=== PATIENT | male | born 1945 | race Caucasian/White ===

== ENCOUNTER → 2016-06-24 | Day surgery (SDC) | payer BC ==
[2016-06-02 11:16] VITALS: BMI 31.0
[~2016-06-24] VITALS: Ht 177.8 cm; Wt 100.0 kg
[~2016-06-24] MED LIST: ACET-1256 PO; ALLO300T2 PO; GLIM1TAB2 PO; LIDOCAINE HCL 2% 2 ML VIAL (20MG/ML) ONE; METF1000 PO; MIDAZOLAM HCL 1 MG/ML 2ML VIAL ONE; ONDANSETRON INJ 2 MG/ML 2 ML VIAL ONE; PROP1TAB53 PO; PROPOFOL IV EMULSION 10 MG/ML 20 ML VIAL IV ONE; SODIUM CHLORIDE 0.9% 500ML 500 ML IV ONE
[2016-06-24 07:56] VITALS: Ht 177.8 cm; Wt 100.0 kg
--- NOTE | 2016-06-24 08:40 | Endo History and Physical ---
History & Physical Date of Service: Jun 24, 2016. Chief Complaint: esophageal varices Referring Physician: venkata hernandez History of Present Illness 70 yo CM who presents for EGD secondary to esophageal varices and cirrhosis. Past Medical History Diabetes, Gastrointestinal Disorder, High Cholesterol, Liver Disease Past Surgical History Hx Cardiac Surgery: No Hx Internal Defibrillator: No Hx Pacemaker: No Hx Abdominal Surgery: Yes (INGUINAL HERNIA REPAIR ) Hx of Implantable Prosthesis: No Hx Post-Op Nausea and Vomiting: No Hx Cancer Surgery: No Hx Thoracic Surgery: No Hx Orthopedic: No Hx Urinary Tract Surgery: No Family History None Social History Smoking Status: Never Smoker Hx Substance Use: No Hx Alcohol Use: Yes (RARELY) Allergies Coded Allergies: No Known Allergies (Unverified , 06/24/16) Current Medications Reported Home Medications Medications Dose Route/Sig Max Daily Dose Days Date Category Glimepiride 1 Mg Tab 1 Tab PO QAM 90 06/02/16 Reported Propranolol HCl 10 Mg Tab 10 Mg PO BID 05/29/14 Reported Glucophage (Metformin Hcl) 1,000 Mg Tab 1,000 Mg PO BIDM 05/29/14 Reported Zyloprim (Allopurinol) 300 Mg Tab 300 Mg PO QAM 05/29/14 Reported Vital Signs Weight (Kilograms): 100.00 Height (Feet): 5 Height (Inches): 10 Date Time Temp Pulse Resp B/P Pulse Ox O2 Delivery O2 Flow Rate FiO2 06/24/16 08:13 36.9 64 18 140/71 97 Room Air Physical Exam General Appearance: WD/WN, no apparent distress Respiratory/Chest: Auscultation: breath sounds normal Cardiovascular: Heart Auscultation: RRR Abdomen: Bowel Sounds: normal Inspection & Palpation: soft, non-distended, no tenderness, guarding & rebound Assessment and Plan Assessment: 70 yo CM who presents for EGD secondary to esophageal varices and cirrhosis. Plan: Proceed with EGD.
--- NOTE | 2016-06-24 09:05 | Discharge Instructions ---
Endoscopy Patient Instructions Date / Procedure(s) Performed Jun 24, 2016. EGD Allergy Information Coded Allergies: No Known Allergies (Unverified , 06/24/16) Discharge Date / Findings Jun 24, 2016. Alcohol induced gastropathy Hiatal hernia Medication Instructions Stopped Medication(s): metformin OK to resume all medications today as prescribed. Reported Home Medications Medications Dose Route/Sig Max Daily Dose Days Date Category Glimepiride 1 Mg Tab 1 Tab PO QAM 90 06/02/16 Reported Propranolol HCl 10 Mg Tab 10 Mg PO BID 05/29/14 Reported Glucophage (Metformin Hcl) 1,000 Mg Tab 1,000 Mg PO BIDM 05/29/14 Reported Zyloprim (Allopurinol) 300 Mg Tab 300 Mg PO QAM 05/29/14 Reported Provider Instructions Activity Restrictions - No exercising or heavy lifting for 24 hours. - Do not drink alcohol the day of the procedure. - Do not drive a car or operate machinery until the day after the procedure. - Do not make any important decisions or sign important papers in 24 hours after the procedure. Following Day: - Return to full activity which may include returning to work/school. Diet Start your diet with liquids and light foods (jello, soup, juice, toast). Then eat your usual diet if not nauseated. Treatment For Common After Affects For mild abdominal pain, bloating, or excessive gas: - Rest - Eat lightly - Lie on right side Follow-Up Information Follow-up with venkata hernandez as scheduled Anesthesia Information What You Should Know You have had a procedure that required some medicine to reduce anxiety and discomfort. This treatment is called moderate sedation. After receiving the treatment, you may be sleepy, but you will be able to breathe on your own. The effects of the treatment may last for several hours. Follow these instructions along with Activity/Diet recommendations noted above: * Do NOT do anything where dizziness or clumsiness would be dangerous. * Rest quietly at home today, then you can be up and about tomorrow. * Have a responsible person stay with you the rest of today. * You may have had an I.V. today. If so, you may take the dressing off later today. Recommendations Call your doctor if: * Trouble breathing * Continuous vomiting for more than 24 hours * Temperature above 101 degrees * Severe abdominal pain or bloating * Pain not relieved by pain medicine ordered * There is increased drainage or redness from any incision * A large amount of rectal bleeding greater than 2-3 tablespoons. (If you had a polyp/s removed or have hemorrhoids, a small amount of blood - from the rectum is to be expected.) * You have any unanswered questions or concerns. IN THE EVENT OF A SERIOUS EMERGENCY, GO TO THE NEAREST EMERGENCY ROOM Your discharge instructions were prepared by provider Shen De Santiago. Patient Instructions Signature Page Neville Gerard Patient (or Guardian) Signature/Date: I have read and understand the instructions given to me by my caregivers. Caregiver/RN/Doctor Signature/Date: The above-named patient and/or guardian has received patient instructions on this date. + Original Patient Signature Page (only) stays with chart. Please make copy for patient.
--- NOTE | 2016-06-24 09:17 | Anesthesiology Progress Note ---
Anesthesia Post Op Note Date & Time Jun 24, 2016 at 09:17 Vital Signs Pain Intensity: 0 Vital Signs Past 12 Hours Date Time Temp Pulse Resp B/P Pulse Ox O2 Delivery O2 Flow Rate FiO2 06/24/16 09:10 70 18 143/67 97 Room Air 06/24/16 08:55 72 18 109/59 97 Room Air 06/24/16 08:13 36.9 64 18 140/71 97 Room Air Notes Mental Status: alert / awake / arousable, participated in evaluation Pt Amnestic to Procedure: Yes Nausea / Vomiting: adequately controlled Pain: adequately controlled Airway Patency, RR, SpO2: stable & adequate BP & HR: stable & adequate Hydration State: stable & adequate Anesthetic Complications: no major complications apparent
--- NOTE | 2016-06-24 09:22 | GI REPORT ---
Procedure Date: 06/24/2016 8:40 AM Procedure: Upper GI endoscopy Indications: Follow-up of esophageal varices Medicines: Monitored Anesthesia Care Complications: No immediate complications. Estimated Blood Loss: Estimated blood loss: none. Procedure: Pre-Anesthesia Assessment: - Prior to the procedure, a History and Physical was performed, and patient medications and allergies were reviewed. The patient's tolerance of previous anesthesia was also reviewed. The risks and benefits of the procedure and the sedation options and risks were discussed with the patient. All questions were answered, and informed consent was obtained. Prior Anticoagulants: The patient has taken no previous anticoagulant or antiplatelet agents. ASA Grade Assessment: III - A patient with severe systemic disease. After reviewing the risks and benefits, the patient was deemed in satisfactory condition to undergo the procedure. After obtaining informed consent, the endoscope was passed under direct vision. Throughout the procedure, the patient's blood pressure, pulse, and oxygen saturations were monitored continuously. The scope was introduced through the mouth, and advanced to the second part of duodenum. The upper GI endoscopy was accomplished without difficulty. The patient tolerated the procedure well. Findings: The esophagus was normal. A small hiatus hernia was present. A few dispersed, non-bleeding erosions were found in the entire examined stomach. There were no stigmata of recent bleeding. The examined duodenum was normal. Impression: - Normal esophagus. - Small hiatus hernia. - Non-bleeding erosive gastropathy. - Normal examined duodenum. - No specimens collected. Recommendation: - Resume previous diet. - Continue present medications. - Repeat the upper endoscopy in 1 year for surveillance. - Return to primary care physician as previously scheduled. Shen De Santiago, DO 06/24/2016 9:22:15 AM This report has been signed electronically. Note Initiated On: 06/24/2016 8:40 AM I attest to the content of the Intraoperative Record and orders documented therein, exceptions below
[2016-06-24 09:25] VITALS: BP 130/69; PULSE 66; O2SAT 97
[2016-06-24 11:02] LABS: INR 1.4 (0.9-1.1); PROTHROMBIN TIME (PATIENT) 14.7 SECONDS (9.0-12.0)
[2016-06-24 11:05] LABS: MEAN CELL VOLUME 99.4 fL (80-100); MEAN CORPUSCULAR HEMOGLOBIN 34.9 pg (25-34); MEAN CORPUSCULAR HGB CONC 35.1 g/dl (32-36); RED BLOOD COUNT 3.52 M/uL (4.7-6.1); WHITE BLOOD COUNT 5.49 K/uL (4.8-10.8)
[2016-06-24 11:20] LABS: ESTIMATED AVERAGE GLUCOSE 117 mg/dl; HA1C FLAG Normal (Normal)
[2016-06-24 11:55] LABS: BASO % 0.4 %; BASO ABS # 0.02 K/uL (0-0.2); COMPLETE YES; EOS % 4.7 %; IG% 0.2 %; LYMPH % 30.2 %; LYMPH ABS # 1.66 K/uL (1.2-3.4); MEAN PLATELET VOLUME 10.1 fL (7.4-10.4); MONO % 11.8 %; NEUT % 52.7 %; PLATELET COUNT 90 K/uL (130-400); PLT ESTIMATE DECREASED
[2016-06-24 11:56] LABS: ALB/GLOB RATIO 0.6 (0.9-2); BUN/CREATININE RATIO 7.6 (10-20); CALCIUM 8.4 mg/dl (8.5-10.1); CREATININE 0.74 mg/dl (0.60-1.40); POTASSIUM 4.1 mmol/L (3.5-5.1); THYROID STIMULATING HORMONE 1.69 uIu/ml (0.300-4.500)
[2016-06-29 21:34] LABS: AFP TUMOR MARKER SERUM 8.5 NG/ML (<6.1)
== END | disposition home or self-care (01) ==
LOC: C.GI 07:49
PROVIDERS: ATTEND Internal Medicine
DX: I85.00 Esophageal varices without bleeding (principal); K74.60 Unspecified cirrhosis of liver; K44.9 Diaphragmatic hernia without obstruction or gangrene; K76.9 Liver disease, unspecified; E11.9 Type 2 diabetes mellitus without complications; E78.5 Hyperlipidemia, unspecified; I10 Essential (primary) hypertension

== ENCOUNTER → 2016-06-30 | Outpatient (CLI) | payer BC ==
[~2016-06-30] MED LIST changes: -LIDOCAINE HCL 2% 2 ML VIAL (20MG/ML) ONE; -MIDAZOLAM HCL 1 MG/ML 2ML VIAL ONE; -ONDANSETRON INJ 2 MG/ML 2 ML VIAL ONE; -PROPOFOL IV EMULSION 10 MG/ML 20 ML VIAL IV ONE; -SODIUM CHLORIDE 0.9% 500ML 500 ML IV ONE
--- NOTE | 2016-06-30 10:12 | DIAGNOSTIC IMAGING REPORT ---
(LIVER) ABDOMEN LIMITED CLINICAL HISTORY: K74.60 [id number] COMPARISON STUDY: No previous studies for comparison. FINDINGS: The pancreas appear normal as visualized. The liver demonstrates coarsened echotexture consistent with the history of cirrhosis. There is low volume ascites. There is no ductal dilatation. The common bile duct measures 5 mm. There is reversed flow within the portal vein. There is no right-sided hydronephrosis. Multiple gallstones are visualized. IMPRESSION: 1. Ultrasonographic evidence of cirrhosis with hepatofugal portal venous flow 2. Upper abdominal varicosities consistent with portal venous hypertension 3. Cholelithiasis. No evidence of ductal dilatation. 4. Low volume ascites Electronically signed by: Jeremy Freeman M.D. 06/30/2016 10:11 AM Dictated Date/Time: 06/30/2016 10:04 AM
== END | disposition home or self-care (01) ==
LOC: C.ULTR 09:10
PROVIDERS: ATTEND Internal Medicine
DX: K74.60 Unspecified cirrhosis of liver (principal)

== ENCOUNTER → 2016-08-01 | Outpatient (CLI) | payer BC ==
--- NOTE | 2016-08-01 11:38 | DIAGNOSTIC IMAGING REPORT ---
Right upper quadrant ultrasound (LIVER) ABDOMEN LIMITED CLINICAL HISTORY: K74.60 Unspecified cirrhosis of [id number] hepatic cirrhosis TECHNIQUE: Ultrasound COMPARISON STUDY: 06/30/2016 FINDINGS: Gallstones are again noted. Gallbladder wall measures 3 mm. Common bile duct is 5 mm. Findings of stable hepatic cirrhosis. Unchanged venous flow characteristics. Patent upper abdominal varicosities with a trace amount of perihepatic ascites. IMPRESSION: 1. No change compared to the prior study. 2. Cirrhotic change of liver with hepatofugal portal venous flow 3. Patent upper abdominal varicosities 4. Trace perihepatic ascites Electronically signed by: Win Lima M.D. 08/01/2016 11:37 AM Dictated Date/Time: 08/01/2016 11:35 AM
== END | disposition home or self-care (01) ==
LOC: C.ULTR 10:33
PROVIDERS: ATTEND Physician Assistant
DX: K74.60 Unspecified cirrhosis of liver (principal)

== ENCOUNTER → 2016-09-09 | Outpatient (CLI) | payer BC ==
[2016-09-09 14:17] LABS: ALB/GLOB RATIO 0.6 (0.9-2); ALKALINE PHOSPHATASE 144 U/L (45-117); ALT/SGPT 34 U/L (12-78); BLOOD UREA NITROGEN 10 mg/dl (7-18); BUN/CREATININE RATIO 14.2 (10-20); CALCIUM 8.7 mg/dl (8.5-10.1); CARBON DIOXIDE 24 mmol/L (21-32); CHLORIDE 106 mmol/L (98-107); CREATININE 0.71 mg/dl (0.60-1.40); GLUCOSE 127 mg/dl (70-99); HDL CHOLESTEROL 55 mg/dl; SODIUM 138 mmol/L (136-145)
[2016-09-09 14:36] LABS: AST/SGOT 53 U/L (15-37)
[2016-09-11 02:57] LABS: REFERENCE QUEST TEST REPORT
== END | disposition home or self-care (01) ==
LOC: C.LAB1850 09:12
PROVIDERS: ATTEND Internal Medicine Pulmonary Disease
DX: Z00.00 Encounter for general adult medical examination without abnormal findings (principal); E11.9 Type 2 diabetes mellitus without complications; E29.1 Testicular hypofunction; M10.00 Idiopathic gout, unspecified site; K70.30 Alcoholic cirrhosis of liver without ascites

== ENCOUNTER 2016-10-31 17:01 | Emergency (ER) | payer BC ==
[~2016-10-31] VITALS: Ht 177.8 cm; Wt 91.0 kg
[~2016-10-31 17:01] MED LIST changes: -ACET-1256 PO
[2016-10-31 17:08] VITALS: TEMP 36.7; Ht 177.8 cm; Wt 91.0 kg
[2016-10-31] MEDS ORDERED: ACET-1256 PO (18:13)
--- NOTE | 2016-10-31 18:13 | DIAGNOSTIC IMAGING REPORT ---
LEFT KNEE 3 VIEWS CLINICAL HISTORY: Left knee twisting injury. Pain and swelling. FINDINGS: AP, crosstable lateral, and sunrise views of left knee are obtained. No prior studies are available for comparison at the time of dictation. The skeletal structures are osteopenic. There is an avulsion fracture identified arising from the medial femoral condyle best seen on the frontal view. Overlying soft tissue edema is observed. No additional fracture is seen. There is only mild tricompartmental degenerative joint space narrowing, greatest at the patellofemoral articulation. There are tiny marginal osteophytes, degenerative beaking of the tibial spine, and tiny patellar enthesophytes. A calcified fabella is incidentally noted. There is a large joint effusion. Atherosclerotic calcification is noted in the popliteal artery. IMPRESSION: 1. There is an avulsion fracture arising from the medial femoral condyle with overlying soft tissue edema. 2. No additional fracture is seen. 3. Large joint effusion. Electronically signed by: Lele Vera M.D. 10/31/2016 6:11 PM Dictated Date/Time: 10/31/2016 6:08 PM
--- NOTE | 2016-10-31 18:29 | EMERGENCY ROOM VISIT NOTE ---
ED Visit Note First contact with patient: 17:20 CHIEF COMPLAINT: knee pain HISTORY OF PRESENT ILLNESS: This 71-year-old male patient presents to the emergency department ambulatory complaining of pain and swelling in the left knee. The patient states that he was at the driving range 2 days ago and hit approximately 50 golf balls. He reports pain and swelling in the left knee, which is the knee that pivots when he swings the golf club. He denies any history of issues with this knee. He is having worsening pain with weightbearing. He rates his discomfort a 9/10. He has been able to ambulate with the aid of a cane. He has been applying ice to the knee without relief. No numbness or tingling. No previous injuries to this knee. No ankle, foot or hip pain. No redness or warmth. REVIEW OF SYSTEMS: A 6 system review of systems was completed with positives and pertinent negatives listed in the HPI. ALLERGIES: No known drug allergies MEDICATIONS: See med list PMH: Diabetes, cirrhosis SOCIAL HISTORY: The patient lives locally with family. Nonsmoker, denies alcohol use. PHYSICAL EXAM: Vital Signs: Reviewed Nurse's notes, vital signs stable. GENERAL : This is a 71-year-old male, no acute distress, but appears in pain, well- developed, well-nourished. MENTAL STATUS: Alert, oriented to person place and time, and cooperative. MUSCULOSKELETAL: The left knee is moderately swollen. There is no ecchymosis. Patient is tender over the anterior knee. There is no joint line tenderness. The patella does not subluxate. Range of motion is decreased due to swelling. Ligamentous exam is not able to be performed due to edema. The foot and toes are warm and well-perfused. Dorsalis pedis pulse 2+. Sensation to pain and light touch is intact. Capillary refill less than 2 seconds. RADIOGRAPHIC FINDINGS: LEFT KNEE 3 VIEWS CLINICAL HISTORY: Left knee twisting injury. Pain and swelling. FINDINGS: AP, crosstable lateral, and sunrise views of left knee are obtained. No prior studies are available for comparison at the time of dictation. The skeletal structures are osteopenic. There is an avulsion fracture identified arising from the medial femoral condyle best seen on the frontal view. Overlying soft tissue edema is observed. No additional fracture is seen. There is only mild tricompartmental degenerative joint space narrowing, greatest at the patellofemoral articulation. There are tiny marginal osteophytes, degenerative beaking of the tibial spine, and tiny patellar enthesophytes. A calcified fabella is incidentally noted. There is a large joint effusion. Atherosclerotic calcification is noted in the popliteal artery. IMPRESSION: 1. There is an avulsion fracture arising from the medial femoral condyle with overlying soft tissue edema. 2. No additional fracture is seen. 3. Large joint effusion. EMERGENCY DEPARTMENT COURSE: I examined the patient. X-rays of the left knee were reviewed by myself and read by radiology and reveal a large joint effusion and avulsion fracture of the medial femoral condyle. This likely occurred with the pivoting motion of the patient's golf swing. He was informed of the findings. The patient was placed in an Silverio wrap and instructed on the use of crutches. He will follow-up with his own orthopedist. He was instructed to elevate the knee for pain and apply ice frequently. The patient was discharged home in good condition. The patient was independently evaluated by Dr. Rm, ED attending physician, who agreed with my assessment and treatment plan. Medication reconciliation: I attest that I have personally reviewed the patient 's current medication list. Blood Pressure Screening: Patient was found to have a slightly elevated blood pressure due to circumstances. I do not believe that the patient requires hypertension monitoring. DIAGNOSIS: Avulsion fracture femoral condyle, left knee effusion Problem List Medical Problems: (1) Diabetes Status: Chronic (2) History of tibial fracture Status: Resolved (3) HTN (hypertension) Status: Chronic (4) Negative history for blood clots Status: Chronic Current/Historical Medications Scheduled Allopurinol (Zyloprim), 300 MG PO QAM Glimepiride (Glimepiride), 1 TAB PO QAM Metformin Hcl (Glucophage), 1,000 MG PO BIDM Propranolol HCl (Propranolol HCl), 10 MG PO BID Scheduled PRN Acetaminophen (Tylenol), 1,000 MG PO Q6 PRN for Pain or Fever Allergies Coded Allergies: No Known Allergies (Unverified , 06/24/16) Vital Signs Date Time Temp Pulse Resp B/P (MAP) Pulse Ox O2 Delivery O2 Flow Rate FiO2 10/31/16 19:08 78 20 150/82 98 10/31/16 17:08 36.7 75 18 176/81 97 Room Air Departure Information Impression Primary Impression: Avulsion fracture of femoral condyle Dispostion Home / Self-Care Condition GOOD Referrals Bernardo Caal M.D. (PCP) Dante Carranza D.O. Patient Instructions My [facility] Additional Instructions You have been treated in the Emergency Department for Knee Pain. The x-ray showed a small avulsion fracture of your knee. For pain control, you can use the following [id number] medicines (if >12 yo): - Regular strength (325mg/tab) Tylenol (acetaminophen) 2 tabs every 4-6 hours as needed. Do not exceed 12 tablets in a 24 hour period. Avoid taking more than 4 grams (4000 mg) of Tylenol per day. This includes any other sources of acetaminophen you may take on a regular basis. If this is a recent injury (<24 hrs), ice can be applied to the area of pain for the first 3 days to help decrease pain and inflammation. Ice massages can be performed by freezing water in a paper cup, peeling back the cup to expose the ice and then massaging over the affected area. You have been provided the number for an Orthopaedic Surgeon. You should call this number as soon as possible to establish a follow-up visit from today's Emergency Department visit. Wear the Silverio wrap and use the crutches you have been provided until follow up with orthopedics. Return to the Emergency Department if your current symptoms worsen despite treatment course outlined above. Problem Qualifiers Primary Impression: Avulsion fracture of femoral condyle Encounter type: initial encounter Fracture type: closed Laterality: left Qualified Codes: S72.412A - Displaced unspecified condyle fracture of lower end of left femur, initial encounter for closed fracture
--- NOTE | 2016-10-31 18:52 | EMERGENCY ROOM VISIT NOTE ---
ED Visit Note First contact with patient: 17:20 Staff note: I have reviewed the Patients chart and have discussed this case with my PA. I generally agree with the ED note and findings.
[2016-10-31 19:08] VITALS: BP 150/82; PULSE 78; O2SAT 98
== END 2016-10-31 19:09 | disposition home or self-care (01) ==
LOC: C.EDB 17:02 → C.EDD 19:09
DX: S72.412A Displaced unspecified condyle fracture of lower end of left femur, initial encounter for closed fracture (principal); X58.XXXA Exposure to other specified factors, initial encounter; E11.9 Type 2 diabetes mellitus without complications; K74.60 Unspecified cirrhosis of liver; I10 Essential (primary) hypertension

== ENCOUNTER → 2016-11-06 | Outpatient (CLI) | payer BC ==
[~2016-11-06] MED LIST changes: +ACET-1256 PO
--- NOTE | 2016-11-06 11:00 | DIAGNOSTIC IMAGING REPORT ---
Venous Doppler left leg LEFT VENOUS DOPP LOWER EXT UNILAT CLINICAL HISTORY: LEFT LEG PAIN/SWELLING pain. Edema. TECHNIQUE: Venous Doppler COMPARISON STUDY: None FINDINGS: Normal study. Note is made of a popliteal cyst measuring 5 x 3 x 1 cm. No evidence of deep venous thrombosis IMPRESSION: Negative for deep venous thrombosis. Popliteal cyst. Electronically signed by: Win Lima M.D. 11/06/2016 10:59 AM Dictated Date/Time: 11/06/2016 10:58 AM
[2016-11-06 14:09] LABS: SYNOVIAL FLUID APPEARANCE BLOODY; SYNOVIAL FLUID COLOR RED; SYNOVIAL FLUID MONONUC RELAT 93.8 %; SYNOVIAL FLUID POLYNUC RELAT 6.2 %
[2016-11-08 16:31] LABS: LYME DNA PCR CSF OR SYNOVIAL Not detected (Not Detected); LYME DNA SOURCE Synovial Fluid
== END | disposition home or self-care (01) ==
LOC: C.ULTRBC 10:02
PROVIDERS: ATTEND Orthopaedic Surgery
DX: M79.605 Pain in left leg (principal); M79.89 Other specified soft tissue disorders; M71.22 Synovial cyst of popliteal space [Baker], left knee

== ENCOUNTER → 2016-12-19 | Outpatient (CLI) | payer BC ==
--- NOTE | 2016-12-19 15:51 | DIAGNOSTIC IMAGING REPORT ---
BILATERAL LOWER EXTREMITY VENOUS DOPPLER HISTORY: Bilateral lower extremity swelling. COMPARISON STUDY: Left leg venous Doppler 11/06/2016. FINDINGS: There is normal compressibility, flow, and augmentation within the bilateral lower extremity deep venous systems. There is again noted a 4.8 x 2.0 x 0.9 cm left popliteal cyst. IMPRESSION: No DVT within the right or left lower extremity. Electronically signed by: Ras Moreira M.D. 12/19/2016 3:50 PM Dictated Date/Time: 12/19/2016 3:49 PM
--- NOTE | 2016-12-23 09:35 | CODING QUERY MEDICAL NECESSITY ---
SUPPORTING DIAGNOSIS NEEDED Walt ZEPEDA, A supporting diagnosis is required for the test/procedure performed on this patient in order for us to be reimbursed by the patient's insurance. Please provide a supporting diagnosis for the following test/procedure listed below next to the test name along with your signature. *If there is no additional diagnosis for this patient that would support the following test/procedure please document that below next to the test/procedure. Test(s)/Procedure(s) that require a supporting diagnosis: * ([id number]) VENOUS DOPPLER LOWER EXT BILAT DIAGNOSIS: DATE OF SERVICE: 12/19/16 Provider Signature: Date: Thank you Sorin Capone [facility] Information Management Once completed, please kindly fax back to [phone] For questions please call [phone]
== END | disposition home or self-care (01) ==
LOC: C.ULTR 14:59
PROVIDERS: ATTEND Physician Assistant Medical
DX: M79.89 Other specified soft tissue disorders (principal)

== ENCOUNTER → 2016-12-23 | Outpatient (CLI) | payer BC ==
[2016-12-23 14:16] LABS: ALB/GLOB RATIO 0.7 (0.9-2); ALKALINE PHOSPHATASE 138 U/L (45-117); ALT/SGPT 38 U/L (12-78); AST/SGOT 56 U/L (15-37); BLOOD UREA NITROGEN 10 mg/dl (7-18); BUN/CREATININE RATIO 12.1 (10-20); CALCIUM 8.8 mg/dl (8.5-10.1); CARBON DIOXIDE 27 mmol/L (21-32); CHLORIDE 103 mmol/L (98-107); CREATININE 0.81 mg/dl (0.60-1.40); GLUCOSE 230 mg/dl (70-99); POTASSIUM 4.1 mmol/L (3.5-5.1); SODIUM 140 mmol/L (136-145)
== END | disposition home or self-care (01) ==
LOC: C.LAB1850 11:02
PROVIDERS: ATTEND Physician Assistant Medical
DX: Z00.00 Encounter for general adult medical examination without abnormal findings (principal); M79.89 Other specified soft tissue disorders

== ENCOUNTER → 2017-01-01 | Outpatient (CLI) | payer BC ==
[2017-01-01 12:33] LABS: BLOOD UREA NITROGEN 13 mg/dl (7-18); BUN/CREATININE RATIO 16.1 (10-20); CALCIUM 9.4 mg/dl (8.5-10.1); CARBON DIOXIDE 25 mmol/L (21-32); CHLORIDE 106 mmol/L (98-107); CREATININE 0.82 mg/dl (0.60-1.40); GLUCOSE 146 mg/dl (70-99); POTASSIUM 3.7 mmol/L (3.5-5.1); SODIUM 142 mmol/L (136-145)
== END | disposition home or self-care (01) ==
LOC: C.LAB1850 11:09
PROVIDERS: ATTEND Physician Assistant Medical
DX: M79.89 Other specified soft tissue disorders (principal)

== ENCOUNTER → 2017-01-30 | Outpatient (CLI) | payer BC ==
[2017-01-30 15:25] LABS: BLOOD UREA NITROGEN 25 mg/dl (7-18); BUN/CREATININE RATIO 20.9 (10-20); CALCIUM 10.1 mg/dl (8.5-10.1); CARBON DIOXIDE 24 mmol/L (21-32); CHLORIDE 96 mmol/L (98-107); GLUCOSE 307 mg/dl (70-99); POTASSIUM 4.6 mmol/L (3.5-5.1); SODIUM 131 mmol/L (136-145)
[2017-01-30 15:48] LABS: BETA-HYDROXYBUTYRATE 1.85 mg/dL (0.2-2.81)
== END | disposition home or self-care (01) ==
LOC: C.LAB1850 12:57
PROVIDERS: ATTEND Nurse Practitioner
DX: R60.9 Edema, unspecified (principal)

== ENCOUNTER → 2017-02-12 | Outpatient (CLI) | payer BC ==
--- NOTE | 2017-02-12 10:55 | DIAGNOSTIC IMAGING REPORT ---
ABDOMINAL ULTRASOUND, RIGHT UPPER QUADRANT HISTORY: LAENNEC'S CIRRHOSIS. COMPARISON: Abdominal ultrasound 08/01/2016. FINDINGS: The pancreas appear normal as visualized. The liver demonstrates coarsened echotexture consistent with the history of cirrhosis. No ascites present. There is no ductal dilatation. The common bile duct measures 3 mm. There is reversed flow within the portal vein. There is no right-sided hydronephrosis. Multiple gallstones are visualized. IMPRESSION: 1. No change from the prior studies with evidence of cirrhosis and hepatofugal portal venous flow. 2. Upper abdominal varicosities consistent with portal venous hypertension 3. Cholelithiasis. No evidence of ductal dilatation. Electronically signed by: Ras Moreira M.D. 02/12/2017 10:53 AM Dictated Date/Time: 02/12/2017 10:50 AM
== END | disposition home or self-care (01) ==
LOC: C.ULTR 10:04
PROVIDERS: ATTEND Physician Assistant
DX: K70.30 Alcoholic cirrhosis of liver without ascites (principal); K74.60 Unspecified cirrhosis of liver

== ENCOUNTER → 2017-03-17 | Outpatient (CLI) | payer BC ==
[2017-03-17 10:24] LABS: HEMATOCRIT 33.6 % (42-52); MEAN CELL VOLUME 95.5 fL (80-100); MEAN CORPUSCULAR HEMOGLOBIN 33.8 pg (25-34); MEAN CORPUSCULAR HGB CONC 35.4 g/dl (32-36); MEAN PLATELET VOLUME 10.4 fL (7.4-10.4); PLATELET COUNT 70 K/uL (130-400); RED BLOOD COUNT 3.52 M/uL (4.7-6.1); WHITE BLOOD COUNT 6.08 K/uL (4.8-10.8)
[2017-03-17 10:29] LABS: BASO % 0.5 %; BASO ABS # 0.03 K/uL (0-0.2); COMPLETE YES; EOS % 9.2 %; IG% 0.3 %; LYMPH % 31.1 %; LYMPH ABS # 1.89 K/uL (1.2-3.4); MONO % 13.3 %; NEUT % 45.6 %; TOXIC GRANULATION 1+
[2017-03-17 10:34] LABS: ALT/SGPT 34 U/L (12-78); AST/SGOT 48 U/L (15-37); BLOOD UREA NITROGEN 14 mg/dl (7-18); BUN/CREATININE RATIO 14.8 (10-20); CALCIUM 8.8 mg/dl (8.5-10.1); CARBON DIOXIDE 23 mmol/L (21-32); CHLORIDE 103 mmol/L (98-107); CREATININE 0.94 mg/dl (0.60-1.40); GLUCOSE 203 mg/dl (70-99); POTASSIUM 3.8 mmol/L (3.5-5.1); SODIUM 134 mmol/L (136-145)
[2017-03-17 10:46] LABS: ALB/GLOB RATIO 0.6 (0.9-2); ALKALINE PHOSPHATASE 145 U/L (45-117)
[2017-03-17 10:46] LABS: RATIO 4.9 mcg/mg (0-30.0)
[2017-03-17 10:52] LABS: ESTIMATED AVERAGE GLUCOSE 186 mg/dl; HA1C FLAG Normal (Normal)
[2017-03-18 11:04] LABS: AFP TUMOR MARKER SERUM 7.1 NG/ML (<6.1)
== END | disposition home or self-care (01) ==
LOC: C.LAB1850 09:08
PROVIDERS: ATTEND Internal Medicine Pulmonary Disease
DX: K70.30 Alcoholic cirrhosis of liver without ascites (principal); I85.00 Esophageal varices without bleeding; E11.9 Type 2 diabetes mellitus without complications; M10.00 Idiopathic gout, unspecified site

== ENCOUNTER → 2017-03-23 | Day surgery (SDC) | payer BC ==
[2017-03-12 08:19] VITALS: Ht 177.8 cm; Wt 93.2 kg
[~2017-03-23] VITALS: Ht 177.8 cm; Wt 93.2 kg
[~2017-03-23] MED LIST changes: +500ML BSS 0.3ML EPI 1:1000PF IRRIG ONE; +ACETAMINOPHEN 325 MG TAB PO PRN; +AMVISC PLUS 0.8ML SYRINGE INT OCU ONE; +ATROPINE SULFATE 0.1 MG/ML 5ML SYR IV PRN; +BRIMONIDINE TART 0.2% OP SOLN PER DROP CHARGE ONE; +BSS FLUSH ONE; +ENDOCOAT 0.85ML SYRINGE INT OCU ONE; +EpHEDrine SULFATE INJ 50 MG/ML AMP IV PRN; +EpINEphrine INJ 1MG/ML AMP 1 MG/ML AMP ONE; +LACTATED RINGER'S 1000ML 500 ML IV SCH; +LIDOCAINE 4% OP SOLN DROP CHARGE ONE; +LIDOCAINE 4% OP SOLN DROP CHARGE OPL SCH; +LIDOCAINE HCL 1% MPF 2 ML VIAL ONE; +MIDAZOLAM HCL 1 MG/ML 2ML VIAL ONE; +MOXIFLOXACIN OPH SOLN PER DROP CHARGE ONE; +POVIDONE-IODINE OP SOLN 30 ML BTL ONE; +PROPARACAINE 0.5% OP SOLN PER DROP CHARGE OPL SCH; +TOBRAMYCIN/DEXAMETHASONE OPH OINT PER APPLN CHARGE ONE
[2017-03-23] MEDS: PHENYLEPHRINE HCL 2.5% OP SOLN PER DROP CHARGE OPL SCH ×2 (06:52→06:57)
[2017-03-23] MEDS: TROPICAMIDE 1% OP SOLN PER DROP CHARGE OPL SCH ×2 (06:53→06:58)
[2017-03-23] MEDS: CYCLOPENTOLATE HCL 1% OP SOLN PER DROP CHARGE OPL SCH ×2 (06:54→06:59)
[2017-03-23] MEDS: KETOROLAC 0.5% OP SOLN PER DROP CHARGE OPL SCH ×2 (06:55→07:00)
[2017-03-23] MEDS: MOXIFLOXACIN OPH SOLN PER DROP CHARGE OPL SCH ×2 (06:56→07:06)
--- NOTE | 2017-03-23 06:58 | History & Physical Bridge - SC ---
H&P Re-Evaluation Bridge Note: I have examined the patient, reviewed the History & Physical and in the interval since the performance of the History & Physical I have noted the following changes of clinical significance: No changes noted
--- NOTE | 2017-03-23 07:59 | Discharge Instructions-SurgCtr ---
Discharge Instructions Date of Service Mar 23, 2017. Visit Reason for Visit: Cataract Left Eye Discharge Discharge Diagnosis / Problem: cataract left eye Discharge Goals Goal(s): Improve function Medications Stopped Medications Name(s): METFORMIN STOPPED 2 DAYS AGO Activity Recommendations Activity Limitations: per Instructions/Follow-up section Lifting Limitations: no more than 5 pounds Anesthesia . Post Anesthesia Instructions: If you have had General Anesthesia or IV Sedation: * Do not drive today. * Resume driving when surgeon permits. * Do not make important decisions or sign legal documents today. * Call surgeon for: 1. Temperature elevations greater than 101 degrees F. 2. Uncontrollable pain. 3. Excessive bleeding. 4. Persistent nausea and vomiting. 5. Medication intolerance (nausea, vomiting or rash). * For nausea and vomiting use only clear liquids such as: tea, soda, bouillon until nausea subsides, then gradually increase diet as tolerated. * If you have any concerns or questions, call your surgeon's office. If physician is unavailable and it is an emergency, call 911 or go to the nearest emergency room. . Instructions / Follow-Up Instructions / Follow-Up ACTIVITY RECOMMENDATIONS: * Light activities * You may walk outside, read, watch television. * Mild irritation and blurred vision are common for the first few days, redness around the white part of the eye is common. MEDICATIONS: Resume previous medications unless instructed otherwise by your surgeon. Eye drops (today and tomorrow): Cipro - one drop in operative eye every 2 hours while awake Prednisolone 1% - one drop in operative eye every 2 hours while awake Ilevro - one drop operative eye 1 times daily SPECIAL CARE INSTRUCTIONS: * If any problems or concerns, please call Dr. Christopehr's office at . * Keep plastic shield taped over eye to sleep at night. * Keep plastic shield taped over eye except to administer eye drops. * Keep plastic shield on until office visit the following day. FOLLOW UP VISIT: Follow-up with Dr. Christopher in the [place] office as scheduled. If not already scheduled, please call the office at . Diet Recommendations Home Diet: resume previous diet Procedures Procedures Performed: Left Cataract Phacoemulsification With Intraocular Lens Implant Pending Studies Studies pending at discharge: no Medical Emergencies . Who to Call and When: Medical Emergencies: If at any time you feel your situation is an emergency, please call 911 immediately. . Non-Emergent Contact Non-Emergency issues call your: [facility] . . "Provider Documentation" section prepared by Jc Christopher. .
[2017-03-23 08:00] VITALS: TEMP 37
--- NOTE | 2017-03-23 08:01 | [facility] Operative Report ---
Operative Report Operative Date Mar 23, 2017. Pre-Operative Diagnosis Cataract Left Eye Post-Operative Diagnosis Same Procedure(s) Performed Left Cataract Phacoemulsification With Intraocular Lens Implant Surgeon Dr. Christopher Hot Top Liner Surgeon(s) None Estimated Blood Loss 0 Findings cataract left eye Fluids (cc crystalloids) see anesthesia record Specimens None Drains none Anesthesia local with sedation Complication(s) None Disposition Recovery Room / PACU Implants mx60 16.5 Indications decreased vision left eye Description of Procedure After informed consent was obtained in the holding area the patient was wheeled back to the operating room where cardiac monitoring leads and oxygen by nasal cannula was administered by Anesthesia. Gentle IV sedation was given, and the patient's left eye was prepped and draped in usual sterile fashion. A wire lid speculum was placed into the left eye and the operating microscope was swung into position. Using 0.12 forceps and a Supersharp blade a paracentesis port was made 2 o'clock hours away from the 3 o'clock position of the patient's left eye. 1% non-preserved Lidocaine was then injected into the anterior chamber for anesthesia. A 2.0 mm keratotome blade was then used to make a shelved clear corneal incision at the 3 o'clock position of the left eye. Amvisc was injected into the anterior chamber and a cystotome and Utrata forceps were used to perform a curvilinear capsulorrhexis. BSS on a hydrodissection cannula was used to hydrodissect the lens nucleus away from the capsular bag. The phacoemulsification handpiece was then used in a stop and chop fashion to remove the lens nucleus. The irrigation and aspiration handpiece was then used to remove the residual cortical material. Amvisc was injected into the capsular bag and anterior chamber and a Bausch & Lomb MX60 16.5 Diopter intraocular lens was injected into the capsular bag. Irrigation and aspiration handpiece was used to remove the residual viscoelastic material. The wounds were hydrated and noted to be watertight. The wire lid speculum was removed from the eye. Vigamox, Brimonidine, and TobraDex ointment were placed on the eye and it was shielded. It should be noted that EndoCoat was used extensively during the case to protect the cornea endothelium. DISPOSITION: The patient tolerated the procedure well and was wheeled to the post anesthesia care unit in stable condition. I attest to the content of the Intraoperative Record and any orders documented therein. Any exceptions are noted below. I attest to the content of the Intraoperative Record and any orders documented therein. Any exceptions are noted below.
--- NOTE | 2017-03-23 08:30 | Anesthesia Progress Nt - [facility] ---
Anesthesia Post Op Note Date & Time Mar 23, 2017 at 08:30 Vital Signs Pain Intensity: 0 Vital Signs Past 12 Hours Date Time Temp Pulse Resp B/P (MAP) Pulse Ox O2 Delivery O2 Flow Rate FiO2 03/23/17 08:00 37.0 64 12 125/71 (89) 96 Room Air 03/23/17 06:41 36.7 64 20 109/72 (84) 96 Room Air Notes Mental Status: alert / awake / arousable, participated in evaluation Pt Amnestic to Procedure: Yes Nausea / Vomiting: adequately controlled Pain: adequately controlled Airway Patency, RR, SpO2: stable & adequate BP & HR: stable & adequate Hydration State: stable & adequate Anesthetic Complications: no major complications apparent
[2017-03-23 08:46] VITALS: BP 108/68; PULSE 61; O2SAT 97
== END | disposition home or self-care (01) ==
LOC: X.SURG 06:31
PROVIDERS: ATTEND Ophthalmology
DX: H25.12 Age-related nuclear cataract, left eye (principal); E11.9 Type 2 diabetes mellitus without complications; K76.9 Liver disease, unspecified

== ENCOUNTER → 2017-04-13 | Day surgery (SDC) | payer BC ==
[2017-03-31 14:47] VITALS: Ht 177.8 cm; Wt 93.2 kg
[~2017-04-13] VITALS: Ht 177.8 cm; Wt 93.2 kg
[~2017-04-13] MED LIST changes: +BRIMONIDINE TARTRATE 0.2% 5ML ONE; -LIDOCAINE 4% OP SOLN DROP CHARGE OPL SCH; +LIDOCAINE 4% OP SOLN DROP CHARGE OPR SCH; +ONDANSETRON INJ 2 MG/ML 2 ML VIAL IV PRN; -PROPARACAINE 0.5% OP SOLN PER DROP CHARGE OPL SCH; +PROPARACAINE 0.5% OP SOLN PER DROP CHARGE OPR SCH
[2017-04-13] MEDS: PHENYLEPHRINE HCL 2.5% OP SOLN PER DROP CHARGE OPR SCH ×2 (06:37→06:42)
[2017-04-13] MEDS: TROPICAMIDE 1% OP SOLN PER DROP CHARGE OPR SCH ×2 (06:38→06:43)
[2017-04-13] MEDS: CYCLOPENTOLATE HCL 1% OP SOLN PER DROP CHARGE OPR SCH ×2 (06:39→06:44)
[2017-04-13] MEDS: KETOROLAC 0.5% OP SOLN PER DROP CHARGE OPR SCH ×2 (06:40→06:45)
[2017-04-13] MEDS: MOXIFLOXACIN OPH SOLN PER DROP CHARGE OPR SCH ×2 (06:41→06:49)
--- NOTE | 2017-04-13 07:32 | Discharge Instructions-SurgCtr ---
Discharge Instructions Date of Service Apr 13, 2017. Visit Reason for Visit: Cataract Right Eye Discharge Discharge Diagnosis / Problem: cataract right eye Discharge Goals Goal(s): Improve function Medications Stopped Medications Name(s): Diabetic medications stopped 48 hours Activity Recommendations Activity Limitations: per Instructions/Follow-up section Lifting Limitations: no more than 5 pounds Anesthesia . Post Anesthesia Instructions: If you have had General Anesthesia or IV Sedation: * Do not drive today. * Resume driving when surgeon permits. * Do not make important decisions or sign legal documents today. * Call surgeon for: 1. Temperature elevations greater than 101 degrees F. 2. Uncontrollable pain. 3. Excessive bleeding. 4. Persistent nausea and vomiting. 5. Medication intolerance (nausea, vomiting or rash). * For nausea and vomiting use only clear liquids such as: tea, soda, bouillon until nausea subsides, then gradually increase diet as tolerated. * If you have any concerns or questions, call your surgeon's office. If physician is unavailable and it is an emergency, call 911 or go to the nearest emergency room. . Instructions / Follow-Up Instructions / Follow-Up ACTIVITY RECOMMENDATIONS: * Light activities * You may walk outside, read, watch television. * Mild irritation and blurred vision are common for the first few days, redness around the white part of the eye is common. MEDICATIONS: Resume previous medications unless instructed otherwise by your surgeon. Eye drops (today and tomorrow): Cipro - one drop in operative eye every 2 hours while awake Prednisolone 1% - one drop in operative eye every 2 hours while awake Ilevro - one drop operative eye 1 times daily SPECIAL CARE INSTRUCTIONS: * If any problems or concerns, please call Dr. Christopher's office at . * Keep plastic shield taped over eye to sleep at night. * Keep plastic shield taped over eye except to administer eye drops. * Keep plastic shield on until office visit the following day. FOLLOW UP VISIT: Follow-up with Dr. Christopher in the [place] office as scheduled. If not already scheduled, please call the office at . Diet Recommendations Home Diet: resume previous diet Procedures Procedures Performed: Right Cataract Phacoemulsification With Intraocular Lens Implant Pending Studies Studies pending at discharge: no Medical Emergencies . Who to Call and When: Medical Emergencies: If at any time you feel your situation is an emergency, please call 911 immediately. . Non-Emergent Contact Non-Emergency issues call your: [facility] . . "Provider Documentation" section prepared by Jc Christopher. .
--- NOTE | 2017-04-13 07:34 | [facility] Operative Report ---
Operative Report Operative Date Apr 13, 2017. Pre-Operative Diagnosis Right Eye Cataract Post-Operative Diagnosis Same Procedure(s) Performed Right Cataract Phacoemulsification With Intraocular Lens Implant Surgeon Dr. Amarilys Christopher Grinder Operator Automatic Surgeon(s) None Estimated Blood Loss 0 Findings cataract right eye Fluids (cc crystalloids) see anesthesia record Specimens None Drains none Anesthesia local with sedation Complication(s) None Disposition Recovery Room / PACU Implants mx60 16.5 Indications decreased vision right eye Description of Procedure After informed consent was obtained in the holding area the patient was wheeled back to the operating room where cardiac monitoring leads and oxygen by nasal cannula was administered by Anesthesia. Gentle IV sedation was given, and the patient's right eye was prepped and draped in usual sterile fashion. A wire lid speculum was placed into the right eye and the operating microscope was swung into position. Using 0.12 forceps and a Supersharp blade a paracentesis port was made 2 o'clock hours away from the 9 o'clock position of the patient's right eye. 1% non-preserved Lidocaine was then injected into the anterior chamber for anesthesia. A 2.0 mm keratotome blade was then used to make a shelved clear corneal incision at the 9 o'clock position of the right eye. Amvisc was injected into the anterior chamber and a cystotome and Utrata forceps were used to perform a curvilinear capsulorrhexis. BSS on a hydrodissection cannula was used to hydrodissect the lens nucleus away from the capsular bag. The phacoemulsification handpiece was then used in a stop and chop fashion to remove the lens nucleus. The irrigation and aspiration handpiece was then used to remove the residual cortical material. Amvisc was injected into the capsular bag and anterior chamber and a Bausch & Lomb MX60 16.5 Diopter intraocular lens was injected into the capsular bag. Irrigation and aspiration handpiece was used to remove the residual viscoelastic material. The wounds were hydrated and noted to be watertight. The wire lid speculum was removed from the eye. Vigamox, Brimonidine, and TobraDex ointment were placed on the eye and it was shielded. It should be noted that EndoCoat was used extensively during the case to protect the cornea endothelium. DISPOSITION: The patient tolerated the procedure well and was wheeled to the post anesthesia care unit in stable condition. I attest to the content of the Intraoperative Record and any orders documented therein. Any exceptions are noted below. I attest to the content of the Intraoperative Record and any orders documented therein. Any exceptions are noted below.
[2017-04-13 07:35] VITALS: TEMP 36.7
--- NOTE | 2017-04-13 07:53 | Anesthesia Progress Nt - [facility] ---
Anesthesia Post Op Note Date & Time Apr 13, 2017 at 07:53 Vital Signs Pain Intensity: 0 Vital Signs Past 12 Hours Date Time Temp Pulse Resp B/P (MAP) Pulse Ox O2 Delivery O2 Flow Rate FiO2 04/13/17 07:35 36.7 54 16 124/75 (91) 97 Room Air 04/13/17 06:25 36.7 59 16 107/58 (74) 99 Room Air Notes Mental Status: alert / awake / arousable, participated in evaluation Pt Amnestic to Procedure: Yes Nausea / Vomiting: adequately controlled Pain: adequately controlled Airway Patency, RR, SpO2: stable & adequate BP & HR: stable & adequate Hydration State: stable & adequate Anesthetic Complications: no major complications apparent
[2017-04-13 08:02] VITALS: BP 113/57; PULSE 56; O2SAT 100
== END | disposition home or self-care (01) ==
LOC: X.SURG 06:04
PROVIDERS: ATTEND Ophthalmology
DX: H25.11 Age-related nuclear cataract, right eye (principal); K76.9 Liver disease, unspecified; E11.36 Type 2 diabetes mellitus with diabetic cataract; Z79.84 Long term (current) use of oral hypoglycemic drugs; Z79.899 Other long term (current) drug therapy

== ENCOUNTER → 2017-06-24 | Day surgery (SDC) | payer BC ==
[~2017-06-24] VITALS: Ht 177.8 cm; Wt 95.5 kg
[~2017-06-24] MED LIST changes: -500ML BSS 0.3ML EPI 1:1000PF IRRIG ONE; -ACETAMINOPHEN 325 MG TAB PO PRN; -AMVISC PLUS 0.8ML SYRINGE INT OCU ONE; -ATROPINE SULFATE 0.1 MG/ML 5ML SYR IV PRN; -BRIMONIDINE TART 0.2% OP SOLN PER DROP CHARGE ONE; -BRIMONIDINE TARTRATE 0.2% 5ML ONE; -BSS FLUSH ONE; -ENDOCOAT 0.85ML SYRINGE INT OCU ONE; -EpHEDrine SULFATE INJ 50 MG/ML AMP IV PRN; -EpINEphrine INJ 1MG/ML AMP 1 MG/ML AMP ONE; -LACTATED RINGER'S 1000ML 500 ML IV SCH; -LIDOCAINE 4% OP SOLN DROP CHARGE ONE; -LIDOCAINE 4% OP SOLN DROP CHARGE OPR SCH; -LIDOCAINE HCL 1% MPF 2 ML VIAL ONE; +LIDOCAINE HCL 2% 2 ML VIAL (20MG/ML) ONE; -MOXIFLOXACIN OPH SOLN PER DROP CHARGE ONE; -ONDANSETRON INJ 2 MG/ML 2 ML VIAL IV PRN; +ONDANSETRON INJ 2 MG/ML 2 ML VIAL ONE; -POVIDONE-IODINE OP SOLN 30 ML BTL ONE; -PROPARACAINE 0.5% OP SOLN PER DROP CHARGE OPR SCH; +PROPOFOL IV EMULSION 10 MG/ML 20 ML VIAL IV ONE; +SPIR25TA PO; -TOBRAMYCIN/DEXAMETHASONE OPH OINT PER APPLN CHARGE ONE
[2017-06-24 07:58] VITALS: Ht 177.8 cm; Wt 95.5 kg
--- NOTE | 2017-06-24 08:40 | Endo History and Physical ---
History & Physical Date of Service: Jun 24, 2017. Chief Complaint: ESOPHAGEAL VARICES Referring Physician: DR. ENRIQUEZ History of Present Illness 71 yo CM who presents for EGD secondary to Esophageal varices. Past Medical History Diabetes, Gastrointestinal Disorder, High Cholesterol, Liver Disease Past Surgical History Hx Cardiac Surgery: No Hx Internal Defibrillator: No Hx Pacemaker: No Hx Abdominal Surgery: Yes (INGUINAL HERNIA REPAIR ) Hx of Implantable Prosthesis: No Hx Post-Op Nausea and Vomiting: No Hx Cancer Surgery: No Hx Thoracic Surgery: No Hx Orthopedic: No Hx Urinary Tract Surgery: No Family History None Social History Smoking Status: Never Smoker Hx Substance Use: No Hx Alcohol Use: No Allergies Coded Allergies: No Known Allergies (Unverified , 06/24/17) Current Medications Reported Home Medications Medications Dose Route/Sig Max Daily Dose Days Date Category Aldactone (Spironolactone) 25 Mg Tab 25 Mg PO QAM 06/11/17 Reported Tylenol (Acetaminophen) 500 Mg Tab 1,000 Mg PO Q6 PRN 10/31/16 Reported Glimepiride 1 Mg Tab 1 Tab PO QAM 06/02/16 Reported Propranolol HCl 10 Mg Tab 10 Mg PO QAM 05/29/14 Reported Glucophage (Metformin Hcl) 1,000 Mg Tab 1,000 Mg PO QPM 05/29/14 Reported Zyloprim (Allopurinol) 300 Mg Tab 300 Mg PO QAM 05/29/14 Reported Vital Signs Weight (Kilograms): 95.45 Height (Feet): 5 Height (Inches): 10 Date Time Temp Pulse Resp B/P (MAP) Pulse Ox O2 Delivery O2 Flow Rate FiO2 06/24/17 08:12 37.1 60 20 142/68 (92) 97 Room Air Physical Exam General Appearance: WD/WN, no apparent distress Respiratory/Chest: Auscultation: breath sounds normal Cardiovascular: Heart Auscultation: RRR Abdomen: Bowel Sounds: normal Inspection & Palpation: soft, non-distended, no tenderness, guarding & rebound Assessment and Plan Assessment: 71 yo CM who presents for EGD secondary to Esophageal varices. Plan: Proceed with EGD.
--- NOTE | 2017-06-24 08:59 | Discharge Instructions ---
Endoscopy Patient Instructions Date / Procedure(s) Performed Jun 24, 2017. EGD Allergy Information Coded Allergies: No Known Allergies (Unverified , 06/24/17) Discharge Date / Findings Jun 24, 2017. Normal EGD Medication Instructions OK to resume all medications today as prescribed Reported Home Medications Medications Dose Route/Sig Max Daily Dose Days Date Category Aldactone (Spironolactone) 25 Mg Tab 25 Mg PO QAM 06/11/17 Reported Tylenol (Acetaminophen) 500 Mg Tab 1,000 Mg PO Q6 PRN 10/31/16 Reported Glimepiride 1 Mg Tab 1 Tab PO QAM 06/02/16 Reported Propranolol HCl 10 Mg Tab 10 Mg PO QAM 05/29/14 Reported Glucophage (Metformin Hcl) 1,000 Mg Tab 1,000 Mg PO QPM 05/29/14 Reported Zyloprim (Allopurinol) 300 Mg Tab 300 Mg PO QAM 05/29/14 Reported Provider Instructions Activity Restrictions - No exercising or heavy lifting for 24 hours. - Do not drink alcohol the day of the procedure. - Do not drive a car or operate machinery until the day after the procedure. - Do not make any important decisions or sign important papers in 24 hours after the procedure. Following Day: - Return to full activity which may include returning to work/school. Diet Start your diet with liquids and light foods (jello, soup, juice, toast). Then eat your usual diet if not nauseated. Treatment For Common After Affects For mild abdominal pain, bloating, or excessive gas: - Rest - Eat lightly - Lie on right side Follow-Up Information Follow-up with DR. ENRIQUEZ as scheduled Anesthesia Information What You Should Know You have had a procedure that required some medicine to reduce anxiety and discomfort. This treatment is called moderate sedation. After receiving the treatment, you may be sleepy, but you will be able to breathe on your own. The effects of the treatment may last for several hours. Follow these instructions along with Activity/Diet recommendations noted above: * Do NOT do anything where dizziness or clumsiness would be dangerous. * Rest quietly at home today, then you can be up and about tomorrow. * Have a responsible person stay with you the rest of today. * You may have had an I.V. today. If so, you may take the dressing off later today. Recommendations Call your doctor if: * Trouble breathing * Continuous vomiting for more than 24 hours * Temperature above 101 degrees * Severe abdominal pain or bloating * Pain not relieved by pain medicine ordered * There is increased drainage or redness from any incision * A large amount of rectal bleeding greater than 2-3 tablespoons. (If you had a polyp/s removed or have hemorrhoids, a small amount of blood - from the rectum is to be expected.) * You have any unanswered questions or concerns. IN THE EVENT OF A SERIOUS EMERGENCY, GO TO THE NEAREST EMERGENCY ROOM Your discharge instructions were prepared by provider Shen De Santiago. Patient Instructions Signature Page Neville Gerard Patient (or Guardian) Signature/Date: I have read and understand the instructions given to me by my caregivers. Caregiver/RN/Doctor Signature/Date: The above-named patient and/or guardian has received patient instructions on this date. + Original Patient Signature Page (only) stays with chart. Please make copy for patient.
--- NOTE | 2017-06-24 09:01 | GI REPORT ---
Procedure Date: 06/24/2017 8:44 AM Procedure: Upper GI endoscopy Indications: Cirrhosis with suspected esophageal varices, Follow-up of esophageal varices Medicines: Monitored Anesthesia Care Complications: No immediate complications. Estimated Blood Loss: Estimated blood loss: none. Procedure: Pre-Anesthesia Assessment: - Prior to the procedure, a History and Physical was performed, and patient medications and allergies were reviewed. The patient's tolerance of previous anesthesia was also reviewed. The risks and benefits of the procedure and the sedation options and risks were discussed with the patient. All questions were answered, and informed consent was obtained. Prior Anticoagulants: The patient has taken no previous anticoagulant or antiplatelet agents. ASA Grade Assessment: III - A patient with severe systemic disease. After reviewing the risks and benefits, the patient was deemed in satisfactory condition to undergo the procedure. After obtaining informed consent, the endoscope was passed under direct vision. Throughout the procedure, the patient's blood pressure, pulse, and oxygen saturations were monitored continuously. The Scope was introduced through the mouth, and advanced to the second part of duodenum. The upper GI endoscopy was accomplished without difficulty. The patient tolerated the procedure well. Findings: The esophagus was normal. The stomach was normal. The examined duodenum was normal. Impression: - Normal esophagus. - Normal stomach. - Normal examined duodenum. - No specimens collected. Recommendation: - Resume previous diet. - Continue present medications. - Return to GI office as previously scheduled. - Repeat upper endoscopy in 2 years for surveillance. - Return to primary care physician as previously scheduled. Shen De Santiago DO 06/24/2017 9:01:02 AM This report has been signed electronically. Note Initiated On: 06/24/2017 8:44 AM I attest to the content of the Intraoperative Record and orders documented therein, exceptions below
--- NOTE | 2017-06-24 09:18 | Anesthesiology Progress Note ---
Anesthesia Post Op Note Date & Time Jun 24, 2017 at 09:18 Vital Signs Pain Intensity: 0 Vital Signs Past 12 Hours Date Time Temp Pulse Resp B/P (MAP) Pulse Ox O2 Delivery O2 Flow Rate FiO2 06/24/17 09:00 71 20 105/43 (63) 96 Room Air 06/24/17 08:12 37.1 60 20 142/68 (92) 97 Room Air Notes Mental Status: alert / awake / arousable, participated in evaluation Pt Amnestic to Procedure: Yes Nausea / Vomiting: adequately controlled Pain: adequately controlled Airway Patency, RR, SpO2: stable & adequate BP & HR: stable & adequate Hydration State: stable & adequate Anesthetic Complications: no major complications apparent
[2017-06-24 09:32] VITALS: BP 151/71; PULSE 63; O2SAT 97
== END | disposition home or self-care (01) ==
LOC: C.GI 07:49
PROVIDERS: ATTEND Internal Medicine
DX: I85.00 Esophageal varices without bleeding (principal); I10 Essential (primary) hypertension; E11.9 Type 2 diabetes mellitus without complications; K74.60 Unspecified cirrhosis of liver; R01.1 Cardiac murmur, unspecified; E78.00 Pure hypercholesterolemia, unspecified; K76.9 Liver disease, unspecified; Z79.84 Long term (current) use of oral hypoglycemic drugs; Z90.89 Acquired absence of other organs; Z98.41 Cataract extraction status, right eye; Z98.42 Cataract extraction status, left eye

== ENCOUNTER → 2017-08-18 | Outpatient (CLI) | payer BC ==
[~2017-08-18] MED LIST changes: -LIDOCAINE HCL 2% 2 ML VIAL (20MG/ML) ONE; -MIDAZOLAM HCL 1 MG/ML 2ML VIAL ONE; -ONDANSETRON INJ 2 MG/ML 2 ML VIAL ONE; -PROPOFOL IV EMULSION 10 MG/ML 20 ML VIAL IV ONE
--- NOTE | 2017-08-18 08:19 | DIAGNOSTIC IMAGING REPORT ---
(LIVER) ABDOMEN LIMITED CLINICAL HISTORY: 72 years-old Male presenting with K70.30 Laennec's cirrhosis (alcoholic)[id number]. TECHNIQUE: Real-time grayscale and limited color Doppler ultrasound imaging of the abdomen limited to the right upper quadrant was performed. COMPARISON: 02/12/2017. FINDINGS: Pancreas: Largely obscured due to overlying bowel gas. Liver: Nodular contour with hyperechogenic parenchyma and heterogeneous echotexture, consistent with cirrhosis. No sonographic evidence of hepatic mass. Main portal vein patent with reversal of normal directional flow. Biliary: No intrahepatic biliary ductal dilatation. Common bile duct measures up to 3 mm in diameter. Gallbladder: Gallstones without evidence of gallbladder distention, wall thickening, or pericholecystic fluid or inflammatory change. Right kidney: Normal in appearance. No hydronephrosis. Ascites: None. Other: Venous varicosities noted with prominent recanalization of the periumbilical vein. IMPRESSION: 1. Cirrhosis. No gross sonographic evidence of a mass. Contrast-enhanced cross-sectional imaging has better sensitivity for hepatocellular carcinoma screening. 2. Portal hypertension evidenced by hepatofugal flow and varices. 3. Cholelithiasis. No biliary ductal dilatation. Electronically signed by: Dante Alford M.D. 08/18/2017 8:18 AM Dictated Date/Time: 08/18/2017 8:14 AM
== END | disposition home or self-care (01) ==
PROVIDERS: ATTEND Physician Assistant
DX: K70.30 Alcoholic cirrhosis of liver without ascites (principal)

== ENCOUNTER → 2017-08-28 | Outpatient (CLI) | payer BC ==
[2017-08-28 09:40] LABS: HEMATOCRIT 31.4 % (42-52); HEMOGLOBIN 10.7 g/dL (14.0-18.0); MEAN CELL VOLUME 97.5 fL (80-100); MEAN CORPUSCULAR HEMOGLOBIN 33.2 pg (25-34); MEAN CORPUSCULAR HGB CONC 34.1 g/dl (32-36); MEAN PLATELET VOLUME 10.1 fL (7.4-10.4); PLATELET COUNT 85 K/uL (130-400); RED CELL DISTRIBUTION WIDTH CV 16.4 % (11.5-14.5); RED CELL DISTRIBUTION WIDTH SD 58.7 fL (36.4-46.3)
[2017-08-28 09:50] LABS: ALBUMIN 2.7 gm/dl (3.4-5.0); ALT/SGPT 25 U/L (12-78); AST/SGOT 39 U/L (15-37); BLOOD UREA NITROGEN 15 mg/dl (7-18); CALCIUM 9.1 mg/dl (8.5-10.1); CARBON DIOXIDE 23 mmol/L (21-32); CREATININE 1.05 mg/dl (0.60-1.40); GLUCOSE 146 mg/dl (70-99); POTASSIUM 3.9 mmol/L (3.5-5.1); SODIUM 136 mmol/L (136-145)
[2017-08-28 09:52] LABS: INR 1.2 (0.9-1.1)
[2017-08-28 09:53] LABS: ALKALINE PHOSPHATASE 151 U/L (45-117); TOTAL PROTEIN 6.8 gm/dl (6.4-8.2)
[2017-08-28 09:54] LABS: HEMOGLOBIN A1C 7.6 % (4.5-5.6)
[2017-08-28 10:02] LABS: ALBUMIN 2.8 gm/dl (3.4-5.0); ALT/SGPT 25 U/L (12-78); AST/SGOT 38 U/L (15-37); BLOOD UREA NITROGEN 16 mg/dl (7-18); CALCIUM 9.1 mg/dl (8.5-10.1); CARBON DIOXIDE 24 mmol/L (21-32); CHOLESTEROL 116 mg/dl (0-200); CREATININE 1.06 mg/dl (0.60-1.40); GLUCOSE 148 mg/dl (70-99); POTASSIUM 3.9 mmol/L (3.5-5.1); SODIUM 137 mmol/L (136-145)
[2017-08-28 10:05] LABS: ALKALINE PHOSPHATASE 148 U/L (45-117); LDL CHOLESTEROL CALCULATED 63 mg/dl; TOTAL PROTEIN 6.9 gm/dl (6.4-8.2)
[2017-08-28 10:11] LABS: BASO % 0.5 %; BASO ABS # 0.03 K/uL (0-0.2); EOS ABS # 0.57 K/uL (0-0.5); IG# 0.01 K/uL (0.00-0.02); LYMPH % 31.1 %; LYMPH ABS # 1.77 K/uL (1.2-3.4); MONO % 14.4 %; MONO ABS # 0.82 K/uL (0.11-0.59); NEUT % 43.8 %
== END | disposition home or self-care (01) ==
LOC: C.LAB1850 07:57
PROVIDERS: ATTEND Internal Medicine Pulmonary Disease
DX: K70.30 Alcoholic cirrhosis of liver without ascites (principal); I85.00 Esophageal varices without bleeding; E11.9 Type 2 diabetes mellitus without complications; M79.89 Other specified soft tissue disorders

== ENCOUNTER → 2017-09-03 | Outpatient (CLI) | payer BC ==
[~2017-09-03] MED LIST changes: +OPTIRAY 320 IV PRN
--- NOTE | 2017-09-03 13:49 | DIAGNOSTIC IMAGING REPORT ---
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 COMPARISON STUDY: Ultrasound 08/18/2017 and 02/12/2017. CT 06/01/2015. FINDINGS: Stable findings of diffuse hepatic cirrhotic change. Nodularity of the outer cortical margin with cortical scarring of the liver capsule is similar. No significant space-occupying lesion within the liver. Gallbladder is moderately distended with several gallstones. Pancreas is uniform. Upper abdominal varices are stable compared to the prior exam. Mild stable splenomegaly. Atherosclerotic change abdominal aorta as well as celiac axis and superior mesenteric arterial vasculature. This is unchanged in the prior study. Collateral periumbilical vasculature is present. Bowel pattern is nonobstructive. IMPRESSION: 1. Unchanged CT of the abdomen compared to the prior exam. 2. Findings of stable hepatic cirrhosis, varices, and mild splenomegaly. 3. No significant space-occupying lesion of the liver. 4. Gallstones with mild gallbladder distention. 5. Several reactive abdominal lymph nodes unchanged from the prior study. 6. No evidence for new or interval process. The above report was generated using voice recognition software. It may contain grammatical, syntax or spelling errors. Electronically signed by: Win Lima M.D. 09/03/2017 1:48 PM Dictated Date/Time: 09/03/2017 1:42 PM
== END | disposition home or self-care (01) ==
LOC: C.CTS 12:49
PROVIDERS: ATTEND Physician Assistant
DX: K70.30 Alcoholic cirrhosis of liver without ascites (principal); R77.2 Abnormality of alphafetoprotein; R93.5 Abnormal findings on diagnostic imaging of other abdominal regions, including retroperitoneum; K80.20 Calculus of gallbladder without cholecystitis without obstruction

== ENCOUNTER → 2017-11-23 | Outpatient (CLI) | payer BC ==
[~2017-11-23] MED LIST changes: -OPTIRAY 320 IV PRN
--- NOTE | 2017-11-23 12:31 | DIAGNOSTIC IMAGING REPORT ---
ULTRASOUND OF THE CAROTID ARTERIES CLINICAL HISTORY: R42 ATHEROSCLEROTIC DISEASE. COMPARISON STUDY: None. TECHNIQUE: Real-time, grayscale, and color Doppler sonography of the carotid arteries was performed. Imaging reviewed in the transverse and longitudinal planes. NASCET criteria was utilized for stenosis calcification. FINDINGS: There is mild atherosclerotic plaque present . The peak systolic velocity within the right internal carotid artery is 71 cm/sec. The systolic velocity ratio of right internal to common carotid artery is 0.6. The peak systolic velocity within the left internal carotid artery is 74 cm/sec. The systolic velocity ratio left internal to common carotid artery is 0.7. Antegrade flow is seen in the vertebral arteries. The external carotid arteries are patent. Blood pressure in the right arm measured 123 mm/Hg. Blood pressure in the left arm measured 108 mm/Hg. IMPRESSION: No evidence of hemodynamically significant carotid stenosis. Electronically signed by: Jeremy Freeman M.D. 11/23/2017 12:30 PM Dictated Date/Time: 11/23/2017 12:28 PM
== END | disposition home or self-care (01) ==
LOC: C.ULTRBC 10:49
PROVIDERS: ATTEND Physician Assistant Medical
DX: R42 Dizziness and giddiness (principal)

== ENCOUNTER → 2017-12-11 | Outpatient (CLI) | payer BC ==
[2017-12-11 12:17] LABS: HEMATOCRIT 35.4 % (42-52); HEMOGLOBIN 11.8 g/dL (14.0-18.0); MEAN CELL VOLUME 101.7 fL (80-100); MEAN CORPUSCULAR HEMOGLOBIN 33.9 pg (25-34); MEAN CORPUSCULAR HGB CONC 33.3 g/dl (32-36); RED CELL DISTRIBUTION WIDTH CV 16.8 % (11.5-14.5); RED CELL DISTRIBUTION WIDTH SD 61.8 fL (36.4-46.3); WHITE BLOOD COUNT 6.12 K/uL (4.8-10.8)
[2017-12-11 12:28] LABS: MEAN PLATELET VOLUME 11.1 fL (7.4-10.4); PLATELET COUNT 91 K/uL (130-400)
[2017-12-11 13:01] LABS: ALBUMIN 2.8 gm/dl (3.4-5.0); ALKALINE PHOSPHATASE 97 U/L (45-117); ALT/SGPT 29 U/L (12-78); AST/SGOT 39 U/L (15-37); BLOOD UREA NITROGEN 22 mg/dl (7-18); CALCIUM 9.4 mg/dl (8.5-10.1); CARBON DIOXIDE 23 mmol/L (21-32); GLUCOSE 197 mg/dl (70-99); POTASSIUM 4.3 mmol/L (3.5-5.1); SODIUM 137 mmol/L (136-145); TOTAL PROTEIN 7.2 gm/dl (6.4-8.2)
[2017-12-11 13:15] LABS: BASO % 0.5 %; BASO ABS # 0.03 K/uL (0-0.2); EOS ABS # 0.43 K/uL (0-0.5); IG# 0.01 K/uL (0.00-0.02); LYMPH % 26.1 %; MONO % 14.4 %; MONO ABS # 0.88 K/uL (0.11-0.59); NEUT % 51.8 %; NEUT ABS # 3.17 K/uL (1.4-6.5)
== END | disposition home or self-care (01) ==
LOC: C.LAB1850 10:34
PROVIDERS: ATTEND Physician Assistant Medical
DX: R42 Dizziness and giddiness (principal)

== ENCOUNTER → 2017-12-14 | Outpatient (CLI) | payer BC | END | disposition home or self-care (01) | LOC: C.LAB1850 09:01 | PROVIDERS: ATTEND Physician Assistant | DX: K72.90 Hepatic failure, unspecified without coma (principal) ==

== ENCOUNTER → 2017-12-18 | Outpatient (CLI) | payer BC | END | disposition home or self-care (01) | LOC: C.LAB1850 11:37 | PROVIDERS: ATTEND Physician Assistant | DX: K72.90 Hepatic failure, unspecified without coma (principal) ==

== ENCOUNTER → 2017-12-21 | Outpatient (CLI) | payer BC | END | disposition home or self-care (01) | LOC: C.LAB1850 07:44 | PROVIDERS: ATTEND Physician Assistant | DX: K72.90 Hepatic failure, unspecified without coma (principal) ==

== ENCOUNTER 2018-06-25 16:37 | Inpatient (IN) ==
[2018-06-25] MEDS ORDERED: LACTULOSE SYRUP 30 GM/45 ML UDP PO STA (17:02)
[2018-06-25] MEDS ORDERED: SODIUM CHLORIDE 0.9% 500 ML IV SCH (17:15)
--- NOTE | 2018-06-25 17:18 | XRay Report ---
XR chest 1V portable CLINICAL HISTORY: 72 years-old Male presenting with weakness. TECHNIQUE: Portable upright AP view of the chest was obtained. COMPARISON: None. FINDINGS: Cardiomediastinal silhouette normal. Lungs and pleural spaces clear. Degenerative changes of the left glenohumeral joint. IMPRESSION: 1. No acute cardiopulmonary disease. Electronically signed by: Dante Alford M.D. 06/25/2018 5:17 PM
--- NOTE | 2018-06-25 17:49 | CT Scan Report ---
CT head/brain wo con CLINICAL HISTORY: 72 years-old Male with confusion. Acutely altered mental status with confusion TECHNIQUE: Multiple axial CT images of the head were obtained without contrast. A dose lowering tech nique was utilized adhering to the principles of ALARA. CT DOSE: 729.78 mGycm COMPARISON: MRI brain 05/28/2018. FINDINGS: No acute intracranial hemorrhage, midline shift, intracranial mass, hydrocephalus, territorial ischem ia or abnormal extra-axial collection. Age-related involutional changes with mild ex vacuo ventriculo megaly. Patchy white matter hypodensities suggestive of chronic microvascular ischemic changes. Cereb ral vascular calcifications are noted. The calvarium is intact. The paranasal sinuses, mastoid air cells, and middle ear cavities are clear . IMPRESSION: No acute intracranial abnormality. The above report was generated using voice recognition software. It may contain grammatical, syntax o r spelling errors. Electronically signed by: Westley Corona M.D. 06/25/2018 5:48 PM
[2018-06-25 18:07] LABS: Hematocrit (blood only) 37.5 % (42-52); Mean Corpuscular Hgb Conc 34.7 g/dL (32-36); Mean Platelet Volume 12.5 fL (7.4-10.4); Platelet Count 80 K/uL (130-400); RDW Coefficient of Variation 16.4 % (11.5-14.5); RDW Standard Deviation 59.5 fL (36.4-46.3); Red Blood Count 3.75 M/uL (4.7-6.1); White Blood Count 6.41 K/uL (4.8-10.8)
[2018-06-25 18:10] LABS: Albumin Level 2.9 gm/dl (3.4-5.0); BUN Creatinine Ratio 16.8 (10-20); Calcium 10.3 mg/dl (8.5-10.1); Creatinine Clr Calc Pharmacy 30.3 ml/min; Est GFR (African American) 35.7; Est GFR (Non-African American) 30.8
[2018-06-25 18:17] LABS: Albumin Globulin Ratio 0.6 (0.9-2); Bilirubin,Total 4.3 mg/dl (0.2-1); Globulin 4.5 gm/dl (2.5-4.0); Total Protein 7.4 gm/dl (6.4-8.2); Troponin I 0.016 ng/ml (0-0.045)
[2018-06-25 18:19] LABS: Basophils # (auto) 0.03 K/uL (0-0.2); Basophils % (auto) 0.5 %; Eosinophils % (auto) 6.2 %; Immature Granulocytes # (auto) 0.01 K/uL (0.00-0.02); Immature Granulocytes % (auto) 0.2 %; Lymphocytes # (auto) 1.71 K/uL (1.2-3.4); Lymphocytes % (auto) 26.7 %; Monocytes # (auto) 0.84 K/uL (0.11-0.59); Monocytes % (auto) 13.1 %; Neutrophils # (auto) 3.42 K/uL (1.4-6.5); Neutrophils % (auto) 53.3 %
--- NOTE | 2018-06-25 19:06 | History & Physical Report ---
Date of Service June 25, 2018 Assessment & Plan (1) Hepatic encephalopathy: ammonia quite high at 134 will treat with Lactulose 15mL QID continue Rifaximin consult GI, patient has been compliant with Lactulose and Rifaximin unsure of why Ammonia going up certainly there could be other causes of encephalopathy MARCUS can contribue. No signs of infection, no abdominal pain or fever to suggest SBP (2) MARCUS (acute kidney injury): Cr up to 2.0 from reported 1.0 he has not been drinking well, reports he is making urine but unsure of how accurate or reliable he is. will treat like prerenal with gentle NSS at 100cc/hr repeat Cr in the AM, flollow urine outpatu consult nephrology for possibility of HRS (3) Cirrhosis: continue Lactulose, Rifaximin, Propranolol. hold Spironolactone since he has elvated Cr. 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 The patient had a prior episode of confusion and weakness in December 2017, diagnosed with elevated ammonia, treated with Lactulose and Rifaximin, his levels have been stable and his mental status has been normal up until this point. He has not been drinking or eating much the past few days, says he just has a poor appetite, no abdominal pain, no nausea. He has been taking his Lactulose and Rifaximin. He has 3 stools a day on average, loose to liquid. He tries to follow a low protein diet. He does not have a history of ascites, and he has not had a fever or abdominal pain. He follows with Dr. De Santiago, has had screening EGD for varices, nothing too significant, takes Labetalol. In the ED his ammonia was 134, bilirubin 4.3, Cr was up to 2.06 (baseline closer to 1.0). He says he has been making urine, takes his Spironolactone. The patient is oriented to person and knows he is in the ED. He cannot recall the day of the week, month. Knows that it is 2018. He was given a dose of Lactulose, asked to admit patient. Patients says that he has been prescribed insulin recently, this has been difficult for him, causing hypoglycemia. Originally tried Tresiba but this did not work well. He was converted to Humalog 75/25 units but this has not been helping the sugars. He was diagnosed with cirrhosis in 1994, this was due to excessive drinking. His says that for the majority of time since his diagnosis he has been sober. He has had two relapses but she can say with certainty that he has not had a drinki in 2.5 years. Major complication seems to the be the encephalopathy. He follows locally with Dr. De Santiago, discussed a possible referral to [facility] to see a service representative soon as outpatient. His MELD score is 25 at the time of admission, 19.% three month mortality. Allergies Allergy/AdvReac Type Severity Reaction Status Date / Time No Known Allergies Allergy Unknown Unverified 06/25/18 18:28 Home Medications Home Medications Medication Instructions Recorded Confirmed Type acetaminophen [Acetaminophen Extra 1,000 mg PO Q6H PRN 06/25/18 06/25/18 History Strength] allopurinol 300 mg PO QAM 06/25/18 06/25/18 History insulin degludec [Tresiba 06/25/18 History FlexTouch U-100] insulin lispro protamin-lispro 10 unit SUBCUT QAM 06/25/18 06/25/18 History [Humalog Mix 75-25 KwikPen] lactulose [Constulose] 1 dose PO QID 06/25/18 06/25/18 History metformin 0.5 tab PO BID 06/25/18 06/25/18 History propranolol 10 mg PO BID 06/25/18 06/25/18 History rifaximin [Xifaxan] 1 tab PO BID 06/25/18 06/25/18 History spironolactone 1 tab PO DAILY 06/25/18 06/25/18 History Past Med/Surg History Medical History MARCUS (acute kidney injury) Cirrhosis Diabetes HTN (hypertension) Hepatic encephalopathy Hyperammonemia Family History Other Alcohol abuse Social History Current Living Situation: Spouse Feels Safe at Home: Yes Safety Concerns: Feels Safe At This Time Smoking Status: Never smoker Hx Alcohol Use: Yes Hx Substance Use: No Beliefs That Will Affect Care: None Preferred Language: Divehi Communication Ability: Effective Senior Net Programmer Required: Yes Review of Systems All systems reviewed & are unremarkable except as noted in HPI & below Constitutional: + sweats, + weakness and + anorexia Gastrointestinal: + early satiety and + diarrhea/loose stools; no abdominal pain , no nausea, no vomiting, no constipation and no blood in stools Genitourinary (Male): no dysuria, no urinary frequency and no urinary hesitancy Integumentary: + yellowing of the skin (chronic issue) Physical Exam 2 Vital Signs (Past 24 Hours): Last Vital Signs Temp 36.4 C L 06/25/18 16:39 Pulse 63 06/25/18 19:03 Resp 20 06/25/18 19:03 BP 128/69 06/25/18 19:03 Pulse Ox 100 06/25/18 19:03 Constitutional: WD/WN, vitals as above Eyes: normal visual [place] by confrontation, + scleral abnormality (incterus) , PERRL, normal accommodation and EOM intact bilaterally; no conjunctival abnormality ENMT: external ear and nose normal, oropharynx normal Neck: trachea midline, no thyromegaly Respiratory: normal respiratory effort, lungs clear to auscultation Cardiovascular: RRR, no murmur, no edema Gastrointestinal (Abdomen): normal bowel sounds, soft, nontender, no hepatosplenomegaly Musculoskeletal: no cyanosis or clubbing, extremities motor strength 5/5 Skin: no rashes, warm and dry + jaundice Neurologic: patellar DTR's 2+ bilat, sensation intact and PERRL, EOMI, accommodation nl, no face palsy, no dysarthria Psychiatric: Orientation: alert, oriented to person, oriented to place and cooperative; + not oriented to time Apperance: appropriately dressed Eye Contact: good eye contact Lymphatic: no cervical or axillary lymphadenopathy Results & Data Laboratory Results Laboratory Results - last 24 hr 06/25/18 06/25/18 06/25/18 17:33 17:33 17:33 WBC 6.41 RBC 3.75 L Hgb 13.0 L Hct 37.5 L MCV 100.0 MCH 34.7 H MCHC 34.7 RDW Std Deviation 59.5 H RDW Coeff of Christoph 16.4 H Plt Count 80 L MPV 12.5 H Immature Gran % (Auto) 0.2 Neut % (Auto) 53.3 Lymph % (Auto) 26.7 [place] % (Auto) 13.1 Eos % (Auto) 6.2 Baso % (Auto) 0.5 Immature Gran # (Auto) 0.01 Neut # (Auto) 3.42 Lymph # (Auto) 1.71 [place] # (Auto) 0.84 H Eos # (Auto) 0.40 Baso # (Auto) 0.03 PT Cancelled INR Cancelled APTT PTT Ratio Sodium 132 L Potassium Chloride 103 Carbon Dioxide 19 L Anion Gap 11.0 BUN 35 H Creatinine 2.06 H Est Cr Clr Drug Dosing 30.3 Est GFR ( Amer) 35.7 Est GFR (Non-Af Amer) 30.8 BUN/Creatinine Ratio 16.8 Glucose 255 H POC Glucose Calcium 10.3 H Total Bilirubin 4.3 H AST ALT 51 Alkaline Phosphatase 100 Ammonia Troponin I 0.016 Total Protein 7.4 Albumin 2.9 L Globulin 4.5 H Albumin/Globulin Ratio 0.6 L TSH 3.310 06/25/18 06/25/18 06/25/18 17:33 18:53 18:54 WBC RBC Hgb Hct MCV MCH MCHC RDW Std Deviation RDW Coeff of Christoph Plt Count MPV Immature Gran % (Auto) Neut % (Auto) Lymph % (Auto) [place] % (Auto) Eos % (Auto) Baso % (Auto) Immature Gran # (Auto) Neut # (Auto) Lymph # (Auto) [place] # (Auto) Eos # (Auto) Baso # (Auto) PT Cancelled INR Cancelled APTT Cancelled PTT Ratio Cancelled Sodium Potassium 5.1 Chloride Carbon Dioxide Anion Gap BUN Creatinine Est Cr Clr Drug Dosing Est GFR ( Amer) Est GFR (Non-Af Amer) BUN/Creatinine Ratio Glucose POC Glucose Calcium Total Bilirubin AST 44 H ALT Alkaline Phosphatase Ammonia Cancelled Troponin I Total Protein Albumin Globulin Albumin/Globulin Ratio TSH 06/25/18 06/25/18 06/25/18 18:54 20:58 20:58 WBC RBC Hgb Hct MCV MCH MCHC RDW Std Deviation RDW Coeff of Christoph Plt Count MPV Immature Gran % (Auto) Neut % (Auto) Lymph % (Auto) [place] % (Auto) Eos % (Auto) Baso % (Auto) Immature Gran # (Auto) Neut # (Auto) Lymph # (Auto) [place] # (Auto) Eos # (Auto) Baso # (Auto) PT 13.2 H INR 1.3 H APTT 29.9 PTT Ratio 1.1 Sodium Potassium Chloride Carbon Dioxide Anion Gap BUN Creatinine Est Cr Clr Drug Dosing Est GFR ( Amer) Est GFR (Non-Af Amer) BUN/Creatinine Ratio Glucose POC Glucose Calcium Total Bilirubin AST ALT Alkaline Phosphatase Ammonia 120.0 H Troponin I Total Protein Albumin Globulin Albumin/Globulin Ratio TSH 06/25/18 21:23 WBC RBC Hgb Hct MCV MCH MCHC RDW Std Deviation RDW Coeff of Christoph Plt Count MPV Immature Gran % (Auto) Neut % (Auto) Lymph % (Auto) [place] % (Auto) Eos % (Auto) Baso % (Auto) Immature Gran # (Auto) Neut # (Auto) Lymph # (Auto) [place] # (Auto) Eos # (Auto) Baso # (Auto) PT INR APTT PTT Ratio Sodium Potassium Chloride Carbon Dioxide Anion Gap BUN Creatinine Est Cr Clr Drug Dosing Est GFR ( Amer) Est GFR (Non-Af Amer) BUN/Creatinine Ratio Glucose POC Glucose 222 H Calcium Total Bilirubin AST ALT Alkaline Phosphatase Ammonia Troponin I Total Protein Albumin Globulin Albumin/Globulin Ratio TSH Diagnostic Findings CT head: IMPRESSION: No acute intracranial abnormality. Code Status & VTE Plan Code Status full code VTE Prophylaxis Plan VTE Prophylaxis will be ordered: No Reason for no VTE drug order: Contraindicated (thrombocytopenia, INR 1.3)
[2018-06-25 19:14] LABS: Potassium 5.1 mmol/L (3.5-5.1)
--- NOTE | 2018-06-25 19:48 | Emergency Department Note ---
Entered by Fabrice Wooten acting as a scribe for Lowell Hickman DO History of Present Illness General Chief complaint: Confusion Stated complaint: CONFUSION, KIDNEY LEVELS HIGH Time Seen by Provider: 06/25/18 16:44 Source: patient and family () History of Present Illness Provider complaint: confusion Onset (ago): day(s) (today) Location: head Pain Consistency: + other (episode) Maximum Pain Intensity: 0 Quality: + other (confusion) Associated symptoms: + other (lightheadedness, elevated creatinine); no syncope The patient is a 72 year old male who presents to the Emergency Room secondary to an episode of confusion associated with lightheadedness that started today. The patients reports that the patient was seen in his PCPs office where his creatinine level was elevated at 1.96. The patients reports that she called the PCPs office today where they did repeat labs and found that the patients creatinine levels increased to 2.28. The patients further states that they referred the patient to the ER. The patient states he has been light headed, but denies any syncope. The further states that the patient has been on a decline over the past 2 years, but has worsened significantly over the past two days. She also reports that the patient started on insulin therapy last week and states that the patients sugar has been constant at around 106. The patient reports a history of diabetes, hypertension , and cirrhosis. Home Medications Home Medications Medication Instructions Recorded Confirmed Type acetaminophen [Acetaminophen Extra 1,000 mg PO Q6H PRN 06/25/18 06/25/18 History Strength] allopurinol 300 mg PO QAM 06/25/18 06/25/18 History insulin degludec [Tresiba 06/25/18 History FlexTouch U-100] insulin lispro protamin-lispro 10 unit SUBCUT QAM 06/25/18 06/25/18 History [Humalog Mix 75-25 KwikPen] lactulose [Constulose] 1 dose PO QID 06/25/18 06/25/18 History metformin 0.5 tab PO BID 06/25/18 06/25/18 History propranolol 10 mg PO BID 06/25/18 06/25/18 History rifaximin [Xifaxan] 1 tab PO BID 06/25/18 06/25/18 History spironolactone 1 tab PO DAILY 06/25/18 06/25/18 History Allergies Allergy/AdvReac Type Severity Reaction Status Date / Time No Known Allergies Allergy Unknown Unverified 06/25/18 18:28 Past Med/Surg History Medical History Cirrhosis Diabetes HTN (hypertension) Social History Feels Safe at Home: Yes Smoking Status: Never smoker Preferred Language: Monegasque Review of Systems See HPI for pertinent positives & negatives. and A total of 10 systems reviewed and were otherwise negative Physical Exam Vital Signs Vital Signs - 24 hr 06/25/18 16:39 06/25/18 17:18 06/25/18 17:25 Temperature 36.4 C L Temperature Source Oral Sepsis Recent Fever Within 48 Hours No Sepsis Action Taken by Nursing No Action Required Pulse Rate 59 L 58 L Pulse Rate [Apical] 62 Pulse Rate from SpO2 Sensor 57 L Respiratory Rate 18 12 21 Respiratory Effort / Characteristics Non-Labored Spontaneous Respiratory Depth Normal Respiratory Pattern Regular Blood Pressure 150/73 H 136/64 Blood Pressure [Right Arm] 136/64 Blood Pressure Mean 98 88 Blood Pressure Mean [Right Arm] 88 Blood Pressure Position Sitting Pulse Oximetry 98 100 99 Oxygen Delivery Method Room Air Room Air 06/25/18 17:30 06/25/18 17:32 06/25/18 18:03 Temperature Temperature Source Sepsis Recent Fever Within 48 Hours Sepsis Action Taken by Nursing Pulse Rate 59 L 57 L 61 Pulse Rate [Apical] Pulse Rate from SpO2 Sensor 60 56 L Respiratory Rate 11 L 18 16 Respiratory Effort / Characteristics Respiratory Depth Respiratory Pattern Blood Pressure 127/62 133/65 Blood Pressure [Right Arm] Blood Pressure Mean 83 87 Blood Pressure Mean [Right Arm] Blood Pressure Position Pulse Oximetry 100 99 Oxygen Delivery Method 06/25/18 18:10 06/25/18 18:20 06/25/18 18:34 Temperature Temperature Source Sepsis Recent Fever Within 48 Hours Sepsis Action Taken by Nursing Pulse Rate 64 61 60 Pulse Rate [Apical] Pulse Rate from SpO2 Sensor Respiratory Rate 16 16 Respiratory Effort / Characteristics Respiratory Depth Respiratory Pattern Blood Pressure 146/71 H Blood Pressure [Right Arm] Blood Pressure Mean 96 Blood Pressure Mean [Right Arm] Blood Pressure Position Pulse Oximetry Oxygen Delivery Method 06/25/18 19:03 Temperature Temperature Source Sepsis Recent Fever Within 48 Hours Sepsis Action Taken by Nursing Pulse Rate Pulse Rate [Apical] 63 Pulse Rate from SpO2 Sensor Respiratory Rate 20 Respiratory Effort / Characteristics Respiratory Depth Respiratory Pattern Blood Pressure Blood Pressure [Right Arm] 128/69 Blood Pressure Mean Blood Pressure Mean [Right Arm] 88 Blood Pressure Position Pulse Oximetry 100 Oxygen Delivery Method Room Air CONSTITUTIONAL/VITAL SIGNS: Reviewed / noted above. GENERAL: Non-toxic in appearance. Mild confusion. INTEGUMENTARY: Warm, dry, and [place]. HEAD: Normocephalic. EYES: without scleral icterus or trauma. ENT/OROPHARYNX: clear and moist. LYMPHADENOPATHY/NECK: Is supple without lymphadenopathy or meningismus. RESPIRATORY: Lungs clear and equal. CARDIOVASCULAR: Regular rate and rhythm. GI/ABDOMEN: Soft and nontender. Mild abdominal distension on exam. No organomegaly or pulsatile mass. No rebound or guarding. Normal bowel sounds. EXTREMITIES: Warm and well perfused. BACK: No CVA tenderness. NEUROLOGICAL: Intact without focal deficits. PSYCHIATRIC: normal affect. MUSCULOSKELETAL: Normally developed with good muscle tone. Course 1643: Past medical records reviewed. The patient was evaluated in room C8, and a complete history and physical examination were performed. 1814: I reviewed the patient's [facility] He will evaluate the patient for further management. Consultations Consultation #1: [facility] Time: 18:15 Administered Medications Discontinued Medications Sodium Chloride (Nss) 500 mls @ 999 mls/hr IV .Q31M RAJI Stop: 06/25/18 17:45 Last Infusion: 06/25/18 18:34 Dose: 0 mls/hr Admin: 06/25/18 18:03 Dose: 999 mls/hr Lactulose (Chronulac) 30 gm PO NOW STA Stop: 06/25/18 17:03 Last Admin: 06/25/18 18:06 Dose: 30 gm Medical Decision Making Differential Diagnosis Differential diagnosis: Etiologies such as metabolic, infection, hypo/hyperglycemia, electrolyte abnormalities, cardiac sources, intracerebral event, toxicologic, neurologic, as well as others were entertained. Medical Records Attestation: I reviewed the patient's medical records. Home Medications Current Medication List: was personally reviewed by me Laboratory Data Attestation: I reviewed the patient's lab results. Result diagrams: 06/25/18 17:33 06/25/18 18:54 Lab Results 06/25/18 06/25/18 06/25/18 Range/Units 17:33 17:33 17:33 WBC 6.41 (4.8-10.8) K/uL RBC 3.75 L (4.7-6.1) M/uL Hgb 13.0 L (14.0-18.0) g/dL Hct 37.5 L (42-52) % MCV 100.0 (80-100) fL MCH 34.7 H (25-34) pg MCHC 34.7 (32-36) g/dL RDW Std Deviation 59.5 H (36.4-46.3) fL RDW Coeff of Christoph 16.4 H (11.5-14.5) % Plt Count 80 L (130-400) K/uL MPV 12.5 H (7.4-10.4) fL Immature Gran % (Auto) 0.2 % Neut % (Auto) 53.3 % Lymph % (Auto) 26.7 % [place] % (Auto) 13.1 % Eos % (Auto) 6.2 % Baso % (Auto) 0.5 % Immature Gran # (Auto) 0.01 (0.00-0.02) K/uL Neut # (Auto) 3.42 (1.4-6.5) K/uL Lymph # (Auto) 1.71 (1.2-3.4) K/uL [place] # (Auto) 0.84 H (0.11-0.59) K/uL Eos # (Auto) 0.40 (0-0.5) K/uL Baso # (Auto) 0.03 (0-0.2) K/uL PT Cancelled INR Cancelled APTT PTT Ratio Sodium 132 L (136-145) mmol/L Potassium (3.5-5.1) mmol/L Chloride 103 (98-107) mmol/L Carbon Dioxide 19 L (21-32) mmol/L Anion Gap 11.0 (3-11) BUN 35 H (7-18) mg/dl Creatinine 2.06 H (0.6-1.4) mg/dl Est Cr Clr Drug Dosing 30.3 ml/min Est GFR ( Amer) 35.7 Est GFR (Non-Af Amer) 30.8 BUN/Creatinine Ratio 16.8 (10-20) Glucose 255 H (70-99) mg/dl Calcium 10.3 H (8.5-10.1) mg/dl Total Bilirubin 4.3 H (0.2-1) mg/dl AST (15-37) U/L ALT 51 (12-78) U/L Alkaline Phosphatase 100 (45-117) U/L Ammonia Troponin I 0.016 (0-0.045) ng/ml Total Protein 7.4 (6.4-8.2) gm/dl Albumin 2.9 L (3.4-5.0) gm/dl Globulin 4.5 H (2.5-4.0) gm/dl Albumin/Globulin Ratio 0.6 L (0.9-2) TSH 3.310 (0.300-4.500) uIu/ml 06/25/18 06/25/18 06/25/18 Range/Units 17:33 18:53 18:54 WBC (4.8-10.8) K/uL RBC (4.7-6.1) M/uL Hgb (14.0-18.0) g/dL Hct (42-52) % MCV (80-100) fL MCH (25-34) pg MCHC (32-36) g/dL RDW Std Deviation (36.4-46.3) fL RDW Coeff of Christoph (11.5-14.5) % Plt Count (130-400) K/uL MPV (7.4-10.4) fL Immature Gran % (Auto) % Neut % (Auto) % Lymph % (Auto) % [place] % (Auto) % Eos % (Auto) % Baso % (Auto) % Immature Gran # (Auto) (0.00-0.02) K/uL Neut # (Auto) (1.4-6.5) K/uL Lymph # (Auto) (1.2-3.4) K/uL [place] # (Auto) (0.11-0.59) K/uL Eos # (Auto) (0-0.5) K/uL Baso # (Auto) (0-0.2) K/uL PT Cancelled INR Cancelled APTT Cancelled PTT Ratio Cancelled Sodium (136-145) mmol/L Potassium 5.1 (3.5-5.1) mmol/L Chloride (98-107) mmol/L Carbon Dioxide (21-32) mmol/L Anion Gap (3-11) BUN (7-18) mg/dl Creatinine (0.6-1.4) mg/dl Est Cr Clr Drug Dosing ml/min Est GFR ( Amer) Est GFR (Non-Af Amer) BUN/Creatinine Ratio (10-20) Glucose (70-99) mg/dl Calcium (8.5-10.1) mg/dl Total Bilirubin (0.2-1) mg/dl AST 44 H (15-37) U/L ALT (12-78) U/L Alkaline Phosphatase (45-117) U/L Ammonia Cancelled Troponin I (0-0.045) ng/ml Total Protein (6.4-8.2) gm/dl Albumin (3.4-5.0) gm/dl Globulin (2.5-4.0) gm/dl Albumin/Globulin Ratio (0.9-2) TSH (0.300-4.500) uIu/ml 06/25/18 Range/Units 18:54 WBC (4.8-10.8) K/uL RBC (4.7-6.1) M/uL Hgb (14.0-18.0) g/dL Hct (42-52) % MCV (80-100) fL MCH (25-34) pg MCHC (32-36) g/dL RDW Std Deviation (36.4-46.3) fL RDW Coeff of Christoph (11.5-14.5) % Plt Count (130-400) K/uL MPV (7.4-10.4) fL Immature Gran % (Auto) % Neut % (Auto) % Lymph % (Auto) % [place] % (Auto) % Eos % (Auto) % Baso % (Auto) % Immature Gran # (Auto) (0.00-0.02) K/uL Neut # (Auto) (1.4-6.5) K/uL Lymph # (Auto) (1.2-3.4) K/uL [place] # (Auto) (0.11-0.59) K/uL Eos # (Auto) (0-0.5) K/uL Baso # (Auto) (0-0.2) K/uL PT INR APTT PTT Ratio Sodium (136-145) mmol/L Potassium (3.5-5.1) mmol/L Chloride (98-107) mmol/L Carbon Dioxide (21-32) mmol/L Anion Gap (3-11) BUN (7-18) mg/dl Creatinine (0.6-1.4) mg/dl Est Cr Clr Drug Dosing ml/min Est GFR ( Amer) Est GFR (Non-Af Amer) BUN/Creatinine Ratio (10-20) Glucose (70-99) mg/dl Calcium (8.5-10.1) mg/dl Total Bilirubin (0.2-1) mg/dl AST (15-37) U/L ALT (12-78) U/L Alkaline Phosphatase (45-117) U/L Ammonia 120.0 H Troponin I (0-0.045) ng/ml Total Protein (6.4-8.2) gm/dl Albumin (3.4-5.0) gm/dl Globulin (2.5-4.0) gm/dl Albumin/Globulin Ratio (0.9-2) TSH (0.300-4.500) uIu/ml Imaging Data Radiologist's Impression: Radiology results as stated below per my review and the radiologist's interpretation: CT head/brain wo con CLINICAL HISTORY: 72 years-old Male with confusion. Acutely altered mental status with confusion TECHNIQUE: Multiple axial CT images of the head were obtained without contrast. A dose lowering technique was utilized adhering to the principles of ALARA. CT DOSE: 729.78 mGycm COMPARISON: MRI brain 05/28/2018. FINDINGS: No acute intracranial hemorrhage, midline shift, intracranial mass, hydrocephalus, territorial ischemia or abnormal extra-axial collection. Age- related involutional changes with mild ex vacuo ventriculomegaly. Patchy white matter hypodensities suggestive of chronic microvascular ischemic changes. Cerebral vascular calcifications are noted. The calvarium is intact. The paranasal sinuses, mastoid air cells, and middle ear cavities are clear. IMPRESSION: No acute intracranial abnormality. The above report was generated using voice recognition software. It may contain grammatical, syntax or spelling errors. Electronically signed by: Westley Corona M.D. 06/25/2018 5:48 PM XR chest 1V portable CLINICAL HISTORY: 72 years-old Male presenting with weakness. TECHNIQUE: Portable upright AP view of the chest was obtained. COMPARISON: None. FINDINGS: Cardiomediastinal silhouette normal. Lungs and pleural spaces clear. Degenerative changes of the left glenohumeral joint. IMPRESSION: 1. No acute cardiopulmonary disease. Electronically signed by: Dante Alford M.D. 06/25/2018 5:17 PM Blood Pressure Blood Pressure Findings: Normal blood pressure Blood Pressure Disposition: did not require urgent referral MDM Narrative This is a 72-year-old male who presents to the ED with a chief complaint of elevated ammonia level, confusion and acute renal failure. The patient had some outpatient blood work today that revealed these findings. His last creatinine prior to this was 05/26/18. It was 1.09. Today it is 2.04. The patient's exam was relatively unremarkable. He does have some mild intermittent confusion to some questions. The patient is on insulin for his diabetes. Additional exam findings and history are noted above. A CT scan of the brain did not show acute process. Chest x-ray was negative for acute disease. Because of the confusion, elevated ammonia level and acute renal failure, per the patient will be seen by the hospitalist for further inpatient evaluation and care. Impression & Plan Acute renal failure, Hyperammonemia, Confusion Discharge Plan Visit Data Chief Complaint: Confusion Stated Complaint: CONFUSION, KIDNEY LEVELS HIGH ED Provider: Lowell Hickman Discharge Problem: Acute renal failure, Hyperammonemia, Confusion Patient Disposition: Being Evaluated by Hospitalist Forms Stand Alone Forms: [facility] [employer] Prescriptions Prescriptions: No Action acetaminophen [Acetaminophen Extra Strength] 500 mg Tablet 1,000 mg PO Q6H PRN (Reason: Pain) RF: 0 propranolol 10 mg tablet 10 mg PO BID RF: 0 metformin 1,000 mg tablet 0.5 tab PO BID RF: 0 allopurinol 300 mg tablet 300 mg PO QAM RF: 0 spironolactone 50 mg tablet 1 tab PO DAILY RF: 0 insulin lispro protamin-lispro [Humalog Mix 75-25 KwikPen] 100 unit/mL (75-25 ) Insulin Pen 10 unit SUBCUT QAM RF: 0 lactulose [Constulose] 10 gram/15 mL solution 1 dose PO QID RF: 0 rifaximin [Xifaxan] 550 mg tablet 1 tab PO BID RF: 0 insulin degludec [Tresiba FlexTouch U-100] 100 unit/mL (3 mL) insulin pen RF: 0 Referrals Referrals: Bernardo Caal MD [Primary Care Provider] - The scribe's documentation has been prepared under my direction and personally reviewed by me in its entirety. I confirm that the note above accurately reflects all work, treatment, procedures, and medical decision making performed by me.
[2018-06-25] MEDS ORDERED: ONDANSETRON INJ 2 MG/ML 2 ML VIAL IV PRN (20:50)
[2018-06-25] MEDS ORDERED: ACETAMINOPHEN 325 MG TAB PO PRN (20:50)
[2018-06-25 21:26] LABS: INR 1.3 (0.9-1.1); Prothrombin Time 13.2 Seconds (9.0-12.0)
[2018-06-25 21:27] LABS: Partial Thromboplastin Ratio 1.1; Partial Thromboplastin Time 29.9 Seconds (21.0-31.0)
[2018-06-25] MEDS: SODIUM CHLORIDE 0.9% 1000ML 1,000 ML IV SCH (21:31)
[2018-06-25] MEDS: LACTULOSE SYRUP 20 GM/30 ML UDC PO SCH (21:39)
[2018-06-25] MEDS: PROPRANOLOL HCL 10 MG TAB PO SCH (21:40)
[2018-06-25] MEDS: RIFAXIMIN 550 MG TABLET PO SCH (21:40)
[2018-06-26 06:20] LABS: Hematocrit (blood only) 33.6 % (42-52); Hemoglobin 11.8 g/dL (14.0-18.0); Mean Corpuscular Hgb Conc 35.1 g/dL (32-36); Mean Corpuscular Volume 99.4 fL (80-100); RDW Coefficient of Variation 16.3 % (11.5-14.5); RDW Standard Deviation 58.7 fL (36.4-46.3); Red Blood Count 3.38 M/uL (4.7-6.1); White Blood Count 5.67 K/uL (4.8-10.8)
[2018-06-26 06:34] LABS: Mean Platelet Volume 10.9 fL (7.4-10.4); Platelet Count 60 K/uL (130-400)
[2018-06-26 06:45] LABS: Basophils # (auto) 0.01 K/uL (0-0.2); Basophils % (auto) 0.2 %; Eosinophils % (auto) 7.1 %; Immature Granulocytes # (auto) 0.01 K/uL (0.00-0.02); Immature Granulocytes % (auto) 0.2 %; Lymphocytes # (auto) 1.61 K/uL (1.2-3.4); Lymphocytes % (auto) 28.4 %; Monocytes # (auto) 0.92 K/uL (0.11-0.59); Monocytes % (auto) 16.2 %; Neutrophils # (auto) 2.72 K/uL (1.4-6.5); Neutrophils % (auto) 47.9 %
[2018-06-26 06:58] LABS: Albumin Level 2.4 gm/dl (3.4-5.0); BUN Creatinine Ratio 17.3 (10-20); Bilirubin Direct 1.1 mg/dl (0-0.2); Calcium 9.1 mg/dl (8.5-10.1); Est GFR (African American) 45.7; Est GFR (Non-African American) 39.4; Potassium 4.4 mmol/L (3.5-5.1)
[2018-06-26 07:04] LABS: Bilirubin,Total 3.1 mg/dl (0.2-1); Total Protein 6.1 gm/dl (6.4-8.2)
[2018-06-26] MEDS: RIFAXIMIN 550 MG TABLET PO SCH ×2 (08:16→20:34)
[2018-06-26] MEDS: ALLOPURINOL 300 MG TAB PO SCH (08:16)
[2018-06-26] MEDS: LACTULOSE SYRUP 20 GM/30 ML UDC PO SCH ×4 (08:16→20:33)
[2018-06-26] MEDS: PROPRANOLOL HCL 10 MG TAB PO SCH ×2 (08:17→20:33)
--- NOTE | 2018-06-26 08:56 | Hospitalist Progress Note ---
Date of Service June 26, 2018 Assessment & Plan (1) Hepatic encephalopathy: ammoniahas improved with with Lactulose 15mL QID and continued Rifaximin consult GI, No signs of infection, no abdominal pain or fever to suggest SBP (2) MARCUS (acute kidney injury): Cr up from reported 1.0 he has not been drinking well, consult nephrology is following (3) Cirrhosis: continue Lactulose, Rifaximin, Propranolol. hold Spironolactone since he has elvated Cr. (4) HTN (hypertension): continue metoprolol (5) Diabetes: will place on Novolog SS, diatec diet (6) Hyperammonemia: Subjective With conversation patient seems to be back to his usual state he had a deformity his is going to us with me today I did call her and that is exactly was happening. The patient is a focal complaints or problems he denies any recent changes in his medications diet or even his bowel movement frequency to explain his issues with his hyper ammonia level and confusion. He is having some acute kidney injury however this is also improving Review of Systems ROS: well nourished well developed. No double vision blurry vision No problems with speech or swallowing No palpitations, chest pain or pressure No Wheezing or breathing issues No abdominal pain nausea vomiting diarrhea changes in appetite or weight No burning urine urine frequency or changes in color No focal joint pain or muscle pain No skin rashes or oral lesions No unusual bruising or bleeding No focused back pain or numbness or loss of strength No changes in memory or confusion Physical Exam 2 Vital Signs (Past 24 Hours): Last Vital Signs Temp 36.5 C 06/26/18 07:58 Pulse 64 06/26/18 07:58 Resp 15 06/26/18 07:58 BP 110/66 06/26/18 07:58 Pulse Ox 99 06/26/18 07:58 The patient appeared well nourished and normally developed. Vital signs as documented. Head exam is unremarkable. normocephalic, atraumatic Neck is without jugular venous distension, thyromegaly, or lymphademopathy Lungs are clear to auscultation and percussion. Cardiac exam reveals Rhythm is regular. First and second heart sounds normal. Abdominal exam reveals normal bowel sounds, no masses, no organomegaly Extremities are nonedematous and both pedal pulses are present Neurologic exam is A&Ox3, no focal deficits, strength is equal bilateral Psychologically seems neither anxious or depressed Skin is warm Dry without bruises or lesions
--- NOTE | 2018-06-26 09:09 | History & Physical Report ---
Date of Service June 26, 2018 History of Present Illness Chief Complaint: Confusion Primary Care Provider: Bernardo Caal MD 72 yo male, patient of Dr. stout. history of etoh cirrhosis- last drink 2 years ago. D/w HE on outpatient lactulose/xifaxan. Admitted with confusion- this am alert and oriented to person/place/time. Eating in his bed without other complaints. No reports of hematemesis/hematochezia, no belly pain, nausea, vomiting. No other complaints at this time. Allergies Allergy/AdvReac Type Severity Reaction Status Date / Time No Known Allergies Allergy Unknown Unverified 06/25/18 18:28 Home Medications Home Medications Medication Instructions Recorded Confirmed Type acetaminophen [Acetaminophen Extra 1,000 mg PO Q6H PRN 06/25/18 06/25/18 History Strength] allopurinol 300 mg PO QAM 06/25/18 06/25/18 History insulin degludec [Tresiba 06/25/18 History FlexTouch U-100] insulin lispro protamin-lispro 10 unit SUBCUT QAM 06/25/18 06/25/18 History [Humalog Mix 75-25 KwikPen] lactulose [Constulose] 1 dose PO QID 06/25/18 06/25/18 History metformin 0.5 tab PO BID 06/25/18 06/25/18 History propranolol 10 mg PO BID 06/25/18 06/25/18 History rifaximin [Xifaxan] 1 tab PO BID 06/25/18 06/25/18 History spironolactone 1 tab PO DAILY 06/25/18 06/25/18 History Past Med/Surg History Medical History MARCUS (acute kidney injury) Cirrhosis Diabetes HTN (hypertension) Hepatic encephalopathy Hyperammonemia Family History Other Alcohol abuse Social History Current Living Situation: Spouse Feels Safe at Home: Yes Safety Concerns: Feels Safe At This Time Smoking Status: Never smoker Hx Alcohol Use: Yes Hx Substance Use: No Beliefs That Will Affect Care: None Preferred Language: Yoruba Communication Ability: Effective 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 Review of Systems All systems reviewed & are unremarkable except as noted in HPI & below Physical Exam 2 Vital Signs (Past 24 Hours): Last Vital Signs Temp 36.5 C 06/26/18 07:58 Pulse 64 06/26/18 07:58 Resp 15 06/26/18 07:58 BP 110/66 06/26/18 07:58 Pulse Ox 99 06/26/18 07:58 Physical Exam: Well nourished white male in nad Constitutional: well developed Cardiovascular: RRR, no murmur, no edema Gastrointestinal (Abdomen): normal bowel sounds, soft, nontender, no hepatosplenomegaly Results & Data Laboratory Results wbc 5.67/hgb 11.8/hct 33.6/plt 60 MCV 99.4 Na 138 Bun 29 Cr 1.65 TB 3.1 DB 1.1 AST 40 ALT 41 Ammonia [address] head negative Cxray negative last Liver CT reviewed 02/18 no hcc Code Status & VTE Plan VTE Prophylaxis Plan VTE Prophylaxis will be ordered: No Reason for no VTE drug order: Contraindicated (thrombocytopenia, INR 1.3) Supervising Physician Co-Signing Physician Notes 72 yo male with etoh cirrhosis d/w he on outpatient xifaxan, lactulose, admitted thursday with confusion that has now resolved. Would do full infectious workup to rule out infectious cause for worsening he while on outpatient therapy- ua,ucx, blood cultures- if negative fine to dc home. CT head negative. Cxray negative. He is alert and oriented currently, would continue lactulose/xifaxan for now.
[2018-06-26 09:17] LABS: Appearance Urine Clear (Clear); Bacteria Urine Automated Negative (Negative); Bilirubin Urine Negative (Negative); Blood Urine Negative (Negative); Color Urine Yellow; Glucose Urine UA 1+ (Negative); Ketones Urine Negative (Negative); Leukocyte Esterase Urine Trace (Negative); Nitrite Urine Negative (Negative); Protein Urine Negative (Negative); RBC Urine Automated 0-4 /hpf (0-4); Specific Gravity Urine 1.015 (1.000-1.030); Urobilinogen Urine Negative (Negative)
[2018-06-26] MEDS: SODIUM CHLORIDE 0.9% 1000ML 1,000 ML IV SCH ×2 (09:19→21:55)
--- NOTE | 2018-06-26 10:48 | Nephrology Consultation ---
Date of Consultation June 26, 2018 Assessment & Plan (1) Acute renal failure: -- Patient appears clinically volume contracted (dry mucous membranes, poor skin turgor). Creatinine is trending down w/ gentle hydration -- Hold Spironolactone and Metformin -- Will order urinalysis w/ micro, FENa -- Continue 0.9 NS at 80 cc/hr -- Repeat PRP in am -- Will pursue further evaluation (ie., ultrasound, albumin administration) only if renal function fails to improve w/ the above measures (2) Hepatic encephalopathy: -- Ammonia is trending down -- Continue lactulose and rifaximin therapy (3) Diabetes: -- Hold Metformin -- Recommend managing blood sugar with insulin History of Present Illness Reason for Consultation: MARCUS Attending Physician: Neville Sanchez MD History of Present Illness Mr. Gerard is a 72 year old white male who is seen at the request of Dr. Lozada for evaluation of MARCUS. Medical records in the EMR were reviewed and are summarized as follows: Mr. Gerard's medical history is significant for longstanding type II DM, HTN and alcoholic cirrhosis. He has had hepatic encephalopathy in the past and has been managed w/ lactulose and rifaximin. Recently Mr. Gerard developed increased confusion. He was evaluated in the ED where NH3 was 134, bilirubin 4.3 and creatinine had risen from 1.3 to 2.0. Mr. Brown was admitted for evaluation of hepatic encephalopathy and MARCUS Allergies Allergy/AdvReac Type Severity Reaction Status Date / Time No Known Allergies Allergy Unknown Unverified 06/25/18 18:28 Home Medications Home Medications Medication Instructions Recorded Confirmed Type acetaminophen [Acetaminophen Extra 1,000 mg PO Q6H PRN 06/25/18 06/25/18 History Strength] allopurinol 300 mg PO QAM 06/25/18 06/25/18 History insulin degludec [Tresiba 06/25/18 History FlexTouch U-100] insulin lispro protamin-lispro 10 unit SUBCUT QAM 06/25/18 06/25/18 History [Humalog Mix 75-25 KwikPen] lactulose [Constulose] 1 dose PO QID 06/25/18 06/25/18 History metformin 0.5 tab PO BID 06/25/18 06/25/18 History propranolol 10 mg PO BID 06/25/18 06/25/18 History rifaximin [Xifaxan] 1 tab PO BID 06/25/18 06/25/18 History spironolactone 1 tab PO DAILY 06/25/18 06/25/18 History Patient History Medical History MARCUS (acute kidney injury) Cirrhosis Diabetes HTN (hypertension) Hepatic encephalopathy Hyperammonemia Family History Other Alcohol abuse Social History Current Living Situation: Spouse Feels Safe at Home: Yes Safety Concerns: Feels Safe At This Time Smoking Status: Never smoker Hx Alcohol Use: Yes Hx Substance Use: No Beliefs That Will Affect Care: None Preferred Language: [place] Zealander Communication Ability: Effective 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 Review of Systems Constitutional: no fever Respiratory: no dyspnea Cardiovascular: no chest pain Gastrointestinal: + diarrhea/loose stools; no abdominal pain Physical Exam 2 Vital Signs (Past 24 Hours): Last Vital Signs Temp 36.5 C 06/26/18 07:58 Pulse 64 06/26/18 07:58 Resp 15 06/26/18 07:58 BP 110/66 06/26/18 07:58 Pulse Ox 99 06/26/18 07:58 Eyes: PERRL (mild scleral icterus) Neck: trachea midline, no thyromegaly Respiratory: normal respiratory effort, lungs clear to auscultation no respiratory distress Cardiovascular: RRR, no murmur, no edema Gastrointestinal (Abdomen): Inspection/Auscultation: normal bowel sounds Percussion/Palpation: abdomen soft; abdomen nontender and no guarding Results & Data Laboratory Results Laboratory Tests 06/25/18 06/25/18 06/26/18 17:33 18:54 06:00 WBC 5.67 Hgb 11.8 L Hct 33.6 L Plt Count 60 L Sodium Potassium Chloride Carbon Dioxide BUN Creatinine 2.06 H Glucose Total Bilirubin Direct Bilirubin AST ALT Alkaline Phosphatase Ammonia 120.0 H Albumin 06/26/18 06/26/18 06:00 06:00 WBC Hgb Hct Plt Count Sodium 138 Potassium 4.4 Chloride 110 H Carbon Dioxide 19 L BUN 29 H Creatinine 1.68 H D Glucose 246 H Total Bilirubin 3.1 H Direct Bilirubin 1.1 H AST 40 H ALT 41 Alkaline Phosphatase 88 Ammonia 80.0 H Albumin 2.4 L _ (1) Acute renal failure Acute renal failure type: unspecified Qualified Code(s): N17.9 - Acute kidney failure, unspecified
[2018-06-26] MEDS ORDERED: DEXTROSE 50% 50 ML SYRINGE IV PRN (20:10)
[2018-06-26] MEDS ORDERED: GLUCAGON FOR INJ 1 MG VIAL SQ PRN (20:10)
[2018-06-26] MEDS ORDERED: GLUCOSE 40% GEL 15 GM TUBE PO PRN (20:10)
[2018-06-26] MEDS ORDERED: GLUCOSE 10 TABS/TUBE PO PRN (20:10)
[2018-06-26] MEDS ORDERED: CARBOHYDRATES FOR HYPOGLYCEMIA PO PRN (20:10)
[2018-06-26] MEDS: INSULIN ASPART 100 UNITS/ML 3 ML PEN SC SCH (21:58)
[2018-06-27 07:03] LABS: Hemoglobin 11.9 g/dL (14.0-18.0); Mean Corpuscular Volume 100.3 fL (80-100); RDW Coefficient of Variation 16.5 % (11.5-14.5); RDW Standard Deviation 60.1 fL (36.4-46.3); Red Blood Count 3.39 M/uL (4.7-6.1); White Blood Count 6.43 K/uL (4.8-10.8)
[2018-06-27 07:10] LABS: Mean Platelet Volume 11.1 fL (7.4-10.4); Platelet Count 57 K/uL (130-400)
[2018-06-27 07:31] LABS: Albumin Level 2.3 gm/dl (3.4-5.0); BUN Creatinine Ratio 15.8 (10-20); Bilirubin Direct 0.9 mg/dl (0-0.2); Calcium 8.5 mg/dl (8.5-10.1); Creatinine Clr Calc Pharmacy 47.4 ml/min; Est GFR (African American) 52.8; Est GFR (Non-African American) 45.6; Potassium 4.3 mmol/L (3.5-5.1)
[2018-06-27 07:36] LABS: Bilirubin,Total 3.8 mg/dl (0.2-1); Total Protein 5.9 gm/dl (6.4-8.2)
[2018-06-27 07:57] LABS: Basophils # (auto) 0.03 K/uL (0-0.2); Basophils % (auto) 0.5 %; Eosinophils # (auto) 0.52 K/uL (0-0.5); Eosinophils % (auto) 8.1 %; Immature Granulocytes # (auto) 0.01 K/uL (0.00-0.02); Immature Granulocytes % (auto) 0.2 %; Lymphocytes # (auto) 1.97 K/uL (1.2-3.4); Lymphocytes % (auto) 30.6 %; Monocytes % (auto) 15.6 %
[2018-06-27] MEDS: PROPRANOLOL HCL 10 MG TAB PO SCH ×2 (08:03→21:17)
[2018-06-27] MEDS: RIFAXIMIN 550 MG TABLET PO SCH ×2 (08:03→21:18)
[2018-06-27] MEDS: ALLOPURINOL 300 MG TAB PO SCH (08:03)
[2018-06-27] MEDS: LACTULOSE SYRUP 20 GM/30 ML UDC PO SCH ×4 (08:04→21:17)
[2018-06-27] MEDS: INSULIN ASPART 100 UNITS/ML 3 ML PEN SC SCH ×4 (09:00→21:18)
--- NOTE | 2018-06-27 09:39 | Gastroenterology Progress Note ---
Date of Service June 27, 2018 Supervising Physician Co-Signing Physician Notes 72 yo male with a history of etoh cirrhosis, admitted with he, with mikel. Mikel improving. Mental status normal on thursday and thursday. Likely mild mikel and dehydration that may have triggered his he. Follows with Dr. De Santiago. MELD labs stable other than creatinine. Further follow-up with Dr. De Santiago. Subjective No acute complaints- family member at bedside Like the food here Physical Exam 2 Vital Signs (Past 24 Hours): Last Vital Signs Temp 36.7 C 06/27/18 06:44 Pulse 55 L 06/27/18 06:44 Resp 18 06/27/18 06:44 BP 124/69 06/27/18 06:44 Pulse Ox 98 06/27/18 06:44 Physical Exam: NAD Constitutional: well developed Respiratory: normal respiratory effort, lungs clear to auscultation Gastrointestinal (Abdomen): normal bowel sounds, soft, nontender, no hepatosplenomegaly Results & Data Laboratory Results Creatinine improving
--- NOTE | 2018-06-27 09:51 | Nephrology Progress Note ---
Date of Service June 27, 2018 Assessment & Plan (1) Acute renal failure: -- Creatinine is trending down w/ gentle hydration. Patient remains clinically volume contracted (dry mucous membranes, poor skin turgor). He is tolerating IV hydration without side effect. -- Hold Spironolactone and Metformin -- Urinalysis negative for significant hematuria or casts -- FENa 6%? -- Continue 0.9 NS at 80 cc/hr -- Repeat PRP in am (2) Hepatic encephalopathy: -- Ammonia is trending down -- Continue lactulose and rifaximin therapy (3) Diabetes: -- Hold Metformin -- Recommend managing blood sugar with insulin Subjective Mr. Gerard was seen & examined in his hospital room this morning. He is more alert. He denies fever, abdominal pain or nausea. He is tolerating gentle hydration without dyspnea. Mr. Gerard reports fatigue and weakness but voices no other concerns. Gastrointestinal: + diarrhea/loose stools; no abdominal pain Physical Exam 2 Vital Signs (Past 24 Hours): Last Vital Signs Temp 36.7 C 06/27/18 06:44 Pulse 55 L 06/27/18 06:44 Resp 18 06/27/18 06:44 BP 124/69 06/27/18 06:44 Pulse Ox 98 06/27/18 06:44 Eyes: PERRL (mild scleral icterus) Neck: trachea midline, no thyromegaly Respiratory: normal respiratory effort, lungs clear to auscultation no respiratory distress Cardiovascular: RRR, no murmur, no edema Gastrointestinal (Abdomen): Inspection/Auscultation: normal bowel sounds Percussion/Palpation: abdomen soft; abdomen nontender and no guarding Results & Data Laboratory Results Laboratory Tests 06/27/18 06/27/18 06:39 06:39 WBC 6.43 Hgb 11.9 L Hct 34.0 L Plt Count 57 L Sodium 138 Potassium 4.3 Chloride 109 H Carbon Dioxide 21 BUN 24 H Creatinine 1.49 H Glucose 187 H Laboratory Tests 06/26/18 06/26/18 06/26/18 08:55 12:30 12:30 Urine Color Yellow Urine Appearance Clear Urine pH 5.0 Ur Specific [place] 1.015 Urine Protein Negative Urine Glucose (UA) 1+ H Urine Ketones Negative Urine Blood Negative Urine Nitrite Negative Urine Bilirubin Negative Urine WBC (Auto) 1-5 Urine RBC (Auto) 0-4 U Hyaline Cast (Auto) 1-5 U Epithel Cells (Auto) 5-10 H Urine Bacteria (Auto) Negative Ur Random Creatinine 22.9 Ur Random Sodium 111 _ (1) Acute renal failure Acute renal failure type: unspecified Qualified Code(s): N17.9 - Acute kidney failure, unspecified
[2018-06-27] MEDS: SODIUM CHLORIDE 0.9% 1000ML 1,000 ML IV SCH (11:00)
--- NOTE | 2018-06-27 14:08 | Hospitalist Progress Note ---
Date of Service June 27, 2018 Assessment & Plan (1) Hepatic encephalopathy: ammonia continues to improve with with Lactulose 15mL QID and continued Rifaximin ammonia is 52 No signs of infection, no abdominal pain or fever to suggest SBP, will check u/ s for portal vein thrombosis (2) MARCUS (acute kidney injury): MARCUS is improving,consult nephrology is following and whishes to have contined IVF (3) Cirrhosis: continue Lactulose, Rifaximin, Propranolol. holding Spironolactone since he has elvated Cr. (4) HTN (hypertension): continue metoprolol (5) Diabetes: conitnues on Novolog SS, diatec diet, AIC in he 8 range (6) Hyperammonemia: near his normal with usual doses of lactulose and Rifaxmin Subjective Patient seems to be in his usual state of health this is confirmed by his is at his bedside. He is currently n.p.o. for a hepatic ultrasound look for portal vein thrombosis or not. Otherwise he has no complaints or problems. His renal function is once again progress towards normal however however not reached his baseline. Review of Systems ROS: well nourished well developed. No double vision blurry vision No problems with speech or swallowing No palpitations, chest pain or pressure No Wheezing or breathing issues No abdominal pain nausea vomiting diarrhea changes in appetite or weight No burning urine urine frequency or changes in color No focal joint pain or muscle pain No skin rashes or oral lesions No unusual bruising or bleeding No focused back pain or numbness or loss of strength No changes in memory or confusion Physical Exam 2 Vital Signs (Past 24 Hours): Last Vital Signs Temp 36.7 C 06/27/18 06:44 Pulse 55 L 06/27/18 06:44 Resp 18 06/27/18 06:44 BP 124/69 06/27/18 06:44 Pulse Ox 98 06/27/18 06:44 The patient appeared well nourished and normally developed. Vital signs as documented. Head exam is unremarkable. normocephalic, atraumatic Neck is without jugular venous distension, thyromegaly, or lymphademopathy Lungs are clear to auscultation and percussion. Cardiac exam reveals Rhythm is regular. First and second heart sounds normal. Abdominal exam reveals normal bowel sounds, no masses, no organomegaly Extremities are nonedematous and both pedal pulses are present Neurologic exam is A&Ox3, no focal deficits, strength is equal bilateral Psychologically seems neither anxious or depressed Skin is warm Dry without bruises or lesions
--- NOTE | 2018-06-27 17:53 | Ultrasound Report ---
US duplex portal hepatic veins CLINICAL HISTORY: 72 years-old Male presenting with eval for portal vein thrombosis. TECHNIQUE: Real-time grayscale and color and spectral Doppler ultrasound imaging of the liver was per formed. COMPARISON: CT from 09/03/2017. FINDINGS: Liver: Nodular contour with hyperechogenic parenchyma and heterogeneous echotexture, consistent with cirrhosis. Vasculature: Portal veins: Main portal vein with hepatofugal flow. Peak velocity 18 cm/s. Reversal of flow also ev ident in the left portal vein. Likely bidirectional limited flow within the right portal vein. Hepatic arteries: Not evaluated. Hepatic veins: Middle hepatic vein with normal triphasic waveforms. Additional hepatic veins not visu alized. Splenic vein: Patent. IVC: Patent. Biliary: Not evaluated. Gallbladder: Not evaluated. Ascites: None. Other: None. IMPRESSION: 1. Hepatofugal flow indicative of portal hypertension. No evidence of portal vein thrombosis. 2. Poor visualization of the hepatic veins. Electronically signed by: Dante Alford M.D. 06/27/2018 5:51 PM
[2018-06-28] MEDS: SODIUM CHLORIDE 0.9% 1000ML 1,000 ML IV SCH ×2 (00:59→11:14)
[2018-06-28] MEDS: PROPRANOLOL HCL 10 MG TAB PO SCH (08:26)
[2018-06-28] MEDS: LACTULOSE SYRUP 20 GM/30 ML UDC PO SCH ×2 (08:26→12:37)
[2018-06-28] MEDS: ALLOPURINOL 300 MG TAB PO SCH (08:26)
[2018-06-28] MEDS: RIFAXIMIN 550 MG TABLET PO SCH (08:26)
[2018-06-28] MEDS: INSULIN ASPART 100 UNITS/ML 3 ML PEN SC SCH ×2 (08:28→12:36)
[2018-06-28 09:34] LABS: Hematocrit (blood only) 34.9 % (42-52); Hemoglobin 12.1 g/dL (14.0-18.0); Mean Corpuscular Hgb Conc 34.7 g/dL (32-36); Mean Corpuscular Volume 100.9 fL (80-100); RDW Coefficient of Variation 16.2 % (11.5-14.5); RDW Standard Deviation 59.1 fL (36.4-46.3); Red Blood Count 3.46 M/uL (4.7-6.1); White Blood Count 6.51 K/uL (4.8-10.8)
[2018-06-28 09:35] LABS: Mean Platelet Volume 10.5 fL (7.4-10.4); Platelet Count 60 K/uL (130-400)
--- NOTE | 2018-06-28 09:41 | Gastroenterology Progress Note ---
Date of Service June 28, 2018 Assessment & Plan (1) Hepatic encephalopathy: 1. Continue Lactulose 20 g QID. 2. Continue Xifaxan 550 mg PO BID. 3. Stable for D/C from GI standpoint. Supervising Physician Co-Signing Physician Notes Agree with ARNIE Vick as above Patient was discharged prior to my admission. Subjective Constitutional: no fever and no chills Respiratory: no problem reported Cardiovascular: no problem reported Gastrointestinal: no abdominal pain, no nausea, no vomiting, no blood in stools and no melena Neurologic: no problem reported Physical Exam 2 Vital Signs (Past 24 Hours): Last Vital Signs Temp 36.5 C 06/28/18 07:22 Pulse 58 L 06/28/18 07:22 Resp 16 06/28/18 07:22 BP 110/66 06/28/18 07:22 Pulse Ox 98 06/28/18 07:22 Constitutional: WD/WN, vitals as above Respiratory: normal respiratory effort Auscultation: lungs clear to auscultation bilaterally Cardiovascular: Rate/Rhythm: regular rate and regular rhythm Heart Sounds: + murmur Gastrointestinal (Abdomen): Inspection/Auscultation: normal bowel sounds Percussion/Palpation: abdomen soft; abdomen nontender Neurologic: awake Cranial Nerves: EOM intact bilaterally oriented x 3 Psychiatric: Orientation: alert
[2018-06-28 10:12] LABS: Albumin Level 2.3 gm/dl (3.4-5.0); BUN Creatinine Ratio 13.4 (10-20); Bilirubin,Total 4.2 mg/dl (0.2-1); Calcium 7.8 mg/dl (8.5-10.1); Est GFR (Non-African American) 40.6; Potassium 4.4 mmol/L (3.5-5.1)
[2018-06-28 10:14] LABS: Basophils # (auto) 0.02 K/uL (0-0.2); Basophils % (auto) 0.3 %; Bilirubin Direct 1.1 mg/dl (0-0.2); Eosinophils # (auto) 0.49 K/uL (0-0.5); Eosinophils % (auto) 7.5 %; Immature Granulocytes # (auto) 0.01 K/uL (0.00-0.02); Immature Granulocytes % (auto) 0.2 %; Lymphocytes # (auto) 1.56 K/uL (1.2-3.4); Monocytes # (auto) 1.08 K/uL (0.11-0.59); Monocytes % (auto) 16.6 %; Neutrophils # (auto) 3.35 K/uL (1.4-6.5); Neutrophils % (auto) 51.4 %; Total Protein 5.8 gm/dl (6.4-8.2)
--- NOTE | 2018-06-28 12:10 | Nephrology Progress Note ---
Date of Service June 28, 2018 Assessment & Plan (1) Acute renal failure: -- renal function continues to improve, creatinine now close to baseline , electrolyte acceptable. -- okay to be discharged from nephrology standpoint, when medically stable, okay to resume Spironolactone and Metformin on discharge. Patient should be encouraged to maintain well hydration. He should have follow-up lab in 2 days after discharge and monitor the lab by his PCP Will follow while in hospital. (2) Hepatic encephalopathy: -- Ammonia is trending down -- Continue lactulose and rifaximin therapy (3) Diabetes: -- Hold Metformin -- Recommend managing blood sugar with insulin Subjective Mr. Gerard was seen & examined in his hospital room this morning. He is awake and alert. He denies fever, abdominal pain or nausea. Mr. Gerard reports feeling much better and feels like he is ready to go home. Renal function has been improving nicely, creatinine 1.5 which is close to his baseline, electrolyte acceptable. Gastrointestinal: + diarrhea/loose stools; no abdominal pain Physical Exam 2 Vital Signs (Past 24 Hours): Last Vital Signs Temp 36.5 C 06/28/18 07:22 Pulse 58 L 06/28/18 07:22 Resp 16 06/28/18 07:22 BP 110/66 06/28/18 07:22 Pulse Ox 98 06/28/18 07:22 Constitutional: WD/WN, vitals as above Respiratory: normal respiratory effort, lungs clear to auscultation Cardiovascular: RRR, no murmur, no edema Neurologic: moves all extremities and awake Psychiatric: A+Ox3, euthymic affect _ (1) Acute renal failure Acute renal failure type: unspecified Qualified Code(s): N17.9 - Acute kidney failure, unspecified
--- NOTE | 2018-07-04 23:00 | Discharge Summary ---
Date of Service Jun 28, 2018 Admission HPI Per Admitting Provider 72 yo male, patient of Dr. stout. history of etoh cirrhosis- last drink 2 years ago. D/w HE on outpatient lactulose/xifaxan. Admitted with confusion- this am alert and oriented to person/place/time. Eating in his bed without other complaints. No reports of hematemesis/hematochezia, no belly pain, nausea, vomiting. No other complaints at this time. Principal Diagnosis hepatic encephalopathy Discharge Exam The patient appeared well nourished and normally developed. Vital signs as documented. Head exam is unremarkable. normocephalic, atraumatic Neck is without jugular venous distension, thyromegaly, or lymphademopathy Lungs are clear to auscultation and percussion. Cardiac exam reveals Rhythm is regular. First and second heart sounds normal. Abdominal exam reveals normal bowel sounds, no masses, no organomegaly Extremities are nonedematous and both pedal pulses are present Neurologic exam is A&Ox3, no focal deficits, strength is equal bilateral Psychologically seems neither anxious or depressed Skin is warm Dry without bruises or lesions Discharge Data Allergies Allergy/AdvReac Type Severity Reaction Status Date / Time No Known Allergies Allergy Unknown Unverified 06/25/18 18:28 Consultations 06/25/18 18:17 ED Decision to Admit Stat 06/25/18 20:50 Consult Gastroenterology Routine Consult Nephrology Routine Ordered Studies 06/25/18 17:02 CT head/brain wo con Stat 06/27/18 09:31 US duplex portal hepatic veins Routine Hospital Course (1) Hepatic encephalopathy: ammonia continues to improve with with Lactulose 15mL QID and continued Rifaximin No signs of infection, no abdominal pain or fever to suggest SBP. Appreciate input by GI. 1. Continue Lactulose 20 g QID. 2. Continue Xifaxan 550 mg PO BID. 3. Stable for D/C from GI standpoint. (2) MARCUS (acute kidney injury): MARCUS is improving,consult nephrology is following and wishes to have contined IVF -- renal function continues to improve, creatinine now close to baseline, electrolyte acceptable. -- okay to be discharged from nephrology standpoint, when medically stable, okay to resume Spironolactone and Metformin on discharge. Patient should be encouraged to maintain well hydration. He should have follow-up lab in 2 days after discharge and monitor the lab by his PCP Will follow while in hospital. (3) Cirrhosis: continue Lactulose, Rifaximin, Propranolol. holding Spironolactone since he has elvated Cr. ok to resume at discharge (4) HTN (hypertension): continue metoprolol (5) Diabetes: conitnues on Novolog SS, diatec diet, AIC in he 8 range (6) Hyperammonemia: near his normal with usual doses of lactulose and Rifaxmin Total Time Total Time Spent Total Time Spent (In Minutes): 35 Total Time Includes: Examination of the Patient, Discharge Planning, Medication Reconciliation and Communication With Other Providers Discharge Plan Discharge Items Patient Disposition: Home - Self-Care Reason For Visit: HEPATIC ENCEPHALOPATHY,MARCUS Discharge Diagnosis: Hepatic encephalopathy Discharge Goals: Decrease discomfort and Diagnostic testing Activity: Resume your previous activity Non-emergency contact: Primary Care Provider Call non-emergency contact if: you have any medication questions Follow-up/Referrals: Bernardo Caal MD [Primary Care Provider] - 07/01/18 11:00 am (Please, follow up at Dr. Caal's office with his trade sales assistant, Sofia Godoy PA-C, on July 01 at 11:00 am. *If you need to change this appointment, call their office at [phone].) Priscila Arreola PA-C [Physician Senior [employer] Developer] - 07/09/18 10:50 am (Please, follow up at [facility] with Priscila Arreola PA-C on ThursdayJuly 09 at 10:50 am. *If you need to change this appointment, call the office at [phone].) Diet: Carb Consistent or DM2 Addtl Provider Instructions: okay to resume Spironolactone and Metformin on discharge. Patient should be encouraged to maintain well hydration. He should have follow-up lab in 2 days after discharge and monitor the lab by his PCP Prescriptions: Continued acetaminophen [Acetaminophen Extra Strength] 500 mg Tablet 1,000 mg PO Q6H PRN (Reason: Pain) RF: 0 propranolol 10 mg tablet 10 mg PO BID RF: 0 metformin 1,000 mg tablet 1,000 mg PO BID RF: 0 allopurinol 300 mg tablet 300 mg PO QAM RF: 0 spironolactone 50 mg tablet 1 tab PO DAILY RF: 0 Humalog Mix 75-25 KwikPen 100 unit/mL (75-25) Insulin Pen 10 unit SUBCUT QAM RF: 0 lactulose 10 gram/15 mL solution 1 dose PO QID RF: 0 rifaximin 550 mg tablet 1 tab PO BID RF: 0 Stand-Alone Forms: [facility] Discharge Orders: Discharge Order (Routine); Ordered 06/28/18 Ordered By: Reyes Aguirre Admission Data Admit Date/Time: 06/25/18 19:03 Attending Provider: Reyes Aguirre Admit Provider: Deuce Lozada Primary Care Provider: Bernardo Caal Other Providers: Deuce Lozada ; Shen Stout ; Ryan Ernandez Service: Medical Other Interventions: Discharge Summary Assessment (RN) Last Done: 06/28/18 15:37 DC Date/Time DO NOT enter until pt leaves facility: 06/28/18 16:05
== END 2018-06-28 16:05 | disposition home or self-care (01) | DRG 442 ==
LOC: ED 16:37 → SUATTDRO 19:03 → 4E 19:03

== ENCOUNTER 2018-07-07 10:43 | Inpatient (IN) ==
[2018-07-07] MEDS ORDERED: SODIUM CHLORIDE 0.9% 1000ML 1,000 ML IV SCH (11:00)
--- NOTE | 2018-07-07 11:22 | XRay Report ---
XR chest 1V portable HISTORY: cough COMPARISON: None. FINDINGS: The lungs are clear. Cardiac silhouette is normal in size. No pleural effusions. No pneumot horax. IMPRESSION: No acute process. Electronically signed by: Ras Moreira M.D. 07/07/2018 11:20 AM
--- NOTE | 2018-07-07 12:08 | CT Scan Report ---
CT head/brain wo con CT DOSE: 537.48 mGy.cm HISTORY: Mental status change ams TECHNIQUE: Multiaxial CT images of the head were performed without the use of intravenous contrast. A dose lowering technique was utilized adhering to the principles of ALARA. Comparison: 06/25/2018 Findings: The paranasal sinuses and mastoid air cells are clear. The calvarium and skull base are int act. The ventricles and sulci are within normal limits. There is no mass, hematoma, midline shift, or acute infarct. Mild age-related atrophy and chronic small vessel change. Impression: No acute intracranial abnormality. No change compared to the prior study. The above report was generated using voice recognition software. It may contain grammatical, syntax or spelling errors. Electronically signed by: Win Lima M.D. 07/07/2018 12:06 PM
[2018-07-07 12:14] LABS: Hematocrit (blood only) 35.1 % (42-52); Hemoglobin 12.2 g/dL (14.0-18.0); Mean Corpuscular Hgb Conc 34.8 g/dL (32-36); Mean Corpuscular Volume 99.4 fL (80-100); RDW Coefficient of Variation 16.3 % (11.5-14.5); RDW Standard Deviation 58.4 fL (36.4-46.3); Red Blood Count 3.53 M/uL (4.7-6.1); White Blood Count 9.31 K/uL (4.8-10.8)
[2018-07-07 12:15] LABS: Mean Platelet Volume 10.8 fL (7.4-10.4); Platelet Count 88 K/uL (130-400)
[2018-07-07 12:27] LABS: INR 1.2 (0.9-1.1); Partial Thromboplastin Time 27.6 Seconds (21.0-31.0); Prothrombin Time 12.6 Seconds (9.0-12.0)
[2018-07-07] MEDS ORDERED: LACTULOSE SYRUP 20 GM/30 ML UDC PO STA (12:28)
[2018-07-07 12:30] LABS: Influenza A virus by PCR Neg for Influ A (Neg); Influenza B virus by PCR Neg for Influ B (Neg)
[2018-07-07 12:33] LABS: Albumin Level 2.8 gm/dl (3.4-5.0); BUN Creatinine Ratio 18.6 (10-20); Bilirubin Direct 1.3 mg/dl (0-0.2); Calcium 10.5 mg/dl (8.5-10.1); Creatinine Clr Calc Pharmacy 41.5 ml/min; Est GFR (Non-African American) 43.1; Potassium 4.5 mmol/L (3.5-5.1)
[2018-07-07 12:34] LABS: Basophils # (auto) 0.02 K/uL (0-0.2); Basophils % (auto) 0.2 %; Eosinophils # (auto) 0.67 K/uL (0-0.5); Eosinophils % (auto) 7.2 %; Immature Granulocytes # (auto) 0.01 K/uL (0.00-0.02); Immature Granulocytes % (auto) 0.1 %; Lymphocytes # (auto) 1.87 K/uL (1.2-3.4); Lymphocytes % (auto) 20.1 %; Monocytes # (auto) 1.29 K/uL (0.11-0.59); Monocytes % (auto) 13.9 %; Neutrophils # (auto) 5.45 K/uL (1.4-6.5); Neutrophils % (auto) 58.5 %
[2018-07-07 12:39] LABS: Bilirubin,Total 4.6 mg/dl (0.2-1); Total Protein 7.3 gm/dl (6.4-8.2); Troponin I 0.041 ng/ml (0-0.045)
[2018-07-07 13:06] LABS: Appearance Urine Cloudy (Clear); Bacteria Urine Automated Negative (Negative); Bilirubin Urine Negative (Negative); Blood Urine Negative (Negative); Color Urine Dark Yellow; Glucose Urine UA Negative (Negative); Ketones Urine Negative (Negative); Leukocyte Esterase Urine Negative (Negative); Nitrite Urine Negative (Negative); Protein Urine Negative (Negative); RBC Urine Automated 0-4 /hpf (0-4); Urobilinogen Urine Negative (Negative)
--- NOTE | 2018-07-07 13:12 | History & Physical Report ---
Date of Service July 07, 2018 Assessment & Plan (1) Encephalopathy, hepatic: 72 y/o M Hx DMII, HTN, gout, ETOH cirrhosis since 1994 - multiple admits with hepatic encephalopathy, recent MARCUS. 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 She had called him multiple times today and when he did not answer, called a family friend to go check on him. They found him in his bedroom, disoriented and lethargic and brought him to the hospital therefore. It is unclear if he had been noncompliant with his medications while she was away or if he became dehydrated which was a recent precipitating factor despite compliance. The pt cannot provide any reliable information at the time of admission. He is oriented x 1. Initial labs demonstrate an elevated ammonia level, lactic acidosis, mild LFT abnormalities with a bilirubin of 4.3, stable thrombocytopenia and MARCUS/impaired renal function which has not substantially improved from recent DC 06/28. His wif was contacted by phone and confirmed that he had been taking his medications until the previous evening and today so he likely missed 2 doses of Lactulose and 2 doses of Xifaxin. His MELD on admission is ~20. On examination there is a prominent 4-5/6 systolic murmur. His states that his PCP recently noted this change and an echo was contemplated. 1) Hepatic encephalopathy - lactic acidosis and recent compliance with medications indicates this may be due to both missed doses of Lactulose/Xifaxin the previous carrol and today, in addition to dehydration. He will receive QID Lactulose, Xifaxin, IVF. Pt will cont Propranonol. We will hold Aldactone for a few days. 2) Impaired renalo function - function was WNL prior to admission in June. We will provide IVF as mentioned. If there is no improvement on AM labs, nephrology should be consulted as an alternative diagnosis to dehydration should be entertained. Aldactone will be held for the time being. 3) DM II - placed on a SS 4) HTN - cont Propranolol- no other treatment provided at present. 5) Gout - cont Allopurinol 6) Regarding his heart murmur - this appears to be a recent diagnosis and was not reported on mutiple exams during recent admission. We will obtain an echo therefore. Full code - SCDs Total time for this admit including review of labs, meds, records, EKG - discussion with pt as possible, , ER attending - 38 min History of Present Illness Chief Complaint: Hepatic encephalopathy/AMS Primary Care Provider: Bernardo Caal MD 72 y/o M Hx DMII, HTN, gout, ETOH cirrhosis since 1994 - multiple admits with hepatic encephalopathy, recent MARCUS. 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 She had called him multiple times today and when he did not answer, called a family friend to go check on him. They found him in his bedroom, disoriented and lethargic and brought him to the hospital therefore. It is unclear if he had been noncompliant with his medications while she was away or if he became dehydrated which was a recent precipitating factor despite compliance. The pt cannot provide any reliable information at the time of ad mission. He is oriented x 1. Initial labs demonstrate an elevated ammonia level, lactic acidosis, mild LFT abnormalities with a bilirubin of 4.3, stable thrombocytopenia and MARCUS/impaired renal function which has not substantially improved from recent DC 06/28. His wif was contacted by phone and confirmed that he had been taking his medications until the previous evening and today so he likely missed 2 doses of Lactulose and 2 doses of Xifaxin. His MELD on admission is ~20. On examination there is a prominent 4-5/6 systolic murmur. His states that his PCP recently noted this change and an echo was contemplated. PMH: 1) ETOH cirrhosis - diagnosed 1994 - reports no history of ascistes - takes Adlactone for LE edema. Previously had varices which had resolved on last EGD > 5 yrs. 2) DM II 3) HTN 4) Gout Social: Does not smoke. Has relapsed to drinking twice since 1994. Has not had a drink in > 2.5 years. Family: Could not obtain Allergies Allergy/AdvReac Type Severity Reaction Status Date / Time No Known Allergies Allergy Unknown Unverified 07/07/18 12:05 Home Medications Home Medications Medication Instructions Recorded Confirmed Type Humalog Mix 75-25 KwikPen 10 unit SUBCUT QAM 06/25/18 07/07/18 History acetaminophen [Acetaminophen Extra 1,000 mg PO Q6H PRN 06/25/18 07/07/18 History Strength] allopurinol 300 mg PO QAM 06/25/18 07/07/18 History lactulose 1 dose PO QID 06/25/18 07/07/18 History metformin 1,000 mg PO BIDM 06/25/18 07/07/18 History propranolol 10 mg PO BID 06/25/18 07/07/18 History rifaximin 1 tab PO BID 06/25/18 07/07/18 History spironolactone 1 tab PO DAILY 06/25/18 07/07/18 History glimepiride 1 mg PO DAILY 07/07/18 07/07/18 History insulin degludec [Tresiba 12 units SUBCUT DAILY 07/07/18 07/07/18 History FlexTouch U-100] Past Med/Surg History Medical History MARCUS (acute kidney injury) Cirrhosis Diabetes HTN (hypertension) Hepatic encephalopathy Hyperammonemia Family History Other Alcohol abuse Social History Preferred Language: Greek Communication Ability: Impaired Communication Ability Comment: signature illegible Route Aide Required: No Beliefs That Will Affect Care: None marital status: Current Living Situation: Spouse Other Information That Helps Us Care for You: Yes ( out of town) Feels Safe at Home: Yes Safety Concerns: Feels Safe At This Time Smoking Status: Never smoker Hx Alcohol Use: Yes Hx Substance Use: No Review of Systems Cannot obtain from pt - was away so could not elaborate on precipitating events Physical Exam Vital Signs (Past 24 Hours): Last Vital Signs Pulse 58 L 07/07/18 12:39 Resp 14 07/07/18 12:39 BP 141/65 H 07/07/18 12:39 Pulse Ox 100 07/07/18 12:39 Physical Exam: General: Confused, lethargic, jaundiced, elderly male - no distress ENT: No erythema or exudates, no thrush Eyes: ROLO, EOMI - + icteric Head and neck: Normocephalic, atraumatic, No JVD, neck is supple. Chest/heart: Nontender, S1,2, prominent systolic murmur Lungs: CTAB, no wheezing or crackles Abdomen: Nontender, nondistended, BS+ Neuro: AAO x 1, lethargic with clear, slow speech - no focal motor deficits Musculoskeletal: No joint inflammation, muscle tenderness, FROM Skin: No acute rashes or ulcers - jaundice is apparent Extremities: No clubbing, cyanosis, edema
--- NOTE | 2018-07-07 14:13 | Emergency Department Note ---
Entered by Mynor Muñoz acting as a scribe for Gregg Miles MD History of Present Illness General Chief complaint: Referred by Doctor Stated complaint: CONFUSION,BLOOD SUGAR HIGH Time Seen by Provider: 07/07/18 10:56 Source: patient, family and friends Limitations: altered mental status History of Present Illness Provider complaint: Altered Mental Status Onset (ago): day(s) (2) Location: head Pain Consistency: + other (worsening) Quality: + other (AMS) Associated symptoms: + other (No falls) This history is significantly limited secondary to the altered mental status of the patient and lack of additional historians. The patient is a 72 year old male who presents to the Emergency Room for worsening mental status. Per the patient's via cell phone call, she left home 2 days ago for a trip to [place]. Since she left the patient's mental status has deteriorated. Two family friends at bedside deny that he has drank any alcohol since the left. They also deny any falls, but state that he has been having a difficult time walking and cannot remember things. Review of the patient's EMR shows that the patient has a history of alcoholic liver cirrhosis, hepatic encephalopathy, MARCUS, and alcoholism. The patient is on Riphaximin and Lactalose. On June 25 the patient was admitted with ammonia level of 134, bilirubin level of 4.3, Creatine of 2.06 with a baseline creatine of 1.0. The patient was diagnosed with excessive alcohol cirrhosis in 1994. On July 02, 5 days ago he had a creatine of 1.62 and ammonia was 60. Home Medications Home Medications Medication Instructions Recorded Confirmed Type Humalog Mix 75-25 KwikPen 10 unit SUBCUT QA 06/25/18 07/07/18 History acetaminophen [Acetaminophen Extra 1,000 mg PO Q6H PRN 06/25/18 07/07/18 History Strength] allopurinol 300 mg PO QAM 06/25/18 07/07/18 History lactulose 1 dose PO QID 06/25/18 07/07/18 History metformin 1,000 mg PO BIDM 06/25/18 07/07/18 History propranolol 10 mg PO BID 06/25/18 07/07/18 History rifaximin 1 tab PO BID 06/25/18 07/07/18 History spironolactone 1 tab PO DAILY 06/25/18 07/07/18 History glimepiride 1 mg PO DAILY 07/07/18 07/07/18 History insulin degludec [Tresiba 12 units SUBCUT DAILY 07/07/18 07/07/18 History FlexTouch U-100] Allergies Allergy/AdvReac Type Severity Reaction Status Date / Time No Known Allergies Allergy Unknown Unverified 07/07/18 12:05 Past Med/Surg History Medical History MARCUS (acute kidney injury) Cirrhosis Diabetes HTN (hypertension) Hepatic encephalopathy Hyperammonemia Family History Other Alcohol abuse Social History Preferred Language: Telugu Beliefs That Will Affect Care: None marital status: Current Living Situation: Spouse Feels Safe at Home: Yes Smoking Status: Never smoker Hx Alcohol Use: Yes Hx Substance Use: No Review of Systems See HPI for pertinent positives & negatives. ROS limited secondary to altered mental status. Physical Exam Vital Signs Vital Signs - 24 hr 07/07/18 10:48 07/07/18 11:31 07/07/18 12:06 Temperature Source Oral Sepsis Recent Fever Within 48 Hours No Sepsis New/Unexplained Change in Mental Status No Sepsis Action Taken by Nursing No Action Required Pulse Rate 58 L Pulse Rate [Left Finger] 57 L 56 L Respiratory Rate 20 16 16 Respiratory Effort / Characteristics Non-Labored Non-Labored Respiratory Depth Normal Normal Blood Pressure 116/66 Blood Pressure [Left Arm] 120/67 136/62 Blood Pressure Mean 82 Blood Pressure Mean [Left Arm] 84 86 Pulse Oximetry 100 100 100 Oxygen Delivery Method Room Air Room Air Room Air 07/07/18 12:39 Temperature Source Sepsis Recent Fever Within 48 Hours Sepsis New/Unexplained Change in Mental Status Sepsis Action Taken by Nursing Pulse Rate Pulse Rate [Left Finger] 58 L Respiratory Rate 14 Respiratory Effort / Characteristics Non-Labored Respiratory Depth Normal Blood Pressure Blood Pressure [Left Arm] 141/65 H Blood Pressure Mean Blood Pressure Mean [Left Arm] 90 Pulse Oximetry 100 Oxygen Delivery Method Room Air Physical Exam GENERAL: HENT: Exam performed. - Head: Normocephalic and atraumatic. - Right Ear: External ear normal. No mastoid tenderness. - Left Ear: External ear normal. No mastoid tenderness. - Mouth/Throat: The oropharynx is clear and moist. No trismus in the jaw. No dental abscesses or uvula swelling. No oropharyngeal exudate or tonsillar abscesses. ____ EYES: Conjunctivae and EOM are normal. Pupils are equal, round, and reactive to light. Right eye exhibits no discharge. Left eye exhibits no discharge. No scleral icterus. ____ NECK: Normal range of motion. Neck supple. No JVD present. No spinous process tenderness present. No carotid bruit present. No rigidity. No tracheal deviation and normal range of motion present. No Brudzinski's sign and no Kernig's sign noted. ____ CV: Normal rate, regular rhythm, normal heart sounds and intact distal pulses. There is no peripheral edema. Palpable radial pulses bue. ____ PULM/CHEST: Effort normal and breath sounds normal. No respiratory distress. No stridor. He has no wheezes. He has no rales. - Chest Wall: He exhibits no tenderness. ____ ABD: The abdomen is soft. Bowel sounds are normal. He has no distension. No mass is present. There is no tenderness. There is no rebound, no guarding, no Calixto's sign and no tenderness at McBurney's point. Rovsig negative MUSC/SKEL: Normal range of motion. There is no peripheral edema, tenderness or deformity. LYMPH: No cervical adenopathy. ____ NEURO: He has normal strength. GCS eye subscore is 4. GCS verbal subscore is 4. GCS motor subscore is 6. ___ SKIN: Appears Jaundiced. PSYCH: Course 1103: Past medical records reviewed. The patient was evaluated in room C2B, and a complete history and physical examination were performed. 1239: I checked on the patient. Vitals are stable. He is unable to walk on ambulatory exam, he is unsteady on his feet with a wide-base gait. The family friend at bedside does not think he has been taking his home meds since his left for [place]. Lactulose was given here in the ED. The patient's Lactic acid was elevated at 4.9, this was thought to be due to the patient's chronic liver disease. No fever, no leukocytosis, infection source thought to be due to the patient's lactic acidemia. 1240: Dr. Sage [facility] Hospitalist was made aware of the case. Medical Decision Making Medical Records Attestation: I reviewed the patient's medical records. Home Medications Current Medication List: was personally reviewed by me Laboratory Data Attestation: I reviewed the patient's lab results. Result diagrams: 07/07/18 11:53 07/07/18 11:53 Lab Results 07/07/18 07/07/18 07/07/18 Range/Units 11:24 11:26 11:53 WBC 9.31 (4.8-10.8) K/uL RBC 3.53 L (4.7-6.1) M/uL Hgb 12.2 L (14.0-18.0) g/dL Hct 35.1 L (42-52) % MCV 99.4 (80-100) fL MCH 34.6 H (25-34) pg MCHC 34.8 (32-36) g/dL RDW Std Deviation 58.4 H (36.4-46.3) fL RDW Coeff of Christoph 16.3 H (11.5-14.5) % Plt Count 88 L (130-400) K/uL MPV 10.8 H (7.4-10.4) fL Immature Gran % (Auto) 0.1 % Neut % (Auto) 58.5 % Lymph % (Auto) 20.1 % [place] % (Auto) 13.9 % Eos % (Auto) 7.2 % Baso % (Auto) 0.2 % Immature Gran # (Auto) 0.01 (0.00-0.02) K/uL Neut # (Auto) 5.45 (1.4-6.5) K/uL Lymph # (Auto) 1.87 (1.2-3.4) K/uL [place] # (Auto) 1.29 H (0.11-0.59) K/uL Eos # (Auto) 0.67 H (0-0.5) K/uL Baso # (Auto) 0.02 (0-0.2) K/uL PT (9.0-12.0) Seconds INR (0.9-1.1) APTT (21.0-31.0) Seconds PTT Ratio Sodium (136-145) mmol/L Potassium (3.5-5.1) mmol/L Chloride (98-107) mmol/L Carbon Dioxide (21-32) mmol/L Anion Gap (3-11) BUN (7-18) mg/dl Creatinine (0.6-1.4) mg/dl Est Cr Clr Drug Dosing ml/min Est GFR ( Amer) Est GFR (Non-Af Amer) BUN/Creatinine Ratio (10-20) Glucose (70-99) mg/dl POC Glucose 154 H (70-99) Lactate (0.4-2.0) mmol/L Calcium (8.5-10.1) mg/dl Total Bilirubin (0.2-1) mg/dl Direct Bilirubin (0-0.2) mg/dl AST (15-37) U/L ALT (12-78) U/L Alkaline Phosphatase (45-117) U/L Ammonia (11-32) umol/L Troponin I (0-0.045) ng/ml Total Protein (6.4-8.2) gm/dl Albumin (3.4-5.0) gm/dl Lipase (73-393) U/L Urine Color Urine Appearance (Clear) Urine pH (4.5-7.5) Ur Specific [place] (1.000-1.030) Urine Protein (Negative) Urine Glucose (UA) (Negative) Urine Ketones (Negative) Urine Blood (Negative) Urine Nitrite (Negative) Urine Bilirubin (Negative) Urine Urobilinogen (Negative) Ur Leukocyte Esterase (Negative) Urine WBC (Auto) (0-5) /hpf Urine RBC (Auto) (0-4) /hpf U Hyaline Cast (Auto) (0-5) /lpf U Epithel Cells (Auto) (0-5) /lpf Urine Bacteria (Auto) (Negative) Ethyl Alcohol mg/dL (0-3) mg/dl Influenza Type A (PCR) Neg for Influ A (Neg) Influenza Type B (PCR) Neg for Influ B (Neg) 07/07/18 07/07/18 07/07/18 Range/Units 11:53 11:53 11:53 WBC (4.8-10.8) K/uL RBC (4.7-6.1) M/uL Hgb (14.0-18.0) g/dL Hct (42-52) % MCV (80-100) fL MCH (25-34) pg MCHC (32-36) g/dL RDW Std Deviation (36.4-46.3) fL RDW Coeff of Christoph (11.5-14.5) % Plt Count (130-400) K/uL MPV (7.4-10.4) fL Immature Gran % (Auto) % Neut % (Auto) % Lymph % (Auto) % [place] % (Auto) % Eos % (Auto) % Baso % (Auto) % Immature Gran # (Auto) (0.00-0.02) K/uL Neut # (Auto) (1.4-6.5) K/uL Lymph # (Auto) (1.2-3.4) K/uL [place] # (Auto) (0.11-0.59) K/uL Eos # (Auto) (0-0.5) K/uL Baso # (Auto) (0-0.2) K/uL PT 12.6 H (9.0-12.0) Seconds INR 1.2 H (0.9-1.1) APTT 27.6 (21.0-31.0) Seconds PTT Ratio 1.0 Sodium 134 L (136-145) mmol/L Potassium 4.5 (3.5-5.1) mmol/L Chloride 103 (98-107) mmol/L Carbon Dioxide 22 (21-32) mmol/L Anion Gap 9.0 (3-11) BUN 29 H (7-18) mg/dl Creatinine 1.56 H (0.6-1.4) mg/dl Est Cr Clr Drug Dosing 41.5 ml/min Est GFR ( Amer) 50.0 Est GFR (Non-Af Amer) 43.1 BUN/Creatinine Ratio 18.6 (10-20) Glucose 161 H (70-99) mg/dl POC Glucose (70-99) Lactate 4.9 H* (0.4-2.0) mmol/L Calcium 10.5 H (8.5-10.1) mg/dl Total Bilirubin 4.6 H (0.2-1) mg/dl Direct Bilirubin 1.3 H (0-0.2) mg/dl AST 52 H (15-37) U/L ALT 56 (12-78) U/L Alkaline Phosphatase 106 (45-117) U/L Ammonia (11-32) umol/L Troponin I 0.041 (0-0.045) ng/ml Total Protein 7.3 (6.4-8.2) gm/dl Albumin 2.8 L (3.4-5.0) gm/dl Lipase 131 (73-393) U/L Urine Color Urine Appearance (Clear) Urine pH (4.5-7.5) Ur Specific [place] (1.000-1.030) Urine Protein (Negative) Urine Glucose (UA) (Negative) Urine Ketones (Negative) Urine Blood (Negative) Urine Nitrite (Negative) Urine Bilirubin (Negative) Urine Urobilinogen (Negative) Ur Leukocyte Esterase (Negative) Urine WBC (Auto) (0-5) /hpf Urine RBC (Auto) (0-4) /hpf U Hyaline Cast (Auto) (0-5) /lpf U Epithel Cells (Auto) (0-5) /lpf Urine Bacteria (Auto) (Negative) Ethyl Alcohol mg/dL (0-3) mg/dl Influenza Type A (PCR) (Neg) Influenza Type B (PCR) (Neg) 07/07/18 07/07/18 07/07/18 Range/Units 11:53 11:53 12:47 WBC (4.8-10.8) K/uL RBC (4.7-6.1) M/uL Hgb (14.0-18.0) g/dL Hct (42-52) % MCV (80-100) fL MCH (25-34) pg MCHC (32-36) g/dL RDW Std Deviation (36.4-46.3) fL RDW Coeff of Christoph (11.5-14.5) % Plt Count (130-400) K/uL MPV (7.4-10.4) fL Immature Gran % (Auto) % Neut % (Auto) % Lymph % (Auto) % [place] % (Auto) % Eos % (Auto) % Baso % (Auto) % Immature Gran # (Auto) (0.00-0.02) K/uL Neut # (Auto) (1.4-6.5) K/uL Lymph # (Auto) (1.2-3.4) K/uL [place] # (Auto) (0.11-0.59) K/uL Eos # (Auto) (0-0.5) K/uL Baso # (Auto) (0-0.2) K/uL PT (9.0-12.0) Seconds INR (0.9-1.1) APTT (21.0-31.0) Seconds PTT Ratio Sodium (136-145) mmol/L Potassium (3.5-5.1) mmol/L Chloride (98-107) mmol/L Carbon Dioxide (21-32) mmol/L Anion Gap (3-11) BUN (7-18) mg/dl Creatinine (0.6-1.4) mg/dl Est Cr Clr Drug Dosing ml/min Est GFR ( Amer) Est GFR (Non-Af Amer) BUN/Creatinine Ratio (10-20) Glucose (70-99) mg/dl POC Glucose (70-99) Lactate (0.4-2.0) mmol/L Calcium (8.5-10.1) mg/dl Total Bilirubin (0.2-1) mg/dl Direct Bilirubin (0-0.2) mg/dl AST (15-37) U/L ALT (12-78) U/L Alkaline Phosphatase (45-117) U/L Ammonia 128.5 H (11-32) umol/L Troponin I (0-0.045) ng/ml Total Protein (6.4-8.2) gm/dl Albumin (3.4-5.0) gm/dl Lipase (73-393) U/L Urine Color Dark Yellow Urine Appearance Cloudy H (Clear) Urine pH 5.0 (4.5-7.5) Ur Specific [place] 1.020 (1.000-1.030) Urine Protein Negative (Negative) Urine Glucose (UA) Negative (Negative) Urine Ketones Negative (Negative) Urine Blood Negative (Negative) Urine Nitrite Negative (Negative) Urine Bilirubin Negative (Negative) Urine Urobilinogen Negative (Negative) Ur Leukocyte Esterase Negative (Negative) Urine WBC (Auto) 1-5 (0-5) /hpf Urine RBC (Auto) 0-4 (0-4) /hpf U Hyaline Cast (Auto) 1-5 (0-5) /lpf U Epithel Cells (Auto) 5-10 H (0-5) /lpf Urine Bacteria (Auto) Negative (Negative) Ethyl Alcohol mg/dL < 3.0 (0-3) mg/dl Influenza Type A (PCR) (Neg) Influenza Type B (PCR) (Neg) Imaging Data Attestation: I personally reviewed and interpreted this imaging study as follows: Radiologist's Impression: CT head/brain wo con CT DOSE: 537.48 mGy.cm HISTORY: Mental status change ams TECHNIQUE: Multiaxial CT images of the head were performed without the use of intravenous contrast. A dose lowering technique was utilized adhering to the principles of ALARA. Comparison: 06/25/2018 Findings: The paranasal sinuses and mastoid air cells are clear. The calvarium and skull base are intact. The ventricles and sulci are within normal limits. There is no mass, hematoma, midline shift, or acute infarct. Mild age-related atrophy and chronic small vessel change. Impression: No acute intracranial abnormality. No change compared to the prior study. The above report was generated using voice recognition software. It may contain grammatical, syntax or spelling errors. Electronically signed by: Win Lima M.D. 07/07/2018 12:06 PM XR chest 1V portable HISTORY: cough COMPARISON: None. FINDINGS: The lungs are clear. Cardiac silhouette is normal in size. No pleural effusions. No pneumothorax. IMPRESSION: No acute process. Electronically signed by: Ras Moreira M.D. 07/07/2018 11:20 AM ECG Data Attestation: I personally reviewed and interpreted this ECG as follows: Indication: altered mental status Rate (beats per minute): 56 Rhythm: sinus rhythm Findings: + other (ID 204, QRS/QTC normal) and + 1st degree AV block; no ST depression and no ST elevation Blood Pressure Blood Pressure Findings: Elevated blood pressure Blood Pressure Disposition: further management by hospitalist Impression & Plan Encephalopathy, hepatic, Lactic acidemia Discharge Plan Visit Data Chief Complaint: Referred by Doctor Stated Complaint: CONFUSION,BLOOD SUGAR HIGH ED Provider: Hayden Chris Discharge Problem: Encephalopathy, hepatic, Lactic acidemia Patient Disposition: Being Evaluated by Hospitalist Forms Stand Alone Forms: My [facility] Fullscreen Prescriptions Prescriptions: No Action acetaminophen [Acetaminophen Extra Strength] 500 mg Tablet 1,000 mg PO Q6H PRN (Reason: Pain) RF: 0 propranolol 10 mg tablet 10 mg PO BID RF: 0 metformin 1,000 mg tablet 1,000 mg PO BIDM RF: 0 allopurinol 300 mg tablet 300 mg PO QAM RF: 0 spironolactone 50 mg tablet 1 tab PO DAILY RF: 0 Humalog Mix 75-25 KwikPen 100 unit/mL (75-25) Insulin Pen 10 unit SUBCUT QAM RF: 0 lactulose 10 gram/15 mL solution 1 dose PO QID RF: 0 rifaximin 550 mg tablet 1 tab PO BID RF: 0 glimepiride 1 mg tablet 1 mg PO DAILY RF: 0 Tresiba FlexTouch U-100 100 unit/mL (3 mL) insulin pen 12 units subcut DAILY RF: 0 Referrals Referrals: Bernardo Caal MD [Primary Care Provider] -
--- NOTE | 2018-07-07 15:45 | Emergency Department Note ---
Entered by Mynor Muñoz acting as a scribe for Hayden Chris History of Present Illness General Chief complaint: Referred by Doctor Stated complaint: CONFUSION,BLOOD SUGAR HIGH Time Seen by Provider: 07/07/18 10:56 Source: patient, family and friends Limitations: altered mental status History of Present Illness Provider complaint: Altered Mental Status Onset (ago): day(s) (2) Pain Consistency: + other (worsening) Quality: + other (AMS) Associated symptoms: + other (No falls) This history is significantly limited secondary to the altered mental status of the patient and lack of additional historians. The patient is a 72 year old male who presents to the Emergency Room for worsening mental status. Per the patient's via cell phone call, she left home 2 days ago for a trip to [place]. Since she left the patient's mental status has deteriorated. Two family friends at bedside deny that he has drank any alcohol since the left. They also deny any falls, but state that he has been having a difficult time walking and cannot remember things. Home Medications Home Medications Medication Instructions Recorded Confirmed Type Humalog Mix 75-25 KwikPen 10 unit SUBCUT QAM 06/25/18 07/07/18 History acetaminophen [Acetaminophen Extra 1,000 mg PO Q6H PRN 06/25/18 07/07/18 History Strength] allopurinol 300 mg PO QAM 06/25/18 07/07/18 History lactulose 1 dose PO QID 06/25/18 07/07/18 History metformin 1,000 mg PO BIDM 06/25/18 07/07/18 History propranolol 10 mg PO BID 06/25/18 07/07/18 History rifaximin 1 tab PO BID 06/25/18 07/07/18 History spironolactone 1 tab PO DAILY 06/25/18 07/07/18 History glimepiride 1 mg PO DAILY 07/07/18 07/07/18 History insulin degludec [Tresiba 12 units SUBCUT DAILY 07/07/18 07/07/18 History FlexTouch U-100] Allergies Allergy/AdvReac Type Severity Reaction Status Date / Time No Known Allergies Allergy Unknown Unverified 07/07/18 12:05 Past Med/Surg History Medical History MARCUS (acute kidney injury) Cirrhosis Diabetes HTN (hypertension) Hepatic encephalopathy Hyperammonemia Family History Other Alcohol abuse Social History Preferred Language: Tuvaluan Communication Ability: Impaired Communication Ability Comment: signature illegible Dietary Services Manager Required: No Beliefs That Will Affect Care: None marital status: Current Living Situation: Spouse Other Information That Helps Us Care for You: Yes ( out of town) Feels Safe at Home: Yes Safety Concerns: Feels Safe At This Time Smoking Status: Never smoker Hx Alcohol Use: Yes Hx Substance Use: No Review of Systems See HPI for pertinent positives & negatives. ROS limited secondary to AMS Physical Exam Vital Signs Vital Signs - 24 hr 07/07/18 10:48 07/07/18 11:31 07/07/18 12:06 Temperature Source Oral Sepsis Recent Fever Within 48 Hours No Sepsis New/Unexplained Change in Mental Status No Sepsis Action Taken by Nursing No Action Required Pulse Rate 58 L Pulse Rate [Left Finger] 57 L 56 L Pulse Rhythm [Left Finger] Respiratory Rate 20 16 16 Respiratory Effort / Characteristics Non-Labored Non-Labored Respiratory Depth Normal Normal Blood Pressure 116/66 Blood Pressure [Left Arm] 120/67 136/62 Blood Pressure Mean 82 Blood Pressure Mean [Left Arm] 84 86 Pulse Oximetry 100 100 100 Oxygen Delivery Method Room Air Room Air Room Air 07/07/18 12:39 07/07/18 14:20 Temperature Source Sepsis Recent Fever Within 48 Hours Sepsis New/Unexplained Change in Mental Status Sepsis Action Taken by Nursing Pulse Rate Pulse Rate [Left Finger] 58 L 60 Pulse Rhythm [Left Finger] Regular Respiratory Rate 14 16 Respiratory Effort / Characteristics Non-Labored Non-Labored Respiratory Depth Normal Normal Blood Pressure Blood Pressure [Left Arm] 141/65 H 124/69 Blood Pressure Mean Blood Pressure Mean [Left Arm] 90 87 Pulse Oximetry 100 Oxygen Delivery Method Room Air Physical Exam GENERAL: HENT: Exam performed. - Head: Normocephalic and atraumatic. - Right Ear: External ear normal. No mastoid tenderness. - Left Ear: External ear normal. No mastoid tenderness. - Mouth/Throat: The oropharynx is clear and moist. No trismus in the jaw. No dental abscesses or uvula swelling. No oropharyngeal exudate or tonsillar abscesses. ____ EYES: Conjunctivae and EOM are normal. Pupils are equal, round, and reactive to light. Right eye exhibits no discharge. Left eye exhibits no discharge. No scleral icterus. ____ NECK: Normal range of motion. Neck supple. No JVD present. No spinous process tenderness present. No carotid bruit present. No rigidity. No tracheal deviation and normal range of motion present. No Brudzinski's sign and no Kernig's sign noted. ____ CV: Normal rate, regular rhythm, normal heart sounds and intact distal pulses. There is no peripheral edema. Palpable radial pulses bue. ____ PULM/CHEST: Effort normal and breath sounds normal. No respiratory distress. No stridor. He has no wheezes. He has no rales. - Chest Wall: He exhibits no tenderness. ____ ABD: The abdomen is soft. Bowel sounds are normal. He has no distension. No mass is present. There is no tenderness. There is no rebound, no guarding, no Calixto's sign and no tenderness at McBurney's point. Rovsig negative MUSC/SKEL: Normal range of motion. There is no peripheral edema, tenderness or deformity. LYMPH: No cervical adenopathy. ____ NEURO: He has normal strength. GCS eye subscore is 4. GCS verbal subscore is 4. GCS motor subscore is 6. ___ SKIN: Appears Jaundiced. PSYCH: Course 1103: Past medical records reviewed. The patient was evaluated in room C2B, and a complete history and physical examination were performed. Review of the patient's EMR shows that the patient has a history of alcoholic liver cirrhosis, hepatic encephalopathy, MARCUS, and alcoholism. The patient is on Riphaximin and Lactalose. On June 25 the patient was admitted with ammonia level of 134, bilirubin level of 4.3, Creatine of 2.06 with a baseline creatine of 1.0. The patient was diagnosed with excessive alcohol cirrhosis in 1994. On July 02, 5 days ago he had a creatine of 1.62 and ammonia was 60. 1239: Vitals are stable. He is unable to walk on ambulatory exam, he is unsteady on his feet with a wide-base gait. The family friend at bedside does not think he has been taking his home meds since his left for [place]. Lactulose was given here in the ED. The patient's Lactic acid was elevated at 4.9, this was thought to be due to the patient's chronic liver disease. No fever, no leukocytosis, infection source thought to be due to the patient's lactic acidemia. 1240: Dr. Chu Boateng [facility] Hospitalist was made aware of the case. Administered Medications Sodium Chloride (Nss 1000ml) 1,000 mls @ 125 mls/hr IV .Q8H ARJI Stop: 08/06/18 10:59 Last Admin: 07/07/18 13:30 Dose: 125 mls/hr Documented by: [id number] Discontinued Medications Lactulose (Chronulac) 30 gm PO NOW STA Stop: 07/07/18 12:29 Last Admin: 07/07/18 13:27 Dose: 30 gm Documented by: [id number] Medical Decision Making Medical Records Attestation: I reviewed the patient's medical records. Home Medications Current Medication List: was personally reviewed by me Laboratory Data Attestation: I reviewed the patient's lab results. Result diagrams: 07/07/18 11:53 07/07/18 11:53 Lab Results 07/07/18 07/07/18 07/07/18 Range/Units 11:24 11:26 11:53 WBC 9.31 (4.8-10.8) K/uL RBC 3.53 L (4.7-6.1) M/uL Hgb 12.2 L (14.0-18.0) g/dL Hct 35.1 L (42-52) % MCV 99.4 (80-100) fL MCH 34.6 H (25-34) pg MCHC 34.8 (32-36) g/dL RDW Std Deviation 58.4 H (36.4-46.3) fL RDW Coeff of Christoph 16.3 H (11.5-14.5) % Plt Count 88 L (130-400) K/uL MPV 10.8 H (7.4-10.4) fL Immature Gran % (Auto) 0.1 % Neut % (Auto) 58.5 % Lymph % (Auto) 20.1 % [place] % (Auto) 13.9 % Eos % (Auto) 7.2 % Baso % (Auto) 0.2 % Immature Gran # (Auto) 0.01 (0.00-0.02) K/uL Neut # (Auto) 5.45 (1.4-6.5) K/uL Lymph # (Auto) 1.87 (1.2-3.4) K/uL [place] # (Auto) 1.29 H (0.11-0.59) K/uL Eos # (Auto) 0.67 H (0-0.5) K/uL Baso # (Auto) 0.02 (0-0.2) K/uL PT (9.0-12.0) Seconds INR (0.9-1.1) APTT (21.0-31.0) Seconds PTT Ratio Sodium (136-145) mmol/L Potassium (3.5-5.1) mmol/L Chloride (98-107) mmol/L Carbon Dioxide (21-32) mmol/L Anion Gap (3-11) BUN (7-18) mg/dl Creatinine (0.6-1.4) mg/dl Est Cr Clr Drug Dosing ml/min Est GFR ( Amer) Est GFR (Non-Af Amer) BUN/Creatinine Ratio (10-20) Glucose (70-99) mg/dl POC Glucose 154 H (70-99) Lactate (0.4-2.0) mmol/L Calcium (8.5-10.1) mg/dl Total Bilirubin (0.2-1) mg/dl Direct Bilirubin (0-0.2) mg/dl AST (15-37) U/L ALT (12-78) U/L Alkaline Phosphatase (45-117) U/L Ammonia (11-32) umol/L Troponin I (0-0.045) ng/ml Total Protein (6.4-8.2) gm/dl Albumin (3.4-5.0) gm/dl Lipase (73-393) U/L Urine Color Urine Appearance (Clear) Urine pH (4.5-7.5) Ur Specific [place] (1.000-1.030) Urine Protein (Negative) Urine Glucose (UA) (Negative) Urine Ketones (Negative) Urine Blood (Negative) Urine Nitrite (Negative) Urine Bilirubin (Negative) Urine Urobilinogen (Negative) Ur Leukocyte Esterase (Negative) Urine WBC (Auto) (0-5) /hpf Urine RBC (Auto) (0-4) /hpf U Hyaline Cast (Auto) (0-5) /lpf U Epithel Cells (Auto) (0-5) /lpf Urine Bacteria (Auto) (Negative) Ethyl Alcohol mg/dL (0-3) mg/dl Influenza Type A (PCR) Neg for Influ A (Neg) Influenza Type B (PCR) Neg for Influ B (Neg) 07/07/18 07/07/18 07/07/18 Range/Units 11:53 11:53 11:53 WBC (4.8-10.8) K/uL RBC (4.7-6.1) M/uL Hgb (14.0-18.0) g/dL Hct (42-52) % MCV (80-100) fL MCH (25-34) pg MCHC (32-36) g/dL RDW Std Deviation (36.4-46.3) fL RDW Coeff of Christoph (11.5-14.5) % Plt Count (130-400) K/uL MPV (7.4-10.4) fL Immature Gran % (Auto) % Neut % (Auto) % Lymph % (Auto) % [place] % (Auto) % Eos % (Auto) % Baso % (Auto) % Immature Gran # (Auto) (0.00-0.02) K/uL Neut # (Auto) (1.4-6.5) K/uL Lymph # (Auto) (1.2-3.4) K/uL [place] # (Auto) (0.11-0.59) K/uL Eos # (Auto) (0-0.5) K/uL Baso # (Auto) (0-0.2) K/uL PT 12.6 H (9.0-12.0) Seconds INR 1.2 H (0.9-1.1) APTT 27.6 (21.0-31.0) Seconds PTT Ratio 1.0 Sodium 134 L (136-145) mmol/L Potassium 4.5 (3.5-5.1) mmol/L Chloride 103 (98-107) mmol/L Carbon Dioxide 22 (21-32) mmol/L Anion Gap 9.0 (3-11) BUN 29 H (7-18) mg/dl Creatinine 1.56 H (0.6-1.4) mg/dl Est Cr Clr Drug Dosing 41.5 ml/min Est GFR ( Amer) 50.0 Est GFR (Non-Af Amer) 43.1 BUN/Creatinine Ratio 18.6 (10-20) Glucose 161 H (70-99) mg/dl POC Glucose (70-99) Lactate 4.9 H* (0.4-2.0) mmol/L Calcium 10.5 H (8.5-10.1) mg/dl Total Bilirubin 4.6 H (0.2-1) mg/dl Direct Bilirubin 1.3 H (0-0.2) mg/dl AST 52 H (15-37) U/L ALT 56 (12-78) U/L Alkaline Phosphatase 106 (45-117) U/L Ammonia (11-32) umol/L Troponin I 0.041 (0-0.045) ng/ml Total Protein 7.3 (6.4-8.2) gm/dl Albumin 2.8 L (3.4-5.0) gm/dl Lipase 131 (73-393) U/L Urine Color Urine Appearance (Clear) Urine pH (4.5-7.5) Ur Specific [place] (1.000-1.030) Urine Protein (Negative) Urine Glucose (UA) (Negative) Urine Ketones (Negative) Urine Blood (Negative) Urine Nitrite (Negative) Urine Bilirubin (Negative) Urine Urobilinogen (Negative) Ur Leukocyte Esterase (Negative) Urine WBC (Auto) (0-5) /hpf Urine RBC (Auto) (0-4) /hpf U Hyaline Cast (Auto) (0-5) /lpf U Epithel Cells (Auto) (0-5) /lpf Urine Bacteria (Auto) (Negative) Ethyl Alcohol mg/dL (0-3) mg/dl Influenza Type A (PCR) (Neg) Influenza Type B (PCR) (Neg) 07/07/18 07/07/18 07/07/18 Range/Units 11:53 11:53 12:47 WBC (4.8-10.8) K/uL RBC (4.7-6.1) M/uL Hgb (14.0-18.0) g/dL Hct (42-52) % MCV (80-100) fL MCH (25-34) pg MCHC (32-36) g/dL RDW Std Deviation (36.4-46.3) fL RDW Coeff of Christoph (11.5-14.5) % Plt Count (130-400) K/uL MPV (7.4-10.4) fL Immature Gran % (Auto) % Neut % (Auto) % Lymph % (Auto) % [place] % (Auto) % Eos % (Auto) % Baso % (Auto) % Immature Gran # (Auto) (0.00-0.02) K/uL Neut # (Auto) (1.4-6.5) K/uL Lymph # (Auto) (1.2-3.4) K/uL [place] # (Auto) (0.11-0.59) K/uL Eos # (Auto) (0-0.5) K/uL Baso # (Auto) (0-0.2) K/uL PT (9.0-12.0) Seconds INR (0.9-1.1) APTT (21.0-31.0) Seconds PTT Ratio Sodium (136-145) mmol/L Potassium (3.5-5.1) mmol/L Chloride (98-107) mmol/L Carbon Dioxide (21-32) mmol/L Anion Gap (3-11) BUN (7-18) mg/dl Creatinine (0.6-1.4) mg/dl Est Cr Clr Drug Dosing ml/min Est GFR ( Amer) Est GFR (Non-Af Amer) BUN/Creatinine Ratio (10-20) Glucose (70-99) mg/dl POC Glucose (70-99) Lactate (0.4-2.0) mmol/L Calcium (8.5-10.1) mg/dl Total Bilirubin (0.2-1) mg/dl Direct Bilirubin (0-0.2) mg/dl AST (15-37) U/L ALT (12-78) U/L Alkaline Phosphatase (45-117) U/L Ammonia 128.5 H (11-32) umol/L Troponin I (0-0.045) ng/ml Total Protein (6.4-8.2) gm/dl Albumin (3.4-5.0) gm/dl Lipase (73-393) U/L Urine Color Dark Yellow Urine Appearance Cloudy H (Clear) Urine pH 5.0 (4.5-7.5) Ur Specific [place] 1.020 (1.000-1.030) Urine Protein Negative (Negative) Urine Glucose (UA) Negative (Negative) Urine Ketones Negative (Negative) Urine Blood Negative (Negative) Urine Nitrite Negative (Negative) Urine Bilirubin Negative (Negative) Urine Urobilinogen Negative (Negative) Ur Leukocyte Esterase Negative (Negative) Urine WBC (Auto) 1-5 (0-5) /hpf Urine RBC (Auto) 0-4 (0-4) /hpf U Hyaline Cast (Auto) 1-5 (0-5) /lpf U Epithel Cells (Auto) 5-10 H (0-5) /lpf Urine Bacteria (Auto) Negative (Negative) Ethyl Alcohol mg/dL < 3.0 (0-3) mg/dl Influenza Type A (PCR) (Neg) Influenza Type B (PCR) (Neg) Imaging Data Attestation: I personally reviewed and interpreted this imaging study as follows: Radiologist's Impression: CT head/brain wo con CT DOSE: 537.48 mGy.cm HISTORY: Mental status change ams TECHNIQUE: Multiaxial CT images of the head were performed without the use of intravenous contrast. A dose lowering technique was utilized adhering to the principles of ALARA. Comparison: 06/25/2018 Findings: The paranasal sinuses and mastoid air cells are clear. The calvarium and skull base are intact. The ventricles and sulci are within normal limits. There is no mass, hematoma, midline shift, or acute infarct. Mild age-related atrophy and chronic small vessel change. Impression: No acute intracranial abnormality. No change compared to the prior study. The above report was generated using voice recognition software. It may contain grammatical, syntax or spelling errors. Electronically signed by: Win Lima M.D. 07/07/2018 12:06 PM XR chest 1V portable HISTORY: cough COMPARISON: None. FINDINGS: The lungs are clear. Cardiac silhouette is normal in size. No pleural effusions. No pneumothorax. IMPRESSION: No acute process. Electronically signed by: Ras Moreira M.D. 07/07/2018 11:20 AM ECG Data Attestation: I personally reviewed and interpreted this ECG as follows: Indication: altered mental status Rate (beats per minute): 56 Rhythm: sinus rhythm Findings: + other (AL 204, QRS/QTC normal) and + 1st degree AV block; no ST depression and no ST elevation Blood Pressure Blood Pressure Findings: Elevated blood pressure Blood Pressure Disposition: further management by hospitalist JOSE Narrative 1103: Past medical records reviewed. The patient was evaluated in room C2B, and a complete history and physical examination were performed. Review of the [facility] EMR shows that the patient has a history of alcoholic liver cirrhosis, hepatic encephalopathy, MARCUS, and alcoholism. The patient is on Riphaximin and Lactalose. On June 25 the patient was admitted with ammonia level of 134, bilirubin level of 4.3, Creatine of 2.06 with a baseline creatine of 1.0. The patient was diagnosed with excessive alcohol cirrhosis in 1994. On July 02, 5 days ago he had a creatine of 1.62 and ammonia was 60. 1239: Vitals are stable. He is unable to walk on ambulatory exam, he is unsteady on his feet with a wide-base gait. The family friend at bedside does not think he has been taking his home meds since his left for [place]. Lactulose was given here in the ED. The patient's Lactic acid was elevated at 4.9, this was thought to be due to the patient's chronic liver disease. No fever, no leukocytosis, infection source thought to be due to the patient's lactic acidemia. 1240: Dr. Chu Boateng [facility] Hospitalist was made aware of the case. Impression & Plan Encephalopathy, hepatic, Lactic acidemia Discharge Plan Visit Data Chief Complaint: Referred by Doctor Stated Complaint: CONFUSION,BLOOD SUGAR HIGH ED Provider: Hayden Chris Discharge Problem: Encephalopathy, hepatic, Lactic acidemia Patient Disposition: Being Evaluated by Hospitalist Forms Stand Alone Forms: My [facility] [employer] Prescriptions Prescriptions: No Action acetaminophen [Acetaminophen Extra Strength] 500 mg Tablet 1,000 mg PO Q6H PRN (Reason: Pain) RF: 0 propranolol 10 mg tablet 10 mg PO BID RF: 0 metformin 1,000 mg tablet 1,000 mg PO BIDM RF: 0 allopurinol 300 mg tablet 300 mg PO QAM RF: 0 spironolactone 50 mg tablet 1 tab PO DAILY RF: 0 Humalog Mix 75-25 KwikPen 100 unit/mL (75-25) Insulin Pen 10 unit SUBCUT QAM RF: 0 lactulose 10 gram/15 mL solution 1 dose PO QID RF: 0 rifaximin 550 mg tablet 1 tab PO BID RF: 0 glimepiride 1 mg tablet 1 mg PO DAILY RF: 0 Tresiba FlexTouch U-100 100 unit/mL (3 mL) insulin pen 12 units subcut DAILY RF: 0 Referrals Referrals: Bernardo Caal MD [Primary Care Provider] - The scribe's documentation has been prepared under my direction and personally r eviewed by me in its entirety. I confirm that the note above accurately reflects all work, treatment, procedures, and medical decision making performed by me.
[2018-07-07] MEDS ORDERED: ONDANSETRON INJ 2 MG/ML 2 ML VIAL IV PRN (17:26)
[2018-07-07] MEDS ORDERED: ALUMINUM/MAGNESIUM SUSP 30 ML UDC PO PRN (17:26)
[2018-07-07] MEDS: SODIUM CHLORIDE 0.9% 1000ML 1,000 ML IV SCH (18:36)
[2018-07-07] MEDS: INSULIN ASPART 100 UNITS/ML 3 ML PEN SC SCH ×2 (18:39→20:57)
[2018-07-07] MEDS: LACTULOSE SYRUP 10 GM/15 ML BTL 473 ML PO SCH ×2 (18:39→20:24)
[2018-07-07] MEDS: PROPRANOLOL HCL 10 MG TAB PO SCH (20:24)
[2018-07-07] MEDS: RIFAXIMIN 550 MG TABLET PO SCH (20:25)
[2018-07-08] MEDS: SODIUM CHLORIDE 0.9% 1000ML 1,000 ML IV SCH ×2 (03:00→09:56)
[2018-07-08] MEDS: ALLOPURINOL 300 MG TAB PO SCH (07:51)
[2018-07-08] MEDS: LACTULOSE SYRUP 10 GM/15 ML BTL 473 ML PO SCH ×3 (07:51→17:52)
[2018-07-08] MEDS: PROPRANOLOL HCL 10 MG TAB PO SCH ×2 (07:51→20:49)
[2018-07-08] MEDS: INSULIN ASPART 100 UNITS/ML 3 ML PEN SC SCH ×4 (07:52→20:48)
[2018-07-08] MEDS: RIFAXIMIN 550 MG TABLET PO SCH ×2 (07:53→20:49)
[2018-07-08 08:42] LABS: BUN Creatinine Ratio 18.9 (10-20); Calcium 9.5 mg/dl (8.5-10.1); Creatinine Clr Calc Pharmacy 55.4 ml/min; Est GFR (African American) 70.8; Est GFR (Non-African American) 61.1; Magnesium 1.4 mg/dl (1.8-2.4); Potassium 3.7 mmol/L (3.5-5.1)
[2018-07-08] MEDS ORDERED: CARBOHYDRATES FOR HYPOGLYCEMIA PO PRN (09:30)
[2018-07-08] MEDS ORDERED: GLUCOSE 10 TABS/TUBE PO PRN (09:30)
[2018-07-08] MEDS ORDERED: GLUCOSE 40% GEL 15 GM TUBE PO PRN (09:30)
[2018-07-08] MEDS ORDERED: GLUCAGON FOR INJ 1 MG VIAL IM PRN (09:30)
[2018-07-08] MEDS ORDERED: DEXTROSE 50% 50 ML SYRINGE IV PRN (09:30)
[2018-07-08] MEDS: MAGNESIUM OXIDE 400 MG TAB PO SCH ×2 (09:56→20:49)
--- NOTE | 2018-07-08 19:27 | Hospitalist Progress Note ---
Date of Service July 08, 2018 Assessment & Plan (1) Encephalopathy, hepatic: 72 y/o M Hx DMII, HTN, gout, ETOH cirrhosis since 1994 - multiple admits with hepatic encephalopathy, recent MARCUS. The pt's who is his circulation assistant had left town for the week. She had called him multiple times today and when he did not answer, called a family friend to go check on him. They found him in his bedroom, disoriented and lethargic and brought him to the hospital therefore. It is unclear if he had been noncompliant with his medications while she was away or if he became dehydrated which was a recent precipitating factor despite compliance. Certainly dehydration seems to fit overall the best. 1) Hepatic encephalopathy - lactic acidosis and recent compliance with medications indicates this may be due to both missed doses of Lactulose/Xifaxin, continue both and follow his ammonia 2) Impaired renal function - function was WNL prior to admission in June. Most likely there is a degree of dehydration at play. His creatinine is improving. His volume status clinically appears to be improving, his noted his skin had better turgor than recently. Continue to follow basic metabolic panel, continue IV fluids for now. Suspect dehydration was a significant factor in his deterioration and readmission, more than simply becoming nearly brittle with his hepatic encephalopathy. Given that he is never had ascites before, we will hold off on diuretics at all for the foreseeable future to give him more margin of error. 3) DM II -continue insulins, follow 4) HTN - cont Propranolol-follow pressures otherwise 5) Gout - cont Allopurinol 6) Regarding his heart murmur - this appears to be a recent diagnosis and was not reported on mutiple exams during recent admission. Awaiting echo Full code - SCDs Subjective Awake but still fairly groggy. HPI and review of systems limited and of uncertain reliability He notes he is feeling better, ate well this morning. He is aware that he is in the hospital quite a while for him to answer it. Calling his later, she notes that he was doing better whenever he left the hospital, and then she brought him for an evaluation on Thursday and he was deemed to be somewhat dehydrated but safe for home. She had follow-up again earlier in the week and he was looking okay. They traveled to [place], and he was supposed to come a few days later. Unfortunately where she called to check on him he was really not acting like himself, friends went to check on him and he was brought to the ER. Review of Systems All systems reviewed & are unremarkable except as noted in HPI & below Physical Exam Vital Signs (Past 24 Hours): Last Vital Signs Temp 36.6 C 07/08/18 14:58 Pulse 60 07/08/18 14:58 Resp 20 07/08/18 14:58 BP 129/71 07/08/18 14:58 Pulse Ox 94 07/08/18 14:58 Physical Exam: In general he is loosely oriented x3 very fatigued appearing somewhat groggy and slow to respond but no distress. HEENT normal lungs lately dry. Cranial regular without rubs murmurs or gallops. Lungs clear to auscultation bilaterally no rales rhonchi wheezes good effort. Abdomen is soft nondistended nontender no masses or organomegaly. Extremities show no cyanosis clubbing or edema. Neuro shows no focal deficits.
[2018-07-08] MEDS: LACTULOSE SYRUP 30 GM/45 ML UDP PO SCH (20:49)
[2018-07-09] MEDS: LACTULOSE SYRUP 30 GM/45 ML UDP PO SCH ×4 (08:11→21:13)
[2018-07-09] MEDS: PROPRANOLOL HCL 10 MG TAB PO SCH ×2 (08:13→21:13)
[2018-07-09] MEDS: ALLOPURINOL 300 MG TAB PO SCH (08:13)
[2018-07-09] MEDS: MAGNESIUM OXIDE 400 MG TAB PO SCH ×2 (08:14→21:13)
[2018-07-09] MEDS: RIFAXIMIN 550 MG TABLET PO SCH ×2 (08:14→21:13)
[2018-07-09] MEDS: INSULIN ASPART 100 UNITS/ML 3 ML PEN SC SCH ×4 (08:16→21:23)
[2018-07-09 10:01] LABS: BUN Creatinine Ratio 13.6 (10-20); Calcium 9.4 mg/dl (8.5-10.1); Potassium 4.1 mmol/L (3.5-5.1)
[2018-07-09] MEDS ORDERED: LACTULOSE SYRUP 30 GM/45 ML UDP PO STA (10:32)
[2018-07-09] MEDS: SODIUM CHLOR 0.45% + 20MEQ KCL 20 MEQ/1,000 ML BAG IV SCH ×2 (10:58→21:12)
[2018-07-09] MEDS: INSULIN GLARGINE SOLOSTAR 100 UNITS/ML 3 ML PEN SC SCH (11:01)
--- NOTE | 2018-07-09 19:13 | Hospitalist Progress Note ---
Date of Service July 09, 2018 Assessment & Plan (1) Encephalopathy, hepatic: 72 y/o M Hx DMII, HTN, gout, ETOH cirrhosis since 1994 - multiple admits with hepatic encephalopathy, recent MARCUS. 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 She had called him multiple times today and when he did not answer, called a family friend to go check on him. They found him in his bedroom, disoriented and lethargic and brought him to the hospital therefore. It is unclear if he had been noncompliant with his medications while she was away or if he became dehydrated which was a recent precipitating factor despite compliance. Certainly dehydration seems to fit overall the best. 1) Hepatic encephalopathy -slowly improving, likely was a combination of dehydration and possibly missing some lactulose and Xifaxan. Continue to follow ammonia and mental status, additional lactulose today. Resume IV fluids, as he had a little bit of a bump in his creatinine. 2) Impaired renal function - function was WNL prior to admission in June. Most likely there is a degree of dehydration at play. His creatinine was improving, but bumped a little bit. suggesting that his oral intake is not as much as it needs to be. Resume IV fluids for now, continue to follow labs. Given that he is never had any difficulty with ascites, we will have him off of diuretics after discharge, and follow basic metabolic panel closely. 3) DM II -continue to adjust insulins, follow (add basal today.) 4) HTN - cont Propranolol-follow, pressures reasonable otherwise 5) Gout - cont Allopurinol 6) moderate aortic stenosis�outpatient follow-up Full code - SCDs Subjective Feeling better but still a little bit slow to respond. Knows where he is, knows what year it is, seems vaguely aware of the medical circumstances. Mostly answers questions appropriately. But definitely seems slow and not really his regular self. No trouble eating no abdominal pain no abdominal swelling. He notes he is never had trouble with ascites. Called update , and answered all questions to the best my ability Review of Systems All systems reviewed & are unremarkable except as noted in HPI & below Physical Exam Vital Signs (Past 24 Hours): Last Vital Signs Temp 36.4 C L 07/09/18 15:46 Pulse 59 L 07/09/18 15:46 Resp 18 07/09/18 15:46 BP 115/61 07/09/18 15:46 Pulse Ox 100 07/09/18 15:46 Physical Exam: In general he is technically awake alert oriented x3 but very slow to respond and somewhat fatigued. HEENT normal cephalic atraumatic mucous membranes are moist. Abdomen is soft nondistended nontender no masses or organomegaly. Extremities show no sinus clubbing or edema. Skin shows no rashes no pallor or icterus, better turgor.
[2018-07-10 07:29] LABS: Creatinine Clr Calc Pharmacy 48.4 ml/min; Est GFR (African American) 60.1; Est GFR (Non-African American) 51.8
[2018-07-10] MEDS: LACTULOSE SYRUP 30 GM/45 ML UDP PO SCH ×2 (07:33→14:01)
[2018-07-10] MEDS: SODIUM CHLOR 0.45% + 20MEQ KCL 20 MEQ/1,000 ML BAG IV SCH (07:33)
[2018-07-10] MEDS: RIFAXIMIN 550 MG TABLET PO SCH (07:33)
[2018-07-10] MEDS: ALLOPURINOL 300 MG TAB PO SCH (07:34)
[2018-07-10] MEDS: PROPRANOLOL HCL 10 MG TAB PO SCH (07:34)
[2018-07-10] MEDS: INSULIN ASPART 100 UNITS/ML 3 ML PEN SC SCH ×2 (09:04→11:59)
[2018-07-10] MEDS: INSULIN GLARGINE SOLOSTAR 100 UNITS/ML 3 ML PEN SC SCH (09:05)
[2018-07-10] MEDS: MAGNESIUM OXIDE 400 MG TAB PO SCH (14:01)
--- NOTE | 2018-07-10 18:37 | Discharge Summary ---
Date of Service July 10, 2018 Admission HPI Per Admitting Provider 72 y/o M Hx DMII, HTN, gout, ETOH cirrhosis since 1994 - multiple admits with hepatic encephalopathy, recent MARCUS. The pt's who is his credit product analyst had left town for the week. She had called him multiple times today and when he did not answer, called a family friend to go check on him. They found him in his bedroom, disoriented and lethargic and brought him to the hospital therefore. It is unclear if he had been noncompliant with his medications while she was away or if he became dehydrated which was a recent precipitating factor despite compliance. The pt cannot provide any reliable information at the time of admission. He is oriented x 1. Initial labs demonstrate an elevated ammonia level, lactic acidosis, mild LFT abnormalities with a bilirubin of 4.3, stable thrombocytopenia and MARCUS/impaired renal function which has not substantially improved from recent DC 06/28. His wif was contacted by phone and confirmed that he had been taking his medications until the previous evening and today so he likely missed 2 doses of Lactulose and 2 doses of Xifaxin. His MELD on admission is ~20. On examination there is a prominent 4-5/6 systolic murmur. His states that his PCP recently noted this change and an echo was contemplated. PMH: 1) ETOH cirrhosis - diagnosed 1994 - reports no history of ascistes - takes Adlactone for LE edema. Previously had varices which had resolved on last EGD > 5 yrs. 2) DM II 3) HTN 4) Gout Social: Does not smoke. Has relapsed to drinking twice since 1994. Has not had a drink in > 2.5 years. Family: Could not obtain Principal Diagnosis Hepatic encephalopathy, dehydration Discharge Exam Awake alert oriented x3 pleasant no acute distress. HEENT normocephalic atraumatic mucous members moist. Breathing is unlabored no accessory muscle use. Skin shows no rashes no pallor or icterus, good turgor. Mental status is intact he is awake and alert he is conversive. Discharge Data Allergies Allergy/AdvReac Type Severity Reaction Status Date / Time No Known Allergies Allergy Unknown Unverified 07/07/18 12:05 Consultations 07/07/18 12:39 ED Decision to Admit Stat Ordered Studies 07/07/18 11:03 CT head/brain wo con Stat Lab Results 07/07/18 07/07/18 07/07/18 Range/Units 11:24 11:26 11:53 WBC 9.31 (4.8-10.8) K/uL RBC 3.53 L (4.7-6.1) M/uL Hgb 12.2 L (14.0-18.0) g/dL Hct 35.1 L (42-52) % MCV 99.4 (80-100) fL MCH 34.6 H (25-34) pg MCHC 34.8 (32-36) g/dL RDW Std Deviation 58.4 H (36.4-46.3) fL RDW Coeff of Christoph 16.3 H (11.5-14.5) % Plt Count 88 L (130-400) K/uL MPV 10.8 H (7.4-10.4) fL Immature Gran % (Auto) 0.1 % Neut % (Auto) 58.5 % Lymph % (Auto) 20.1 % Caroline % (Auto) 13.9 % Eos % (Auto) 7.2 % Baso % (Auto) 0.2 % Immature Gran # (Auto) 0.01 (0.00-0.02) K/uL Neut # (Auto) 5.45 (1.4-6.5) K/uL Lymph # (Auto) 1.87 (1.2-3.4) K/uL Caroline # (Auto) 1.29 H (0.11-0.59) K/uL Eos # (Auto) 0.67 H (0-0.5) K/uL Baso # (Auto) 0.02 (0-0.2) K/uL PT (9.0-12.0) Seconds INR (0.9-1.1) APTT (21.0-31.0) Seconds PTT Ratio Sodium (136-145) mmol/L Potassium (3.5-5.1) mmol/L Chloride (98-107) mmol/L Carbon Dioxide (21-32) mmol/L Anion Gap (3-11) BUN (7-18) mg/dl Creatinine (0.6-1.4) mg/dl Est Cr Clr Drug Dosing ml/min Est GFR ( Amer) Est GFR (Non-Af Amer) BUN/Creatinine Ratio (10-20) Glucose (70-99) mg/dl POC Glucose 154 H (70-99) Lactate (0.4-2.0) mmol/L Calcium (8.5-10.1) mg/dl Magnesium (1.8-2.4) mg/dl Total Bilirubin (0.2-1) mg/dl Direct Bilirubin (0-0.2) mg/dl AST (15-37) U/L ALT (12-78) U/L Alkaline Phosphatase (45-117) U/L Ammonia (11-32) umol/L Troponin I (0-0.045) ng/ml Total Protein (6.4-8.2) gm/dl Albumin (3.4-5.0) gm/dl Lipase (73-393) U/L Urine Color Urine Appearance (Clear) Urine pH (4.5-7.5) Ur Specific Willard (1.000-1.030) Urine Protein (Negative) Urine Glucose (UA) (Negative) Urine Ketones (Negative) Urine Blood (Negative) Urine Nitrite (Negative) Urine Bilirubin (Negative) Urine Urobilinogen (Negative) Ur Leukocyte Esterase (Negative) Urine WBC (Auto) (0-5) /hpf Urine RBC (Auto) (0-4) /hpf U Hyaline Cast (Auto) (0-5) /lpf U Epithel Cells (Auto) (0-5) /lpf Urine Bacteria (Auto) (Negative) Ethyl Alcohol mg/dL (0-3) mg/dl Influenza Type A (PCR) Neg for Influ A (Neg) Influenza Type B (PCR) Neg for Influ B (Neg) 07/07/18 07/07/18 07/07/18 Range/Units 11:53 11:53 11:53 WBC (4.8-10.8) K/uL RBC (4.7-6.1) M/uL Hgb (14.0-18.0) g/dL Hct (42-52) % MCV (80-100) fL MCH (25-34) pg MCHC (32-36) g/dL RDW Std Deviation (36.4-46.3) fL RDW Coeff of Christoph (11.5-14.5) % Plt Count (130-400) K/uL MPV (7.4-10.4) fL Immature Gran % (Auto) % Neut % (Auto) % Lymph % (Auto) % Caroline % (Auto) % Eos % (Auto) % Baso % (Auto) % Immature Gran # (Auto) (0.00-0.02) K/uL Neut # (Auto) (1.4-6.5) K/uL Lymph # (Auto) (1.2-3.4) K/uL Caroline # (Auto) (0.11-0.59) K/uL Eos # (Auto) (0-0.5) K/uL Baso # (Auto) (0-0.2) K/uL PT 12.6 H (9.0-12.0) Seconds INR 1.2 H (0.9-1.1) APTT 27.6 (21.0-31.0) Seconds PTT Ratio 1.0 Sodium 134 L (136-145) mmol/L Potassium 4.5 (3.5-5.1) mmol/L Chloride 103 (98-107) mmol/L Carbon Dioxide 22 (21-32) mmol/L Anion Gap 9.0 (3-11) BUN 29 H (7-18) mg/dl Creatinine 1.56 H (0.6-1.4) mg/dl Est Cr Clr Drug Dosing 41.5 ml/min Est GFR ( Amer) 50.0 Est GFR (Non-Af Amer) 43.1 BUN/Creatinine Ratio 18.6 (10-20) Glucose 161 H (70-99) mg/dl POC Glucose (70-99) Lactate 4.9 H* (0.4-2.0) mmol/L Calcium 10.5 H (8.5-10.1) mg/dl Magnesium (1.8-2.4) mg/dl Total Bilirubin 4.6 H (0.2-1) mg/dl Direct Bilirubin 1.3 H (0-0.2) mg/dl AST 52 H (15-37) U/L ALT 56 (12-78) U/L Alkaline Phosphatase 106 (45-117) U/L Ammonia (11-32) umol/L Troponin I 0.041 (0-0.045) ng/ml Total Protein 7.3 (6.4-8.2) gm/dl Albumin 2.8 L (3.4-5.0) gm/dl Lipase 131 (73-393) U/L Urine Color Urine Appearance (Clear) Urine pH (4.5-7.5) Ur Specific Willard (1.000-1.030) Urine Protein (Negative) Urine Glucose (UA) (Negative) Urine Ketones (Negative) Urine Blood (Negative) Urine Nitrite (Negative) Urine Bilirubin (Negative) Urine Urobilinogen (Negative) Ur Leukocyte Esterase (Negative) Urine WBC (Auto) (0-5) /hpf Urine RBC (Auto) (0-4) /hpf U Hyaline Cast (Auto) (0-5) /lpf U Epithel Cells (Auto) (0-5) /lpf Urine Bacteria (Auto) (Negative) Ethyl Alcohol mg/dL (0-3) mg/dl Influenza Type A (PCR) (Neg) Influenza Type B (PCR) (Neg) 07/07/18 07/07/18 07/07/18 Range/Units 11:53 11:53 12:47 WBC (4.8-10.8) K/uL RBC (4.7-6.1) M/uL Hgb (14.0-18.0) g/dL Hct (42-52) % MCV (80-100) fL MCH (25-34) pg MCHC (32-36) g/dL RDW Std Deviation (36.4-46.3) fL RDW Coeff of Christoph (11.5-14.5) % Plt Count (130-400) K/uL MPV (7.4-10.4) fL Immature Gran % (Auto) % Neut % (Auto) % Lymph % (Auto) % Caroline % (Auto) % Eos % (Auto) % Baso % (Auto) % Immature Gran # (Auto) (0.00-0.02) K/uL Neut # (Auto) (1.4-6.5) K/uL Lymph # (Auto) (1.2-3.4) K/uL Caroline # (Auto) (0.11-0.59) K/uL Eos # (Auto) (0-0.5) K/uL Baso # (Auto) (0-0.2) K/uL PT (9.0-12.0) Seconds INR (0.9-1.1) APTT (21.0-31.0) Seconds PTT Ratio Sodium (136-145) mmol/L Potassium (3.5-5.1) mmol/L Chloride (98-107) mmol/L Carbon Dioxide (21-32) mmol/L Anion Gap (3-11) BUN (7-18) mg/dl Creatinine (0.6-1.4) mg/dl Est Cr Clr Drug Dosing ml/min Est GFR ( Amer) Est GFR (Non-Af Amer) BUN/Creatinine Ratio (10-20) Glucose (70-99) mg/dl POC Glucose (70-99) Lactate (0.4-2.0) mmol/L Calcium (8.5-10.1) mg/dl Magnesium (1.8-2.4) mg/dl Total Bilirubin (0.2-1) mg/dl Direct Bilirubin (0-0.2) mg/dl AST (15-37) U/L ALT (12-78) U/L Alkaline Phosphatase (45-117) U/L Ammonia 128.5 H (11-32) umol/L Troponin I (0-0.045) ng/ml Total Protein (6.4-8.2) gm/dl Albumin (3.4-5.0) gm/dl Lipase (73-393) U/L Urine Color Dark Yellow Urine Appearance Cloudy H (Clear) Urine pH 5.0 (4.5-7.5) Ur Specific Willard 1.020 (1.000-1.030) Urine Protein Negative (Negative) Urine Glucose (UA) Negative (Negative) Urine Ketones Negative (Negative) Urine Blood Negative (Negative) Urine Nitrite Negative (Negative) Urine Bilirubin Negative (Negative) Urine Urobilinogen Negative (Negative) Ur Leukocyte Esterase Negative (Negative) Urine WBC (Auto) 1-5 (0-5) /hpf Urine RBC (Auto) 0-4 (0-4) /hpf U Hyaline Cast (Auto) 1-5 (0-5) /lpf U Epithel Cells (Auto) 5-10 H (0-5) /lpf Urine Bacteria (Auto) Negative (Negative) Ethyl Alcohol mg/dL < 3.0 (0-3) mg/dl Influenza Type A (PCR) (Neg) Influenza Type B (PCR) (Neg) 07/07/18 07/07/18 07/07/18 Range/Units 16:44 17:36 20:37 WBC (4.8-10.8) K/uL RBC (4.7-6.1) M/uL Hgb (14.0-18.0) g/dL Hct (42-52) % MCV (80-100) fL MCH (25-34) pg MCHC (32-36) g/dL RDW Std Deviation (36.4-46.3) fL RDW Coeff of Christoph (11.5-14.5) % Plt Count (130-400) K/uL MPV (7.4-10.4) fL Immature Gran % (Auto) % Neut % (Auto) % Lymph % (Auto) % Caroline % (Auto) % Eos % (Auto) % Baso % (Auto) % Immature Gran # (Auto) (0.00-0.02) K/uL Neut # (Auto) (1.4-6.5) K/uL Lymph # (Auto) (1.2-3.4) K/uL Caroline # (Auto) (0.11-0.59) K/uL Eos # (Auto) (0-0.5) K/uL Baso # (Auto) (0-0.2) K/uL PT (9.0-12.0) Seconds INR (0.9-1.1) APTT (21.0-31.0) Seconds PTT Ratio Sodium (136-145) mmol/L Potassium (3.5-5.1) mmol/L Chloride (98-107) mmol/L Carbon Dioxide (21-32) mmol/L Anion Gap (3-11) BUN (7-18) mg/dl Creatinine (0.6-1.4) mg/dl Est Cr Clr Drug Dosing ml/min Est GFR ( Amer) Est GFR (Non-Af Amer) BUN/Creatinine Ratio (10-20) Glucose (70-99) mg/dl POC Glucose 132 H 136 H 163 H (70-99) Lactate (0.4-2.0) mmol/L Calcium (8.5-10.1) mg/dl Magnesium (1.8-2.4) mg/dl Total Bilirubin (0.2-1) mg/dl Direct Bilirubin (0-0.2) mg/dl AST (15-37) U/L ALT (12-78) U/L Alkaline Phosphatase (45-117) U/L Ammonia (11-32) umol/L Troponin I (0-0.045) ng/ml Total Protein (6.4-8.2) gm/dl Albumin (3.4-5.0) gm/dl Lipase (73-393) U/L Urine Color Urine Appearance (Clear) Urine pH (4.5-7.5) Ur Specific Willard (1.000-1.030) Urine Protein (Negative) Urine Glucose (UA) (Negative) Urine Ketones (Negative) Urine Blood (Negative) Urine Nitrite (Negative) Urine Bilirubin (Negative) Urine Urobilinogen (Negative) Ur Leukocyte Esterase (Negative) Urine WBC (Auto) (0-5) /hpf Urine RBC (Auto) (0-4) /hpf U Hyaline Cast (Auto) (0-5) /lpf U Epithel Cells (Auto) (0-5) /lpf Urine Bacteria (Auto) (Negative) Ethyl Alcohol mg/dL (0-3) mg/dl Influenza Type A (PCR) (Neg) Influenza Type B (PCR) (Neg) 07/08/18 07/08/18 07/08/18 Range/Units 07:16 07:51 10:02 WBC (4.8-10.8) K/uL RBC (4.7-6.1) M/uL Hgb (14.0-18.0) g/dL Hct (42-52) % MCV (80-100) fL MCH (25-34) pg MCHC (32-36) g/dL RDW Std Deviation (36.4-46.3) fL RDW Coeff of Christoph (11.5-14.5) % Plt Count (130-400) K/uL MPV (7.4-10.4) fL Immature Gran % (Auto) % Neut % (Auto) % Lymph % (Auto) % Caroline % (Auto) % Eos % (Auto) % Baso % (Auto) % Immature Gran # (Auto) (0.00-0.02) K/uL Neut # (Auto) (1.4-6.5) K/uL Lymph # (Auto) (1.2-3.4) K/uL Caroline # (Auto) (0.11-0.59) K/uL Eos # (Auto) (0-0.5) K/uL Baso # (Auto) (0-0.2) K/uL PT (9.0-12.0) Seconds INR (0.9-1.1) APTT (21.0-31.0) Seconds PTT Ratio Sodium 139 (136-145) mmol/L Potassium 3.7 D (3.5-5.1) mmol/L Chloride 109 H (98-107) mmol/L Carbon Dioxide 21 (21-32) mmol/L Anion Gap 9.0 (3-11) BUN 22 H (7-18) mg/dl Creatinine 1.17 D (0.6-1.4) mg/dl Est Cr Clr Drug Dosing 55.4 ml/min Est GFR ( Amer) 70.8 Est GFR (Non-Af Amer) 61.1 BUN/Creatinine Ratio 18.9 (10-20) Glucose 133 H (70-99) mg/dl POC Glucose 116 H (70-99) Lactate (0.4-2.0) mmol/L Calcium 9.5 (8.5-10.1) mg/dl Magnesium 1.4 L (1.8-2.4) mg/dl Total Bilirubin (0.2-1) mg/dl Direct Bilirubin (0-0.2) mg/dl AST (15-37) U/L ALT (12-78) U/L Alkaline Phosphatase (45-117) U/L Ammonia 103.1 H (11-32) umol/L Troponin I (0-0.045) ng/ml Total Protein (6.4-8.2) gm/dl Albumin (3.4-5.0) gm/dl Lipase (73-393) U/L Urine Color Urine Appearance (Clear) Urine pH (4.5-7.5) Ur Specific Willard (1.000-1.030) Urine Protein (Negative) Urine Glucose (UA) (Negative) Urine Ketones (Negative) Urine Blood (Negative) Urine Nitrite (Negative) Urine Bilirubin (Negative) Urine Urobilinogen (Negative) Ur Leukocyte Esterase (Negative) Urine WBC (Auto) (0-5) /hpf Urine RBC (Auto) (0-4) /hpf U Hyaline Cast (Auto) (0-5) /lpf U Epithel Cells (Auto) (0-5) /lpf Urine Bacteria (Auto) (Negative) Ethyl Alcohol mg/dL (0-3) mg/dl Influenza Type A (PCR) (Neg) Influenza Type B (PCR) (Neg) 07/08/18 07/08/18 07/08/18 Range/Units 11:13 16:11 20:43 WBC (4.8-10.8) K/uL RBC (4.7-6.1) M/uL Hgb (14.0-18.0) g/dL Hct (42-52) % MCV (80-100) fL MCH (25-34) pg MCHC (32-36) g/dL RDW Std Deviation (36.4-46.3) fL RDW Coeff of Christoph (11.5-14.5) % Plt Count (130-400) K/uL MPV (7.4-10.4) fL Immature Gran % (Auto) % Neut % (Auto) % Lymph % (Auto) % Caroline % (Auto) % Eos % (Auto) % Baso % (Auto) % Immature Gran # (Auto) (0.00-0.02) K/uL Neut # (Auto) (1.4-6.5) K/uL Lymph # (Auto) (1.2-3.4) K/uL Caroline # (Auto) (0.11-0.59) K/uL Eos # (Auto) (0-0.5) K/uL Baso # (Auto) (0-0.2) K/uL PT (9.0-12.0) Seconds INR (0.9-1.1) APTT (21.0-31.0) Seconds PTT Ratio Sodium (136-145) mmol/L Potassium (3.5-5.1) mmol/L Chloride (98-107) mmol/L Carbon Dioxide (21-32) mmol/L Anion Gap (3-11) BUN (7-18) mg/dl Creatinine (0.6-1.4) mg/dl Est Cr Clr Drug Dosing ml/min Est GFR ( Amer) Est GFR (Non-Af Amer) BUN/Creatinine Ratio (10-20) Glucose (70-99) mg/dl POC Glucose 232 H 265 H 237 H (70-99) Lactate (0.4-2.0) mmol/L Calcium (8.5-10.1) mg/dl Magnesium (1.8-2.4) mg/dl Total Bilirubin (0.2-1) mg/dl Direct Bilirubin (0-0.2) mg/dl AST (15-37) U/L ALT (12-78) U/L Alkaline Phosphatase (45-117) U/L Ammonia (11-32) umol/L Troponin I (0-0.045) ng/ml Total Protein (6.4-8.2) gm/dl Albumin (3.4-5.0) gm/dl Lipase (73-393) U/L Urine Color Urine Appearance (Clear) Urine pH (4.5-7.5) Ur Specific Willard (1.000-1.030) Urine Protein (Negative) Urine Glucose (UA) (Negative) Urine Ketones (Negative) Urine Blood (Negative) Urine Nitrite (Negative) Urine Bilirubin (Negative) Urine Urobilinogen (Negative) Ur Leukocyte Esterase (Negative) Urine WBC (Auto) (0-5) /hpf Urine RBC (Auto) (0-4) /hpf U Hyaline Cast (Auto) (0-5) /lpf U Epithel Cells (Auto) (0-5) /lpf Urine Bacteria (Auto) (Negative) Ethyl Alcohol mg/dL (0-3) mg/dl Influenza Type A (PCR) (Neg) Influenza Type B (PCR) (Neg) 07/09/18 07/09/18 07/09/18 Range/Units 07:52 09:34 09:34 WBC (4.8-10.8) K/uL RBC (4.7-6.1) M/uL Hgb (14.0-18.0) g/dL Hct (42-52) % MCV (80-100) fL MCH (25-34) pg MCHC (32-36) g/dL RDW Std Deviation (36.4-46.3) fL RDW Coeff of Christoph (11.5-14.5) % Plt Count (130-400) K/uL MPV (7.4-10.4) fL Immature Gran % (Auto) % Neut % (Auto) % Lymph % (Auto) % Caroline % (Auto) % Eos % (Auto) % Baso % (Auto) % Immature Gran # (Auto) (0.00-0.02) K/uL Neut # (Auto) (1.4-6.5) K/uL Lymph # (Auto) (1.2-3.4) K/uL Caroline # (Auto) (0.11-0.59) K/uL Eos # (Auto) (0-0.5) K/uL Baso # (Auto) (0-0.2) K/uL PT (9.0-12.0) Seconds INR (0.9-1.1) APTT (21.0-31.0) Seconds PTT Ratio Sodium 136 (136-145) mmol/L Potassium 4.1 (3.5-5.1) mmol/L Chloride 106 (98-107) mmol/L Carbon Dioxide 22 (21-32) mmol/L Anion Gap 9.0 (3-11) BUN 19 H (7-18) mg/dl Creatinine 1.38 (0.6-1.4) mg/dl Est Cr Clr Drug Dosing 47.0 ml/min Est GFR ( Amer) 58.0 Est GFR (Non-Af Amer) 50.0 BUN/Creatinine Ratio 13.6 (10-20) Glucose 249 H (70-99) mg/dl POC Glucose 173 H (70-99) Lactate (0.4-2.0) mmol/L Calcium 9.4 (8.5-10.1) mg/dl Magnesium (1.8-2.4) mg/dl Total Bilirubin (0.2-1) mg/dl Direct Bilirubin (0-0.2) mg/dl AST (15-37) U/L ALT (12-78) U/L Alkaline Phosphatase (45-117) U/L Ammonia 76.2 H (11-32) umol/L Troponin I (0-0.045) ng/ml Total Protein (6.4-8.2) gm/dl Albumin (3.4-5.0) gm/dl Lipase (73-393) U/L Urine Color Urine Appearance (Clear) Urine pH (4.5-7.5) Ur Specific Willard (1.000-1.030) Urine Protein (Negative) Urine Glucose (UA) (Negative) Urine Ketones (Negative) Urine Blood (Negative) Urine Nitrite (Negative) Urine Bilirubin (Negative) Urine Urobilinogen (Negative) Ur Leukocyte Esterase (Negative) Urine WBC (Auto) (0-5) /hpf Urine RBC (Auto) (0-4) /hpf U Hyaline Cast (Auto) (0-5) /lpf U Epithel Cells (Auto) (0-5) /lpf Urine Bacteria (Auto) (Negative) Ethyl Alcohol mg/dL (0-3) mg/dl Influenza Type A (PCR) (Neg) Influenza Type B (PCR) (Neg) 07/09/18 07/09/18 07/09/18 Range/Units 11:26 16:21 20:40 WBC (4.8-10.8) K/uL RBC (4.7-6.1) M/uL Hgb (14.0-18.0) g/dL Hct (42-52) % MCV (80-100) fL MCH (25-34) pg MCHC (32-36) g/dL RDW Std Deviation (36.4-46.3) fL RDW Coeff of Christoph (11.5-14.5) % Plt Count (130-400) K/uL MPV (7.4-10.4) fL Immature Gran % (Auto) % Neut % (Auto) % Lymph % (Auto) % Caroline % (Auto) % Eos % (Auto) % Baso % (Auto) % Immature Gran # (Auto) (0.00-0.02) K/uL Neut # (Auto) (1.4-6.5) K/uL Lymph # (Auto) (1.2-3.4) K/uL Caroline # (Auto) (0.11-0.59) K/uL Eos # (Auto) (0-0.5) K/uL Baso # (Auto) (0-0.2) K/uL PT (9.0-12.0) Seconds INR (0.9-1.1) APTT (21.0-31.0) Seconds PTT Ratio Sodium (136-145) mmol/L Potassium (3.5-5.1) mmol/L Chloride (98-107) mmol/L Carbon Dioxide (21-32) mmol/L Anion Gap (3-11) BUN (7-18) mg/dl Creatinine (0.6-1.4) mg/dl Est Cr Clr Drug Dosing ml/min Est GFR ( Amer) Est GFR (Non-Af Amer) BUN/Creatinine Ratio (10-20) Glucose (70-99) mg/dl POC Glucose 271 H 311 H 246 H (70-99) Lactate (0.4-2.0) mmol/L Calcium (8.5-10.1) mg/dl Magnesium (1.8-2.4) mg/dl Total Bilirubin (0.2-1) mg/dl Direct Bilirubin (0-0.2) mg/dl AST (15-37) U/L ALT (12-78) U/L Alkaline Phosphatase (45-117) U/L Ammonia (11-32) umol/L Troponin I (0-0.045) ng/ml Total Protein (6.4-8.2) gm/dl Albumin (3.4-5.0) gm/dl Lipase (73-393) U/L Urine Color Urine Appearance (Clear) Urine pH (4.5-7.5) Ur Specific Willard (1.000-1.030) Urine Protein (Negative) Urine Glucose (UA) (Negative) Urine Ketones (Negative) Urine Blood (Negative) Urine Nitrite (Negative) Urine Bilirubin (Negative) Urine Urobilinogen (Negative) Ur Leukocyte Esterase (Negative) Urine WBC (Auto) (0-5) /hpf Urine RBC (Auto) (0-4) /hpf U Hyaline Cast (Auto) (0-5) /lpf U Epithel Cells (Auto) (0-5) /lpf Urine Bacteria (Auto) (Negative) Ethyl Alcohol mg/dL (0-3) mg/dl Influenza Type A (PCR) (Neg) Influenza Type B (PCR) (Neg) 07/10/18 07/10/18 07/10/18 Range/Units 06:54 06:54 07:51 WBC (4.8-10.8) K/uL RBC (4.7-6.1) M/uL Hgb (14.0-18.0) g/dL Hct (42-52) % MCV (80-100) fL MCH (25-34) pg MCHC (32-36) g/dL RDW Std Deviation (36.4-46.3) fL RDW Coeff of Christoph (11.5-14.5) % Plt Count (130-400) K/uL MPV (7.4-10.4) fL Immature Gran % (Auto) % Neut % (Auto) % Lymph % (Auto) % Caroline % (Auto) % Eos % (Auto) % Baso % (Auto) % Immature Gran # (Auto) (0.00-0.02) K/uL Neut # (Auto) (1.4-6.5) K/uL Lymph # (Auto) (1.2-3.4) K/uL Caroline # (Auto) (0.11-0.59) K/uL Eos # (Auto) (0-0.5) K/uL Baso # (Auto) (0-0.2) K/uL PT (9.0-12.0) Seconds INR (0.9-1.1) APTT (21.0-31.0) Seconds PTT Ratio Sodium 133 L (136-145) mmol/L Potassium 4.0 (3.5-5.1) mmol/L Chloride 108 H (98-107) mmol/L Carbon Dioxide 19 L (21-32) mmol/L Anion Gap 6.0 (3-11) BUN 17 (7-18) mg/dl Creatinine 1.34 (0.6-1.4) mg/dl Est Cr Clr Drug Dosing 48.4 ml/min Est GFR ( Amer) 60.1 Est GFR (Non-Af Amer) 51.8 BUN/Creatinine Ratio 13.0 (10-20) Glucose 223 H (70-99) mg/dl POC Glucose 229 H (70-99) Lactate (0.4-2.0) mmol/L Calcium 8.0 L (8.5-10.1) mg/dl Magnesium (1.8-2.4) mg/dl Total Bilirubin (0.2-1) mg/dl Direct Bilirubin (0-0.2) mg/dl AST (15-37) U/L ALT (12-78) U/L Alkaline Phosphatase (45-117) U/L Ammonia 47.0 H (11-32) umol/L Troponin I (0-0.045) ng/ml Total Protein (6.4-8.2) gm/dl Albumin (3.4-5.0) gm/dl Lipase (73-393) U/L Urine Color Urine Appearance (Clear) Urine pH (4.5-7.5) Ur Specific Willard (1.000-1.030) Urine Protein (Negative) Urine Glucose (UA) (Negative) Urine Ketones (Negative) Urine Blood (Negative) Urine Nitrite (Negative) Urine Bilirubin (Negative) Urine Urobilinogen (Negative) Ur Leukocyte Esterase (Negative) Urine WBC (Auto) (0-5) /hpf Urine RBC (Auto) (0-4) /hpf U Hyaline Cast (Auto) (0-5) /lpf U Epithel Cells (Auto) (0-5) /lpf Urine Bacteria (Auto) (Negative) Ethyl Alcohol mg/dL (0-3) mg/dl Influenza Type A (PCR) (Neg) Influenza Type B (PCR) (Neg) 07/10/18 Range/Units 11:43 WBC (4.8-10.8) K/uL RBC (4.7-6.1) M/uL Hgb (14.0-18.0) g/dL Hct (42-52) % MCV (80-100) fL MCH (25-34) pg MCHC (32-36) g/dL RDW Std Deviation (36.4-46.3) fL RDW Coeff of Christoph (11.5-14.5) % Plt Count (130-400) K/uL MPV (7.4-10.4) fL Immature Gran % (Auto) % Neut % (Auto) % Lymph % (Auto) % Caroline % (Auto) % Eos % (Auto) % Baso % (Auto) % Immature Gran # (Auto) (0.00-0.02) K/uL Neut # (Auto) (1.4-6.5) K/uL Lymph # (Auto) (1.2-3.4) K/uL Caroline # (Auto) (0.11-0.59) K/uL Eos # (Auto) (0-0.5) K/uL Baso # (Auto) (0-0.2) K/uL PT (9.0-12.0) Seconds INR (0.9-1.1) APTT (21.0-31.0) Seconds PTT Ratio Sodium (136-145) mmol/L Potassium (3.5-5.1) mmol/L Chloride (98-107) mmol/L Carbon Dioxide (21-32) mmol/L Anion Gap (3-11) BUN (7-18) mg/dl Creatinine (0.6-1.4) mg/dl Est Cr Clr Drug Dosing ml/min Est GFR ( Amer) Est GFR (Non-Af Amer) BUN/Creatinine Ratio (10-20) Glucose (70-99) mg/dl POC Glucose 221 H (70-99) Lactate (0.4-2.0) mmol/L Calcium (8.5-10.1) mg/dl Magnesium (1.8-2.4) mg/dl Total Bilirubin (0.2-1) mg/dl Direct Bilirubin (0-0.2) mg/dl AST (15-37) U/L ALT (12-78) U/L Alkaline Phosphatase (45-117) U/L Ammonia (11-32) umol/L Troponin I (0-0.045) ng/ml Total Protein (6.4-8.2) gm/dl Albumin (3.4-5.0) gm/dl Lipase (73-393) U/L Urine Color Urine Appearance (Clear) Urine pH (4.5-7.5) Ur Specific Willard (1.000-1.030) Urine Protein (Negative) Urine Glucose (UA) (Negative) Urine Ketones (Negative) Urine Blood (Negative) Urine Nitrite (Negative) Urine Bilirubin (Negative) Urine Urobilinogen (Negative) Ur Leukocyte Esterase (Negative) Urine WBC (Auto) (0-5) /hpf Urine RBC (Auto) (0-4) /hpf U Hyaline Cast (Auto) (0-5) /lpf U Epithel Cells (Auto) (0-5) /lpf Urine Bacteria (Auto) (Negative) Ethyl Alcohol mg/dL (0-3) mg/dl Influenza Type A (PCR) (Neg) Influenza Type B (PCR) (Neg) Hospital Course (1) Encephalopathy, hepatic: 72 y/o M Hx DMII, HTN, gout, ETOH cirrhosis since 1994 - multiple admits with hepatic encephalopathy, recent MARCUS. The pt's who is his credit product analyst had left town for the week. She had called him multiple times today and when he did not answer, called a family friend to go check on him. They found him in his bedroom, disoriented and lethargic and brought him to the hospital therefore. It is unclear if he had been noncompliant with his medications while she was a way or if he became dehydrated which was a recent precipitating factor despite compliance. Certainly dehydration seems to fit overall the best. 1) Hepatic encephalopathy -improved and stable for home, likely was a combination of dehydration and possibly missing some lactulose and Xifaxan. Discussed adequate hydration at home, cessation of the spironolactone for the time being, lactulose dosing, and a follow-up of periodic basic metabolic panel and ammonia for the time being (weekly for the next few weeks then as needed) 2) Impaired renal function - function was WNL prior to admission in June. Most likely there is a degree of dehydration at play. Creatinine overall improving. Discussed adequate hydration at home, cessation of spironolactone, and periodic BMP (weekly for the next few weeks and then as needed) 3) DM II -extensive discussions on the critical importance of lifestyle and management of this, as well as the rational use of basal bolus insulin. See very lengthy discharge instructions given to the patient as well as gone over verbally with the patient and his . 4) HTN - cont Propranolol, spironolactone on hold 5) Gout - cont Allopurinol 6) moderate aortic stenosis�outpatient follow-up (unless an echo has been done in the past that show stability, would consider repeat echo in about 6 months to ensure stability. He seems to be asymptomatic in this regard) Full code - SCDs Stable for home, PCP next week, weekly BMP and ammonia for the next 3-4 weeks then as clinically warranted. Total Time Total Time Spent Total Time Spent (In Minutes): >30 Discharge Plan Discharge Items Patient Disposition: Home - Self-Care Reason For Visit: HEPATIC ENCEPHALOPATHY Discharge Diagnosis: hepatic encephalopathy (see below) Discharge Goals: Diagnostic testing Activity: Resume your previous activity Non-emergency contact: Primary Care Provider Call non-emergency contact if: you have any medication questions Follow-up/Referrals: Bernardo Caal MD [Primary Care Provider] - 07/16/18 10:00 am (primary care follow up appointment) Diet: Carb Consistent or DM2 Addtl Provider Instructions: Hepatic encephalopathy -Your ammonia levels have built up again, causing him to be confused and sedated. �This appears to have been due to a combination of dehydration, and then likely once he started to have a bit of an elevated pneumonia, likely missing doses of lactulose -At this point things are improved quite nicely, the goal is really more to keep it that way. -In terms of the lactulose and the ammonia itself, we will keep you on your same home dosing of the lactulose (unchanged, if the computer says something dif ferent, please continue her home dosing) and checking an ammonia level about once a week for the next few weeks to ensure there is no subtle elevations on things that could spiral out of control -We will have you not take the MiraLAX. As we discussed having a bowel movement is not the only thing to getting rid of ammonia, the lactulose itself changes metabolism of ammonia in your intestines so that it cannot be absorbed, and so really it is only with the lactulose that you will eliminate ammonia -In terms of hydration, given that you never have any trouble with ascites (abdominal swelling related to the liver) we will have you simply stop the spironolactone altogether. It is a medicine that can be helpful in chronic liver disease, but being off of it will by you more margin of error with hydration, which appears to be the bigger issue causing her problems. -Just like checking an ammonia level once a week for the next few weeks, we will have you get a basic metabolic panel checked at the same time, so as to look for any subtle hints that you are getting more dehydrated -It is important to make sure that you are drinking enough fluids, a goal of approximately 60-80 ounces on a normal day is a reasonable target, if you are traveling and you are out in the heat, more like 80-90 ounces. Diabetes -As we discussed remember the most important part of this is that high sugars clog arteries, and the longer you run high in the higher you run, the more that you capillaries that you cannot get back -In addition, remember that we are seeing more and more cases of chronic liver disease related to metabolic disarray, such as uncontrolled diabetes, so getting the sugar under better control will likely also help make the liver disease easier to manage -The main problem physiologically is what we call insulin resistance, meaning that whenever you eat a simple/starchy/sugary carbs your blood sugar will rise, when your blood sugar rises your pancreas makes a significant amount of insulin to get that out of your bloodstream and anterior muscles, and over time your muscles get "addicted" to insulin needing more -Eventually muscles require more insulin than your pancreas is able to make, and that is where the arbitrary line gets crossed of becoming a diabetic -The good thing with all this is its generally a dynamic process that can be regressed. -In general backing down on simple/starchy/sugary carbs, and working towards a goal of 20-30 minutes of light cardiovascular exercise daily, can significantly regress most diabetes, and in some people essentially "put it into remission" -In terms of insulin management, the goal there is "filling the gap" of how much insulin your pancreas is able to make versus how much her muscles want, and so for now the goal will be to get sugars in line so that you do not clog arteries, but over time hopefully with improvement in carb intake and exercise, you may see that your insulin requirements regress -The insulins are designed to mimic normal physiology, but we will have to have you "think like a pancreas" in terms of the dosing (particularly the short acting) -Lantus is the long-acting insulin, this is to cover your fasting/basal metabolism, it kicks in slowly about 2 hours after you injected, lasts for the better part of 18 hours without any true peak of activity, and then slowly wears off over the last 6 hours. Right now you are taking 12 units of that each day. -Long insulin short acting insulin, designed to cover the carbohydrates that you eat in each meal. It kicks in about 15-30 minutes after you take it, reaches a peak about 90 minutes after you take it, and is gone about 3-4 hours after you take it. This insulin should be varied based on carbohydrates you are eating. For you, a general "starting point" would be about 4 units at each meal, but this should not be set in stone. As we discussed check blood sugars about 90- 120 minutes after eating, and learn from the results. The goal would be to see a sugar between about 100-150 in that 2-hour after you eat window. This would let you know that the insulin you gave yourself "matched up" with the carbohydrates that you ate. At first as you are learning, simply take 4 units at each meal, but then as he started to see patterns you can start to adjust insulin up or down accordingly. For example, if you were to eat eggs and black coffee (not much carbohydrates) you would likely see that with that 4 units of insulin he would have a low sugar. The next time you ate something similar you would take may be 2 units or less and check a sugar to see how things worked out. Conversely, if you ate a plate of spaghetti, and took 4 units, he would likely see sugars in the mid 200s 2 hours later. That would let you know that you should take more insulin (possibly 6-8 units or more) the next time you ate spaghetti (or something similar such as a large potato). You would continue this "educated trial and error" until you get pretty comfortable with how much insulin it takes to cover different foods, matching up the insulin that you take with the carbohydrates you eat, for a goal sugar of 100-150. This will also teach you what kind of foods to avoid, as it will show you in real-time what foods escalate your sugar dramatically, as well as what foods take a significant amount more medicine to process. As you start to scale back on those foods, you would likely see her overall metabolic control improve as well. Prescriptions: New Novolog Flexpen U-100 Insulin 100 unit/mL insulin pen 1 units SQ QAM Qty: 15 RF: 0 Continued propranolol 10 mg tablet 10 mg PO BID RF: 0 metformin 1,000 mg tablet 1,000 mg PO BIDM RF: 0 allopurinol 300 mg tablet 300 mg PO QAM RF: 0 lactulose 10 gram/15 mL solution 1 dose PO QID RF: 0 rifaximin 550 mg tablet 1 tab PO BID RF: 0 Tresiba FlexTouch U-100 100 unit/mL (3 mL) insulin pen 12 units subcut DAILY RF: 0 Discontinued acetaminophen [Acetaminophen Extra Strength] 500 mg Tablet 1,000 mg PO Q6H PRN (Reason: Pain) RF: 0 spironolactone 50 mg tablet 1 tab PO DAILY RF: 0 Humalog Mix 75-25 KwikPen 100 unit/mL (75-25) Insulin Pen 10 unit SUBCUT QAM RF: 0 glimepiride 1 mg tablet 1 mg PO DAILY RF: 0 Stand-Alone Forms: [facility] Discharge Orders: Discharge Order (Routine); Ordered 07/10/18 Ordered By: Rex Andres Admission Data Admit Date/Time: 07/07/18 14:21 Attending Provider: Rex Andres Admit Provider: Gab Sage Primary Care Provider: Bernardo Caal Other Providers: Gab Sage Service: Medical Other Interventions: Discharge Summary Assessment (RN) Last Done: 07/10/18 16:04 DC Date/Time DO NOT enter until pt leaves facility: 07/10/18 16:45
== END 2018-07-10 16:45 | disposition home or self-care (01) | DRG 442 ==
LOC: ED 10:43 → SUATTDRO 14:21 → 4E 14:21

== ENCOUNTER 2018-07-17 10:44 | Inpatient (IN) ==
[2018-07-17] MEDS ORDERED: SODIUM CHLORIDE 0.9% 1000ML 500 ML IV ONE (11:17)
--- NOTE | 2018-07-17 11:40 | Emergency Department Note ---
History of Present Illness General Chief complaint: Illness Stated complaint: hepatic encephalopathy Time Seen by Provider: 07/17/18 11:03 History of Present Illness This patient is a 72-year-old male presents to the emergency department with his for evaluation of confusion. The patient has a history of cirrhosis. The patient's thought it was odd that he got up in the middle the night and seemed slightly disoriented. He denies any recent changes in the medications. Due to altered mental status, the history is taken from the . No recent illnesses, fever or chills. The patient currently denies any pain. He denies any shortness of breath. Home Medications Home Medications Medication Instructions Recorded Confirmed Type allopurinol 300 mg PO QAM 06/25/18 07/17/18 History lactulose 1 dose PO QID 06/25/18 07/17/18 History metformin 500 mg PO BIDM 06/25/18 07/17/18 History propranolol 10 mg PO BID 06/25/18 07/17/18 History rifaximin 1 tab PO BID 06/25/18 07/17/18 History Tresiba FlexTouch U-100 12 units SUBCUT DAILY 07/07/18 07/17/18 History insulin aspart U-100 [Novolog 4 units SUBCUT TID 07/17/18 07/17/18 History Flexpen U-100 Insulin] Allergies Allergy/AdvReac Type Severity Reaction Status Date / Time No Known Allergies Allergy Unknown Unverified 07/17/18 12:06 Past Med/Surg History Medical History MARCUS (acute kidney injury) Cirrhosis Diabetes HTN (hypertension) Hepatic encephalopathy Hyperammonemia Family History Other Alcohol abuse Social History Preferred Language: Slovenian Communication Ability: Effective Communication Ability Comment: lethargic, arouses fair, speech clear Solutions Development Analyst Required: No Beliefs That Will Affect Care: None marital status: Current Living Situation: Spouse Other Information That Helps Us Care for You: No Feels Safe at Home: Yes Safety Concerns: Feels Safe At This Time Smoking Status: Never smoker Hx Alcohol Use: Yes Hx Substance Use: No Review of Systems A total of 10 systems reviewed and were otherwise negative Physical Exam Vital Signs Vital Signs - 24 hr 07/17/18 10:59 07/17/18 11:18 07/17/18 11:20 Temperature Sepsis Recent Fever Within 48 Hours No Sepsis New/Unexplained Change in Mental Status Yes Sepsis Action Taken by Nursing No Action Required Pulse Rate 60 58 L 59 L Pulse Rate [Finger] Pulse Rate from SpO2 Sensor 58 L 59 L Pulse Rhythm Regular Pulse Rhythm [Finger] Pulse Strength Normal Pulse Strength [Finger] Respiratory Rate 20 11 L 11 L Respiratory Effort / Characteristics Non-Labored Spontaneous Respiratory Depth Normal Respiratory Pattern Regular Blood Pressure 118/66 Blood Pressure [Right Arm] Blood Pressure Mean 83 Blood Pressure Mean [Right Arm] Blood Pressure Position Sitting Blood Pressure Position [Right Arm] Pulse Oximetry 97 98 99 Oxygen Delivery Method Room Air 07/17/18 11:30 07/17/18 11:40 07/17/18 11:49 Temperature Sepsis Recent Fever Within 48 Hours Sepsis New/Unexplained Change in Mental Status Sepsis Action Taken by Nursing Pulse Rate 59 L 61 60 Pulse Rate [Finger] 61 Pulse Rate from SpO2 Sensor 59 L 61 59 L Pulse Rhythm Pulse Rhythm [Finger] Pulse Strength Pulse Strength [Finger] Respiratory Rate 13 11 L 14 Respiratory Effort / Characteristics Non-Labored Respiratory Depth Normal Respiratory Pattern Blood Pressure 118/54 L Blood Pressure [Right Arm] 118/54 L Blood Pressure Mean 75 Blood Pressure Mean [Right Arm] 75 Blood Pressure Position Blood Pressure Position [Right Arm] Pulse Oximetry 98 99 98 Oxygen Delivery Method Room Air 07/17/18 11:51 07/17/18 12:00 07/17/18 12:10 Temperature Sepsis Recent Fever Within 48 Hours Sepsis New/Unexplained Change in Mental Status Sepsis Action Taken by Nursing Pulse Rate 61 58 L 58 L Pulse Rate [Finger] Pulse Rate from SpO2 Sensor 59 L 58 L 58 L Pulse Rhythm Pulse Rhythm [Finger] Pulse Strength Pulse Strength [Finger] Respiratory Rate 14 13 14 Respiratory Effort / Characteristics Respiratory Depth Respiratory Pattern Blood Pressure 127/54 L Blood Pressure [Right Arm] Blood Pressure Mean 78 Blood Pressure Mean [Right Arm] Blood Pressure Position Blood Pressure Position [Right Arm] Pulse Oximetry 98 96 97 Oxygen Delivery Method 07/17/18 12:20 07/17/18 12:29 07/17/18 12:30 Temperature Sepsis Recent Fever Within 48 Hours Sepsis New/Unexplained Change in Mental Status Sepsis Action Taken by Nursing Pulse Rate 58 L 57 L Pulse Rate [Finger] 58 L Pulse Rate from SpO2 Sensor 58 L 58 L Pulse Rhythm Pulse Rhythm [Finger] Regular Pulse Strength Pulse Strength [Finger] Normal Respiratory Rate 14 14 13 Respiratory Effort / Characteristics Non-Labored Respiratory Depth Normal Respiratory Pattern Regular Blood Pressure 100/49 L Blood Pressure [Right Arm] 100/49 L Blood Pressure Mean 66 Blood Pressure Mean [Right Arm] 66 Blood Pressure Position Blood Pressure Position [Right Arm] Lying Pulse Oximetry 97 97 97 Oxygen Delivery Method Room Air 07/17/18 12:40 07/17/18 12:50 07/17/18 13:00 Temperature Sepsis Recent Fever Within 48 Hours Sepsis New/Unexplained Change in Mental Status Sepsis Action Taken by Nursing Pulse Rate 58 L 60 59 L Pulse Rate [Finger] Pulse Rate from SpO2 Sensor 58 L 60 59 L Pulse Rhythm Pulse Rhythm [Finger] Pulse Strength Pulse Strength [Finger] Respiratory Rate 13 12 12 Respiratory Effort / Characteristics Respiratory Depth Respiratory Pattern Blood Pressure 116/54 L Blood Pressure [Right Arm] Blood Pressure Mean 74 Blood Pressure Mean [Right Arm] Blood Pressure Position Blood Pressure Position [Right Arm] Pulse Oximetry 99 99 99 Oxygen Delivery Method 07/17/18 13:10 07/17/18 13:39 07/17/18 13:40 Temperature Sepsis Recent Fever Within 48 Hours Sepsis New/Unexplained Change in Mental Status Sepsis Action Taken by Nursing Pulse Rate 61 59 L 59 L Pulse Rate [Finger] 61 Pulse Rate from SpO2 Sensor 61 Pulse Rhythm Pulse Rhythm [Finger] Pulse Strength Pulse Strength [Finger] Respiratory Rate 13 18 14 Respiratory Effort / Characteristics Non-Labored Respiratory Depth Normal Respiratory Pattern Blood Pressure 120/59 L Blood Pressure [Right Arm] 120/59 L Blood Pressure Mean 79 Blood Pressure Mean [Right Arm] 79 Blood Pressure Position Blood Pressure Position [Right Arm] Pulse Oximetry 99 96 Oxygen Delivery Method Room Air 07/17/18 13:41 07/17/18 13:50 07/17/18 14:00 Temperature Sepsis Recent Fever Within 48 Hours Sepsis New/Unexplained Change in Mental Status Sepsis Action Taken by Nursing Pulse Rate 60 62 59 L Pulse Rate [Finger] Pulse Rate from SpO2 Sensor Pulse Rhythm Pulse Rhythm [Finger] Pulse Strength Pulse Strength [Finger] Respiratory Rate 11 L 13 14 Respiratory Effort / Characteristics Respiratory Depth Respiratory Pattern Blood Pressure 114/53 L Blood Pressure [Right Arm] Blood Pressure Mean 73 Blood Pressure Mean [Right Arm] Blood Pressure Position Blood Pressure Position [Right Arm] Pulse Oximetry Oxygen Delivery Method 07/17/18 14:01 07/17/18 14:10 07/17/18 14:20 Temperature Sepsis Recent Fever Within 48 Hours Sepsis New/Unexplained Change in Mental Status Sepsis Action Taken by Nursing Pulse Rate 59 L 60 59 L Pulse Rate [Finger] Pulse Rate from SpO2 Sensor Pulse Rhythm Pulse Rhythm [Finger] Pulse Strength Pulse Strength [Finger] Respiratory Rate 14 14 14 Respiratory Effort / Characteristics Respiratory Depth Respiratory Pattern Blood Pressure Blood Pressure [Right Arm] Blood Pressure Mean Blood Pressure Mean [Right Arm] Blood Pressure Position Blood Pressure Position [Right Arm] Pulse Oximetry Oxygen Delivery Method 07/17/18 14:30 07/17/18 14:31 07/17/18 14:40 Temperature Sepsis Recent Fever Within 48 Hours Sepsis New/Unexplained Change in Mental Status Sepsis Action Taken by Nursing Pulse Rate 58 L 59 L 59 L Pulse Rate [Finger] Pulse Rate from SpO2 Sensor Pulse Rhythm Pulse Rhythm [Finger] Pulse Strength Pulse Strength [Finger] Respiratory Rate 13 13 13 Respiratory Effort / Characteristics Respiratory Depth Respiratory Pattern Blood Pressure 112/55 L Blood Pressure [Right Arm] Blood Pressure Mean 74 Blood Pressure Mean [Right Arm] Blood Pressure Position Blood Pressure Position [Right Arm] Pulse Oximetry Oxygen Delivery Method 07/17/18 14:50 07/17/18 16:02 Temperature 36.4 C L Sepsis Recent Fever Within 48 Hours Sepsis New/Unexplained Change in Mental Status Sepsis Action Taken by Nursing Pulse Rate 59 L 59 L Pulse Rate [Finger] Pulse Rate from SpO2 Sensor Pulse Rhythm Pulse Rhythm [Finger] Pulse Strength Pulse Strength [Finger] Respiratory Rate 15 18 Respiratory Effort / Characteristics Respiratory Depth Respiratory Pattern Blood Pressure 120/70 Blood Pressure [Right Arm] Blood Pressure Mean Blood Pressure Mean [Right Arm] Blood Pressure Position Blood Pressure Position [Right Arm] Pulse Oximetry 100 Oxygen Delivery Method Constitutional WD/WN, vitals as above + ill appearing Eyes EOM intact bilaterally ENMT external ear and nose normal, oropharynx normal (Oral mucosa dry) Neck trachea midline Respiratory normal respiratory effort, lungs clear to auscultation Cardiovascular Systolic murmur, regular rate Gastrointestinal (Abdomen) Bowel sounds present in all 4 quadrants. No tenderness. Musculoskeletal no cyanosis or clubbing, extremities motor strength 5/5 Skin no rashes, warm and dry Neurologic Alert and oriented x2. No focal motor deficits noted. Psychiatric Answering some questions appropriately Course Patient was seen and examined Vital signs including blood pressure were reviewed medications list was verified with patient Labs were obtained, and a saline lock was established The patient was ordered 500 cc normal saline bolus Upon reevaluation, the patient was resting. I discussed the workup with the patient and the patient's . They voiced understanding. He was ordered 1 dose of lactulose p.o. The case was discussed with my supervising physician, case management and [facility] They kindly agreed to evaluate the patient for possible inpatient management. Consultations Consultation #1: Kannan Raya PA-C Administered Medications Discontinued Medications Sodium Chloride (Nss 1000ml) 500 mls @ 999 mls/hr IV .Q31M ONE Stop: 07/17/18 11:47 Last Infusion: 07/17/18 12:18 Dose: 0 mls/hr Documented by: [id number] Admin: 07/17/18 11:47 Dose: 999 mls/hr Documented by: [id number] Lactulose (Chronulac) 60 gm PO NOW STA Stop: 07/17/18 12:38 Last Admin: 07/17/18 13:09 Dose: 60 gm Documented by: [id number] Medical Decision Making Medical Records Attestation: I reviewed the patient's medical records. Home Medications Current Medication List: was personally reviewed by me Laboratory Data Attestation: I reviewed the patient's lab results. Result diagrams: 07/17/18 11:33 07/17/18 11:33 Lab Results 07/17/18 07/17/18 07/17/18 Range/Units 11:33 11:33 11:33 WBC 6.97 (4.8-10.8) K/uL RBC 3.31 L (4.7-6.1) M/uL Hgb 11.7 L (14.0-18.0) g/dL Hct 33.2 L (42-52) % MCV 100.3 H (80-100) fL MCH 35.3 H (25-34) pg MCHC 35.2 (32-36) g/dL RDW Std Deviation 59.8 H (36.4-46.3) fL RDW Coeff of Christoph 16.8 H (11.5-14.5) % Plt Count 87 L (130-400) K/uL MPV 10.1 (7.4-10.4) fL Immature Gran % (Auto) 0.1 % Neut % (Auto) 55.9 % Lymph % (Auto) 21.2 % [place] % (Auto) 17.1 % Eos % (Auto) 5.3 % Baso % (Auto) 0.4 % Immature Gran # (Auto) 0.01 (0.00-0.02) K/uL Neut # (Auto) 3.89 (1.4-6.5) K/uL Lymph # (Auto) 1.48 (1.2-3.4) K/uL [place] # (Auto) 1.19 H (0.11-0.59) K/uL Eos # (Auto) 0.37 (0-0.5) K/uL Baso # (Auto) 0.03 (0-0.2) K/uL Anisocytosis Present PT (9.0-12.0) Seconds INR (0.9-1.1) APTT 28.5 (21.0-31.0) Seconds PTT Ratio 1.1 Sodium 135 L (136-145) mmol/L Potassium 3.9 (3.5-5.1) mmol/L Chloride 104 (98-107) mmol/L Carbon Dioxide 20 L (21-32) mmol/L Anion Gap 11.0 (3-11) BUN 22 H (7-18) mg/dl Creatinine 1.62 H (0.6-1.4) mg/dl Est Cr Clr Drug Dosing Not Reportable Est GFR ( Amer) 47.7 Est GFR (Non-Af Amer) 41.2 BUN/Creatinine Ratio 13.4 (10-20) Glucose 163 H (70-99) mg/dl Calcium 9.8 (8.5-10.1) mg/dl Magnesium 1.7 L (1.8-2.4) mg/dl Total Bilirubin 3.9 H (0.2-1) mg/dl AST 56 H (15-37) U/L ALT 55 (12-78) U/L Alkaline Phosphatase 102 (45-117) U/L Ammonia (11-32) umol/L Total Protein 6.9 (6.4-8.2) gm/dl Albumin 2.6 L (3.4-5.0) gm/dl Globulin 4.3 H (2.5-4.0) gm/dl Albumin/Globulin Ratio 0.6 L (0.9-2) 07/17/18 07/17/18 Range/Units 11:33 11:33 WBC (4.8-10.8) K/uL RBC (4.7-6.1) M/uL Hgb (14.0-18.0) g/dL Hct (42-52) % MCV (80-100) fL MCH (25-34) pg MCHC (32-36) g/dL RDW Std Deviation (36.4-46.3) fL RDW Coeff of Christoph (11.5-14.5) % Plt Count (130-400) K/uL MPV (7.4-10.4) fL Immature Gran % (Auto) % Neut % (Auto) % Lymph % (Auto) % [place] % (Auto) % Eos % (Auto) % Baso % (Auto) % Immature Gran # (Auto) (0.00-0.02) K/uL Neut # (Auto) (1.4-6.5) K/uL Lymph # (Auto) (1.2-3.4) K/uL [place] # (Auto) (0.11-0.59) K/uL Eos # (Auto) (0-0.5) K/uL Baso # (Auto) (0-0.2) K/uL Anisocytosis PT 13.0 H (9.0-12.0) Seconds INR 1.3 H (0.9-1.1) APTT (21.0-31.0) Seconds PTT Ratio Sodium (136-145) mmol/L Potassium (3.5-5.1) mmol/L Chloride (98-107) mmol/L Carbon Dioxide (21-32) mmol/L Anion Gap (3-11) BUN (7-18) mg/dl Creatinine (0.6-1.4) mg/dl Est Cr Clr Drug Dosing Est GFR ( Amer) Est GFR (Non-Af Amer) BUN/Creatinine Ratio (10-20) Glucose (70-99) mg/dl Calcium (8.5-10.1) mg/dl Magnesium (1.8-2.4) mg/dl Total Bilirubin (0.2-1) mg/dl AST (15-37) U/L ALT (12-78) U/L Alkaline Phosphatase (45-117) U/L Ammonia 211.0 H (11-32) umol/L Total Protein (6.4-8.2) gm/dl Albumin (3.4-5.0) gm/dl Globulin (2.5-4.0) gm/dl Albumin/Globulin Ratio (0.9-2) Imaging Data Attestation: I personally reviewed and interpreted this imaging study as follows: Radiologist's Impression: Chest x-ray CLINICAL HISTORY: Syncope. FINDINGS: An AP, portable, upright chest radiograph is compared to study dated 07/07/2018. The examination is degraded by portable technique and patient rotation. The heart is enlarged and there is atherosclerotic calcification of the thoracic aorta. The pulmonary vasculature is noncongested. There are bibasilar airspace opacities. No large pleural effusion or pneumothorax is seen. The skeletal structures are osteopenic. The bony thorax is grossly intact. Arthritic change is noted in the shoulders. IMPRESSION: 1. Cardiomegaly without radiographic evidence of congestive failure. 2. There are bibasilar airspace opacities. This could present atelectasis versus a mild infectious/inflammatory pneumonitis. Clinical correlation will be required. Electronically signed by: Lele Vera M.D. 07/17/2018 11:47 AM Dictated: 07/17/18 1145 Transcribed: 07/17/18 1145 ECG Data Rate (beats per minute): 59 Rhythm: sinus bradycardia Change: no significant change Prescription Drug Monitoring [place] Drug Monitoring Program reviewed and no issues identified Blood Pressure Blood Pressure Findings: Normal blood pressure MDM Narrative Differential diagnosis: Metabolic encephalopathy, neurologic abnormality, infectious etiology, dehydration, among others This patient is a 72-year-old male with a history of cirrhosis that presents the emergency department with a main complaint of confusion per . On exam, he was alert and answering some questions appropriately. Vital signs were stable. I cannot elicit any tenderness in the abdomen. His work-up here is significant for a significantly elevated ammonia level. I do not feel comfortable sending the patient home. The [facility] prescription kindly agreed to evaluate the patient for further work-up and treatment. Impression & Plan Encephalopathy, hepatic Discharge Plan Visit Data *Final* Discharge Date/Time: 07/17/18 15:27 Chief Complaint: Illness Stated Complaint: hepatic encephalopathy ED Provider: Aimee Antoine ED Midlevel Provider: Mar Arenas Discharge Problem: Encephalopathy, hepatic Patient Disposition: Admitted As Inpatient Discharge Instructions Interventions: ED Discharge Assessment Last Done: 07/17/18 15:27
[2018-07-17 11:41] LABS: Hematocrit (blood only) 33.2 % (42-52); Hemoglobin 11.7 g/dL (14.0-18.0); Mean Corpuscular Hgb Conc 35.2 g/dL (32-36); Mean Corpuscular Volume 100.3 fL (80-100); RDW Coefficient of Variation 16.8 % (11.5-14.5); RDW Standard Deviation 59.8 fL (36.4-46.3); Red Blood Count 3.31 M/uL (4.7-6.1); White Blood Count 6.97 K/uL (4.8-10.8)
--- NOTE | 2018-07-17 11:48 | XRay Report ---
SINGLE VIEW CHEST CLINICAL HISTORY: Syncope. FINDINGS: An AP, portable, upright chest radiograph is compared to study dated 07/07/2018. The examinat ion is degraded by portable technique and patient rotation. The heart is enlarged and there is ather osclerotic calcification of the thoracic aorta. The pulmonary vasculature is noncongested. There are bibasilar airspace opacities. No large pleural effusion or pneumothorax is seen. The skeletal structu res are osteopenic. The bony thorax is grossly intact. Arthritic change is noted in the shoulders. IMPRESSION: 1. Cardiomegaly without radiographic evidence of congestive failure. 2. There are bibasilar airspace opacities. This could present atelectasis versus a mild infectious/in flammatory pneumonitis. Clinical correlation will be required. Electronically signed by: Lele Vera M.D. 07/17/2018 11:47 AM
[2018-07-17 11:53] LABS: Partial Thromboplastin Ratio 1.1; Partial Thromboplastin Time 28.5 Seconds (21.0-31.0)
[2018-07-17 12:05] LABS: Alanine Aminotransferase 55 U/L (12-78); Albumin Level 2.6 gm/dl (3.4-5.0); Aspartate Aminotransferase 56 U/L (15-37); BUN Creatinine Ratio 13.4 (10-20); Blood Urea Nitrogen 22 mg/dl (7-18); Calcium 9.8 mg/dl (8.5-10.1); Carbon Dioxide 20 mmol/L (21-32); Chloride 104 mmol/L (98-107); Est GFR (African American) 47.7; Est GFR (Non-African American) 41.2; Glucose 163 mg/dl (70-99); Magnesium 1.7 mg/dl (1.8-2.4); Potassium 3.9 mmol/L (3.5-5.1); Sodium 135 mmol/L (136-145)
[2018-07-17 12:14] LABS: Albumin Globulin Ratio 0.6 (0.9-2); Alkaline Phosphatase 102 U/L (45-117); Bilirubin,Total 3.9 mg/dl (0.2-1); Globulin 4.3 gm/dl (2.5-4.0); Total Protein 6.9 gm/dl (6.4-8.2)
[2018-07-17 12:23] LABS: Basophils # (auto) 0.03 K/uL (0-0.2); Basophils % (auto) 0.4 %; Eosinophils # (auto) 0.37 K/uL (0-0.5); Eosinophils % (auto) 5.3 %; Immature Granulocytes # (auto) 0.01 K/uL (0.00-0.02); Immature Granulocytes % (auto) 0.1 %; Lymphocytes # (auto) 1.48 K/uL (1.2-3.4); Lymphocytes % (auto) 21.2 %; Mean Platelet Volume 10.1 fL (7.4-10.4); Monocytes # (auto) 1.19 K/uL (0.11-0.59); Monocytes % (auto) 17.1 %; Neutrophils # (auto) 3.89 K/uL (1.4-6.5); Neutrophils % (auto) 55.9 %; Platelet Count 87 K/uL (130-400)
[2018-07-17 12:31] LABS: Anisocytosis Present
[2018-07-17] MEDS ORDERED: LACTULOSE SYRUP 20 GM/30 ML UDC PO STA (12:37)
[2018-07-17 13:16] LABS: INR 1.3 (0.9-1.1)
--- NOTE | 2018-07-17 13:58 | Ultrasound Report ---
ULTRASOUND RIGHT UPPER QUADRANT ABDOMEN CLINICAL HISTORY: Cirrhosis. Jaundice. COMPARISON STUDY: Abdominal CT dated 02/08/2018. TECHNIQUE: Real-time, grayscale, and color flow sonography of the right upper quadrant of the abdomen was performed. Images are reviewed in the transverse and longitudinal planes. FINDINGS: Liver: The liver is cirrhotic in morphology and heterogeneous in echotexture. There is nodularity of the hepatic surface contour. There is no intrahepatic biliary ductal dilatation. The main portal vein is patent. Gallbladder: The gallbladder is suboptimally assessed. Shadowing gallstones are noted. There is no ga llbladder wall thickening or pericholecystic fluid. A sonographic Calixto's sign is reportedly absent. The common bile duct measures up to 0.4 cm in diameter. Pancreas: Visualized portions of the pancreatic head and body are normal in appearance. The splenic v ein is patent. Right kidney: In the upper pole of the right kidney was visualized. This demonstrate cortical atrophy . There is no evidence of hydronephrosis. Ascites: There is a small volume of perihepatic ascites. IMPRESSION: 1. The liver is cirrhotic in morphology and heterogeneous in echotexture. 2. Cholelithiasis without sonographic evidence of acute cholecystitis. 3. There is a small volume of perihepatic ascites. 4. There is no intra or extrahepatic biliary ductal dilatation. Electronically signed by: Lele Vera M.D. 07/17/2018 1:57 PM
[2018-07-17] MEDS ORDERED: LACTULOSE PO SCH (14:31)
[2018-07-17] MEDS ORDERED: POLYETHYLENE (MIRALAX) 17 GM PACK PO PRN (15:39)
[2018-07-17] MEDS ORDERED: ONDANSETRON INJ 2 MG/ML 2 ML VIAL IV PRN (15:39)
[2018-07-17] MEDS ORDERED: MAGNESIUM HYDROXIDE SUSP 30 ML UDC PO PRN (15:39)
[2018-07-17] MEDS ORDERED: ALUMINUM/MAGNESIUM SUSP 30 ML UDC PO PRN (15:39)
--- NOTE | 2018-07-17 15:45 | History & Physical Report ---
Date of Service July 17, 2018 Assessment & Plan (1) Encephalopathy, hepatic: Mr. Gerard is a 72 year old male with a history of Hypertension, Cirrhosis, DM and recurrent Hepatic Encephalopathy / Hyperammonemia who was brought to [facility] earlier today after waking in the middle of the night and was disoriented and confused. He was discharged from the hospital about a week ago after experiencing the same symptoms. Patient has been compliant with his medications and even had an extra dose of Lactulose but his Ammonia level continued to climb. His Ammonia level has climbed from 138 umol/L up to 211 umol/L in the past 24 hours. -- Increase Lactulose to q2h until patient has a BM, then resume qid dosing. -- Increase Rifaximin to 400 mg q8 hours. -- Consult GI. -- Monitor daily CMP, Ammonia levels. Present on Admission?: Yes (2) HTN (hypertension): BP is controlled -- Continue Propranolol 10 mg bid. Present on Admission?: Yes (3) Diabetes: -- Convert to Lantus 12 units daily. -- Novolog SSI. -- Continue Metformin 1000 mg bid. Present on Admission?: Yes History of Present Illness Chief Complaint: -- Hepatic Encephalopathy. Primary Care Provider: Bernardo Caal MD Mr. Gerard is a 72 year old male with a history of Hypertension, Cirrhosis, DM and recurrent Hepatic Encephalopathy / Hyperammonemia who was brought to [facility] earlier today after waking in the middle of the night and was disoriented and confused. He was discharged from the hospital about a week ago after experiencing the same symptoms. Patient has been compliant with his medications and even had an extra dose of Lactulose but his Ammonia level continued to climb. Patient has not had any recent viral syndromes, fevers, chills. Allergies Allergy/AdvReac Type Severity Reaction Status Date / Time No Known Allergies Allergy Unknown Unverified 07/17/18 12:06 Home Medications Home Medications Medication Instructions Recorded Confirmed Type allopurinol 300 mg PO QAM 06/25/18 07/17/18 History lactulose 1 dose PO QID 06/25/18 07/17/18 History metformin 500 mg PO BIDM 06/25/18 07/17/18 History propranolol 10 mg PO BID 06/25/18 07/17/18 History rifaximin 1 tab PO BID 06/25/18 07/17/18 History Tresiba FlexTouch U-100 12 units SUBCUT DAILY 07/07/18 07/17/18 History insulin aspart U-100 [Novolog 4 units SUBCUT TID 07/17/18 07/17/18 History Flexpen U-100 Insulin] Past Med/Surg History Medical History MARCUS (acute kidney injury) Cirrhosis Diabetes HTN (hypertension) Hepatic encephalopathy Hyperammonemia Family History Other Alcohol abuse Social History Preferred Language: [place] Communication Ability: Effective Communication Ability Comment: lethargic, arouses fair, speech clear Client Relationship Manager Required: No Beliefs That Will Affect Care: None marital status: Current Living Situation: Spouse Other Information That Helps Us Care for You: No Feels Safe at Home: Yes Safety Concerns: Feels Safe At This Time Smoking Status: Never smoker Hx Alcohol Use: Yes Hx Substance Use: No Physical Exam Vital Signs (Past 24 Hours): Last Vital Signs Pulse 59 L 07/17/18 14:50 Resp 15 07/17/18 14:50 BP 112/55 L 07/17/18 14:30 Pulse Ox 96 07/17/18 13:40 Physical Exam: General: Patient is chronically ill appearing, lying comfortably on a bed. HEENT: Head is atraumatic, normocephalic. EOMs intact. Sclerae anicteric. Facies symmetric. No perioral cyanosis. Neck: No JVD. Carotid upstrokes +2 bilaterally without bruits. Chest and Lungs: Clear to auscultation throughout all lung lebron, no wheezes, rales, or rhonchi. CVS: S1 and S2 are regular with a grade 3/6 basal systolic murmur is present over the right 2nd intercostal space, radiates to upper chest and left sternal border. No obvious diastolic murmurs, gallops, or rubs. PMI is nondisplaced. No lifts, heaves, or thrills. No abdominal aortic or renal bruits. Abdominal Exam: Bowel sounds present. No masses, organomegaly, or tenderness. Extremities: No clubbing, cyanosis, or edema. Intact posterior tibial and radial pulses bilaterally. Neurologic Exam: Patient is somnolent but arouses to verbal stimuli. Follows commands. Gait pattern was not assessed. Results & Data Laboratory Results Laboratory Results - last 24 hr 07/17/18 07/17/18 07/17/18 11:33 11:33 11:33 WBC 6.97 RBC 3.31 L Hgb 11.7 L Hct 33.2 L MCV 100.3 H MCH 35.3 H MCHC 35.2 RDW Std Deviation 59.8 H RDW Coeff of Christoph 16.8 H Plt Count 87 L MPV 10.1 Immature Gran % (Auto) 0.1 Neut % (Auto) 55.9 Lymph % (Auto) 21.2 Cotton % (Auto) 17.1 Eos % (Auto) 5.3 Baso % (Auto) 0.4 Immature Gran # (Auto) 0.01 Neut # (Auto) 3.89 Lymph # (Auto) 1.48 Cotton # (Auto) 1.19 H Eos # (Auto) 0.37 Baso # (Auto) 0.03 Anisocytosis Present PT INR APTT 28.5 PTT Ratio 1.1 Sodium 135 L Potassium 3.9 Chloride 104 Carbon Dioxide 20 L Anion Gap 11.0 BUN 22 H Creatinine 1.62 H Est Cr Clr Drug Dosing Not Reportable Est GFR ( Amer) 47.7 Est GFR (Non-Af Amer) 41.2 BUN/Creatinine Ratio 13.4 Glucose 163 H Calcium 9.8 Magnesium 1.7 L Total Bilirubin 3.9 H AST 56 H ALT 55 Alkaline Phosphatase 102 Ammonia Total Protein 6.9 Albumin 2.6 L Globulin 4.3 H Albumin/Globulin Ratio 0.6 L 07/17/18 07/17/18 11:33 11:33 WBC RBC Hgb Hct MCV MCH MCHC RDW Std Deviation RDW Coeff of Christoph Plt Count MPV Immature Gran % (Auto) Neut % (Auto) Lymph % (Auto) Cotton % (Auto) Eos % (Auto) Baso % (Auto) Immature Gran # (Auto) Neut # (Auto) Lymph # (Auto) Cotton # (Auto) Eos # (Auto) Baso # (Auto) Anisocytosis PT 13.0 H INR 1.3 H APTT PTT Ratio Sodium Potassium Chloride Carbon Dioxide Anion Gap BUN Creatinine Est Cr Clr Drug Dosing Est GFR ( Amer) Est GFR (Non-Af Amer) BUN/Creatinine Ratio Glucose Calcium Magnesium Total Bilirubin AST ALT Alkaline Phosphatase Ammonia 211.0 H Total Protein Albumin Globulin Albumin/Globulin Ratio Medications Administered Active Medications Generic Name Dose Route Start Last Admin Trade Name Freq PRN Reason Stop Dose Admin Al Hydrox/Mg Hydrox/Simethicone 30 ml 07/17/18 15:39 Maalox PO 08/16/18 15:38 Q6H PRN Dyspepsia Allopurinol 300 mg 07/18/18 09:00 Zyloprim PO 08/17/18 08:59 QAM [facility] Insulin Aspart 4 units 07/17/18 21:00 Novolog Flexpen SQ 08/16/18 20:59 TID [facility] Magnesium Hydroxide 30 ml 07/17/18 15:39 Milk Of Magnesia PO 08/16/18 15:38 Q6H PRN Constipation Metformin HCl 500 mg 07/17/18 17:00 Glucophage PO 08/16/18 16:59 BIDM [facility] Non-Formulary Medication 12 units 07/18/18 09:00 Insulin Degludec [Tresiba Flextouch U-100] SQ 08/17/18 08:59 DAILY [facility] Non-Formulary Medication 1 ea 07/17/18 14:31 Lactulose PO 08/16/18 14:30 Q2H [facility] Ondansetron HCl 4 mg 07/17/18 15:39 Zofran IV 08/16/18 15:38 Q6H PRN Nausea Polyethylene Glycol 17 gm 07/17/18 15:39 Miralax Powder Packet PO 08/16/18 15:38 DAILY PRN Constipation Propranolol HCl 10 mg 07/17/18 21:00 Inderal PO 08/16/18 20:59 BID RAJI Rifaximin 400 mg 07/17/18 22:00 Xifaxan PO 08/16/18 21:59 Q8 RAJI Code Status & VTE Plan Code Status Full resuscitation Supervising Physician Co-Signing Physician Notes Patient seen and examined, discussed with physician him assistant about patient condition and care plan, agree current care plan, Subjective: Awake and alert, no his own name and 's name, said he is in the hospital, seems have difficult to remember his BD Otherwise no complaint, review of system is limited because patient has mild lethargic Denies nausea vomiting, denies fever and chill Denies dysuria urgency and frequency Objective: Vital signs reviewed and stable Heart regular rhythm, S1-S2 that was decreased breathing sounds there was no wheezing rhonchi and crackles lower extremity trace edema Assessment and plan: 72 year old male with a history of Hypertension, Cirrhosis, DM and recurrent Hepatic Encephalopathy / Hyperammonemia admitted to hospital because of altered mental status, Ammonia level has climbed from 138 umol/L up to 211 umol/L in the past 24 hours. will Increase Lactulose to q2h until patient has a BM, then resume qid dosing. Continue current care. Murali Riley MD
[2018-07-17] MEDS ORDERED: Nursing to Pharmacy Communication ONE ×3 (16:42→17:00)
[2018-07-17] MEDS ORDERED: METFORMIN HCL 500 MG TAB PO SCH (17:00)
--- NOTE | 2018-07-17 17:28 | Emergency Department Note ---
ED Visit Note I have personally seen and evaluated the patient with the PA. I agree with the diagnosis and management decisions and have been personally involved in the case. Please see Mar Arenas PA-C's notes for further details of the history, physical and visit. .
[2018-07-17] MEDS: LACTULOSE SYRUP 30 GM/45 ML UDP PO SCH ×2 (17:46→21:32)
[2018-07-17] MEDS: INSULIN ASPART 100 UNITS/ML 3 ML PEN SQ SCH ×2 (17:51→21:32)
[2018-07-17] MEDS ORDERED: INSULIN ASPART 100 UNITS/ML 3 ML PEN SQ SCH (21:00)
[2018-07-17] MEDS: PROPRANOLOL HCL 10 MG TAB PO SCH (21:32)
[2018-07-17] MEDS: RIFAXIMIN 550 MG TABLET PO SCH (21:39)
[2018-07-17] MEDS ORDERED: DEXTROSE 50% 50 ML SYRINGE IV PRN (21:45)
[2018-07-17] MEDS ORDERED: GLUCOSE 40% GEL 15 GM TUBE PO PRN (21:45)
[2018-07-17] MEDS ORDERED: CARBOHYDRATES FOR HYPOGLYCEMIA PO PRN (21:45)
[2018-07-17] MEDS ORDERED: GLUCOSE 10 TABS/TUBE PO PRN (21:45)
[2018-07-17] MEDS ORDERED: GLUCAGON FOR INJ 1 MG VIAL IM PRN (21:45)
[2018-07-17] MEDS ORDERED: RIFAXIMIN 550 MG TABLET PO SCH (22:00)
[2018-07-18 07:29] LABS: Albumin Globulin Ratio 0.6 (0.9-2); Albumin Level 2.1 gm/dl (3.4-5.0); BUN Creatinine Ratio 14.8 (10-20); Bilirubin,Total 3.5 mg/dl (0.2-1); Calcium 9.1 mg/dl (8.5-10.1); Creatinine Clr Calc Pharmacy 55.6 ml/min; Est GFR (African American) 62.9; Est GFR (Non-African American) 54.3; Globulin 3.3 gm/dl (2.5-4.0); Magnesium 1.6 mg/dl (1.8-2.4); Phosphorus 3.1 mg/dl (2.5-4.9); Potassium 3.1 mmol/L (3.5-5.1); Total Protein 5.4 gm/dl (6.4-8.2)
[2018-07-18] MEDS ORDERED: POTASSIUM CHLORIDE 20 MEQ TABCR PO STA (08:10)
[2018-07-18] MEDS ORDERED: MAGNESIUM SULFATE / D5W 1 GM/100 ML BAG IV ONE (08:50)
[2018-07-18] MEDS ORDERED: INSULIN DEGLUDEC 12 UNIT SQ SCH (09:00)
[2018-07-18] MEDS: INSULIN GLARGINE SOLOSTAR 100 UNITS/ML 3 ML PEN SC SCH (09:31)
[2018-07-18] MEDS: INSULIN ASPART 100 UNITS/ML 3 ML PEN SQ SCH ×4 (09:32→21:36)
[2018-07-18] MEDS: LACTULOSE SYRUP 30 GM/45 ML UDP PO SCH ×4 (09:38→21:32)
[2018-07-18] MEDS: PROPRANOLOL HCL 10 MG TAB PO SCH ×2 (09:39→21:33)
[2018-07-18] MEDS: MAGNESIUM OXIDE 400 MG TAB PO SCH ×2 (09:39→21:34)
[2018-07-18] MEDS: RIFAXIMIN 550 MG TABLET PO SCH ×2 (09:40→21:33)
[2018-07-18] MEDS: ALLOPURINOL 300 MG TAB PO SCH (09:40)
--- NOTE | 2018-07-18 09:48 | Hospitalist Progress Note ---
Date of Service July 18, 2018 Assessment & Plan (1) Encephalopathy, hepatic: (2) HTN (hypertension): (3) Diabetes: 72 year old male with a history of Hypertension, Cirrhosis, DM Admitted on July 17, 2018 because of Hepatic Encephalopathy / Hyperammonemia Encephalopathy, hepatic: Liver Cirrhosis , Likely end-stage liver disease Hepatic Encephalopathy / Hyperammonemia Has been follow-up with [facility] Manager Product Management Dr. Frye for years Last time seen was last week Per patient is not in the list of transplantation because of the age However hyperammonia is new in recent months, and he has been on lactulose, Patient is on Lactulose 30 mL 4 times daily at home Mild to this admission, said she is 99% sure patient takes all the medicine and medicine compliance Although we do not know the ammonia is significant climbing up from 138 umol/L up to 211 umol/L in the past 24 hours could be some other reason, such as acute liver failure, however patient currently do not have acute liver failure Had long discussion with about the importance of compliance on medicine, We will increase the medication of lactulose to 45ml 4 times daily, pay attention to fluid intake, watch volume status, Avoid dehydration, She has acute on chronic kidney injury upon admission, therefore , watch fluid balance is more important Ammonia 44 This morning Increased Rifaximin to 400 mg q8 hours. acute on chronic kidney injury upon admission, Creatinine improved to 1.2 from 1.6,See above and improving f/u Consult GI. Monitor daily CMP, Ammonia levels. Hypertension, Stable Diabetic, Has been on insulin, said he isBlood glucose is better controlled has significant since on insulin GI and DVT covered, No heparin productive because of thrombocytopenia, SCD on Continue PT OT, case coordinator consult for discharge plan Subjective Pleasant, awake alert orientated, Eating breakfast, Review of Systems Constitutional: Postive weakness, or fatigue Respiratory: no cough, sputum, wheezing, or dyspnea on exertion Cardiac: No chest pain, No orthopnea, No PND, No claudication, No palpitations, Abdomen: No pain, No nausea, No vomiting, No diarrhea, No constipation, No GI bleeding Musculoskeletal: No joint pain, No muscle pain, No swelling, No calf pain, No problem reported : No dysuria, No urinary frequency, No incontinence, No hematuria Neurologic: No paralysis, No weakness, No numbness/tingling, No vertigo, No balance problems Psychiatric: No depression symptoms, No anhedonism, No anxiety, No insomnia, No substance abuse Heme: No abnormal bleeding/bruising, No clotting problems, No swollen lymph nodes, No night sweats Skin: No rash, No itch, No new/changing skin lesions, No color change, No bleeding Physical Exam Vital Signs (Past 24 Hours): Last Vital Signs Temp 36.7 C 07/18/18 07:58 Pulse 60 07/18/18 08:09 Resp 16 07/18/18 07:58 BP 110/62 07/18/18 08:09 Pulse Ox 98 07/18/18 07:58 Physical Exam: General Appearance: WD/WN, no apparent distress, Eyes: normal inspection, PERRL, EOMI, sclerae Mild icterus ENT: normal ENT inspection, hearing grossly normal, pharynx normal Neck: supple, no adenopathy, thyroid normal, no JVD, no carotid bruits, trachea midline Respiratory/Chest: chest non-tender, normal breath sounds, no respiratory distress, no accessory muscle use, breath sounds, rales, wheezing Cardiovascular: regular rate, rhythm, no JVD, no murmur Abdomen: normal bowel sounds, non tender, soft, no organomegaly, Extremities: normal range of motion, non-tender, normal inspection, Trace pedal edema, no calf tenderness, normal capillary refill, pelvis stable, joint has no limited range of motion, capillary refill is normal, no cyanosis clubbing Neurologic/Psychiatric: urogynecology physician II-XII nml as tested, no motor/sensory deficits, alert, normal mood/affect, oriented x 3 Skin: normal color, warm/dry, no rash Lymphatic: no adenopathy Results & Data Laboratory Results Laboratory Results - last 24 hr 07/17/18 07/17/18 07/17/18 11:33 11:33 11:33 WBC 6.97 RBC 3.31 L Hgb 11.7 L Hct 33.2 L MCV 100.3 H MCH 35.3 H MCHC 35.2 RDW Std Deviation 59.8 H RDW Coeff of Christoph 16.8 H Plt Count 87 L MPV 10.1 Immature Gran % (Auto) 0.1 Neut % (Auto) 55.9 Lymph % (Auto) 21.2 Mcmullen % (Auto) 17.1 Eos % (Auto) 5.3 Baso % (Auto) 0.4 Immature Gran # (Auto) 0.01 Neut # (Auto) 3.89 Lymph # (Auto) 1.48 Mcmullen # (Auto) 1.19 H Eos # (Auto) 0.37 Baso # (Auto) 0.03 Anisocytosis Present PT INR APTT 28.5 PTT Ratio 1.1 Sodium 135 L Potassium 3.9 Chloride 104 Carbon Dioxide 20 L Anion Gap 11.0 BUN 22 H Creatinine 1.62 H Est Cr Clr Drug Dosing Not Reportable Est GFR ( Amer) 47.7 Est GFR (Non-Af Amer) 41.2 BUN/Creatinine Ratio 13.4 Glucose 163 H POC Glucose Calcium 9.8 Phosphorus Magnesium 1.7 L Total Bilirubin 3.9 H AST 56 H ALT 55 Alkaline Phosphatase 102 Ammonia Total Protein 6.9 Albumin 2.6 L Globulin 4.3 H Albumin/Globulin Ratio 0.6 L 07/17/18 07/17/18 07/17/18 11:33 11:33 16:39 WBC RBC Hgb Hct MCV MCH MCHC RDW Std Deviation RDW Coeff of Christoph Plt Count MPV Immature Gran % (Auto) Neut % (Auto) Lymph % (Auto) Mcmullen % (Auto) Eos % (Auto) Baso % (Auto) Immature Gran # (Auto) Neut # (Auto) Lymph # (Auto) Mcmullen # (Auto) Eos # (Auto) Baso # (Auto) Anisocytosis PT 13.0 H INR 1.3 H APTT PTT Ratio Sodium Potassium Chloride Carbon Dioxide Anion Gap BUN Creatinine Est Cr Clr Drug Dosing Est GFR ( Amer) Est GFR (Non-Af Amer) BUN/Creatinine Ratio Glucose POC Glucose 196 H Calcium Phosphorus Magnesium Total Bilirubin AST ALT Alkaline Phosphatase Ammonia 211.0 H Total Protein Albumin Globulin Albumin/Globulin Ratio 07/17/18 07/18/18 07/18/18 20:07 06:35 06:35 WBC RBC Hgb Hct MCV MCH MCHC RDW Std Deviation RDW Coeff of Christoph Plt Count MPV Immature Gran % (Auto) Neut % (Auto) Lymph % (Auto) Mcmullen % (Auto) Eos % (Auto) Baso % (Auto) Immature Gran # (Auto) Neut # (Auto) Lymph # (Auto) Mcmullen # (Auto) Eos # (Auto) Baso # (Auto) Anisocytosis PT INR APTT PTT Ratio Sodium 137 Potassium 3.1 L D Chloride 109 H Carbon Dioxide 19 L Anion Gap 9.0 BUN 19 H Creatinine 1.29 D Est Cr Clr Drug Dosing 55.6 Est GFR ( Amer) 62.9 Est GFR (Non-Af Amer) 54.3 BUN/Creatinine Ratio 14.8 Glucose 149 H POC Glucose 221 H Calcium 9.1 Phosphorus 3.1 Magnesium 1.6 L Total Bilirubin 3.5 H AST 45 H ALT 47 Alkaline Phosphatase 69 Ammonia 44.9 H Total Protein 5.4 L D Albumin 2.1 L Globulin 3.3 Albumin/Globulin Ratio 0.6 L 07/18/18 07:47 WBC RBC Hgb Hct MCV MCH MCHC RDW Std Deviation RDW Coeff of Christoph Plt Count MPV Immature Gran % (Auto) Neut % (Auto) Lymph % (Auto) Mcmullen % (Auto) Eos % (Auto) Baso % (Auto) Immature Gran # (Auto) Neut # (Auto) Lymph # (Auto) Mcmullen # (Auto) Eos # (Auto) Baso # (Auto) Anisocytosis PT INR APTT PTT Ratio Sodium Potassium Chloride Carbon Dioxide Anion Gap BUN Creatinine Est Cr Clr Drug Dosing Est GFR ( Amer) Est GFR (Non-Af Amer) BUN/Creatinine Ratio Glucose POC Glucose 156 H Calcium Phosphorus Magnesium Total Bilirubin AST ALT Alkaline Phosphatase Ammonia Total Protein Albumin Globulin Albumin/Globulin Ratio
[2018-07-18] MEDS: POTASSIUM CHLORIDE / WTR 10 MEQ/100 ML PLCT IV SCH ×2 (09:52→10:56)
--- NOTE | 2018-07-18 12:32 | Consultation Report ---
DATE OF CONSULTATION: 07/18/2018 GASTROENTEROLOGY CONSULT NOTE REFERRED BY: Kannan Raya PA-C. REASON FOR CONSULTATION: I was asked by Kannan Raya and Dr. Riley to consult on this gentleman for evaluation of encephalopathy. HISTORY OF PRESENT ILLNESS: The patient is a 72-year-old gentleman who has a history of end-stage liver disease and presented because of change in mental status last evening. He has a history of encephalopathy. He was last admitted just under a month ago for the same reason. He already this morning is more alert and has responded to increase lactulose and electrolyte replacement. Currently, he does not seem confused. He denies any cough, abdominal pain. He denies any nausea, vomiting. At home, he states he goes to the bathroom and has a bowel movement about 3 times a day. He states that he has been compliant with his medications and according to nursing staff, his reminds him to take his medications when she is not home. He is maintained on lactulose and rifaximin for his encephalopathy and hyperammonemia. He denies any rectal bleeding. I reviewed his medical records and past medical history. PAST MEDICAL HISTORY: Significant for what is already mentioned, hypertension, diabetes. OUTPATIENT MEDICATIONS: Include allopurinol, lactulose, metformin, propranolol, rifaximin, Tresiba injection and insulin. ALLERGIES: He denies any drug allergies. SOCIAL HISTORY: Significant for history of alcohol abuse, but he does not drink. He has not drunken according to the patient over 2 years. He is not a smoker. REVIEW OF SYSTEMS: As above, otherwise he denies any seizures. He denies any recent change in vision or hearing. He denies any joint swelling. He has had some easy bruising, but this is a chronic issue. He denies any dysuria. He denies any productive cough. He has had no exertional chest pain. He has had no heat or cold intolerance. Denies any fevers. He denies any increasing abdominal girth. PHYSICAL EXAMINATION: GENERAL: He is a thin gentleman, in no distress, pleasant and alert. VITAL SIGNS: His blood pressure most recently is 110/62, pulse is 60, temperature is 36.7. SKIN: Mildly icteric. EYES: Show mild scleral icterus. MOUTH: Moist with unclear lesions. NECK: Thin, but supple, no adenopathy. CHEST: Clear. HEART: Regular rate. ABDOMEN: Soft with good bowel sounds. There is no organomegaly, masses, rebound tenderness noted. He has no significant fluid wave. EXTREMITIES: Warm with fair distal pulses. He has numerous ecchymoses and some spider angiomata on his skin. NEUROLOGICAL: He is alert and oriented x3 and grossly intact this morning with some mild flap. LABORATORY DATA: Labs show a most recent total bilirubin of 3.5, AST of 45, ALT of 47. Ammonia was 44, but previously on admission was 211. His magnesium was low on admission at 1.7 and potassium was 3.9 on admission and this morning is 3.1. Imaging of his gallbladder did not reveal any evidence of cholecystitis or worrisome liver lesions. 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 He is already improved. He may be a patient who would benefit from having a bowel movement 4 times a day and I would titrate lactulose to this. Also, I think what is contributing to his encephalopathy is his electrolyte imbalance and I would work towards keeping his magnesium and potassium in the normal range, if not mid normal range. This would help him as well. There are no obvious signs of infection, but the chest x-ray did show some subtle abnormalities and certainly an infectious etiology can put the patient into encephalopathy, I would continue to look for an infectious source as well.
[2018-07-19] MEDS: LACTULOSE SYRUP 30 GM/45 ML UDP PO SCH ×4 (08:25→20:10)
[2018-07-19] MEDS: ALLOPURINOL 300 MG TAB PO SCH (08:25)
[2018-07-19] MEDS: INSULIN GLARGINE SOLOSTAR 100 UNITS/ML 3 ML PEN SC SCH (08:25)
[2018-07-19] MEDS: PROPRANOLOL HCL 10 MG TAB PO SCH ×2 (08:25→20:10)
[2018-07-19] MEDS: RIFAXIMIN 550 MG TABLET PO SCH ×2 (08:25→20:10)
[2018-07-19] MEDS: MAGNESIUM OXIDE 400 MG TAB PO SCH ×2 (08:25→20:10)
[2018-07-19] MEDS: INSULIN ASPART 100 UNITS/ML 3 ML PEN SQ SCH ×4 (08:26→20:08)
--- NOTE | 2018-07-19 09:30 | Gastroenterology Progress Note ---
Date of Service July 19, 2018 Assessment & Plan (1) Encephalopathy, hepatic: Patient is a 72 yo male with a history of alcoholic cirrhosis with hepatic encephalopathy for which he is currently admitted. He denies any issues at present. He is alert and oriented x 3 at the time of my visit. 1) Continue Xifaxan 550 mg BID 2) Continue Lactulose 30 gm four times daily. Continue Miralax 17 gm daily. May need to increase Miralax to BID to titrate to a goal of 4 bowel movements daily. 3) Agree with Dr. Sanchez--Consider a work-up to exclude other causes including infection and correct electrolyte imbalances. 4) Continue outpatient care for cirrhosis management as previously planned. P jerrod is following with a chef de froid as well. 5) Would not recommend that patient operate a vehicle. 6) Supportive care per primary team. Thank you for allowing us to participate in the care of this patient. We will sign off at this time. If you should have further questions or concerns, do not hesitate to contact us. Present on Admission?: Yes Supervising Physician Co-Signing Physician Notes Agree with BOBBI Adams as above Abd: Soft, NT, ND, +BS Continue Lactulose and Xifaxan as prescribed Continue supportive care Followup in our office as scheduled upon discharge. Subjective Patient is a 72 yo male with a long-standing history of alcoholic cirrhosis who is currently hospitalized due to confusion thought possibly to be related to hepatic encephalopathy. The patient is currently alert and oriented x 3. His last Ammonia from several days ago was not significantly elevated at 44.9. The patient is on Lactulose 30 mg four times daily, Miralax 17 gm daily, and Xifaxan 550 mg BID. He reports 3 bowel movements daily. He offers no complaints today. Constitutional: no fever and no chills Respiratory: no cough and no dyspnea Cardiovascular: no chest pain Gastrointestinal: no abdominal pain, no constipation, no diarrhea/loose stools and no blood in stools Neurologic: no generalized weakness and no dizziness Physical Exam Vital Signs (Past 24 Hours): Last Vital Signs Temp 36.8 C 07/19/18 08:06 Pulse 53 L 07/19/18 08:06 Resp 18 07/19/18 08:06 BP 138/67 07/19/18 08:06 Pulse Ox 99 07/19/18 08:06 Constitutional: WD/WN, vitals as above Eyes: PERRL, conjunctivae normal, anicteric sclerae Respiratory: normal respiratory effort, lungs clear to auscultation Cardiovascular: Rate/Rhythm: regular rate and regular rhythm Gastrointestinal (Abdomen): normal bowel sounds, soft, nontender, no hepatosplenomegaly Psychiatric: Orientation: alert and oriented x 3
[2018-07-19 09:39] LABS: Albumin Level 2.5 gm/dl (3.4-5.0); BUN Creatinine Ratio 11.5 (10-20); Calcium 8.9 mg/dl (8.5-10.1); Creatinine Clr Calc Pharmacy 57.3 ml/min; Est GFR (African American) 65.3; Est GFR (Non-African American) 56.4; Magnesium 1.9 mg/dl (1.8-2.4); Potassium 3.2 mmol/L (3.5-5.1)
[2018-07-19 09:43] LABS: Albumin Globulin Ratio 0.6 (0.9-2); Bilirubin,Total 4.2 mg/dl (0.2-1); Globulin 3.9 gm/dl (2.5-4.0); Phosphorus 2.5 mg/dl (2.5-4.9); Total Protein 6.4 gm/dl (6.4-8.2)
[2018-07-19] MEDS ORDERED: POTASSIUM CHLORIDE 20 MEQ TABCR PO STA (09:54)
--- NOTE | 2018-07-19 18:12 | Hospitalist Progress Note ---
Date of Service July 19, 2018 Assessment & Plan (1) Alcoholic cirrhosis: Per , no alcohol for 3 years (2) Encephalopathy, hepatic: secondary to alcoholic cirrhosis vs metabolic encephalopathy - Follows with Dr. Frye at [facility] [place] - reports good compliance with medications at home - Ammonia is moderately increased today 57 up from 44, patient was in the 200s on admission. - Per GI, they are concerned for alternative reasons for altered state ie. infection or electrolyte imbalance - continue Rifaximin and increased lactulose 4x/day Biliruben was elevated at 4.2 - patient has been around this level in the past, only very mild increase in AST at 57 - gallbladder US without evidence of dilitation or acute cholecystitis Will send patient for abdominal US to r/o ascites and tap if there is enough to r/o possible SBP - patient does not have any overt symptoms - no abdominal pain or guarding, no fever. Gallbladder US showed small perihepatic ascites - CBC, BNP, B12, TSH tomorrow am - repeat U/A with reflex to culture - CXR does show bibasilar airspace opacities - no cough, no sob, no overt pneumonia symptoms, suboptimal image. Will repeat cxr (3) HTN (hypertension): stable (4) Diabetes: type II - blood sugars somewhat elevated today glycemic pharmacist consult - continue SSI, hold home metformin (5) DVT prophylaxis: no chemoprophylaxis due to thrombocytopenia, continue SCDs PT/OT - patient can return home when medically stable Subjective Mr. Gerard is appropriate and conversant but somewhat forgetful. His is at bedside and reports he seems farther from his baseline today than yesterday Review of Systems All systems reviewed & are unremarkable except as noted in HPI & below Physical Exam Vital Signs (Past 24 Hours): Last Vital Signs Temp 36.8 C 07/19/18 16:17 Pulse 58 L 07/19/18 16:17 Resp 18 07/19/18 16:17 BP 118/68 07/19/18 16:17 Pulse Ox 99 07/19/18 16:17 Physical Exam: General: no distress Eyes: normal inspection, PERLL Respiratory: chest non tender, clear to auscultation, normal breath sounds, no respiratory distress, no accessory muscle use Cardiac: regular rate and rhythm, no rub or gallop, no murmur, no edema, no jvd GI/: active bowel sounds, no abd pain or tenderness, soft, non distended Extremities: normal range of motion, normal strength, non tender Neuro/Psych: alert and oriented x 3 with some confusion, a bit slow to speak, face symmetrical, EOMI, no drift or asterixis, normal mood and affect Skin: mild jaundice, dry
[2018-07-19] MEDS ORDERED: PHARMACY GLYCEMIC MGMT CONSULT PRN (18:55)
[2018-07-19] MEDS ORDERED: INSULIN GLARGINE SOLOSTAR 100 UNITS/ML 3 ML PEN SC STA (19:37)
--- NOTE | 2018-07-19 19:40 | XRay Report ---
XR chest 1V portable HISTORY: 72 years-old Male opacities on previous, altered mental status acutely altered mental statu s COMPARISON: Chest radiograph 07/17/2018 TECHNIQUE: Portable AP view of the chest FINDINGS: Cardiac mediastinal and hilar silhouettes appear unchanged. There is no pneumothorax, pleural effusio n or overt pulmonary edema. Improved aeration of the lung bases from comparison. Minimal bibasilar op acities persist. Degenerative changes of the shoulders and spine. IMPRESSION: Improved aeration of the lung bases with minimal persistent bibasilar opacities favoring atelectasis. Pneumonitis considered less likely. The above report was generated using voice recognition software. It may contain grammatical, syntax o r spelling errors. Electronically signed by: Westley Corona M.D. 07/19/2018 7:38 PM
[2018-07-20] MEDS ORDERED: INSULIN ASPART 100 UNITS/ML 3 ML PEN SQ ONE (02:00)
[2018-07-20 06:06] LABS: Hematocrit (blood only) 29.5 % (42-52); Hemoglobin 10.4 g/dL (14.0-18.0); Mean Corpuscular Hgb Conc 35.3 g/dL (32-36); RDW Standard Deviation 61.9 fL (36.4-46.3); Red Blood Count 2.95 M/uL (4.7-6.1); White Blood Count 6.58 K/uL (4.8-10.8)
[2018-07-20 06:14] LABS: Platelet Count 70 K/uL (130-400)
[2018-07-20 06:32] LABS: Creatinine Clr Calc Pharmacy 59.2 ml/min; Est GFR (African American) 67.9; Est GFR (Non-African American) 58.6; Potassium 3.6 mmol/L (3.5-5.1)
[2018-07-20 06:38] LABS: Estimated Average Glucose 166 mg/dl; Hemoglobin A1C 7.4 % (4.5-5.6)
[2018-07-20 06:55] LABS: Basophils # (auto) 0.03 K/uL (0-0.2); Basophils % (auto) 0.5 %; Eosinophils # (auto) 0.35 K/uL (0-0.5); Eosinophils % (auto) 5.3 %; Immature Granulocytes # (auto) 0.02 K/uL (0.00-0.02); Immature Granulocytes % (auto) 0.3 %; Lymphocytes # (auto) 1.53 K/uL (1.2-3.4); Lymphocytes % (auto) 23.3 %; Monocytes # (auto) 0.89 K/uL (0.11-0.59); Monocytes % (auto) 13.5 %; Neutrophils # (auto) 3.76 K/uL (1.4-6.5); Neutrophils % (auto) 57.1 %
--- NOTE | 2018-07-20 07:08 | Ultrasound Report ---
US abdomen limited CLINICAL HISTORY: to assess for ascites COMPARISON STUDY: Abdominal ultrasound 07/17/2018. FINDINGS: Real-time sonographic imaging of the abdomen was performed with telemarketing sales representative images mid. No ascites or fluid collections identified. IMPRESSION: No ascites. Electronically signed by: Ras Moreira M.D. 07/20/2018 7:06 AM
[2018-07-20 07:28] LABS: Appearance Urine Cloudy (Clear); Bacteria Urine Automated Negative (Negative); Bilirubin Urine Negative (Negative); Blood Urine Negative (Negative); Color Urine Dark Yellow; Glucose Urine UA 2+ (Negative); Ketones Urine Trace (Negative); Leukocyte Esterase Urine Negative (Negative); Nitrite Urine Negative (Negative); Protein Urine Negative (Negative); RBC Urine Automated 0-4 /hpf (0-4); Specific Gravity Urine 1.021 (1.000-1.030); Urobilinogen Urine Negative (Negative)
[2018-07-20 07:38] LABS: Calcium Oxalate Crystals Urine Present (None Prsent)
[2018-07-20] MEDS ORDERED: INSULIN GLARGINE SOLOSTAR 100 UNITS/ML 3 ML PEN SC SCH ×3 (09:00→21:00)
[2018-07-20] MEDS: ALLOPURINOL 300 MG TAB PO SCH (09:30)
[2018-07-20] MEDS: INSULIN ASPART 100 UNITS/ML 3 ML PEN SQ SCH ×4 (09:30→21:22)
[2018-07-20] MEDS: MAGNESIUM OXIDE 400 MG TAB PO SCH ×2 (09:33→21:20)
[2018-07-20] MEDS: RIFAXIMIN 550 MG TABLET PO SCH ×2 (09:33→21:19)
[2018-07-20] MEDS: LACTULOSE SYRUP 30 GM/45 ML UDP PO SCH ×4 (09:33→21:19)
[2018-07-20] MEDS: PROPRANOLOL HCL 10 MG TAB PO SCH ×2 (09:34→21:19)
--- NOTE | 2018-07-20 09:38 | Gastroenterology Progress Note ---
Date of Service July 20, 2018 Assessment & Plan (1) Encephalopathy, hepatic: Patient is a 72 yo male with a history of alcoholic cirrhosis with hepatic encephalopathy for which he is currently admitted. He denies any issues at present. He is alert and oriented x 3 at the time of my visit, however does have intermittent periods of confusion, even when his ammonia is within normal limits. The patient has no evidence of asterixis, ascites, or other signs of decompensation. He is moving his bowels and is compliant with his medications. 1) Continue Xifaxan 550 mg BID 2) Continue Lactulose 30 gm four times daily. Continue Miralax 17 gm daily. 3) Neuro consult to assess for other causes of confusion given patient is optimized from a GI perspective. 4) Continue outpatient care for cirrhosis management as previously planned. Patient is following with a driver at [place]. 5) Would not recommend that patient operate a vehicle. 6) Supportive care per primary team. Thank you for allowing us to participate in the care of this patient. If you should have further questions or concerns, do not hesitate to contact us. Supervising Physician Co-Signing Physician Notes Agree with BOBBI Adams as above Abd: Soft, NT, ND, +BS Continue current therapy Neuro consult pending Subjective Patient is a 72 yo male with cirrhosis and hepatic encephalopathy. The patient reports he is feeling well today. He is oriented appropriately this AM and did not become confused during this particular evaluation, though yesterday afternoon the patient did struggle to remember how to make a phone call in the presence of Dr. De Santiago. The patient has no evidence of asterixis on exam. He is moving his bowels 3-5 times daily. He is compliant with his medications of X ifaxan 550 mg BID, Lactulose 30 gm four times daily, and Miralax 17 gm daily. He has no evidence of ascites on abdominal imaging. There are no other physical exam findings of decompensating liver disease at this time. Constitutional: + fatigue no acute issues Respiratory: no cough and no dyspnea Cardiovascular: no chest pain Gastrointestinal: no abdominal pain Physical Exam Vital Signs (Past 24 Hours): Last Vital Signs Temp 36.4 C L 07/20/18 08:05 Pulse 56 L 07/20/18 08:05 Resp 18 07/20/18 08:05 BP 105/58 L 07/20/18 08:05 Pulse Ox 99 07/20/18 08:05 Constitutional: WD/WN, vitals as above Eyes: PERRL, conjunctivae normal, anicteric sclerae Respiratory: normal respiratory effort, lungs clear to auscultation Cardiovascular: Rate/Rhythm: regular rate and regular rhythm Heart Sounds: + murmur Gastrointestinal (Abdomen): normal bowel sounds, soft, nontender, no hepatosplenomegaly Psychiatric: Orientation: alert and oriented x 3
[2018-07-20 09:52] LABS: Albumin Level 2.3 gm/dl (3.4-5.0); Bilirubin,Total 3.1 mg/dl (0.2-1); Total Protein 5.8 gm/dl (6.4-8.2)
--- NOTE | 2018-07-20 13:15 | Pharmacy Report ---
Glycemic Control Consultation - Date of Service July 20, 2018 - Scope Scope: Glycemic Pharmacist consulted by Sonya Snyder on 07/19/18 for glycemic control and to write orders per [facility] inpatient glycemic control protocol - Objective Weight: 89.4 kg Accuchecks BSG (last 24hrs): 07/19/18 07/19/18 07/19/18 12:01 16:53 20:00 Glucose POC Glucose 270 H 311 H 304 H 07/20/18 07/20/18 07/20/18 02:00 05:46 08:00 Glucose 220 H POC Glucose 185 H 207 H 07/20/18 11:44 Glucose POC Glucose 247 H Laboratory Data (last 24hrs): 07/20/18 05:46 Potassium 3.6 Carbon Dioxide 22 Anion Gap 8.0 Creatinine 1.21 Est Cr Clr Drug Dosing 59.2 HbA1c: Hemoglobin A1c 7.4 % (4.5-5.6) H 07/20/18 05:46 - Recent Pertinent Medications Outpatient Anti-diabetic Regimen: * Tresiba 12 units daily plus Novolog 4 units TIDM * Metformin The patient is currently receiving: * Basal insulin: Lantus 12 units every 24 hours in the morning * Correctional Insulin: Novolog Correction per scale ACHS Goal Range: Low 110 mg/dL - High 140 mg/dL Correction Factor: 20 mg/dL/unit * Prandial insulin: Per carb ratio of 1 unit per 10 grams CHO consumed * Oral Agents: Risk Factors for Insulin Resistance: * Diet: T2DM - Assessment & Plan Assessment & Plan: ASSESSMENT: * Mr Gerard is a 72 y/o M admitted with AMS and hepatic encephalopathy. He has a h/o T2DM that is reasonably well controlled. Pharmacy was consulted yesterday and evening pharmacist gave additional 10 units of Lantus and tightened Novolog. * Blood sugars yesterday were [phone] (pharmacy consulted). Patient received an additional 3 units overnight. Fasting today was 207 mg/dL. Increase Lantus to 15 units this morning and then provide weight-based scale for the evening. Continue weight-based stress of 3 Novolog. * Currently Lantus is above home Tresiba dosing... uncertain why this is the case but it is supported by the patient's blood sugars. PLAN FOR INPATIENT GLYCEMIC CONTROL: * Holding outpatient oral diabetes medications * Basal insulin * Lantus 15 units SQ x 1 then 10-20 units SQ BID * 10 units if blood sugar under 140 mg/dL * 15 units if blood sugar 140-180 mg/dL * 20 units if blood sugar over 180 mg/dL * Bolus insulin * NovoLog per scale ACHS or Q6hrs while NPO * Goal Range: Low 110 mg/dL - High 140 mg/dL * Correction Factor: 20 mg/dL/unit * Nutritional / Prandial insulin per carb ratio of 1 unit per 6 grams CHO consumed * Please note that the plan above was derived based on current level of insulin resistance and hospital stress. These recommendations are appropriate for inpatient admission only. Plan of care upon discharge will need to be reassessed to avoid potential outpatient hypo/hyperglycemia. Thank you.
[2018-07-20] MEDS ORDERED: GADOBUTROL 65ML VIAL IV PRN (16:05)
--- NOTE | 2018-07-20 19:36 | Hospitalist Progress Note ---
Date of Service July 20, 2018 Assessment & Plan (1) Alcoholic cirrhosis: Per , no alcohol for 3 years (2) Encephalopathy, hepatic: secondary to alcoholic cirrhosis vs metabolic encephalopathy - [place] [facility] [place] - reports good compliance with medications at home - Ammonia is moderately increased in the 50s up from 44, patient was in the 200s on admission. - Per GI, they are concerned for alternative reasons for altered state ie. infection or electrolyte imbalance - continue Rifaximin and increased lactulose 4x/day Biliruben was elevated at 4.2 - patient has been around this level in the past - gallbladder US without evidence of dilitation or acute cholecystitis, no bili in urine, possibly a Gilbert's type reaction Abd US without ascites - No leukocytosis, B12 wnl, TSH wnl - repeat U/A does not appear to have infection - CXR with atelectasis, no apparent pneumonia - consulted neurology - MRI brain pending - continue lactulose with goal of 4 bms per day per GI (3) HTN (hypertension): stable (4) Diabetes: type II glycemic pharmacist consult - continue SSI, hold home metformin (5) DVT prophylaxis: no chemoprophylaxis due to thrombocytopenia, continue SCDs PT/OT - patient can return home when medically stable Subjective Mr. Gerard is alert and oriented but slow to speak. He has not complaints. Review of Systems All systems reviewed & are unremarkable except as noted in HPI & below Physical Exam Vital Signs (Past 24 Hours): Last Vital Signs Temp 36.5 C 07/20/18 16:13 Pulse 58 L 07/20/18 16:13 Resp 20 07/20/18 16:13 BP 105/63 07/20/18 16:13 Pulse Ox 98 07/20/18 16:13 Physical Exam: General: no distress Eyes: normal inspection, PERLL Respiratory: chest non tender, clear to auscultation, normal breath sounds, no respiratory distress, no accessory muscle use Cardiac: regular rate and rhythm, no rub or gallop, systolic murmur, no edema, no jvd GI/: active bowel sounds, no abd pain or tenderness, soft, non distended Extremities: normal range of motion, normal strength, non tender Neuro/Psych: alert and oriented x 3 but with slow speech, normal mood and affect, CN II - XII intact Skin: normal color, dry Results & Data Laboratory Results Abnormal lab results 07/19/18 07/20/18 07/20/18 Range/Units 20:00 02:00 05:46 RBC (4.7-6.1) M/uL Hgb (14.0-18.0) g/dL Hct (42-52) % MCH (25-34) pg RDW Std Deviation (36.4-46.3) fL RDW Coeff of Christoph (11.5-14.5) % Plt Count (130-400) K/uL Hendry # (Auto) (0.11-0.59) K/uL Chloride (98-107) mmol/L Glucose (70-99) mg/dl POC Glucose 304 H 185 H (70-99) Hemoglobin A1c (4.5-5.6) % Calcium (8.5-10.1) mg/dl Total Bilirubin (0.2-1) mg/dl Direct Bilirubin (0-0.2) mg/dl AST (15-37) U/L Ammonia (11-32) umol/L Total Protein (6.4-8.2) gm/dl Albumin (3.4-5.0) gm/dl Vitamin B12 > 2000 H (211-911) pg/ml Urine Appearance (Clear) Urine Glucose (UA) (Negative) Urine Ketones (Negative) U Epithel Cells (Auto) (0-5) /lpf Calcium Oxalate Crystal (None Prsent) 07/20/18 07/20/18 07/20/18 Range/Units 05:46 05:46 05:46 RBC 2.95 L (4.7-6.1) M/uL Hgb 10.4 L (14.0-18.0) g/dL Hct 29.5 L (42-52) % MCH 35.3 H (25-34) pg RDW Std Deviation 61.9 H (36.4-46.3) fL RDW Coeff of Christoph 17.0 H (11.5-14.5) % Plt Count 70 L (130-400) K/uL Hendry # (Auto) 0.89 H (0.11-0.59) K/uL Chloride 108 H (98-107) mmol/L Glucose 220 H (70-99) mg/dl POC Glucose (70-99) Hemoglobin A1c 7.4 H (4.5-5.6) % Calcium 8.0 L (8.5-10.1) mg/dl Total Bilirubin (0.2-1) mg/dl Direct Bilirubin (0-0.2) mg/dl AST (15-37) U/L Ammonia (11-32) umol/L Total Protein (6.4-8.2) gm/dl Albumin (3.4-5.0) gm/dl Vitamin B12 (211-911) pg/ml Urine Appearance (Clear) Urine Glucose (UA) (Negative) Urine Ketones (Negative) U Epithel Cells (Auto) (0-5) /lpf Calcium Oxalate Crystal (None Prsent) 07/20/18 07/20/18 07/20/18 Range/Units 06:55 08:00 08:53 RBC (4.7-6.1) M/uL Hgb (14.0-18.0) g/dL Hct (42-52) % MCH (25-34) pg RDW Std Deviation (36.4-46.3) fL RDW Coeff of Christoph (11.5-14.5) % Plt Count (130-400) K/uL Hendry # (Auto) (0.11-0.59) K/uL Chloride (98-107) mmol/L Glucose (70-99) mg/dl POC Glucose 207 H (70-99) Hemoglobin A1c (4.5-5.6) % Calcium (8.5-10.1) mg/dl Total Bilirubin 3.1 H (0.2-1) mg/dl Direct Bilirubin 1.0 H (0-0.2) mg/dl AST 53 H (15-37) U/L Ammonia (11-32) umol/L Total Protein 5.8 L (6.4-8.2) gm/dl Albumin 2.3 L (3.4-5.0) gm/dl Vitamin B12 (211-911) pg/ml Urine Appearance Cloudy H (Clear) Urine Glucose (UA) 2+ H (Negative) Urine Ketones Trace H (Negative) U Epithel Cells (Auto) 5-10 H (0-5) /lpf Calcium Oxalate Crystal Present H (None Prsent) 07/20/18 07/20/1819 Range/Units 08:53 11:44 16:39 RBC (4.7-6.1) M/uL Hgb (14.0-18.0) g/dL Hct (42-52) % MCH (25-34) pg RDW Std Deviation (36.4-46.3) fL RDW Coeff of Christoph (11.5-14.5) % Plt Count (130-400) K/uL Hendry # (Auto) (0.11-0.59) K/uL Chloride (98-107) mmol/L Glucose (70-99) mg/dl POC Glucose 247 H 270 H (70-99) Hemoglobin A1c (4.5-5.6) % Calcium (8.5-10.1) mg/dl Total Bilirubin (0.2-1) mg/dl Direct Bilirubin (0-0.2) mg/dl AST (15-37) U/L Ammonia 52.3 H (11-32) umol/L Total Protein (6.4-8.2) gm/dl Albumin (3.4-5.0) gm/dl Vitamin B12 (211-911) pg/ml Urine Appearance (Clear) Urine Glucose (UA) (Negative) Urine Ketones (Negative) U Epithel Cells (Auto) (0-5) /lpf Calcium Oxalate Crystal (None Prsent)
[2018-07-21 00:03] VITALS: TEMP 98.1
[2018-07-21 07:05] VITALS: PULSE 58; O2SAT 97
[2018-07-21 07:58] LABS: Hematocrit (blood only) 29.8 % (42-52); Hemoglobin 10.4 g/dL (14.0-18.0); Mean Corpuscular Hgb Conc 34.9 g/dL (32-36); Mean Corpuscular Volume 99.7 fL (80-100); RDW Coefficient of Variation 17.3 % (11.5-14.5); RDW Standard Deviation 62.1 fL (36.4-46.3); Red Blood Count 2.99 M/uL (4.7-6.1); White Blood Count 6.48 K/uL (4.8-10.8)
[2018-07-21 08:22] LABS: BUN Creatinine Ratio 15.1 (10-20); Creatinine Clr Calc Pharmacy 64.6 ml/min; Est GFR (African American) 75.4; Est GFR (Non-African American) 65.1; Potassium 3.7 mmol/L (3.5-5.1)
[2018-07-21 08:26] LABS: Mean Platelet Volume 10.5 fL (7.4-10.4); Platelet Count 68 K/uL (130-400)
[2018-07-21 08:43] LABS: Basophils # (auto) 0.02 K/uL (0-0.2); Basophils % (auto) 0.3 %; Eosinophils # (auto) 0.43 K/uL (0-0.5); Eosinophils % (auto) 6.6 %; Immature Granulocytes # (auto) 0.01 K/uL (0.00-0.02); Immature Granulocytes % (auto) 0.2 %; Lymphocytes % (auto) 27.8 %; Monocytes # (auto) 1.18 K/uL (0.11-0.59); Monocytes % (auto) 18.2 %; Neutrophils # (auto) 3.04 K/uL (1.4-6.5); Neutrophils % (auto) 46.9 %
[2018-07-21] MEDS ORDERED: INSULIN GLARGINE SOLOSTAR 100 UNITS/ML 3 ML PEN SC SCH (09:00)
--- NOTE | 2018-07-21 09:05 | Neurology Consultation ---
Date of Consultation July 21, 2018 Assessment & Plan (1) Encephalopathy, hepatic: This is a 72-year-old male with episodes of acute encephalopathy that appeared to be consistent with metabolic encephalopathy likely due to hepatic disease. Patient has had elevated ammonia which certainly can cause confusion. No reports of any cognitive concerns or signs of dementia before June. No signs and symptoms consistent with seizure or stroke. Recommendations: Agree with MRI of the brain to rule out intracranial abnormalities that could cause confusion such as stroke or mass. EEG was ordered and done this morning and read by myself. EEG only showed some mild encephalopathy, but otherwise was unremarkable. Patient can follow-up in neurology clinic for more in-depth cognitive testing when he is back to his baseline if desired. Patient has seen Dr. Jacome previously in neurology clinic. Thank you for allowing me to participate in this patient's care. If there is any questions or concerns, feel free to call/page me. History of Present Illness Reason for Consultation: Consultation for altered mental status Attending Physician: Neville Sanchez MD History of Present Illness This is a 72-year-old right-handed male who presents with acute encephalopathy. Had previous episode in June. Appears to be related to elevated ammonia. Patient has a diagnosis of alcoholic cirrhosis. No use of alcohol for the last 3 years. When the patient initially presented this hospitalization his ammonia was in the 200s. Yesterday was 52. Patient and family report that he seems much better and nearly at baseline. Before June they deny any concerns about his cognition or memory. He was living independently, but family has had to take over management of the finances since June. TSH and B12 level recently was unremarkable. UA was unremarkable. No hallucinations or personality changes. No new numbness or weakness. No trouble eating or swallowing. No changes with vision. Patient was recently seen in neurology clinic by Dr. Jacome for gait and balance. MRI of the brain report and images from May were reviewed by myself. Has some age-related volume loss and mild cerebrovascular small vessel ischemic disease. Family reports only new medications since June has been insulin. They report that his glucose though during these episodes of confusion has been normal. Allergies Allergy/AdvReac Type Severity Reaction Status Date / Time No Known Allergies Allergy Unknown Unverified 07/17/18 12:06 Home Medications Home Medications Medication Instructions Recorded Confirmed Type allopurinol 300 mg PO QAM 06/25/18 07/17/18 History lactulose 1 dose PO QID 06/25/18 07/17/18 History metformin 500 mg PO BIDM 06/25/18 07/17/18 History propranolol 10 mg PO BID 06/25/18 07/17/18 History rifaximin 1 tab PO BID 06/25/18 07/17/18 History Tresiba FlexTouch U-100 12 units SUBCUT DAILY 07/07/18 07/17/18 History insulin aspart U-100 [Novolog 4 units SUBCUT TID 07/17/18 07/17/18 History Flexpen U-100 Insulin] Patient History Medical History MARCUS (acute kidney injury) Cirrhosis Diabetes HTN (hypertension) Hepatic encephalopathy Hyperammonemia Family History Other Alcohol abuse Social History Communication Ability: Effective Beliefs That Will Affect Care: None marital status: Current Living Situation: Spouse Other Information That Helps Us Care for You: No Feels Safe at Home: Yes Safety Concerns: Feels Safe At This Time Smoking Status: Never smoker Hx Alcohol Use: Yes Hx Substance Use: No Review of Systems Complete review of systems otherwise negative except for the above-noted in HPI Physical Exam Vital Signs (Past 24 Hours): Last Vital Signs Temp 36.7 C 07/21/18 07:04 Pulse 58 L 07/21/18 07:04 Resp 18 07/21/18 07:04 BP 98/61 L 07/21/18 07:04 Pulse Ox 97 07/21/18 07:04 Physical Exam: Gen.: Patient is alert and oriented in no acute distress lying in bed Heart: Regular rate and rhythm Extremities: No gross deformities or rashes noted Neurological examination: Mental status: Patient is alert and oriented to person place and time. He was able to correctly state the year and month. He did get the day of the week wrong and the date wrong. Able to give his own history. ok fund of knowledge. Attention concentration normal for the situation. Remote and recent memory may have some slight impairment. Speech is fluent without any dysarthria or aphasia noted Cranial nerves: Visual lebron intact to confrontation. Funduscopic examination was difficult to visualize but no signs of papilledema. Pupils equally round and reactive to light. Extraocular muscles intact without nystagmus. No facial asymmetry noted. Facial sensation intact. Tongue midline. Good palatal elevation. Good shoulder shrug bilaterally. Hearing grossly intact voice. Strength: 5/5 both proximal and distal in all extremities. No arm drift.Tone is normal. No tremors. No abnormal movements. Sensation: Grossly intact to light touch in all extremities Deep tendon reflexes: +1 in bilateral biceps and patellar. Coordination: Patient has good finger to nose without dysmetria. Station within the bed is normal.
[2018-07-21] MEDS: MAGNESIUM OXIDE 400 MG TAB PO SCH (09:07)
[2018-07-21] MEDS: RIFAXIMIN 550 MG TABLET PO SCH (09:07)
[2018-07-21] MEDS: ALLOPURINOL 300 MG TAB PO SCH (09:07)
[2018-07-21] MEDS: PROPRANOLOL HCL 10 MG TAB PO SCH (09:08)
[2018-07-21] MEDS: LACTULOSE SYRUP 30 GM/45 ML UDP PO SCH ×2 (09:08→13:19)
--- NOTE | 2018-07-21 09:09 | Procedure Note ---
EEG Procedure Note Date of Service July 21, 2018 Start / End Times Start Time: 7:16 AM End Time: 7:36 AM Referring Physician Fany Ferrell History This is a 72-year-old male with acute encephalopathy. EEG for further evaluation of possible seizure etiology. Home Medication List Home Medications Medication Instructions Recorded Confirmed Type allopurinol 300 mg PO QAM 06/25/18 07/17/18 History lactulose 1 dose PO QID 06/25/18 07/17/18 History metformin 500 mg PO BIDM 06/25/18 07/17/18 History propranolol 10 mg PO BID 06/25/18 07/17/18 History rifaximin 1 tab PO BID 06/25/18 07/17/18 History Tresiba FlexTouch U-100 12 units SUBCUT DAILY 07/07/18 07/17/18 History insulin aspart U-100 [Novolog 4 units SUBCUT TID 07/17/18 07/17/18 History Flexpen U-100 Insulin] Inpatient Medication List Allopurinol (Zyloprim) 300 mg PO QAM [facility] Stop: 08/17/18 08:59 Last Admin: 07/20/18 09:30 Dose: 300 mg Documented by: [id number] Admin: 07/19/18 08:25 Dose: 300 mg Documented by: [id number] Admin: 07/18/18 09:40 Dose: 300 mg Documented by: [id number] Gadobutrol (Gadavist 65ml) 9 ml IV ONCE PRN PRN Reason: Interaction Checking Stop: 07/24/18 16:04 Last Admin: 07/20/18 16:06 Dose: 9 ml Documented by: [id number] Insulin Aspart (Novolog Flexpen) 0 units SQ ACHS [facility] Stop: 08/16/18 20:59 Last Admin: 07/20/18 21:22 Dose: 9 units Documented by: [id number] Cosigned by: [id number] Lactulose (Chronulac) 30 gm PO QID [facility] Stop: 08/16/18 16:59 Last Admin: 07/20/18 21:19 Dose: 30 gm Documented by: [id number] Admin: 07/20/18 18:03 Dose: 30 gm Documented by: [id number] Admin: 07/20/18 13:04 Dose: 30 gm Documented by: [id number] Admin: 07/20/18 09:33 Dose: 30 gm Documented by: [id number] Admin: 07/19/18 20:10 Dose: 30 gm Documented by: [id number] Admin: 07/19/18 18:02 Dose: 30 gm Documented by: [id number] Admin: 07/19/18 13:12 Dose: 30 gm Documented by: [id number] Admin: 07/19/18 08:25 Dose: 30 gm Documented by: [id number] Admin: 07/18/18 21:32 Dose: 30 gm Documented by: [id number] Admin: 07/18/18 17:36 Dose: 30 gm Documented by: [id number] Admin: 07/18/18 13:40 Dose: 30 gm Documented by: [id number] Admin: 07/18/18 09:38 Dose: 30 gm Documented by: [id number] Admin: 07/17/18 21:32 Dose: 30 gm Documented by: [id number] Admin: 07/17/18 17:46 Dose: 30 gm Documented by: [id number] Magnesium Oxide (Mag-Ox) 400 mg PO BID [facility]JI Stop: 08/17/18 08:59 Last Admin: 07/20/18 21:20 Dose: 400 mg Documented by: [id number] Admin: 07/20/18 09:33 Dose: 400 mg Documented by: [id number] Admin: 07/19/18 20:10 Dose: 400 mg Documented by: [id number] Admin: 07/19/18 08:25 Dose: 400 mg Documented by: [id number] Admin: 07/18/18 21:34 Dose: 400 mg Documented by: [id number] Admin: 07/18/18 09:39 Dose: 400 mg Documented by: [id number] Propranolol HCl (Inderal) 10 mg PO BID RAJI Stop: 08/16/18 20:59 Last Admin: 07/20/18 21:19 Dose: 10 mg Documented by: [id number] Admin: 07/20/18 09:34 Dose: 10 mg Documented by: [id number] Admin: 07/19/18 20:10 Dose: 10 mg Documented by: [id number] Admin: 07/19/18 08:25 Dose: 10 mg Documented by: [id number] Admin: 07/18/18 21:33 Dose: 10 mg Documented by: [id number] Admin: 07/18/18 09:39 Dose: 10 mg Documented by: [id number] Admin: 07/17/18 21:32 Dose: 10 mg Documented by: [id number] Rifaximin (Xifaxan) 550 mg PO BID RAJI Stop: 08/16/18 21:29 Last Admin: 07/20/18 21:19 Dose: 550 mg Documented by: [id number] Admin: 07/20/18 09:33 Dose: 550 mg Documented by: [id number] Admin: 07/19/18 20:10 Dose: 550 mg Documented by: [id number] Admin: 07/19/18 08:25 Dose: 550 mg Documented by: [id number] Admin: 07/18/18 21:33 Dose: 550 mg Documented by: [id number] Admin: 07/18/18 09:40 Dose: 550 mg Documented by: [id number] Admin: 07/17/18 21:39 Dose: 550 mg Documented by: [id number] Discontinued Medications Sodium Chloride (Nss 1000ml) 500 mls @ 999 mls/hr IV .Q31M ONE Stop: 07/17/18 11:47 Last Infusion: 07/17/18 12:18 Dose: 0 mls/hr Documented by: [id number] Admin: 07/17/18 11:47 Dose: 999 mls/hr Documented by: [id number] Magnesium Sulfate/Dextrose (Magnesium Sulfate / D5w) 1 gm in 100 mls @ 100 mls/hr IV TODAY@0850 [facility] Stop: 07/18/18 09:49 Last Infusion: 07/18/18 10:57 Dose: 0 mls/hr Documented by: [id number] Admin: 07/18/18 09:48 Dose: 100 mls/hr Documented by: [id number] Potassium Chloride (K Owen / Wtr) 10 meq in 100 mls @ 100 mls/hr IV Q1H RAJI Stop: 07/18/18 10:59 Last Infusion: 07/18/18 12:00 Dose: 0 mls/hr Documented by: [id number] Admin: 07/18/18 10:56 Dose: 100 mls/hr Documented by: [id number] Infusion: 07/18/18 10:52 Dose: 100 mls/hr Documented by: [id number] Admin: 07/18/18 09:52 Dose: 100 mls/hr Documented by: [id number] Insulin Aspart (Novolog Flexpen) 0 units SQ ACHS [facility] Stop: 08/16/18 16:29 Last Admin: 07/20/18 18:02 Dose: 14 units Documented by: [id number] Cosigned by: [id number] Admin: 07/20/18 13:04 Dose: 11 units Documented by: [id number] Cosigned by: [id number] Admin: 07/20/18 09:30 Dose: 7 units Documented by: [id number] Cosigned by: [id number] Admin: 07/19/18 20:08 Dose: 8 units Documented by: [id number] Cosigned by: [id number] Admin: 07/19/18 18:03 Dose: 15 units Documented by: [id number] Cosigned by: [id number] Admin: 07/19/18 13:12 Dose: 11 units Documented by: [id number] Cosigned by: [id number] Admin: 07/19/18 08:26 Dose: 4 units Documented by: [id number] Cosigned by: [id number] Admin: 07/18/18 21:36 Dose: 9 units Documented by: [id number] Cosigned by: [id number] Admin: 07/18/18 18:18 Dose: 13 units Documented by: [id number] Cosigned by: [id number] Admin: 07/18/18 13:36 Dose: 12 units Documented by: [id number] Cosigned by: [id number] Admin: 07/18/18 09:32 Dose: 3 units Documented by: [id number] Cosigned by: [id number] Admin: 07/17/18 21:32 Dose: 4 units Documented by: [id number] Cosigned by: [id number] Admin: 07/17/18 17:51 Dose: 3 units Documented by: [id number] Cosigned by: [id number] Insulin Aspart (Novolog Flexpen) 0 units SQ 0200 ONE Stop: 07/20/18 02:01 Last Admin: 07/20/18 02:09 Dose: 3 units Documented by: [id number] Cosigned by: [id number] Insulin Glargine (Lantus Solostar Pen) 12 units SC DAILY [facility]I Stop: 08/17/18 08:59 Last Admin: 07/19/18 08:25 Dose: 12 units Documented by: [id number] Cosigned by: [id number] Admin: 07/18/18 09:31 Dose: 12 units Documented by: [id number] Cosigned by: [id number] Insulin Glargine (Lantus Solostar Pen) 10 units SC NOW STA Stop: 07/19/18 19:38 Last Admin: 07/19/18 20:09 Dose: 10 units Documented by: [id number] Cosigned by: [id number] Insulin Glargine (Lantus Solostar Pen) 15 units SC BID RAJI Stop: 08/19/18 08:59 Last Admin: 07/20/18 09:32 Dose: 15 units Documented by: [id number] Cosigned by: [id number] Insulin Glargine (Lantus Solostar Pen) 0 units SC BID RAJI; Protocol Stop: 08/19/18 20:59 Last Admin: 07/20/18 21:20 Dose: 20 units Documented by: [id number] Cosigned by: [id number] Lactulose (Chronulac) 60 gm PO NOW STA Stop: 07/17/18 12:38 Last Admin: 07/17/18 13:09 Dose: 60 gm Documented by: [id number] Potassium Chloride (Klor-Con M20) 20 meq PO NOW STA Stop: 07/18/18 08:11 Last Admin: 07/18/18 09:37 Dose: 20 meq Documented by: [id number] Potassium Chloride (Klor-Con M20) 40 meq PO NOW STA Stop: 07/19/18 09:55 Last Admin: 07/19/18 10:16 Dose: 40 meq Documented by: [id number] Description This is a 21 electrode EEG with a single channel dedicated to limited EKG. The electrodes were placed in accordance with the International 10-20 system. At the start of the recording the patient was in an awake state. Background was well organized and composed of symmetric mixed alpha and beta frequencies with very mild excess theta frequencies. There was a symmetric well-formed moderate amplitude 7-8 Hz posterior dominant rhythm that was reactive to eye opening and closure. Hyperventilation was not done. Intermittent photic stimulation at various frequencies produced no abnormalities. There was no state changes or sleep transients. Interpretation This is an abnormal routine EEG secondary to mild background slowing. There was no electrographic seizures or epileptiform discharges. Clinical Correlation This EEG indicates a mild encephalopathy of nonspecific etiology.
[2018-07-21] MEDS: INSULIN ASPART 100 UNITS/ML 3 ML PEN SQ SCH ×2 (09:10→13:19)
--- NOTE | 2018-07-21 09:54 | Magnetic Resonance Report ---
MR brain wo/w con HISTORY: 72 years-old Male altered mental status acutely altered mental status with reported history of encephalitis COMPARISON: MRI brain 05/28/2018 TECHNIQUE: Multiplanar multisequence MRI of the brain was obtained both with and without the use of 9 .0 mL Gadavist FINDINGS: The host localizer images demonstrate no gross extracranial abnormality. There is no restricted diff usion to suggest acute or subacute infarction. Midline structures including the corpus callosum, brai nstem, optic chiasm and pituitary gland appear unremarkable the sagittal T1 series. Mild prominence o f the pituitary infundibulum appears unchanged from comparison. Degenerative changes noted about the imaged cervical spine. Age-related involutional changes with ex vacuo ventriculomegaly. Moderate T2/FLAIR hyperintensities a bout the white matter suggestive of chronic microvascular ischemic changes. No acute intracranial hem orrhage, midline shift, abnormal extra axial collections, hydrocephalus or intracranial mass identifi ed. There is no abnormal intra-axial or extra-axial enhancement identified. Major flow voids at the l evel of the skull base appear patent. Mild mucosal thickening of the paranasal sinuses. Prior bilater al cataract repair. Skull and soft tissues are within normal limits. IMPRESSION: 1. No acute intracranial abnormality. 2. No abnormal enhancement. 3. Age-related involutional changes with chronic microvascular ischemic changes. 4. Mild paranasal sinus disease. The above report was generated using voice recognition software. It may contain grammatical, syntax o r spelling errors. Electronically signed by: Westley Corona M.D. 07/21/2018 9:53 AM
--- NOTE | 2018-07-21 14:27 | Discharge Summary ---
Date of Service July 21, 2018 Admission HPI Per Admitting Provider Mr. Gerard is a 72 year old male with a history of Hypertension, Cirrhosis, DM and recurrent Hepatic Encephalopathy / Hyperammonemia who was brought to [facility] ER earlier today after waking in the middle of the night and was disoriented and confused. He was discharged from the hospital about a week ago after experiencing the same symptoms. Patient has been compliant with his medications and even had an extra dose of Lactulose but his Ammonia level continued to climb. Patient has not had any recent viral syndromes, fevers, chills. Principal Diagnosis Hepatic encephalopathy Discharge Exam Constitutional WD/WN, vitals as above Respiratory normal respiratory effort, lungs clear to auscultation Cardiovascular Rate/Rhythm: regular rate and regular rhythm Heart Sounds: + murmur Gastrointestinal (Abdomen) Inspection/Auscultation: normal bowel sounds Percussion/Palpation: abdomen soft; abdomen nontender Musculoskeletal no cyanosis or clubbing, extremities motor strength 5/5 Skin no rashes, warm and dry + jaundice (mild) Neurologic moves all extremities and awake Speech / Cognition: + abnormal speech (speech still slightly slow ) Motor/Sensory: no asterixis Cranial Nerves: PERRL, tongue midline and no nystagmus Psychiatric Orientation: alert and oriented x 3 Affect: + flat affect Discharge Data Allergies Allergy/AdvReac Type Severity Reaction Status Date / Time No Known Allergies Allergy Unknown Unverified 07/17/18 12:06 Consultations 07/17/18 13:35 ED Decision to Admit Stat 07/17/18 14:31 Consult Gastroenterology Routine 07/20/18 11:00 Consult Neurology Routine Ordered Studies 07/17/18 12:47 US gallbladder Stat 07/19/18 18:27 US abdomen limited Routine 07/20/18 11:19 MR brain wo/w con Routine Hospital Course (1) Alcoholic cirrhosis: Per , no alcohol for 3 years (2) Encephalopathy, hepatic: secondary to alcoholic cirrhosis vs metabolic encephalopathy - Follows with Dr. Frye at [facility] for hepatology - reports good compliance with medications at home - Ammonia is moderately increased in the 50s up from 44, patient was in the 200s on admission. - Per GI, they are concerned for alternative reasons for altered state ie. infection or electrolyte imbalance however there is no indication that there is any underlying issue. - continue Rifaximin and increased lactulose to 30g 4x/day Biliruben was elevated but near patient's baseline - patient has been around this level in the past - gallbladder US without evidence of dilitation or acute cholecystitis, no bili in urine, possibly a Gilbert's type reaction - Abd US without ascites - No leukocytosis, B12 wnl, TSH wnl - repeat U/A does not appear to have infection - CXR with atelectasis, no apparent pneumonia - consulted neurology - EEG with some slowing, they feel that this is due to hepatic encephalopathy and that patient can pursue more in depth cognitive testing outpatient - MRI brain without acute abnormality - will have patient check his ammonia twice a week for the next two weeks. (3) HTN (hypertension): stable (4) Diabetes: type II will discharge with home regimen - patient should take sugars AC &HS and take log to director of career resources. Per , patient runs in the 200s and does not feel well when he is lower than that. He should continue to work on his regimen outpatient A1c 7.4 (5) DVT prophylaxis: no chemoprophylaxis due to thrombocytopenia PT/OT - patient can return home when medically stable Total Time Total Time Spent Total Time Spent (In Minutes): greater than 30 minutes Discharge Plan Discharge Items Patient Disposition: Home - Home Health Services Reason For Visit: hepatic encephalopathy Discharge Diagnosis: hepatic encephalopathy Discharge Goals: Decrease discomfort, Diagnostic testing and Improve disease control Activity: Resume your previous activity Activity Comment: gradually as tolerated Non-emergency contact: Primary Care Provider and Anesthesiologists' Assistant Call non-emergency contact if: you have any medication questions and your symptoms worsen Follow-up/Referrals: Marcelino Jacome MD [Physician] - 08/19/18 2:30 pm (Please, follow up at [facility] Neurology Office with Dr. Jacome on August 19 at 2:30 pm. *This office is located at [address] [facility] in [place]. If you need to change this appointment, call the office at [phone].) Bernardo Caal MD [Primary Care Provider] - 07/26/18 1:20 pm (Please, follow up at Dr. Caal's office with his dental front office assistant, Sofia Godoy PA-C, on ThursdayJuly 26 at 1:20 pm. *If you need to change this appointment, call their office at [phone].) Priscila Arreola PA-C [Physician Beef Pluck Trimmer] - 08/02/18 1:25 pm (Please, follow up at [facility] Gastroenterology Office with Priscila Arreola PA-C on ThursdayAugust 02 at 1:25 pm. *This office is located at [address] [place] [address] in [facility]). If you need to change this appointment, call the office at [phone].) Diet: Carb Consistent or DM2 Other Ambulatory Orders: Ammonia (Routine) Timeframe: [id number] Location: Determined by Patient Ordered By: Sonya Snyder Addtl Provider Instructions: Please have your ammonia drawn twice a week for the next two weeks. Your results will go to Dr. De Santiago. Continue to take the 30 mls of lactulose a day, you should be having 4 bowel movements per day. The nurse navigator will call you with follow up appointments to GI, primary care and neurology. You should see GI and your pcp within about a week. Please take your blood sugars before meals and before bed and keep a log to take to your next appointment. Please call your director of career resources if you are consistently over 250 or if you are experiencing hypoglycemia (below 70). Prescriptions: New lactulose 20 gram/30 mL solution 30 gm PO QID Qty: 3000 RF: 0 polyethylene glycol 3350 [Miralax] 17 gram Powder In Packet 17 g PO DAILY Qty: 30 RF: 0 Continued propranolol 10 mg tablet 10 mg PO BID RF: 0 metformin 1,000 mg tablet 500 mg PO BIDM RF: 0 allopurinol 300 mg tablet 300 mg PO QAM RF: 0 rifaximin 550 mg tablet 1 tab PO BID RF: 0 Tresiba FlexTouch U-100 100 unit/mL (3 mL) insulin pen 12 units subcut DAILY RF: 0 Novolog Flexpen U-100 Insulin 100 unit/mL insulin pen 4 units subcut TID RF: 0 Discontinued lactulose 10 gram/15 mL solution 1 dose PO QID RF: 0 Stand-Alone Forms: [facility] Discharge Orders: Discharge Order (Routine); Ordered 07/21/18 Ordered By: Sonya Snyder Admission Data Admit Date/Time: 07/17/18 14:31 Attending Provider: Neville Sanchez Admit Provider: Murali Riley Primary Care Provider: Bernardo Caal Other Providers: Shen De Santiago ; Darling Campbell ; Priscila Arreola ; Rex Andres ; Murali Riley ; Marcelino Jacome Service: Medical
[2018-07-21 14:45] VITALS: BP 120/59
== END 2018-07-21 16:39 | disposition home health service (06) | DRG 432 ==
LOC: ED 10:44 → 4W 14:31 → SUATTDRO 14:31 → 4W 15:27

== ENCOUNTER 2020-02-28 12:04 | Inpatient (IN) ==
--- NOTE | 2020-02-27 11:09 | Anesthesiology Consultation ---
Date of Service February 27, 2020 Assessment & Plan (1) Encounter for pre-operative examination: Chart Review Chart Review: Acceptable Risk for Surgery (pending anesthesia evaluation, evaluation of unconfirmed 02/25 EKG, and DOS PRP and BSG) and Patient NOT seen in Pre Admission Testing Due to recent ER visit for dehydration and hypoglycemia- will recheck PRP and BSG stat AM of surgery. Will leave to anesthesia discretion if repeat CXR needed. Unconfirmed EKG will need reviewed DOS Per nursing assessment 02/27/20, patient resides in [facility]. No recent travel. Uses PPE. No known Covid positive contacts or Covid related symptoms. Pt's was tested randomly at [facility]- negative results. Preop Covid testing 02/24/20= negative Pt seen in [facility] ER on 02/26/20 (note still in draft form)= patient seen for lightheadedness, dizziness. Patient has been having increased weakness and decreased oral intake worse over the past week. Patient with history of liver problems/cirrhosis and is scheduled to undergo ERCP on Thursday. Patient's went to give his nighttime medications and set him upwhen she did he stopped responding, eyes glazed over, she states there was minimal light in the room when she did not notice any other color change, she laid him back down. Did not notice any acute changes in breathing and after several minutes of lying down he began to respond. Patient has slowly been losing weight. No night sweats. Patient currently on antiviral agent for shingles that was diagnosed last Thursday. Patient has finished last dose on evening but is still using eye ointment. Lesions to forehead and scalp have since crusted over. Patient diagnosed with syncope, orthostatic hypotension, acute dehydration, hypoglycemia, CKD, cirrhosis. Patient symptoms did improved and patient seemed more alert. Discussed need for adequate hydration and periodic food intake. Patient was discharged home. Did recommend repeat glucose and kidney function tests later in the week. Follow-up with PCP in 2 to 3 days. History Surgery Operation Date: 02/28/20 07:00 Proposed Procedures p Endoscopic Retrograde Cholangiopancreatogram, - Brayden Jaquez MD s Upper Endoscopic Ultrasonography - Brayden Jaquez MD Height/Weight Height: 5 ft 9 in Weight: 79.379 kg Allergies Allergy/AdvReac Type Severity Reaction Status Date / Time No Known Allergies Allergy Unknown Verified 02/27/20 11:04 Medications Home Medications Medication Instructions Recorded Confirmed Last Taken lancets 30 gauge #25 ea 12/01/18 02/07/20 Unknown BD Ultra-Fine Vero Pen Needle 32 #400 ea NS 03/14/19 02/07/20 Unknown gauge x 5/32" Tresiba FlexTouch U-100 100 12 units SUBCUT QAM #15 ml NS 08/03/19 02/27/20 Unknown unit/mL (3 mL) subcutaneous pen allopurinol 300 mg tablet 300 mg PO QAM #90 tab 08/19/19 02/27/20 Unknown cholecalciferol (vitamin D3) 25 2,000 unit PO QAM cap 12/22/19 02/27/20 Unknown mcg (1,000 unit) capsule blood sugar diagnostic #300 ea 02/07/20 Unknown propranolol 10 mg tablet 10 mg PO BID #180 tab 02/09/20 02/27/20 Unknown spironolactone 25 mg tablet 25 mg PO DAILY PRN #30 tab 02/21/20 02/27/20 Unknown colestipol 1 gram tablet 1 g PO BID #60 tab 02/23/20 02/27/20 Unknown ganciclovir [Zirgan] 1 ea OPL 5XD 02/26/20 02/27/20 Unknown Xifaxan 550 mg PO BID 02/27/20 02/27/20 Unknown insulin aspart U-100 [Novolog 1 - 50 unit SUBCUT AC 02/27/20 02/27/20 Unknown Flexpen U-100 Insulin] lactulose 45 ml PO QID 02/27/20 02/27/20 Unknown Past Medical History Medical History (Updated 02/27/20 @ 13:35 by Shiela Lopez PA-C) Anemia of chronic disease Aortic stenosis, moderate Cardiac murmur x 20+ years; per 07/08/18 ECHO= (MARQUEZ= 1.3-1.5 cm; AV mean PG =14.9 mmHg; AV velocity =2.664 m/s) Cirrhosis 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 CKD (chronic kidney disease) Dehydration Was in ER 02/25 for dehydration and sugar was low, lightheaded and was seen in [facility] Diabetes type 2, controlled Esophageal varices Hepatic encephalopathy Herpes zoster Left eye. Evaluated by PCP ([facility]) 02/16. Rx'd Valtrex x 7 days, referred to opth, now on eye drop. No open sores or redness, lesions are crusted over. 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 avg ~75k Past Family History Family History Unknown Allergic rhinitis Asthma Father Family history of diabetes mellitus Brother Family history of diabetes mellitus Other Alcohol abuse Past Surgical History Surgical History History of colonoscopy (~2015) History of esophagogastroduodenoscopy (EGD) (~05/2019) History of hernia repair History of rectal surgery History of tonsillectomy and adenoidectomy Social History Smoking Status: Never smoker Hx Alcohol Use: No alcohol intake frequency: other Hx Substance Use: No substance use type: does not use Testing Laboratory Results Laboratory Tests 01/03/20 01/03/20 02/26/20 11:39 11:39 23:40 WBC 7.70 Hgb 10.5 L Hct 30.5 L Plt Count 79 L PT INR Sodium Potassium Chloride Carbon Dioxide BUN Creatinine Glucose Hemoglobin A1c 6.0 H TSH 3.030 Free T4 0.86 02/26/20 02/26/20 23:40 23:45 WBC Hgb Hct Plt Count PT 17.0 H INR 1.7 H Sodium 142 Potassium 3.7 Chloride 112 H Carbon Dioxide 25 BUN 17 Creatinine 1.66 H Glucose 52 L* Hemoglobin A1c TSH Free T4 Anemia and thrombocytopenia chronic and stable 02/26/20= AST: 34 ALT: 46 ALK PHOS:108 AMMONIA: 49.4 02/27/20= Repeat glucose= 130 Electrocardiogram Date: 02/26/20 Findings: + SB @ (52) Otherwise normal EKG. (unconfirmed EKG from cardio) Chest X-Ray Date: 02/26/20 Mildly diminished lung volumes with bibasilar opacities that favor atelectasis. An infection process could appear similar. Cholelithiasis. There is no pneumothorax or pleural effusion. There is no evidence of pulmonary edema. Echocardiogram Date: 07/08/18 EF: 60-65% LV Function: normal RWMA: + none Other Findings: + LVH (Mild Conc LVH) Valvular Disease: + (Mod (MARQUEZ= 1.3-1.5 cm; AV mean PG =14.9 mmHg; AV velocity =2.664 m/s)) Grade 1 diastolic dysfunction. Other Testing Head CT 02/26/2020 = no acute intracranial findings.
[~2020-02-28 12:04] MED LIST changes: -ACET-1256 PO; -ALLO300T2 PO; -GLIM1TAB2 PO; +LR 15ML/HR IV SCH; -METF1000 PO; -PROP1TAB53 PO; -SPIR25TA PO
[2020-02-28] MEDS ORDERED: IOVERSOL 50ml IV ONE ×2 (12:41→18:16)
[2020-02-28] MEDS ORDERED: CIPROFLOXACIN / D5W 400 MG/200 ML BAG IV STA (13:04)
[2020-02-28] MEDS ORDERED: PHYTONADIONE 10 MG in SODIUM CHLORIDE 0.9% 50 ML IV ONE (13:04)
--- NOTE | 2020-02-28 13:06 | History & Physical Report ---
Date of Service February 28, 2020 Assessment & Plan (1) Encounter for pre-operative examination: History of Present Illness Primary Care Provider: Bernardo Caal MD Patient with dilated PD on MRCP, ? stone, here for EUS/ERCP Allergies Allergy/AdvReac Type Severity Reaction Status Date / Time No Known Allergies Allergy Unknown Verified 02/28/20 12:27 Home Medications Home Medications Medication Instructions Recorded Confirmed Type lancets 30 gauge #25 ea 12/01/18 02/07/20 History BD Ultra-Fine Vero Pen Needle 32 #400 ea NS 03/14/19 02/07/20 Rx gauge x 5/32" Tresiba FlexTouch U-100 100 12 units SUBCUT QAM #15 ml NS 08/03/19 02/28/20 Rx unit/mL (3 mL) subcutaneous pen allopurinol 300 mg tablet 300 mg PO QAM #90 tab 08/19/19 02/28/20 Rx cholecalciferol (vitamin D3) 25 2,000 unit PO QAM cap 12/22/19 02/28/20 History mcg (1,000 unit) capsule blood sugar diagnostic #300 ea 02/07/20 Rx propranolol 10 mg tablet 10 mg PO BID #180 tab 02/09/20 02/28/20 Rx spironolactone 25 mg tablet 25 mg PO DAILY PRN #30 tab 02/21/20 02/28/20 Rx colestipol 1 gram tablet 1 g PO BID #60 tab 02/23/20 02/28/20 Rx ganciclovir [Zirgan] 1 ea OPL 5XD 02/26/20 02/28/20 History Xifaxan 550 mg PO BID 02/27/20 02/28/20 History insulin aspart U-100 [Novolog 1 - 50 unit SUBCUT AC 02/27/20 02/28/20 History Flexpen U-100 Insulin] lactulose 45 ml PO QID 02/27/20 02/28/20 History Past Med/Surg History Medical History Anemia of chronic disease Aortic stenosis, moderate Cardiac murmur x 20+ years; per 07/08/18 ECHO= (MARQUEZ= 1.3-1.5 cm; AV mean PG =14.9 mmHg; AV velocity =2.664 m/s) Cirrhosis 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 CKD (chronic kidney disease) Dehydration Was in ER 02/25 for dehydration and sugar was low, lightheaded and was seen in [facility] Diabetes type 2, controlled Esophageal varices Hepatic encephalopathy Herpes zoster Left eye. Evaluated by PCP ([facility]) 02/16. Rx'd Valtrex x 7 days, referred to opth, now on eye drop. No open sores or redness, lesions are crusted over. 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 avg ~75k Surgical History History of colonoscopy (~2015) History of esophagogastroduodenoscopy (EGD) (~05/2019) History of hernia repair History of rectal surgery History of tonsillectomy and adenoidectomy Family History Unknown Allergic rhinitis Asthma Father Family history of diabetes mellitus Brother Family history of diabetes mellitus Other Alcohol abuse Social History Smoking Status: Never smoker Second Hand Exposure: No; Do You Dip or Chew Tobacco: No; Tobacco Cessation Education Requested by Patient: No Hx Alcohol Use: No Hx Substance Use: No Preferred Language: Lebanese Communication Ability: Effective Pushcart Peddler Required: No Beliefs That Will Affect Care: None marital status: Current Living Situation: Spouse current occupational status: retired Other Information That Helps Us Care for You: No Feels Safe at Home: Yes Safety Concerns: Feels Safe At This Time Assistive Devices: Glasses Review of Systems All systems reviewed & are unremarkable except as noted in HPI & below Physical Exam Constitutional: comfortable; no acute distress Respiratory: normal respiratory effort, lungs clear to auscultation Cardiovascular: RRR, no murmur, no edema Gastrointestinal (Abdomen): normal bowel sounds, soft, nontender, no hepatosplenomegaly Results & Data ([facility]) Vital Signs (Past 12 Hours) Vital Signs Temp Pulse Resp BP Pulse Ox 02/28/20 12:38 36.7 C 55 L 20 122/65 99
[2020-02-28] MEDS ORDERED: LIDOCAINE HCL 2% 2 ML VIAL/AMP(20MG/ML) INFIL ONE (14:32)
[2020-02-28] MEDS ORDERED: ONDANSETRON INJ 2 MG/ML 2 ML VIAL ONE ×2 (14:32→17:17)
[2020-02-28] MEDS ORDERED: SUCCINYLCHOLINE CHLORIDE 20 MG/ML 10 ML VIAL IV ONE (14:32)
[2020-02-28] MEDS ORDERED: PROPOFOL IV EMULSION 10 MG/ML 20 ML VIAL IV ONE (14:32)
[2020-02-28] MEDS ORDERED: fentaNYL citrate 100 MCG/2 ML VIAL ONE (14:33)
[2020-02-28] MEDS ORDERED: LABETALOL HCL IV 5 MG/ML 20ML IV PRN (14:36)
[2020-02-28] MEDS ORDERED: PHENYLEPHRINE 100MCG/ML 5ML SYR IV PRN (14:36)
[2020-02-28] MEDS ORDERED: ePHEDrine sulfate 50 MG/ML AMP IV PRN (14:36)
[2020-02-28] MEDS ORDERED: ATROPINE SULFATE 0.1 MG/ML 10ML SYR IV PRN (14:36)
[2020-02-28] MEDS ORDERED: ONDANSETRON INJ 2 MG/ML 2 ML VIAL IV PRN (14:36)
[2020-02-28] MEDS ORDERED: ePHEDrine sulfate 50 MG/ML AMP ONE (17:17)
--- NOTE | 2020-02-28 17:49 | Operative Report ---
Post Operative Report Pre & Post Diagnosis Operation Date: 02/28/20 07:00 Pre-Op Diagnosis: Dilated Pancreatic Duct Post-Op Diagnosis: Dilated Pancreatic Duct I identified the patient and participated in the time-out.: Yes Procedure Operation Date: 02/28/20 07:00 Actual Procedures p Endoscopic Retrograde Cholangiopancreatogram - Brayden Jaquez MD s Upper Endoscopic Ultrasonography - Brayden Jaquez MD Surgeon Brayden Jaquez MD Electronics Instructor None Estimated Blood Loss 0 Findings See Below (PD stricture, PD stone, Sphinctrotomy done, Stents placed) Specimens None Description of Procedure EUS/ERCP I attest to the content of the Intraoperative Record and any orders documented therein. Any exceptions are noted below.
[2020-02-28] MEDS ORDERED: GLUCAGON FOR INJ 1 MG VIAL ONE (18:16)
--- NOTE | 2020-02-28 19:07 | Fluoroscopy Report ---
FL ERCP biliary ductal HISTORY: 74 years-old Male EXPLORE DUCTS follow-up study in a patient with cirrhosis with filling de fects noted within the pancreatic duct at the level of the ampulla. Cholelithiasis.. COMPARISON: MRCP 01/13/2020 TECHNIQUE: 6 spot fluoroscopic images of the abdominal right upper quadrant were obtained utilizing 9 minutes 43.4 seconds fluoroscopy time FINDINGS: Endoscope is noted within the duodenum. There is cannulation of the common bile duct with retrograde injection of contrast. Stone filled gallbladder. There are apparent numerous common bile duct filling defects and the common bile duct appears dilated with distal common bile duct luminal irregularity. Additionally, there is cannulation of the pancreatic duct with subsequent images demonstrating deploy ment of common bile duct and pancreatic stents. IMPRESSION: Fluoroscopic assistance as above. Please see procedural report for further details. ACT 112: Negative or not required by law. The above report was generated using voice recognition software. It may contain grammatical, syntax o r spelling errors. Electronically signed by: Westley Corona M.D. 02/28/2020 7:05 PM
--- NOTE | 2020-02-28 20:00 | Progress Note ---
Date of Service February 28, 2020 Subjective Patient with underlying liver cirrhosis, jaundice, was in ED 2 days ago for dehydration, yesterday did not take his Lactulose, he underwent EUS /ERCP for PD stones/stricture, doing well but seems weak after the procedure which is expected as he has underlying encephalopathy which may transiently worsen after sedation. His feels it may be difficult to assist him at home today like this hence will admit him for observation tonight and discharge him tomorrow. Spoke to Sonja Oneal and she accepted him. Start IV Cipro while inpatient and plz give stat dose of Lactulose. Clear liquids for now. Results & Data ([facility]) Vital Signs (Past 12 Hours) Vital Signs Temp Pulse Pulse Resp BP BP Pulse Ox 02/28/20 19:10 36.6 C 57 L 16 117/60 100 02/28/20 19:00 63 21 116/56 L 100 02/28/20 18:50 36.1 C L 63 19 118/67 98 02/28/20 18:40 61 20 112/85 100 02/28/20 18:30 61 20 122/68 100 02/28/20 18:20 60 19 125/68 100 02/28/20 18:10 60 20 116/69 100 02/28/20 18:00 36.3 C L 64 17 120/73 100 02/28/20 12:38 36.7 C 55 L 20 122/65 99
--- NOTE | 2020-02-28 20:01 | Anesthesiology Progress Note ---
Date of Service February 28, 2020 Anesthesia Post Procedure Vital Signs Vital Signs: Temp Pulse Pulse Resp BP BP Pulse Ox 02/28/20 19:45 36.6 C 18 139/77 99 02/28/20 19:10 36.6 C 57 L 16 117/60 100 02/28/20 19:00 63 21 116/56 L 100 02/28/20 18:50 36.1 C L 63 19 118/67 98 02/28/20 18:40 61 20 112/85 100 02/28/20 18:30 61 20 122/68 100 02/28/20 18:20 60 19 125/68 100 02/28/20 18:10 60 20 116/69 100 02/28/20 18:00 36.3 C L 64 17 120/73 100 02/28/20 12:38 36.7 C 55 L 20 122/65 99 Transfer of Care Handoff Completed per policy Notes Mental Status: alert / awake / arousable and see notes below Patient Amnestic to Procedure: Yes Nausea / Vomiting: adequately controlled Pain: adequately controlled Airway Patency, RR, SpO2: stable & adequate BP & HR: stable & adequate Hydration State: stable & adequate Anesthetic Complications: no major complications apparent Notes: Patient a bit slower than his baseline mental state and slightly worsened scleral icterus, per his . He also has a new onset tremor that may be asterixis. The patient did miss his last two doses of lactulose. Dr Jaquez has seen the patient and requested overnight observation thru the hospitalists.
--- NOTE | 2020-02-28 20:58 | History & Physical Report ---
Date of Service February 28, 2020 Assessment & Plan (1) Status post endoscopic retrograde cholangiopancreatography: IV ciprofloxacin as per Dr Jaquez recommendations. (2) Hepatic encephalopathy: Unknown baseline but diagnosed by Dr Jaquez with his post ERCP. Currently orientated to self only. Continue his usual lactulose and Xifaxan dosing. (3) Alcoholic cirrhosis: Continue propranolol 10mg PO BID, spironolactone 25mg PO daily (4) Idiopathic gout: No acute exacerbation. Continue allopurinol 300mg PO daily (5) Diabetes type 2, uncontrolled: HbA1C 6.0 in January. No need to repeat this. Will switch his usual Tresiba to Lantus 12 units QAM and use Novolog sliding scale for correction and carb ratio. Admission and Anticipated Discharge Date Admission Date: February 28, 2020 History of Present Illness Chief Complaint: Hepatic encephalopathy post ERCP Primary Care Provider: Bernardo Caal MD Neville Gerard is a 74 year old male with alcoholic liver cirrhosis and chronic hepatic encephalopathy who had planned outpatient ERCP/EUS by Dr Jaquez earlier today. Post ERCP he was diagnosed with transient worsening of his hepatic encephalopathy suspected to be due to anesthesia and missing lactulose dosing and his felt she could not manage to take him home in his current state. Unable to get any history from the patient as unaware of events throughout the day or his past medical history therefore history taken from prior notes. Patient underwent MRCP on 01/12 showing a markedly distended pancreatic duct to the level of the ampulla measuring 13mm in diameter. ERCP/EUS planned for today to revealed no esophageal varices, portal hypertensive gastropathy, Duodenitis, no sign of significant pathology in the ampulla, hyperechoic material consistent with sludge was visualized endosonographically in the common bile duct, Multiple stones were visualized endosonographically in the gallbladder, Pancreas atrophy with dilated PD up to 9 mm with large impacted stone in the head. Likely related to chronic pancreatitis. Allergies Allergy/AdvReac Type Severity Reaction Status Date / Time No Known Allergies Allergy Unknown Verified 02/28/20 12:27 Home Medications Home Medications Medication Instructions Recorded Confirmed Type lancets 30 gauge #25 ea 12/01/18 02/07/20 History BD Ultra-Fine Vero Pen Needle 32 #400 ea NS 03/14/19 02/07/20 Rx gauge x 5/32" Tresiba FlexTouch U-100 100 12 units SUBCUT QAM #15 ml NS 08/03/19 02/28/20 Rx unit/mL (3 mL) subcutaneous pen allopurinol 300 mg tablet 300 mg PO QAM #90 tab 08/19/19 02/28/20 Rx cholecalciferol (vitamin D3) 25 2,000 unit PO QAM cap 12/22/19 02/28/20 History mcg (1,000 unit) capsule blood sugar diagnostic #300 ea 02/07/20 Rx propranolol 10 mg tablet 10 mg PO BID #180 tab 02/09/20 02/28/20 Rx spironolactone 25 mg tablet 25 mg PO DAILY PRN #30 tab 02/21/20 02/28/20 Rx colestipol 1 gram tablet 1 g PO BID #60 tab 02/23/20 02/28/20 Rx Zirgan 1 ea OPL 5XD 02/26/20 02/28/20 History Xifaxan 550 mg PO BID 02/27/20 02/28/20 History insulin aspart U-100 [Novolog 1 - 50 unit SUBCUT AC 02/27/20 02/28/20 History Flexpen U-100 Insulin] lactulose 45 ml PO QID 02/27/20 02/28/20 History Past Med/Surg History Medical History Anemia of chronic disease Aortic stenosis, moderate Cardiac murmur x 20+ years; per 07/08/18 ECHO= (MARQUEZ= 1.3-1.5 cm; AV mean PG =14.9 mmHg; AV velocity =2.664 m/s) Cirrhosis 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 CKD (chronic kidney disease) Dehydration Was in ER 02/25 for dehydration and sugar was low, lightheaded and was seen in [facility] Diabetes type 2, controlled Esophageal varices Hepatic encephalopathy Herpes zoster Left eye. Evaluated by PCP ([facility]) 02/16. Rx'd Valtrex x 7 days, referred to opth, now on eye drop. No open sores or redness, lesions are crusted over. 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 avg ~75k Surgical History History of colonoscopy (~2015) History of esophagogastroduodenoscopy (EGD) (~05/2019) History of hernia repair History of rectal surgery History of tonsillectomy and adenoidectomy Family History Unknown Allergic rhinitis Asthma Father Family history of diabetes mellitus Brother Family history of diabetes mellitus Other Alcohol abuse Social History Smoking Status: Never smoker Second Hand Exposure: No; Do You Dip or Chew Tobacco: No; Tobacco Cessation Education Requested by Patient: No Hx Alcohol Use: No Hx Substance Use: No Preferred Language: Bolivian Communication Ability: Effective Icu Tech Required: No Beliefs That Will Affect Care: None marital status: Current Living Situation: Spouse current occupational status: retired Other Information That Helps Us Care for You: No Feels Safe at Home: Yes Safety Concerns: Feels Safe At This Time Assistive Devices: Glasses Review of Systems Review of Systems: Unobtainable due to cognitive status Physical Exam Constitutional: + ill appearing (chronically); + not well nourished and no acute distress Eyes: sclerae not anicteric and normal pupil size Respiratory: normal respiratory effort, lungs clear to auscultation Cardiovascular: RRR, no murmur, no edema Gastrointestinal (Abdomen): Inspection/Auscultation: + abdomen distended and normal bowel sounds Percussion/Palpation: abdomen soft; abdomen nontender, no guarding and abdomen not rigid Musculoskeletal: no cyanosis or clubbing, extremities motor strength 5/5 Skin: + jaundice Neurologic: awake and + confused Motor/Sensory: + asterixis (b/l) Psychiatric: Orientation: alert and oriented to person (self); + not oriented to place and + not oriented to time Results & Data Results & Data ([facility]) Vital Signs (Past 12 Hours) Vital Signs Temp Pulse Pulse Pulse Resp BP BP 02/28/20 20:54 36.8 C 49 L 21 132/66 02/28/20 20:15 36.1 C L 16 131/88 02/28/20 19:45 36.6 C 18 139/77 02/28/20 19:10 36.6 C 57 L 16 117/60 02/28/20 19:00 63 21 116/56 L 02/28/20 18:50 36.1 C L 63 19 118/67 02/28/20 18:40 61 20 112/85 02/28/20 18:30 61 20 122/68 02/28/20 18:20 60 19 125/68 02/28/20 18:10 60 20 116/69 02/28/20 18:00 36.3 C L 64 17 120/73 02/28/20 12:38 36.7 C 55 L 20 122/65 Pulse Ox 02/28/20 20:54 100 02/28/20 20:15 100 02/28/20 19:45 99 02/28/20 19:10 100 02/28/20 19:00 100 02/28/20 18:50 98 02/28/20 18:40 100 02/28/20 18:30 100 02/28/20 18:20 100 02/28/20 18:10 100 02/28/20 18:00 100 02/28/20 12:38 99 Code Status & VTE Plan Code Status Full per Dr Jaquez's order VTE Prophylaxis Plan VTE Prophylaxis will be ordered: No PG Care Time/CCT Total # of Minutes Spent Total Time Spent with Patient: Total time spent is greater than 50% in coordination of care (as documented) at patient's floor/unit and/or counseling patient: Coding Level of Care Code 78649 OBS Care - Level 2 Diagnoses Status post endoscopic retrograde cholangiopancreatography Z98.890 Hepatic encephalopathy K72.90 Alcoholic cirrhosis K70.30 Idiopathic gout M10.00 Diabetes type 2, uncontrolled E11.65
[2020-02-28] MEDS ORDERED: GLUCOSE 40% GEL 15 GM TUBE PO PRN (21:58)
[2020-02-28] MEDS ORDERED: GLUCOSE 10 TABS/TUBE PO PRN (21:58)
[2020-02-28] MEDS ORDERED: CARBOHYDRATES FOR HYPOGLYCEMIA PO PRN (21:58)
[2020-02-28] MEDS ORDERED: GLUCAGON FOR INJ 1 MG VIAL SQ PRN (21:58)
[2020-02-28] MEDS ORDERED: DEXTROSE 50% 50 ML SYRINGE IV PRN (21:58)
[2020-02-28] MEDS: LACTULOSE SYRUP 30 GM/45 ML UDP PO SCH (22:07)
[2020-02-28] MEDS: rifAXIMin 550 MG TABLET PO SCH (22:08)
[2020-02-28] MEDS: PROPRANOLOL HCL 10 MG TAB PO SCH (22:08)
[2020-02-28] MEDS: CIPROFLOXACIN / D5W 400 MG/200 ML BAG IV SCH (22:20)
[2020-02-28] MEDS: INSULIN ASPART 100 UNITS/ML 3 ML PEN SC SCH (22:34)
[2020-02-28] MEDS: COLESTIPOL HCL 1 GM TAB PO SCH (22:35)
--- NOTE | 2020-02-29 07:06 | GI REPORT ---
Patient Name: Neville Gerard Procedure Date: 02/28/2020 1:40 PM Date of : 1945 Admit Type: Outpatient Age: 74 Gender: Male Attending MD: Brayden Jaquez MD Procedure: Upper EUS Providers: Brayden Jaquez MD Referring MD: Shen De Santiago DO, John Solic Indications: Dilated pancreatic duct on MRCP Medicines: General Anesthesia Complications: No immediate complications. Estimated Blood Loss: Estimated blood loss: none. Procedure: Pre-Anesthesia Assessment: - Prior to the procedure, a History and Physical was performed, and patient medications, allergies and sensitivities were reviewed. The patient's tolerance of previous anesthesia was reviewed. - The risks and benefits of the procedure and the sedation options and risks were discussed with the patient. All questions were answered and informed consent was obtained. - Patient identification and proposed procedure were verified prior to the procedure by the physician and the nurse. The procedure was verified in the procedure room. - Pre-procedure physical examination revealed no contraindications to sedation. After obtaining informed consent, the endoscope was passed under direct vision. Throughout the procedure, the patient's blood pressure, pulse, and oxygen saturations were monitored continuously. The Endosonoscope was introduced through the mouth, and advanced to the second part of duodenum. The Endoscope was introduced through the mouth, and advanced to the second part of duodenum. The upper EUS was accomplished without difficulty. The patient tolerated the procedure well. Findings: ENDOSCOPIC FINDING: : The examined esophagus was normal. There is no endoscopic evidence of varices in the entire esophagus. Mild portal hypertensive gastropathy was found in the stomach. Mild inflammation characterized by erosions, erythema and shallow ulcerations was found in the duodenal bulb and in the second portion of the duodenum. ENDOSONOGRAPHIC FINDING: : There was no sign of significant endosonographic abnormality in the ampulla. No masses were identified. A small amount of hyperechoic material consistent with sludge was visualized endosonographically in the common bile duct. The maximum diameter of the duct was 5 mm. Multiple stones were visualized endosonographically in the gallbladder. They were hyperechoic and characterized by shadowing. There was no sign of significant endosonographic abnormality in the visualized portion of the liver. Pancreatic parenchymal abnormalities were noted in the entire pancreas. These consisted of atrophy. A single hyperechoic foci measuring up to ten mm in diameter suggestive of stones was found in the pancreatic head. Evaluation of the pancreas in this area is limited due to significant shadowing from the stone. There was no sign of significant endosonographic abnormality in the visualized portion of the left adrenal gland. There was no sign of significant endosonographic abnormality involving the celiac trunk. Impression: - Normal esophagus. No varices. - Portal hypertensive gastropathy. - Duodenitis. - There was no sign of significant pathology in the ampulla. - Hyperechoic material consistent with sludge was visualized endosonographically in the common bile duct. - Multiple stones were visualized endosonographically in the gallbladder. - There was no evidence of significant pathology in the visualized portion of the liver. - Pancreas atrophy with dilated PD up to 9 mm with large impacted stone in the head. Likely related to chronic pancreatitis. - Endosonographic images of the left adrenal gland were unremarkable. - The celiac trunk was endosonographically normal. - No specimens collected. Recommendation: - Perform an ERCP today. Brayden Jaquez MD 02/29/2020 7:06:15 AM This report has been signed electronically. Note Initiated On: 02/28/2020 1:40 PM Number of Addenda: 0 I attest to the content of the Intraoperative Record and orders documented therein, exceptions below {[id number]}
--- NOTE | 2020-02-29 08:13 | GI REPORT ---
Patient Name: Neville Gerard Procedure Date: 02/28/2020 1:42 PM Date of : 1945 Admit Type: Outpatient Age: 74 Gender: Male Attending MD: Brayden Jaquez MD Procedure: ERCP Providers: Brayden Jaquez MD Referring MD: Shen De Santiago DO, John Solic Indications: Pancreatic duct stone Medicines: General Anesthesia Complications: No immediate complications. Estimated Blood Loss: Estimated blood loss: none. Procedure: Pre-Anesthesia Assessment: - Prior to the procedure, a History and Physical was performed, and patient medications, allergies and sensitivities were reviewed. The patient's tolerance of previous anesthesia was reviewed. - The risks and benefits of the procedure and the sedation options and risks were discussed with the patient. All questions were answered and informed consent was obtained. - Patient identification and proposed procedure were verified prior to the procedure by the physician and the nurse. The procedure was verified in the procedure room. - Pre-procedure physical examination revealed no contraindications to sedation. After obtaining informed consent, the scope was passed under direct vision. Throughout the procedure, the patient's blood pressure, pulse, and oxygen saturations were monitored continuously. The Scope was introduced through the mouth, and advanced to the duodenum and used to inject contrast into the bile duct and ventral pancreatic duct. The ERCP was technically difficult and complex. The patient tolerated the procedure well. Findings: The principal hardware architect film was normal. The esophagus was successfully intubated under direct vision. The scope was advanced to a normal major papilla in the descending duodenum without detailed examination of the pharynx, larynx and associated structures, and upper GI tract. The upper GI tract was grossly normal. Despite multiple attempts, neither CBD or PD could be cannulated due to floppy ampulla. Biliary sphincterotomy was made with a monofilament needle knife using a freehand technique using ERBE electrocautery. There was no post-sphincterotomy bleeding. A 0.035 inch straight standard wire was passed into the biliary tree. The Fusion OMNI sphincterotome was passed over the guidewire and the bile duct was then deeply cannulated. Contrast was injected. I personally interpreted the bile duct images. Ductal flow of contrast was adequate. Image quality was adequate. Contrast extended to the main bile duct. Opacification of the entire biliary tree was successful. The maximum diameter of the ducts was 8 mm. The gallbladder was packed with stones. The biliary sphincterotomy was extended with a monofilament traction (standard) sphincterotome using ERBE electrocautery. The sphincterotomy oozed blood. The biliary tree was swept with a 12 mm balloon starting at the bifurcation. Sludge was swept from the duct. One 10 mm by 4 cm covered metal biliary stent was placed 4 cm into the common bile duct. Bile flowed through the stent. The stent was in good position. A 0.025 inch straight standard wire was passed into the ventral pancreatic duct. The ventral pancreatic duct was then deeply cannulated with the short-nosed traction sphincterotome and guidewire. Contrast was injected. The entire pancreatic ductal system except for the ventral duct in the head was dilated markedly and diffusely. The ventral pancreatic duct in the head of the pancreas contained a stenosis and likely stones. Ventral pancreatic sphincterotomy was made with a monofilament traction (standard) sphincterotome using ERBE electrocautery. There was no post-sphincterotomy bleeding. Despite multiple attempts, none or the instruments could pass deep into the PD beyond the area of the stenosis, eventually the RX-39 passed. Pancreatic duct orifice was successfully dilated with a 4 mm balloon dilator. Dilation of the main pancreatic duct with 5-7-10 Fr catheter dilator was successful. The 6 mm dilation balloon did not pass the stricture. The extraction balloon did not pass the stricture hence could not remove the stone however white stone debris were seen flowing from the duct. One 5 Fr by 9 cm plastic pancreatic stent with a single external pigtail and a single internal flap was placed into the ventral pancreatic duct. Clear fluid flowed through the stent. The stent was in good position. 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 - A biliary sphincterotomy was performed. - A pancreatic sphincterotomy was performed. - The biliary tree was swept and sludge was found. - One covered metal biliary stent was placed into the common bile duct. - One plastic pancreatic stent was placed into the ventral pancreatic duct. Recommendation: - Discharge patient to home. - Avoid aspirin and nonsteroidal anti-inflammatory medicines for 5 days. - Cipro (ciprofloxacin) 500 mg PO BID for 5 days. - I will try to arrange ESWL if available locally. - Repeat ERCP in 4 weeks to exchange stent and attempt to remove the stone. - Patient is not an optimal candidate for cholecystectomy in view of advanced stage Liver cirrhosis, will refer to surgery for opinion, if deemded non candidate then would consider EUS guided drainage. - Perform magnetic resonance imaging (MRI) with gadolinium Pancreas protocol. Brayden Jaquez MD 02/29/2020 8:12:49 AM This report has been signed electronically. Note Initiated On: 02/28/2020 1:42 PM Number of Addenda: 0 I attest to the content of the Intraoperative Record and orders documented therein, exceptions below {[id number]}
[2020-02-29 08:46] LABS: Hematocrit (blood only) 29.4 % (42-52); Hemoglobin 10.2 g/dL (14.0-18.0); Mean Corpuscular Hemoglobin 33.8 pg (25-34); Mean Corpuscular Hgb Conc 34.7 g/dL (32-36); Mean Corpuscular Volume 97.4 fL (80-100); Mean Platelet Volume 11.3 fL (7.4-10.4); Platelet Count 56 K/uL (130-400); RDW Coefficient of Variation 17.8 % (11.5-14.5); RDW Standard Deviation 60.2 fL (36.4-46.3); Red Blood Count 3.02 M/uL (4.7-6.1)
[2020-02-29] MEDS: LACTULOSE SYRUP 30 GM/45 ML UDP PO SCH ×4 (08:52→21:48)
[2020-02-29] MEDS: rifAXIMin 550 MG TABLET PO SCH ×2 (08:56→21:49)
[2020-02-29] MEDS: PROPRANOLOL HCL 10 MG TAB PO SCH ×2 (08:56→21:48)
[2020-02-29] MEDS: allopurinoL 300 MG TAB PO SCH (08:57)
[2020-02-29] MEDS: CIPROFLOXACIN / D5W 400 MG/200 ML BAG IV SCH ×2 (08:57→21:49)
[2020-02-29] MEDS: COLESTIPOL HCL 1 GM TAB PO SCH ×2 (08:57→23:04)
[2020-02-29] MEDS: CHOLECALCIFEROL 1,000 UNITS 25 MCG TAB PO SCH (08:57)
[2020-02-29] MEDS: INSULIN GLARGINE SOLOSTAR 100 UNITS/ML 3 ML PEN SC SCH (09:00)
[2020-02-29] MEDS: INSULIN ASPART 100 UNITS/ML 3 ML PEN SC SCH ×4 (09:02→21:50)
[2020-02-29 09:06] LABS: Albumin Level 2.2 gm/dl (3.4-5.0); BUN Creatinine Ratio 12.5 (10-20); Calcium 8.5 mg/dl (8.5-10.1); Creatinine Clr Calc Pharmacy 35.3 ml/min; Est GFR (Non-African American) 36.2; Potassium 4.1 mmol/L (3.5-5.1)
[2020-02-29 09:09] LABS: Albumin Globulin Ratio 0.6 (0.9-2); Bilirubin,Total 5.9 mg/dl (0.2-1); Globulin 3.9 gm/dl (2.5-4.0); Total Protein 6.1 gm/dl (6.4-8.2)
--- NOTE | 2020-02-29 09:09 | Gastroenterology Progress Note ---
Date of Service February 29, 2020 Assessment & Plan (1) Status post endoscopic retrograde cholangiopancreatography: (2) Hepatic encephalopathy: Pt is a 74 y/o male w hx of suspected ETOH cirrhosis who underwent EUS/ERCP yesterday for dilated pancreatic duct seen on previous MRCP. Found to have impacted pancreatic stones causing upstream dilation. He had biliary and pancreatic sphincterectomies, CBD and pancreatic stents placements. He was admitted overnight for observation as he was confused and likely encephalopathic due to missing Lactulose dose prior to the procedures yesterday. Today alert, oriented x 2, slow mentation but answering questions appropriately. Denies abd pain, n/v. - Obtain CT abd/pelvis w pancreas protocol to r/o underlying mass not seen during EUS - Continue Lactulose & Xifaxan at home dose - Avoid NSAIDs and high dose ASA x 5 days after sphincterectomy - Cipro 500mg PO BID x 5 days - Repeat ERCP in 4 weeks time to exchange stent - Will arrange outpt extracorporal u/s wave lithotripsy for pancreas stones (coordinate w Urology) - Surgery referral for cholecystectomy ; but if not a candidate due to his cirrhosis, and we may need to consider EUS biliary drainage - May DC home today if continues to be stable and mentation improves throughout day Admission and Anticipated Discharge Date Admission Date: February 28, 2020 Supervising Physician Co-Signing Physician Notes I performed a history and physical examination of the patient today, including specifically on physical exam - soft abdomen. I have discussed the patient's management with the advanced practitioner. Please refer to the nurse practitioner's note for the documented findings and plan of care. Doing much better, back to baseline. Give a dose of Albumin. CT scan. Subjective Pt w slow mentation but answering questions. Denies abd pain, n/v. Review of Systems Review of Systems: All systems reviewed & are unremarkable except as noted in HPI & below Physical Exam Constitutional: WD/WN, vitals as above well groomed, cooperative and comfortable Eyes: + scleral abnormality (icteric) ENMT: external ear and nose normal, oropharynx normal Respiratory: normal respiratory effort, lungs clear to auscultation Cardiovascular: Rate/Rhythm: regular rate and regular rhythm Heart Sounds: + murmur Gastrointestinal (Abdomen): normal bowel sounds, soft, nontender, no hepatosplenomegaly Skin: no rashes, warm and dry + jaundice Neurologic: Motor/Sensory: + asterixis Psychiatric: Orientation: alert, oriented to person, oriented to place and cooperative Slow mentation (hepatic encephalopathy), but answering questions. Mostly oriented to self, place. Lymphatic: no lymphedema Results & Data ([facility]) Vital Signs (Past 12 Hours) Vital Signs Temp Pulse Resp BP BP Pulse Ox 02/29/20 07:54 36.4 C L 54 L 16 101/51 L 100 02/29/20 03:00 36.4 C L 55 L 16 107/62 97 02/29/20 00:00 35.9 C L 54 L 18 102/59 L 102/59 L 99 02/28/20 21:40 36.8 C 53 L 18 121/69 99
[2020-02-29] MEDS ORDERED: IOVERSOL 100ml IV ONE (11:33)
--- NOTE | 2020-02-29 12:30 | CT Scan Report ---
CT OF THE ABDOMEN AND PELVIS WITH AND WITHOUT CONTRAST PANCREAS PROTOCOL CLINICAL HISTORY: pancreatic protocol; r/o mass COMPARISON STUDY: CT of the abdomen and pelvis February 08, 2018. Right upper quadrant ultrasound Augu 2019. MRCP January 13, 2020. TECHNIQUE: Unenhanced, arterial and venous phase imaging was performed. Intravenous injection of 94 c c Optiray 320 IV was uneventful. Automated exposure control was utilized for the study. A dose lowe ring technique was utilized adhering to the principles of ALARA. Oral contrast was administered. CT DOSE: 2148.03 mGycm FINDINGS: Imaged portions of the lower chest demonstrate gynecomastia. There is moderate cardiomegaly . Subpleural left lung opacity reflects atelectasis. No pneumatosis, free air or portal venous gas is present. The liver is shrunken and nodular in contou r. This represents cirrhosis. No hepatic lesions are identified. The right portal vein is diminutive. This is unchanged. Left portal vein is patent with recanalized paraumbilical vein. Additional large abdominal collaterals are noted. There is mild splenomegaly and trace ascites. As expected, there is pneumobilia. There is no biliary ductal dilatation. A covered metallic stent within the distal common bile duct is in place. A plastic pancreatic duct stent is in place. These are appropriately position ed. Pancreatic ductal dilatation is improved since MRI of January 13, 2020. Main pancreatic duct me asures 7 mm in caliber. As expected, there is gas within portions of the duct. Note is made of a 1.3 cm stone within the distal pancreatic duct at the level the pancreatic head. Peripancreatic parenchym al calcifications which indicate chronic pancreatitis. No pancreatic masses identified on this examin ation. Moderate pancreatic glandular atrophy is noted. There is no peripancreatic infiltration. There is no evidence for a bowel obstruction. A large amount of stool within the rectum is noted. There is mild presacral infiltration. Small bilateral renal calculi are noted. There are no ureteral calculi and there is no hydronephrosis. No abdominal or pelvic lymphadenopathy is present. There is moderate plaque of the abdominal aorta. No suspicious osseous lesions are noted. IMPRESSION: 1. Pancreatic ductal dilatation, improved since MRCP of January 13, 2020, following placement of pa ncreatic stent. 1.3 cm stone within the distal pancreatic duct at the level of the pancreatic head. N o pancreatic mass identified. Moderate pancreatic glandular atrophy and pancreatic parenchymal calcif ications indicative of chronic pancreatitis. 2. Cirrhosis with manifestations of portal hypertension including extensive varices formation, mild s plenomegaly and small amount of ascites. No hepatic lesions. 3. Interval placement of a covered metallic stent within the distal common bile duct. Pneumobilia as expected. No biliary ductal dilatation. 4. Large amount of stool within the rectum. Mild presacral infiltration. No bowel obstruction. 5. Bilateral nephrolithiasis. ACT 112: Negative or not required by law. Electronically signed by: John Sandy M.D. 02/29/2020 12:28 PM
[2020-02-29] MEDS: PANTOprazole 40 MG in SYRINGE 0 ML IV SCH (13:17)
[2020-02-29] MEDS: ALBUMIN 25% 12.5 GM/50 ML VIAL IV SCH ×6 (13:37→18:25)
--- NOTE | 2020-02-29 18:00 | Hospitalist Progress Note ---
Date of Service February 29, 2020 Assessment & Plan (1) Status post endoscopic retrograde cholangiopancreatography: with biliary and pancreatic sphincterectomies, CBD and pancreatic stent placements no signs of pancreatitis today will need ciprofloxacin for 5 days total (day 1/5) per Dr Jaquez recommendations. CT abd/pelvis today with pancreas protocol to rule out mass Needs repeat ERCP around - for stent exchange To have outpatient extracorporal ultrasound wave lithotripsy for pancreas stones To have referral to general surgery for cholecystectomy evaluation (2) Hepatic encephalopathy: Improving, oriented to place and self, not time Continue his usual lactulose and Xifaxan (3) CKD (chronic kidney disease): Baseline Cr 1.4 up to 1.78 today received albumin per GI repeat BMP in am (4) Hyperbilirubinemia: baseline around 4 up to 5.9 today probably related to obstruction -- should improve with stent placement (5) Alcoholic cirrhosis: with varices Cont propranolol 10mg PO BID, spironolactone 25mg PO daily (6) Diabetes type 2, uncontrolled: HbA1C 6.0 in January Will switch his usual Tresiba to Lantus 12 units QAM and use Novolog sliding scale for correction and carb ratio. (7) Idiopathic gout: No acute exacerbation. Continue allopurinol 300mg PO daily Admission and Anticipated Discharge Date Admission Date: February 28, 2020 Subjective Patient had ERCP yesterday and stayed overnight for observation. When I saw patient, he was drowsy, but opens eyes when prompted. Answered orientation q uestions correctly except time (did not know month and year). Pt has no complaints of pain, nausea. Nursing tells me he had urinary and fecal incontinence. Review of Systems Constitutional: no fever, no chills, no fatigue, no weakness, no anorexia, no weight loss and no weight gain Ear, Nose, Mouth, Throat: no nasal congestion, no sore throat and no dysphagia Respiratory: no cough and no dyspnea Cardiovascular: no chest pain, no dyspnea on exertion, no orthopnea and no palpitations Gastrointestinal: no abdominal pain, no nausea, no vomiting, no hematemesis, no dysphagia, no constipation, no diarrhea/loose stools, no blood in stools and no melena Musculoskeletal: no back pain, no joint pain, no myalgia and no muscle weakness Integumentary: no rash, no lesions, no skin ulcer, no erythema, no dry skin and no pruritus Neurologic: no falls, no localized weakness, no generalized weakness, no numbness, no paresthesia, no tremor(s) and no headache(s) Psychiatric: no depression, no suicidal ideation, no homicidal ideation and no anxiety Endocrine: no cold intolerance and no heat intolerance Hematologic / Lymphatic: no easy bleeding and no easy bruising Physical Exam Constitutional: well developed and well nourished; no acute distress Eyes: PERRL, conjunctivae normal, anicteric sclerae ENMT: Mouth: + dry oral mucous membranes Respiratory: normal respiratory effort; no respiratory distress and no labored breathing Auscultation: lungs clear to auscultation bilaterally; no crackles, no rales, no rhonchi and no wheezes Cardiovascular: Rate/Rhythm: regular rate and regular rhythm Heart Sounds: no murmur and no cardiac rub Vessels: normal peripheral pulses and radial pulses present; no JVD Extremities: no edema Gastrointestinal (Abdomen): Inspection/Auscultation: abdomen normal to inspection and normal bowel sounds; abdomen not distended Percussion/Palpation: abdomen soft; abdomen nontender, no guarding, abdomen not rigid and no hepatosplenomegaly Musculoskeletal: Head/Neck/Chest: normocephalic and head atraumatic Spine: no cervical spinal tenderness, no cervical muscular tenderness, no thoracic spinal tenderness and no lumbar spinal tenderness wearing waffle boots Skin: no rashes, warm and dry + jaundice and + ecchymosis Neurologic: CN's II-XI intact bilaterally and moves all extremities Motor/S ensory: no tremor and no sensory deficit Psychiatric: Orientation: alert, oriented to person and oriented to place; + not oriented to time Apperance: + disheveled; + inappropriately groomed Affect: + flat affect; + affect not euthymic, no anxious affect and no tearful affect Genitourinary: no Chandler catheter Results & Data Results & Data ([facility]) Vital Signs (Past 12 Hours) Vital Signs Temp Pulse Resp BP BP Pulse Ox 02/29/20 15:11 36.8 C 84 20 114/55 L 90 02/29/20 07:54 36.4 C L 54 L 16 101/51 L 100 Laboratory Results Abnormal lab results 02/28/20 02/28/20 02/28/20 Range/Units 18:06 19:29 22:23 RBC (4.7-6.1) M/uL Hgb (14.0-18.0) g/dL Hct (42-52) % RDW Std Deviation (36.4-46.3) fL RDW Coeff of Christoph (11.5-14.5) % Plt Count (130-400) K/uL MPV (7.4-10.4) fL BUN (7-18) mg/dl Creatinine (0.6-1.4) mg/dl Glucose (70-99) mg/dl POC Glucose 210 H 195 H 206 H (70-99) mg/dl Total Bilirubin (0.2-1) mg/dl Total Protein (6.4-8.2) gm/dl Albumin (3.4-5.0) gm/dl Albumin/Globulin Ratio (0.9-2) 02/29/20 02/29/20 02/29/20 Range/Units 08:24 08:32 08:32 RBC 3.02 L (4.7-6.1) M/uL Hgb 10.2 L (14.0-18.0) g/dL Hct 29.4 L (42-52) % RDW Std Deviation 60.2 H (36.4-46.3) fL RDW Coeff of Christoph 17.8 H (11.5-14.5) % Plt Count 56 L (130-400) K/uL MPV 11.3 H (7.4-10.4) fL BUN 22 H (7-18) mg/dl Creatinine 1.78 H (0.6-1.4) mg/dl Glucose 204 H (70-99) mg/dl POC Glucose 185 H (70-99) mg/dl Total Bilirubin 5.9 H (0.2-1) mg/dl Total Protein 6.1 L (6.4-8.2) gm/dl Albumin 2.2 L (3.4-5.0) gm/dl Albumin/Globulin Ratio 0.6 L (0.9-2) 02/29/20 02/29/20 Range/Units 12:08 16:57 RBC (4.7-6.1) M/uL Hgb (14.0-18.0) g/dL Hct (42-52) % RDW Std Deviation (36.4-46.3) fL RDW Coeff of Christoph (11.5-14.5) % Plt Count (130-400) K/uL MPV (7.4-10.4) fL BUN (7-18) mg/dl Creatinine (0.6-1.4) mg/dl Glucose (70-99) mg/dl POC Glucose 224 H 224 H (70-99) mg/dl Total Bilirubin (0.2-1) mg/dl Total Protein (6.4-8.2) gm/dl Albumin (3.4-5.0) gm/dl Albumin/Globulin Ratio (0.9-2) Medications Administered Current Inpatient Medications Allopurinol (Allopurinol 300 Mg Tab) 300 mg PO QAM RAJI Stop: 03/30/20 08:59 Last Admin: 02/29/20 08:57 Dose: 300 mg Documented by: Colestipol HCl (Colestipol Hcl 1 Gm Tab) 1 gm PO BID@1000,2200 RAJI Stop: 03/29/20 21:59 Last Admin: 02/29/20 08:57 Dose: 1 gm Documented by: Dextrose (Dextrose 50% 50 Ml Syringe) 25 - 50 ml IV UD PRN; Protocol PRN Reason: Hypoglycemia Protocol Stop: 03/29/20 21:57 Glucagon (Glucagon For Inj 1 Mg Vial) 1 mg SQ UD PRN; Protocol PRN Reason: Hypoglycemia Protocol Stop: 03/29/20 21:57 Glucose (Glucose 10 Tabs/Tube) 4 - 8 tabs PO UD PRN; Protocol PRN Reason: Hypoglycemia Protocol Stop: 03/29/20 21:57 Glucose (Glucose 40% Gel 15 Gm Tube) 15 - 30 gm PO UD PRN; Protocol PRN Reason: Hypoglycemia Protocol Stop: 03/29/20 21:57 Ciprofloxacin (Cipro / D5w) 400 mg in 200 mls @ 100 mls/hr IV Q12 RAJI; Protocol Stop: 03/09/20 21:59 Last Infusion: 02/29/20 11:11 Dose: Infused Documented by: Pantoprazole Sodium 40 mg/ (Syringe) 10 mls @ 5 mls/min IV DAILY@1100 RAJI Stop: 03/30/20 10:59 Last Admin: 02/29/20 13:17 Dose: 5 mls/min Documented by: Albumin Human (Albumin 25%) 12.5 gm in 50 mls @ 50 mls/hr IV Q1H RAJI Stop: 02/29/20 18:59 Last Admin: 02/29/20 17:34 Dose: 50 mls/hr Documented by: Insulin Aspart (Insulin Aspart 100 Units/Ml 3 Ml Pen) 0 units SC ACHS RAJI Stop: 03/30/20 07:29 Last Admin: 02/29/20 13:19 Dose: 3 units Documented by: Insulin Glargine (Insulin Glargine Solostar 100 Units/Ml 3 Ml Pen) 12 units SC QAM RAJI Stop: 03/30/20 08:59 Last Admin: 02/29/20 09:00 Dose: 12 units Documented by: Lactulose (Lactulose Syrup 30 Gm/45 Ml Udp) 30 gm PO QID RAJI Stop: 03/29/20 20:59 Last Admin: 02/29/20 17:34 Dose: 30 gm Documented by: Miscellaneous (Ganciclovir [Zirgan] - Order Awaiting Action) 1 ea N/A QS RAJI Stop: 03/30/20 00:00 Last Admin: 02/29/20 16:37 Dose: Not Given Documented by: Miscellaneous (Carbohydrates For Hypoglycemia ) 15 - 30 gm PO UD PRN PRN Reason: Hypoglycemia Protocol Stop: 03/29/20 21:57 Propranolol HCl (Propranolol Hcl 10 Mg Tab) 10 mg PO BID RAJI Stop: 03/29/20 20:59 Last Admin: 02/29/20 08:56 Dose: Not Given Documented by: Rifaximin (Rifaximin 550 Mg Tablet) 550 mg PO BID RAJI Stop: 03/29/20 20:59 Last Admin: 02/29/20 08:56 Dose: 550 mg Documented by: Vitamin D (Cholecalciferol 1,000 Units 25 Mcg Tab) 2,000 units PO QAM RAJI Stop: 03/30/20 08:59 Last Admin: 02/29/20 08:57 Dose: 2,000 units Documented by: Results / Data Diagnostics CT: CT abd/pelvis IMPRESSION: 1. Pancreatic ductal dilatation, improved since MRCP of January 13, 2020, following placement of pancreatic stent. 1.3 cm stone within the distal pancreatic duct at the level of the pancreatic head. No pancreatic mass identified. Moderate pancreatic glandular atrophy and pancreatic parenchymal calcifications indicative of chronic pancreatitis. 2. Cirrhosis with manifestations of portal hypertension including extensive varices formation, mild splenomegaly and small amount of ascites. No hepatic lesions. 3. Interval placement of a covered metallic stent within the distal common bile duct. Pneumobilia as expected. No biliary ductal dilatation. 4. Large amount of stool within the rectum. Mild presacral infiltration. No bowel obstruction. 5. Bilateral nephrolithiasis. PG Care Time/CCT Total # of Minutes Spent Total Time Spent with Patient: Total time spent is greater than 50% in coordination of care (as documented) at patient's floor/unit and/or counseling patient: Coding Level of Care Code 45920 Subseq Hosp Care Lvl 3 Diagnoses Status post endoscopic retrograde cholangiopancreatography Z98.890 Hepatic encephalopathy K72.90 CKD (chronic kidney disease) N18.9 Chronic kidney disease stage: unspecified stage Hyperbilirubinemia E80.6 Alcoholic cirrhosis K70.30 Ascites presence: without ascites Diabetes type 2, uncontrolled E11.65 Glycemic state: with hyperglycemia Idiopathic gout M10.00 (1) Alcoholic cirrhosis Ascites presence: without ascites Qualified Code(s): K70.30 - Alcoholic cirrhosis of liver without ascites (2) Diabetes type 2, uncontrolled Glycemic state: with hyperglycemia Qualified Code(s): E11.65 - Type 2 diabetes mellitus with hyperglycemia (3) CKD (chronic kidney disease) Chronic kidney disease stage: unspecified stage Qualified Code(s): N18.9 - Chronic kidney disease, unspecified
[2020-03-01 09:18] LABS: Hematocrit (blood only) 24.8 % (42-52); Mean Corpuscular Hemoglobin 34.9 pg (25-34); Mean Corpuscular Hgb Conc 36.3 g/dL (32-36); Mean Corpuscular Volume 96.1 fL (80-100); RDW Coefficient of Variation 17.8 % (11.5-14.5); RDW Standard Deviation 62.2 fL (36.4-46.3); Red Blood Count 2.58 M/uL (4.7-6.1); White Blood Count 4.88 K/uL (4.8-10.8)
[2020-03-01 09:19] LABS: Mean Platelet Volume 10.5 fL (7.4-10.4); Platelet Count 57 K/uL (130-400)
[2020-03-01 09:27] LABS: INR 1.7 (0.9-1.1)
[2020-03-01 09:36] LABS: Albumin Globulin Ratio 0.9 (0.9-2); Albumin Level 2.7 gm/dl (3.4-5.0); BUN Creatinine Ratio 10.7 (10-20); Bilirubin,Total 5.7 mg/dl (0.2-1); Calcium 9.3 mg/dl (8.5-10.1); Creatinine Clr Calc Pharmacy 42.2 ml/min; Est GFR (African American) 52.1; Est GFR (Non-African American) 44.9; Potassium 3.8 mmol/L (3.5-5.1); Total Protein 5.7 gm/dl (6.4-8.2)
[2020-03-01 09:51] LABS: Acanthocytes 1+; Basophils # (auto) 0.01 K/uL (0-0.2); Basophils % (auto) 0.2 %; Echinocytes 2+; Eosinophils # (auto) 0.11 K/uL (0-0.5); Eosinophils % (auto) 2.3 %; Immature Granulocytes # (auto) 0.01 K/uL (0.00-0.02); Immature Granulocytes % (auto) 0.2 %; Lymphocytes # (auto) 1.27 K/uL (1.2-3.4); Monocytes % (auto) 12.3 %; Neutrophils # (auto) 2.88 K/uL (1.4-6.5); Ovalocytes 1+; Platelet Estimate Decreased (Normal)
[2020-03-01] MEDS: LACTULOSE SYRUP 30 GM/45 ML UDP PO SCH ×4 (10:14→20:57)
[2020-03-01] MEDS: allopurinoL 300 MG TAB PO SCH (10:14)
[2020-03-01] MEDS: INSULIN GLARGINE SOLOSTAR 100 UNITS/ML 3 ML PEN SC SCH (10:15)
[2020-03-01] MEDS: COLESTIPOL HCL 1 GM TAB PO SCH ×2 (10:15→22:31)
[2020-03-01] MEDS: rifAXIMin 550 MG TABLET PO SCH ×2 (10:15→20:57)
[2020-03-01] MEDS: CHOLECALCIFEROL 1,000 UNITS 25 MCG TAB PO SCH (10:15)
[2020-03-01] MEDS: PROPRANOLOL HCL 10 MG TAB PO SCH ×2 (10:15→20:59)
--- NOTE | 2020-03-01 10:16 | Gastroenterology Progress Note ---
Date of Service March 01, 2020 Assessment & Plan (1) Status post endoscopic retrograde cholangiopancreatography: (2) Hepatic encephalopathy: Pt is a 74 y/o male w hx of suspected ETOH cirrhosis who underwent EUS/ERCP 02/27 for dilated pancreatic duct seen on previous MRCP. Found to have impacted pancreatic stones causing upstream dilation. He had biliary and pancreatic sphincterectomies, CBD and pancreatic stents placements. He was admitted for confusion, likely encephalopathic due to missing Lactulose dose prior to the procedures. His mental status has slightly worsen today. Is receiving Lactulose and Xifaxan, having multiple loose stools. Renal function improves w Albumin IV - Obtain CT head. - Obtained CT abd/pelvis w pancreas protocol to r/o underlying mass not seen during EUS -> stents in place, + 1.3cm pancreas duct stone. - Continue Lactulose & Xifaxan at home dose (goal BM 3-5x a day) - Avoid NSAIDs and high dose ASA x 5 days after sphincterectomy - Cipro 500mg PO BID x 5 days - Repeat ERCP in 4 weeks time to exchange stent - Will arrange outpt f/u for pancreatic stone removal - Surgery referral for cholecystectomy ; but if not a candidate due to his cirrhosis, and we may need to consider EUS biliary drainage Admission and Anticipated Discharge Date Admission Date: February 28, 2020 Supervising Physician Co-Signing Physician Notes I performed a history and physical examination of the patient today, including specifically on physical exam - soft abdomen. I have discussed the patient's management with the advanced practitioner. Please refer to the nurse practitioner's note for the documented findings and plan of care. Head CT scan normal. Abdomen CT scan showed 1.3 cm PD stone. He is fully awake and alert now, ate lunch. Creatinine trended down after Albumin use. Moving bowel well. Recommend: Physical therapy today and discharge home tomorrow. I will arrange to perform Spyglass with lithotripsy and possible Axios for GB drain. Recall GI if needed. Subjective Pt able to take in PO meds including Lactulose per RN. Having multiple loose sto ols. Today mental status worse - oriented only to place, difficult to initiate conversation w pt as he's constantly falling to sleep. Review of Systems Review of Systems: Unobtainable due to reduced consciousness Physical Exam Constitutional: + frail appearing and comfortable Eyes: + scleral abnormality (icteric) ENMT: external ear and nose normal, oropharynx normal Respiratory: normal respiratory effort, lungs clear to auscultation Cardiovascular: Rate/Rhythm: regular rate and regular rhythm Heart Sounds: + murmur Gastrointestinal (Abdomen): normal bowel sounds, soft, nontender, no hepatosplenomegaly Skin: no rashes, warm and dry + jaundice Neurologic: Motor/Sensory: + asterixis Psychiatric: Orientation: oriented to place drowsy Lymphatic: no lymphedema Results & Data ([facility]) Vital Signs (Past 12 Hours) Vital Signs Temp Pulse Resp BP BP Pulse Ox 03/01/20 07:45 36.5 C 59 L 16 120/51 L 100 03/01/20 00:39 36.7 C 75 16 121/62 94
[2020-03-01] MEDS: INSULIN ASPART 100 UNITS/ML 3 ML PEN SC SCH ×4 (10:17→20:58)
[2020-03-01] MEDS: CIPROFLOXACIN / D5W 400 MG/200 ML BAG IV SCH ×2 (10:20→20:58)
--- NOTE | 2020-03-01 11:41 | CT Scan Report ---
CT head/brain wo con CLINICAL HISTORY: Acute change in mental status. History of cirrhosis COMPARISON STUDY: 02/26/2020 TECHNIQUE: Axial CT of the brain is performed from the vertex to the skull base. IV contrast was not administered for this examination. A dose lowering technique was utilized adhering to the principles of ALARA. CT DOSE: 729.78 mGycm FINDINGS: No intra or extra-axial mass lesions are visualized. There is no CT evidence of acute cortical infarc tion. There is no evidence of midline shift. There is no acute hemorrhage. No calvarial fractures ar e visualized. There are patchy white matter hypodensities likely on a small vessel basis. There are mild atrophic c hanges most pronounced in the cerebellum There is no evidence of pathologic ventricular dilatation. There is no evidence of acute sinusitis IMPRESSION: No acute intracranial findings ACT 112: Negative or not required by law. Electronically signed by: Jeremy Freeman M.D. 03/01/2020 11:40 AM
[2020-03-01] MEDS: PANTOprazole 40 MG in SYRINGE 0 ML IV SCH (12:56)
--- NOTE | 2020-03-01 14:19 | Hospitalist Progress Note ---
Date of Service March 01, 2020 Assessment & Plan (1) Weakness generalized: patient reportedly received 7 days of valtrex during herpes zoster from 02-16 to 02-23 since 02-16 has decline in functional status and worsening lethargy weakness could still be related to hepatic encephalopathy Head CT without acute process already on cipro, no apparent biliary infection and no sepsis checking UA and TSH PT and OT eval and treat patient will likely need higher level of care (2) Hepatic encephalopathy: more lethargic today ammonia lower than most historical values (40 today up to 121 in ) oriented to hospital and self, not time Continue his usual lactulose and Xifaxan (3) Alcoholic cirrhosis: with varices Cont propranolol 10mg PO BID, spironolactone 25mg PO daily MELD score 24 indicating 19.6% 3 month mortality if weakness is determined to be 2' to liver failure, patient may benefit from palliative care consult (4) CKD (chronic kidney disease): Baseline Cr 1.4 Cr was up to 1.78 (03-01) After albumin infusion, back down to 1.49 repeat BMP in am (5) Status post endoscopic retrograde cholangiopancreatography: ERCP (02-27) with biliary and pancreatic sphincterectomies, CBD and pancreatic stent placements no signs of pancreatitis today will need ciprofloxacin for 5 days total (day 05/08) per Dr Jaquez recommendations. CT abd/pelvis today with pancreas protocol to rule out mass Needs repeat ERCP around 03-31 for stent exchange To have outpatient extracorporal ultrasound wave lithotripsy for pancreas stones To have referral to general surgery for cholecystectomy evaluation (6) Hyperbilirubinemia: baseline around 4 up to 5.9 today probably related to obstruction -- should improve with stent placement (7) Diabetes type 2, uncontrolled: HbA1C 6.0 in January Will switch his usual Tresiba to Lantus 12 units QAM and use Novolog sliding scale for correction and carb ratio. (8) Idiopathic gout: No acute exacerbation. Continue allopurinol 300mg PO daily (9) Anemia: probably related to chronic liver disease no signs of blood loss (10) Thrombocytopenia: (11) Coagulopathy: Admission and Anticipated Discharge Date Admission Date: March 01, 2020 Subjective Visited patient this morning -- he was laying in bed awake with eyes open, tunded. Answered that he is at a hospital but does not know which one. Went back to bedside around 130pm. Now is present at bedside. 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 States that pt used to be able to walk up stairs but recently has been requiring wheelchair. Since admission for his ERCP, she states that he has not eaten well. Currently patient sleeping soundly. Does not arouse to voice. Does arouse to touch. Review of Systems Review of Systems: Unobtainable due to cognitive status Physical Exam Constitutional: well developed and well nourished; no acute distress Eyes: PERRL, conjunctivae normal, anicteric sclerae ENMT: Mouth: + dry oral mucous membranes Respiratory: normal respiratory effort; no respiratory distress and no labored breathing Auscultation: lungs clear to auscultation bilaterally; no crackles, no rales, no rhonchi and no wheezes Cardiovascular: Rate/Rhythm: regular rate and regular rhythm Heart Sounds: no murmur and no cardiac rub Vessels: normal peripheral pulses and radial pulses present; no JVD Extremities: no edema Gastrointestinal (Abdomen): Inspection/Auscultation: abdomen normal to inspection and normal bowel sounds; abdomen not distended Percussion/Palpation: abdomen soft; abdomen nontender, no guarding, abdomen not rigid and no hepatosplenomegaly Musculoskeletal: Head/Neck/Chest: normocephalic and head atraumatic Spine: no cervical spinal tenderness, no cervical muscular tenderness, no thoracic spinal tenderness and no lumbar spinal tenderness Skin: no rashes, warm and dry + jaundice and + ecchymosis Neurologic: CN's II-XI intact bilaterally and moves all extremities Motor/Sensory: no tremor and no sensory deficit Psychiatric: Orientation: oriented to person and oriented to place; + not oriented to time Apperance: + disheveled; + inappropriately groomed Affect: + flat affect; + affect not euthymic, no anxious affect and no tearful affect Results & Data Results & Data ([facility]) Vital Signs (Past 12 Hours) Vital Signs Temp Pulse Resp BP Pulse Ox 03/01/20 07:45 36.5 C 59 L 16 120/51 L 100 Laboratory Results Abnormal lab results 02/29/20 02/29/20 03/01/20 Range/Units 16:57 20:40 08:29 RBC (4.7-6.1) M/uL Hgb (14.0-18.0) g/dL Hct (42-52) % MCH (25-34) pg MCHC (32-36) g/dL RDW Std Deviation (36.4-46.3) fL RDW Coeff of Christoph (11.5-14.5) % Plt Count (130-400) K/uL MPV (7.4-10.4) fL [place] # (Auto) (0.11-0.59) K/uL Platelet Estimate (Normal) PT (9.0-12.0) Seconds INR (0.9-1.1) Chloride (98-107) mmol/L Creatinine (0.6-1.4) mg/dl Glucose (70-99) mg/dl POC Glucose 224 H 239 H 177 H (70-99) mg/dl Total Bilirubin (0.2-1) mg/dl Total Protein (6.4-8.2) gm/dl Albumin (3.4-5.0) gm/dl Lipase (73-393) U/L 03/01/20 03/01/20 03/01/20 Range/Units 08:57 08:57 08:57 RBC 2.58 L (4.7-6.1) M/uL Hgb 9.0 L (14.0-18.0) g/dL Hct 24.8 L (42-52) % MCH 34.9 H (25-34) pg MCHC 36.3 H (32-36) g/dL RDW Std Deviation 62.2 H (36.4-46.3) fL RDW Coeff of Christoph 17.8 H (11.5-14.5) % Plt Count 57 L (130-400) K/uL MPV 10.5 H (7.4-10.4) fL [place] # (Auto) 0.60 H (0.11-0.59) K/uL Platelet Estimate Decreased L (Normal) PT 17.0 H (9.0-12.0) Seconds INR 1.7 H (0.9-1.1) Chloride 108 H (98-107) mmol/L Creatinine 1.49 H (0.6-1.4) mg/dl Glucose 171 H (70-99) mg/dl POC Glucose (70-99) mg/dl Total Bilirubin 5.7 H (0.2-1) mg/dl Total Protein 5.7 L (6.4-8.2) gm/dl Albumin 2.7 L (3.4-5.0) gm/dl Lipase 25 L (73-393) U/L 03/01/20 Range/Units 12:01 RBC (4.7-6.1) M/uL Hgb (14.0-18.0) g/dL Hct (42-52) % MCH (25-34) pg MCHC (32-36) g/dL RDW Std Deviation (36.4-46.3) fL RDW Coeff of Christoph (11.5-14.5) % Plt Count (130-400) K/uL MPV (7.4-10.4) fL [place] # (Auto) (0.11-0.59) K/uL Platelet Estimate (Normal) PT (9.0-12.0) Seconds INR (0.9-1.1) Chloride (98-107) mmol/L Creatinine (0.6-1.4) mg/dl Glucose (70-99) mg/dl POC Glucose 217 H (70-99) mg/dl Total Bilirubin (0.2-1) mg/dl Total Protein (6.4-8.2) gm/dl Albumin (3.4-5.0) gm/dl Lipase (73-393) U/L Medications Administered Current Inpatient Medications Allopurinol (Allopurinol 300 Mg Tab) 300 mg PO QAM RAJI Stop: 03/30/20 08:59 Last Admin: 03/01/20 10:14 Dose: 300 mg Documented by: Colestipol HCl (Colestipol Hcl 1 Gm Tab) 1 gm PO BID@1000,2200 RAJI Stop: 03/29/20 21:59 Last Admin: 03/01/20 10:15 Dose: 1 gm Documented by: Dextrose (Dextrose 50% 50 Ml Syringe) 25 - 50 ml IV UD PRN; Protocol PRN Reason: Hypoglycemia Protocol Stop: 03/29/20 21:57 Enoxaparin Sodium (Enoxaparin Inj 40 Mg/0.4 Ml Syr) 40 mg SQ QAM RAJI Stop: 04/01/20 08:59 Glucagon (Glucagon For Inj 1 Mg Vial) 1 mg SQ UD PRN; Protocol PRN Reason: Hypoglycemia Protocol Stop: 03/29/20 21:57 Glucose (Glucose 10 Tabs/Tube) 4 - 8 tabs PO UD PRN; Protocol PRN Reason: Hypoglycemia Protocol Stop: 03/29/20 21:57 Glucose (Glucose 40% Gel 15 Gm Tube) 15 - 30 gm PO UD PRN; Protocol PRN Reason: Hypoglycemia Protocol Stop: 03/29/20 21:57 Ciprofloxacin (Cipro / D5w) 400 mg in 200 mls @ 100 mls/hr IV Q12 [facility]; Protocol Stop: 03/09/20 21:59 Last Infusion: 03/01/20 13:10 Dose: Infused Documented by: Pantoprazole Sodium 40 mg/ (Syringe) 10 mls @ 5 mls/min IV DAILY@1100 [facility] Stop: 03/30/20 10:59 Last Admin: 03/01/20 12:56 Dose: 5 mls/min Documented by: Insulin Aspart (Insulin Aspart 100 Units/Ml 3 Ml Pen) 0 units SC ACHS [facility] Stop: 03/30/20 07:29 Last Admin: 03/01/20 13:50 Dose: 3 units Documented by: Insulin Glargine (Insulin Glargine Solostar 100 Units/Ml 3 Ml Pen) 12 units SC QAM [facility] Stop: 03/30/20 08:59 Last Admin: 03/01/20 10:15 Dose: 12 units Documented by: Lactulose (Lactulose Syrup 30 Gm/45 Ml Udp) 30 gm PO QID [facility] Stop: 03/29/20 20:59 Last Admin: 03/01/20 12:56 Dose: 30 gm Documented by: Miscellaneous (Ganciclovir [Zirgan] - Order Awaiting Action) 1 ea N/A QS [facility] Stop: 03/30/20 00:00 Last Admin: 03/01/20 10:20 Dose: Not Given Documented by: Miscellaneous (Carbohydrates For Hypoglycemia ) 15 - 30 gm PO UD PRN PRN Reason: Hypoglycemia Protocol Stop: 03/29/20 21:57 Propranolol HCl (Propranolol Hcl 10 Mg Tab) 10 mg PO BID [facility] Stop: 03/29/20 20:59 Last Admin: 03/01/20 10:15 Dose: Not Given Documented by: Rifaximin (Rifaximin 550 Mg Tablet) 550 mg PO BID [facility] Stop: 03/29/20 20:59 Last Admin: 03/01/20 10:15 Dose: 550 mg Documented by: Vitamin D (Cholecalciferol 1,000 Units 25 Mcg Tab) 2,000 units PO QAM RAJI Stop: 03/30/20 08:59 Last Admin: 03/01/20 10:15 Dose: 2,000 units Documented by: Results / Data Diagnostics CT: FINDINGS: No intra or extra-axial mass lesions are visualized. There is no CT evidence of acute cortical infarction. There is no evidence of midline shift. There is no acute hemorrhage. No calvarial fractures are visualized. There are patchy white matter hypodensities likely on a small vessel basis. There are mild atrophic changes most pronounced in the cerebellum There is no evidence of pathologic ventricular dilatation. There is no evidence of acute sinusitis PG Care Time/CCT Total # of Minutes Spent Total Time Spent with Patient: Total time spent is greater than 50% in coordination of care (as documented) at patient's floor/unit and/or counseling patient: Coding Level of Care Code 94535 Subseq Hosp Care Lvl 3 Diagnoses Weakness generalized R53.1 Hepatic encephalopathy K72.90 Alcoholic cirrhosis K70.30 Ascites presence: without ascites CKD (chronic kidney disease) N18.9 Chronic kidney disease stage: unspecified stage Status post endoscopic retrograde cholangiopancreatography Z98.890 Hyperbilirubinemia E80.6 Diabetes type 2, uncontrolled E11.65 Glycemic state: with hyperglycemia Idiopathic gout M10.00 Gout site: unspecified site Chronicity: unspecified Anemia D63.8 Other causes of anemia: chronic disease, other Anemia type: other cause Thrombocytopenia D69.6 Coagulopathy D68.9 (1) CKD (chronic kidney disease) Chronic kidney disease stage: unspecified stage Qualified Code(s): N18.9 - Chronic kidney disease, unspecified (2) Alcoholic cirrhosis Ascites presence: without ascites Qualified Code(s): K70.30 - Alcoholic cirrhosis of liver without ascites (3) Diabetes type 2, uncontrolled Glycemic state: with hyperglycemia Qualified Code(s): E11.65 - Type 2 diabetes mellitus with hyperglycemia (4) Idiopathic gout Gout site: unspecified site Chronicity: unspecified Qualified Code(s): M10.00 - Idiopathic gout, unspecified site (5) Anemia Other causes of anemia: chronic disease, other Anemia type: other cause Qualified Code(s): D63.8 - Anemia in other chronic diseases classified elsewhere
[2020-03-02 06:39] LABS: Hemoglobin 10.2 g/dL (14.0-18.0); Mean Corpuscular Hemoglobin 34.5 pg (25-34); Mean Corpuscular Hgb Conc 35.2 g/dL (32-36); RDW Coefficient of Variation 17.9 % (11.5-14.5); RDW Standard Deviation 63.7 fL (36.4-46.3); Red Blood Count 2.96 M/uL (4.7-6.1); White Blood Count 6.11 K/uL (4.8-10.8)
[2020-03-02 07:05] LABS: Mean Platelet Volume 10.2 fL (7.4-10.4); Platelet Count 68 K/uL (130-400)
[2020-03-02 07:13] LABS: Albumin Level 2.9 gm/dl (3.4-5.0); BUN Creatinine Ratio 8.1 (10-20); Calcium 8.9 mg/dl (8.5-10.1); Creatinine Clr Calc Pharmacy 39.3 ml/min; Est GFR (African American) 47.8; Est GFR (Non-African American) 41.2; Potassium 3.7 mmol/L (3.5-5.1)
[2020-03-02 07:19] LABS: Albumin Globulin Ratio 0.9 (0.9-2); Bilirubin,Total 6.4 mg/dl (0.2-1); Globulin 3.3 gm/dl (2.5-4.0); Total Protein 6.2 gm/dl (6.4-8.2)
[2020-03-02] MEDS ORDERED: ENOXAPARIN INJ 40 MG/0.4 ML SYR SQ SCH (09:00)
[2020-03-02] MEDS: INSULIN ASPART 100 UNITS/ML 3 ML PEN SC SCH ×4 (09:04→21:58)
[2020-03-02] MEDS: INSULIN GLARGINE SOLOSTAR 100 UNITS/ML 3 ML PEN SC SCH (09:05)
[2020-03-02] MEDS: LACTULOSE SYRUP 30 GM/45 ML UDP PO SCH ×4 (09:08→20:09)
[2020-03-02] MEDS: CHOLECALCIFEROL 1,000 UNITS 25 MCG TAB PO SCH (09:09)
[2020-03-02] MEDS: PROPRANOLOL HCL 10 MG TAB PO SCH ×2 (09:09→20:15)
[2020-03-02] MEDS: allopurinoL 300 MG TAB PO SCH (09:10)
[2020-03-02] MEDS: CIPROFLOXACIN / D5W 400 MG/200 ML BAG IV SCH ×2 (09:20→20:09)
[2020-03-02] MEDS: COLESTIPOL HCL 1 GM TAB PO SCH ×2 (11:37→21:58)
[2020-03-02] MEDS: PANTOprazole 40 MG in SYRINGE 0 ML IV SCH (14:16)
[2020-03-02] MEDS: rifAXIMin 550 MG TABLET PO SCH ×2 (16:06→20:16)
--- NOTE | 2020-03-02 19:11 | Hospitalist Progress Note ---
Date of Service March 02, 2020 Assessment & Plan (1) Weakness generalized: deconditioning, malnutritin, delirium cycle -PT/OT, food, supportive care, health education director eval (2) Delirium: suspect mental status is delirium (toxic encephalopathy as side effect to sedation for ERCP) given context and timing, rather than due to hepatic encephalopathy - certainly both could contribute, but with ammonia being lower than in the past and appearance more c/w delirium - managing predominantly as such -supportive care, lights on during day, familiarity as possible (3) Hepatic encephalopathy: see above follow ammonia periodically since this could go up continue lactulose and xifaxin (4) Alcoholic cirrhosis: with varices Cont propranolol 10mg PO BID, spironolactone 25mg PO daily MELD score 24 indicating 19.6% 3 month mortality (5) CKD (chronic kidney disease): Baseline Cr 1.4 Cr was up to 1.78 (03-01) continue to follow. (6) Status post endoscopic retrograde cholangiopancreatography: ERCP (02-27) with biliary and pancreatic sphincterectomies, CBD and pancreatic stent placements no signs of pancreatitis today will need ciprofloxacin for [address] Jaquez recommendations. CT abd/pelvis today with pancreas protocol to rule out mass Needs repeat ERCP around 03-31 for stent exchange To have outpatient lithotripsy for pancreas stones To have referral to general surgery for cholecystectomy evaluation (7) Hyperbilirubinemia: liver disease plus obstruction - follow but as d/w GI not unexpected to be slightly fluctuant given cicumstances (8) Diabetes type 2, uncontrolled: HbA1C 6.0 in January titrate insulins, follow. (9) Idiopathic gout: No acute exacerbation. Continue allopurinol 300mg PO daily (10) Anemia: probably related to chronic liver disease no signs of blood loss (11) Thrombocytopenia: related to liver disease (12) Coagulopathy: related to liver disease (13) Discharge planning issues: PT/OT eval and treat right now between delirium and weakness appears most likely that he'll need to rehab at SNF; however, follow day to day - if delirium were to improve quickly (which is not likely but can happen) it's possible then that weakness would improve with it Admission and Anticipated Discharge Date Admission Date: March 01, 2020 Subjective very little HPI from pt - is sleeping the first two times i see him then later is awake sitting in chair and etaing. does seem to loosely recognize me and does answer some questions but mostly makes eye contact and eats, does say a little bit of a response in joking sarcasm notes that he's more alert today than yesterday but still definitely not himself - notes that at home recently he's been sleepinga lot more too - but that when he wakes up he's with it right away - and was able to travel for a swim meet w and dtrs not too long ago. all worsened after ERCP. does not seem to have belly pain case d/w GI input appreciated. Review of Systems Review of Systems: Unobtainable due to cognitive status Physical Exam Physical Exam: gen pleasantly confused nad heent nc at mmm breathing unlabored no accessory muscles good effort skin no rashes dark brown "frey icterus" appearing has fine tremors does not appear to be alternating or flapping at this time slow movement but deliberate and purposeful. Results & Data Results & Data ([facility]) Vital Signs (Past 12 Hours) Vital Signs Temp Pulse Resp BP Pulse Ox 03/02/20 07:29 97.7 F 57 L 16 106/52 L 100 PG Care Time/CCT Total # of Minutes Spent Total Time Spent with Patient: Total time spent is greater than 50% in coordination of care (as documented) at patient's floor/unit and/or counseling patient: Coding Level of Care Code 24448 Subseq Hosp Care Lvl 3 Diagnoses Weakness generalized R53.1 Delirium R41.0 Hepatic encephalopathy K72.90 Alcoholic cirrhosis K70.30 Ascites presence: without ascites CKD (chronic kidney disease) N18.9 Chronic kidney disease stage: unspecified stage Status post endoscopic retrograde cholangiopancreatography Z98.890 Hyperbilirubinemia E80.6 Diabetes type 2, uncontrolled E11.65 Glycemic state: with hyperglycemia Idiopathic gout M10.00 Gout site: unspecified site Chronicity: unspecified Anemia D63.8 Anemia type: other cause Other causes of anemia: chronic disease, other Thrombocytopenia D69.6 Coagulopathy D68.9 Discharge planning issues Z02.9 (1) Alcoholic cirrhosis Ascites presence: without ascites Qualified Code(s): K70.30 - Alcoholic cirrhosis of liver without ascites (2) CKD (chronic kidney disease) Chronic kidney disease stage: unspecified stage Qualified Code(s): N18.9 - Chronic kidney disease, unspecified (3) Diabetes type 2, uncontrolled Glycemic state: with hyperglycemia Qualified Code(s): E11.65 - Type 2 diabetes mellitus with hyperglycemia (4) Idiopathic gout Gout site: unspecified site Chronicity: unspecified Qualified Code(s): M10.00 - Idiopathic gout, unspecified site (5) Anemia Anemia type: other cause Other causes of anemia: chronic disease, other Qualified Code(s): D63.8 - Anemia in other chronic diseases classified elsewhere
[2020-03-03] MEDS: PROPRANOLOL HCL 10 MG TAB PO SCH ×2 (07:54→20:45)
[2020-03-03] MEDS: LACTULOSE SYRUP 30 GM/45 ML UDP PO SCH ×4 (07:55→20:40)
[2020-03-03] MEDS: CIPROFLOXACIN / D5W 400 MG/200 ML BAG IV SCH ×2 (07:55→20:44)
[2020-03-03] MEDS: allopurinoL 300 MG TAB PO SCH (07:55)
[2020-03-03] MEDS: rifAXIMin 550 MG TABLET PO SCH ×2 (07:55→20:46)
[2020-03-03] MEDS: CHOLECALCIFEROL 1,000 UNITS 25 MCG TAB PO SCH (07:55)
[2020-03-03] MEDS: COLESTIPOL HCL 1 GM TAB PO SCH ×2 (07:55→20:46)
[2020-03-03] MEDS: INSULIN ASPART 100 UNITS/ML 3 ML PEN SC SCH ×4 (08:31→20:56)
[2020-03-03] MEDS: INSULIN GLARGINE SOLOSTAR 100 UNITS/ML 3 ML PEN SC SCH (08:33)
[2020-03-03 11:27] LABS: Albumin Globulin Ratio 0.8 (0.9-2); Albumin Level 2.7 gm/dl (3.4-5.0); BUN Creatinine Ratio 6.6 (10-20); Calcium 8.9 mg/dl (8.5-10.1); Creatinine Clr Calc Pharmacy 33.8 ml/min; Est GFR (African American) 39.8; Est GFR (Non-African American) 34.4; Globulin 3.4 gm/dl (2.5-4.0); Potassium 4.1 mmol/L (3.5-5.1); Total Protein 6.1 gm/dl (6.4-8.2)
[2020-03-03] MEDS ORDERED: SODIUM CHLOR 0.45% + 20MEQ KCL 20 MEQ/1,000 ML BAG IV SCH (13:00)
[2020-03-03] MEDS: PANTOprazole 40 MG in SYRINGE 0 ML IV SCH (13:08)
--- NOTE | 2020-03-03 18:31 | Hospitalist Progress Note ---
Date of Service March 03, 2020 Assessment & Plan (1) Weakness generalized: deconditioning, malnutrition, delirium cycle -- but does seem to be improving some day-to-day -PT/OT, food, supportive care, hand tennis ball coverer eval (2) Delirium: suspect mental status is delirium (toxic encephalopathy as side effect to sedation for ERCP) given context and timing, rather than due to hepatic encephalopathy - certainly both could contribute, continue to follow, manage situation, supportive care etc (3) Hepatic encephalopathy: see above ammonia increased slightly - increase lacutlose back to home dosing and follow continue lactulose and xifaxin (4) Alcoholic cirrhosis: with varices Cont propranolol 10mg PO BID, spironolactone 25mg PO daily MELD score 24 indicating 19.6% 3 month mortality (5) CKD (chronic kidney disease): Cr rising somewhat - eating better but suspect not drinking well - fluids and follow (6) Status post endoscopic retrograde cholangiopancreatography: ERCP (02-27) with biliary and pancreatic sphincterectomies, CBD and pancreatic stent placements no signs of pancreatitis today will need ciprofloxacin for [address] Jaquez recommendations. CT abd/pelvis today with pancreas protocol to rule out mass Needs repeat ERCP around 03-31 for stent exchange To have outpatient lithotripsy for pancreas stones To have referral to general surgery for cholecystectomy evaluation (7) Hyperbilirubinemia: liver disease plus obstruction - follow but as d/w GI not unexpected to be slightly fluctuant given cicumstances (8) Diabetes type 2, uncontrolled: HbA1C 6.0 in January titrate insulins, follow. (9) Idiopathic gout: No acute exacerbation. Continue allopurinol 300mg PO daily (10) Anemia: probably related to chronic liver disease no signs of blood loss (11) Thrombocytopenia: related to liver disease (12) Coagulopathy: related to liver disease (13) Discharge planning issues: PT/OT eval and treat right now between delirium and weakness appears most likely that he'll need to rehab at SNF; however, follow day to day - as he is showing improvement so it's possible then that weakness would improve with it allowing for a discharge to home instead. Admission and Anticipated Discharge Date Admission Date: March 01, 2020 Subjective doing better and more talkative today. still a little slow to respond and only a few words in answers, but mostly coherent. eating well. out of bed much of the day but when asked he noted that he would take a nap. has an awareness of [employer] tonight and an expressed desire to watch the game. updated extensively through the day, answered all questions to the best of my ability. Review of Systems Review of Systems: All systems reviewed & are unremarkable except as noted in HPI & below and Unobtainable due to cognitive status what is obtainable is negative, but fairly limited Physical Exam Physical Exam: gen aaox2 (didn't know year) nad heent nc at mmm breathing unlabored no accessory muscles good effort skin no rashes no pallor, does appear quite frey - probably baseline skin tone + some degree of underlying icterus. no focal neuro deficits. Results & Data Results & Data ([facility]) Vital Signs (Past 12 Hours) Vital Signs Temp Pulse Resp BP Pulse Ox 03/03/20 15:43 97.7 F 69 16 105/64 99 03/03/20 07:42 97.9 F 60 16 108/51 L 99 PG Care Time/CCT Total # of Minutes Spent Total Time Spent with Patient: Total time spent is greater than 50% in coordina tion of care (as documented) at patient's floor/unit and/or counseling patient: Coding Level of Care Code 03479 Subseq Hosp Care Lvl 3 Diagnoses Weakness generalized R53.1 Delirium R41.0 Hepatic encephalopathy K72.90 Alcoholic cirrhosis K70.30 Ascites presence: without ascites CKD (chronic kidney disease) N18.9 Chronic kidney disease stage: unspecified stage Status post endoscopic retrograde cholangiopancreatography Z98.890 Hyperbilirubinemia E80.6 Diabetes type 2, uncontrolled E11.65 Glycemic state: with hyperglycemia Idiopathic gout M10.00 Gout site: unspecified site Chronicity: unspecified Anemia D63.8 Anemia type: other cause Other causes of anemia: chronic disease, other Thrombocytopenia D69.6 Coagulopathy D68.9 Discharge planning issues Z02.9 (1) Alcoholic cirrhosis Ascites presence: without ascites Qualified Code(s): K70.30 - Alcoholic c irrhosis of liver without ascites (2) CKD (chronic kidney disease) Chronic kidney disease stage: unspecified stage Qualified Code(s): N18.9 - Chronic kidney disease, unspecified (3) Diabetes type 2, uncontrolled Glycemic state: with hyperglycemia Qualified Code(s): E11.65 - Type 2 diabetes mellitus with hyperglycemia (4) Idiopathic gout Gout site: unspecified site Chronicity: unspecified Qualified Code(s): M10.00 - Idiopathic gout, unspecified site (5) Anemia Anemia type: other cause Other causes of anemia: chronic disease, other Qualified Code(s): D63.8 - Anemia in other chronic diseases classified elsewhere
[2020-03-04 07:00] LABS: Albumin Level 2.3 gm/dl (3.4-5.0); BUN Creatinine Ratio 6.8 (10-20); Calcium 8.1 mg/dl (8.5-10.1); Creatinine Clr Calc Pharmacy 38.1 ml/min; Est GFR (Non-African American) 39.7; Potassium 4.1 mmol/L (3.5-5.1)
[2020-03-04 07:05] LABS: Albumin Globulin Ratio 0.9 (0.9-2); Bilirubin,Total 4.7 mg/dl (0.2-1); Globulin 2.6 gm/dl (2.5-4.0); Total Protein 4.9 gm/dl (6.4-8.2)
[2020-03-04] MEDS: LACTULOSE SYRUP 30 GM/45 ML UDP PO SCH ×4 (08:27→20:57)
[2020-03-04] MEDS: allopurinoL 300 MG TAB PO SCH (08:29)
[2020-03-04] MEDS: CHOLECALCIFEROL 1,000 UNITS 25 MCG TAB PO SCH (08:29)
[2020-03-04] MEDS: PROPRANOLOL HCL 10 MG TAB PO SCH ×2 (08:30→20:56)
[2020-03-04] MEDS: COLESTIPOL HCL 1 GM TAB PO SCH ×2 (08:30→22:54)
[2020-03-04] MEDS: rifAXIMin 550 MG TABLET PO SCH ×2 (08:30→20:56)
[2020-03-04] MEDS: INSULIN ASPART 100 UNITS/ML 3 ML PEN SC SCH ×4 (08:30→20:52)
[2020-03-04] MEDS: CIPROFLOXACIN / D5W 400 MG/200 ML BAG IV SCH (08:32)
[2020-03-04] MEDS ORDERED: INSULIN GLARGINE SOLOSTAR 100 UNITS/ML 3 ML PEN SC SCH (09:00)
[2020-03-04] MEDS ORDERED: SODIUM CHLOR 0.45% + 20MEQ KCL 20 MEQ/1,000 ML BAG IV SCH (09:30)
[2020-03-04] MEDS: INSULIN GLARGINE SOLOSTAR 100 UNITS/ML 3 ML PEN SC SCH (12:09)
--- NOTE | 2020-03-04 17:50 | Hospitalist Progress Note ---
Date of Service March 04, 2020 Assessment & Plan (1) Weakness generalized: deconditioning, malnutrition, delirium cycle -- but does seem to be improving some day-to-day -PT/OT, food, supportive care, [employer] principal eval appreciated (they also called to review plan!) (2) Delirium: suspect mental status is delirium (toxic encephalopathy as side effect to sedation for ERCP) given context and timing, rather than due to hepatic encephalopathy - certainly both could contribute, continue to follow, manage situation, supportive care etc - does appear to be showing ongoing improvement (3) Hepatic encephalopathy: see above ammonia was increased slightly - increased lactulose back to home dosing and follow - appears to be doing better continue lactulose and xifaxin (4) Alcoholic cirrhosis: with varices Cont propranolol 10mg PO BID, spironolactone 25mg PO daily (5) CKD (chronic kidney disease): Cr was rising somewhat - eating better but suspect was not drinking well - gentle IV fluids yesterday and today - repeat labs in AM (6) Status post endoscopic retrograde cholangiopancreatography: ERCP (02-27) with biliary and pancreatic sphincterectomies, CBD and pancreatic stent placements no signs of pancreatitis finished 5 days of post procedure cipro CT abd/pelvis today with pancreas protocol to rule out mass Needs repeat ERCP around 03-31 for stent exchange To have outpatient lithotripsy for pancreas stones To have referral to general surgery for cholecystectomy evaluation (7) Hyperbilirubinemia: liver disease plus obstruction - follow but as d/w GI not unexpected to be slightly fluctuant given cicumstances (8) Diabetes type 2, uncontrolled: HbA1C 6.0 in January ongoing titration of insulins, follow. (9) Idiopathic gout: No acute exacerbation. Continue allopurinol 300mg PO daily (10) Anemia: probably related to chronic liver disease no signs of blood loss (11) Thrombocytopenia: related to liver disease (12) Coagulopathy: related to liver disease (13) Discharge planning issues: PT/OT eval and treat is showing enough day to day progress that he might be able to go home with family support. assess tomorrow - very rational about what she may/may not be able to do and also reassured that if they were to get home and see that it was a struggle that he would be able to be brought back for snf placement. Admission and Anticipated Discharge Date Admission Date: March 01, 2020 Subjective seems to be doing better. eating well. extensive discussions w /dtrs about home vs [facility]. she feels like how he got around today she probably could help manage him at home - and then do home PT to get stronger. she is understandably worried about his mental status declining if he's in a facility that's not familiar with no visitors. notes that he is weak but since cognition is clearing she thinks they might be able to manage. looking to probably hire some degree of outside help as well. Review of Systems Review of Systems: All systems reviewed & are unremarkable except as noted in HPI & below somewhat limited but seems to have no complaints Physical Exam Physical Exam: gen pleasant nad - seems about as oriented as yesterday but not really as talkative - although when i first saw him he was napping, later it was when food just arrived and he was quite intent on eating (and eating rather voraciously!) heent nc at mmm breathing unlabored no accessory muscles good effort skin no rashes ongoing bronze frey appearance that is likely baseline skin tone + icterus. no focal neuro deficits Results & Data Results & Data ([facility]) Vital Signs (Past 12 Hours) Vital Signs Temp Pulse Resp BP Pulse Ox 03/04/20 15:26 97.7 F 67 18 133/77 97 03/04/20 08:12 97.5 F L 68 18 113/64 99 PG Care Time/CCT Total # of Minutes Spent Total Time Spent with Patient: Total time spent is greater than 50% in coordination of care (as documented) at patient's floor/unit and/or counseling patient: Coding Level of Care Code 42096 Subseq Hosp Care Lvl 3 Diagnoses Weakness generalized R53.1 Delirium R41.0 Hepatic encephalopathy K72.90 Alcoholic cirrhosis K70.30 Ascites presence: without ascites CKD (chronic kidney disease) N18.9 Chronic kidney disease stage: unspecified stage Status post endoscopic retrograde cholangiopancreatography Z98.890 Hyperbilirubinemia E80.6 Diabetes type 2, uncontrolled E11.65 Glycemic state: with hyperglycemia Idiopathic gout M10.00 Gout site: unspecified site Chronicity: unspecified Anemia D63.8 Anemia type: other cause Other causes of anemia: chronic disease, other Thrombocytopenia D69.6 Coagulopathy D68.9 Discharge planning issues Z02.9 (1) Alcoholic cirrhosis Ascites presence: without ascites Qualified Code(s): K70.30 - Alcoholic cirrhosis of liver without ascites (2) CKD (chronic kidney disease) Chronic kidney disease stage: unspecified stage Qualified Code(s): N18.9 - Chronic kidney disease, unspecified (3) Diabetes type 2, uncontrolled Glycemic state: with hyperglycemia Qualified Code(s): E11.65 - Type 2 diabetes mellitus with hyperglycemia (4) Idiopathic gout Gout site: unspecified site Chronicity: unspecified Qualified Code(s): M10.00 - Idiopathic gout, unspecified site (5) Anemia Anemia type: other cause Other causes of anemia: chronic disease, other Qualified Code(s): D63.8 - Anemia in other chronic diseases classified elsewhere
[2020-03-04] MEDS: PANTOprazole 40 MG TAB PO SCH (20:56)
[2020-03-05 06:27] LABS: Basophils # (auto) 0.01 K/uL (0-0.2); Basophils % (auto) 0.2 %; Eosinophils # (auto) 0.16 K/uL (0-0.5); Eosinophils % (auto) 2.8 %; Hematocrit (blood only) 22.5 % (42-52); Hemoglobin 7.7 g/dL (14.0-18.0); Lymphocytes # (auto) 1.32 K/uL (1.2-3.4); Lymphocytes % (auto) 22.9 %; Mean Corpuscular Hemoglobin 33.5 pg (25-34); Mean Corpuscular Hgb Conc 34.2 g/dL (32-36); Mean Corpuscular Volume 97.8 fL (80-100); Mean Platelet Volume 11.8 fL (7.4-10.4); Monocytes # (auto) 1.09 K/uL (0.11-0.59); Monocytes % (auto) 18.9 %; Neutrophils # (auto) 3.18 K/uL (1.4-6.5); Neutrophils % (auto) 55.2 %; Platelet Count 104 K/uL (130-400); RDW Coefficient of Variation 17.9 % (11.5-14.5); RDW Standard Deviation 63.3 fL (36.4-46.3); White Blood Count 5.76 K/uL (4.8-10.8)
[2020-03-05 06:55] LABS: Anisocytosis Present; Echinocytes 1+; Ovalocytes 1+
[2020-03-05 06:56] LABS: Albumin Level 2.3 gm/dl (3.4-5.0); BUN Creatinine Ratio 6.4 (10-20); Calcium 8.2 mg/dl (8.5-10.1); Creatinine Clr Calc Pharmacy 37.2 ml/min; Est GFR (African American) 44.7; Est GFR (Non-African American) 38.6
[2020-03-05 07:11] LABS: Albumin Globulin Ratio 0.8 (0.9-2); Bilirubin,Total 4.1 mg/dl (0.2-1); Globulin 2.8 gm/dl (2.5-4.0); Total Protein 5.1 gm/dl (6.4-8.2)
[2020-03-05] MEDS: PROPRANOLOL HCL 10 MG TAB PO SCH (08:00)
[2020-03-05] MEDS: PANTOprazole 40 MG TAB PO SCH (08:00)
[2020-03-05] MEDS: CHOLECALCIFEROL 1,000 UNITS 25 MCG TAB PO SCH (08:01)
[2020-03-05] MEDS: LACTULOSE SYRUP 30 GM/45 ML UDP PO SCH ×2 (08:01→12:36)
[2020-03-05] MEDS: allopurinoL 300 MG TAB PO SCH (08:01)
[2020-03-05] MEDS: rifAXIMin 550 MG TABLET PO SCH (08:01)
--- NOTE | 2020-03-05 08:21 | Hospitalist Progress Note ---
Date of Service March 05, 2020 Assessment & Plan (1) Stage 3b chronic kidney disease: (2) Diabetes type 2, controlled: Admission and Anticipated Discharge Date Admission Date: March 01, 2020 Results & Data Results & Data ([facility]) Vital Signs (Past 12 Hours) Vital Signs Temp Pulse Resp BP Pulse Ox 03/05/20 07:35 36.6 C 59 L 16 100/56 L 96 03/04/20 22:46 36.4 C L 64 16 112/57 L 100
[2020-03-05] MEDS: INSULIN GLARGINE SOLOSTAR 100 UNITS/ML 3 ML PEN SC SCH (08:24)
[2020-03-05] MEDS: INSULIN ASPART 100 UNITS/ML 3 ML PEN SC SCH ×2 (08:24→12:37)
[2020-03-05] MEDS: COLESTIPOL HCL 1 GM TAB PO SCH (10:23)
[2020-03-05 10:35] LABS: Hematocrit (blood only) 25.4 % (42-52); Hemoglobin 8.7 g/dL (14.0-18.0)
--- NOTE | 2020-03-05 15:22 | Discharge Summary ---
Date of Service March 05, 2020 Admission HPI Per Admitting Provider Neville Gerard is a 74 year old male with alcoholic liver cirrhosis and chronic hepatic encephalopathy who had planned outpatient ERCP/EUS by Dr Jaquez earlier today. Post ERCP he was diagnosed with transient worsening of his hepatic encephalopathy suspected to be due to anesthesia and missing lactulose dosing and his felt she could not manage to take him home in his current state. Unable to get any history from the patient as unaware of events throughout the day or his past medical history therefore history taken from prior notes. Patient underwent MRCP on 01/12 showing a markedly distended pancreatic duct to the level of the ampulla measuring 13mm in diameter. ERCP/EUS planned for today to revealed no esophageal varices, portal hypertensive gastropathy, Duodenitis, no sign of significant pathology in the ampulla, hyperechoic material consistent with sludge was visualized endosonographically in the common bile duct, Multiple stones were visualized endosonographically in the gallbladder, Pancreas atrophy with dilated PD up to 9 mm with large impacted stone in the head. Likely related to chronic pancreatitis. Admission Exam Per Admitting Provider Constitutional: + ill appearing (chronically); + not well nourished and no acute distress Eyes: sclerae not anicteric and normal pupil size Respiratory: normal respiratory effort, lungs clear to auscultation Cardiovascular: RRR, no murmur, no edema Gastrointestinal (Abdomen): Inspection/Auscultation: + abdomen distended and normal bowel sounds Percussion/Palpation: abdomen soft; abdomen nontender, no guarding and abdomen not rigid Musculoskeletal: no cyanosis or clubbing, extremities motor strength 5/5 Skin: + jaundice Neurologic: awake and + confused Motor/Sensory: + asterixis (b/l) Psychiatric: Orientation: alert and oriented to person (self); + not oriented to place and + not oriented to time Principal Diagnosis hepatic encephalopathy Discharge Exam Constitutional: in no apparent distress, sitting comfortably in chair. Eyes: EOMI, pupils equal and reactive bilaterally, no scleral icterus Cardiac: RRR, holosystolic murmur at apex, gallops or rubs. Normal S1, S2 Pulm: CTA BL, no wheezes, rhonchi, crackles or rubs, moving air well throughout both lungs Abd: soft, nontender, nondistended, normal bowel sounds, no rebound or guarding Extremities: 2+ peripheral pulses, no edema Neuro: no focal deficits, moving all 4 limbs, A&Ox3 Discharge Data Allergies Allergy/AdvReac Type Severity Reaction Status Date / Time No Known Allergies Allergy Unknown Verified 02/28/20 12:27 Consultations 03/04/20 16:48 Consult Case Management - Discharge Planning Routine Procedures Performed Operation Date: 02/28/20 07:00 Actual Procedures p Endoscopic Retrograde Cholangiopancreatogram(Not Applicable) - Brayden Jaquez MD s Upper Endoscopic Ultrasonography(Not Applicable) - Brayden Jaquez MD Ordered Studies 02/28/20 13:00 FL ERCP biliary ductal Routine 02/28/20 13:02 US upper EUS PACS images Routine 02/29/20 09:06 CT abdomen pelvis wo/w con Routine 03/01/20 10:01 CT head/brain wo con Routine Hospital Course (1) Syncope: 74 yo M with PMH alcoholic liver cirrhosis and chronic hepatic encephalopathy admitted to hospital for worsening of encephalopathy after outpatient ERCP/EUS and receiving anesthesia. ERCP showed pancreatic duct stricture with impacted stones causing upstream ductal dilation. Biliary and pancreatic sphincterotomy performed. Biliary stent placed in common bile duct, plastic pancreatic stent placed in ventral pancreatic duct. Repeat ERCP in [address] Abd: 1.2 cm stone at head of pancreas Hepatic Encephalopathy: improved with return to QID lactulose, frequent reorienting, and return to normal diet regimen. Started on pantoprazole 40 mg BI D for gastric protection. Notably dropped 2 units of Hg during hospital stay (10.2 on 03/02 to 8.7 on 03/05). FOBT negative, multiple bruises on body from needle sticks, no large hematomas. Recommend repeat CBC for Hg check in a few days and colonoscopy if in window to perform. Weakness: evaluated by PT/OT who recommended placement at SNF. Patient's felt she was able to take care of him at home with home physical therapy and wanted him home to be around their kids. Discussed that if she feels overwhelmed and unable to take care of him that he will be brought back to hospital. All other chronic conditions managed per home regimen. (2) Status post endoscopic retrograde cholangiopancreatography: (3) Alcoholic cirrhosis: (4) Hyperammonemia: (5) Hyperbilirubinemia: (6) Stage 3b chronic kidney disease: (7) Diabetes type 2, controlled: Total Time Total Time Spent Total Time Spent (In Minutes): see attending attestation Discharge Plan Discharge Items Patient Disposition: Home - Home Health Services Reason For Visit: LIVER CIRRHOSIS, HEPATIC ENCEPHALOPATHY Discharge Diagnosis: PD stone, PD stricture, PD and CBD stents placed. Activity: Resume your previous activity Non-emergency contact: Primary Care Provider Call non-emergency contact if: you have any medication questions and your symptoms worsen Follow-up/Referrals: Bernardo Caal MD [Primary Care Provider] - 03/09/20 9:30 am Diet: Carb Consistent or DM2 Addtl Attending Provider Instructions: You were evaluated in the hospital for weakness and confusion found to be secondary to an exacerbation of your liver disease. Gastroenterology saw you and performed an ERCP (endoscopic retroperitoneal cholangiopancreatogram) with ultrasound to see if there was a physical blockage or reason for the worsening disease. They did find a 1.2 cm stone in the head of pancreas which was confirmed on a CT abdomen. You were also started on lactulose 4 times a day to help with your confusion. At home, you can bring this down to 3 times a day if you are having too many stools/diarrhea. If you become MORE confused at 3 times per day, return to the 4 times per day regimen. You were also started on pantoprazole 40 mg twice a day for stomach ulcer protection. Continue this until your GI follow up. While you were in the hospital, we did notice that your Hemoglobin dropped 2 units. You had a large amount of bruises on your arms, and also had lots of blood draws to remove blood. Your test to check for blood in your stool was negative.. You should discuss and recheck this with your PCP in one week after discharge. If you have not had a colonoscopy in the last 10 years we recommend getting one done. If you notice that you are feeling very lightheaded, dizzy, having black or tarry stools, call your primary care provider or seek attention at an Emergency Room. IF YOU EXPERIENCE ANY OF THE FOLLOWING SYMPTOMS AFTER YOUR PROCEDURE CALL YOUR PRIMARY CARE PHYSICIAN IMMEDIATELY OR SEEK MEDICAL ATTENTION AT YOUR NEAREST EMERGENCY ROOM: 1. SEVERE abdominal pain or bloating 2. FEVER greater than 101.1 degrees within 24 hours after the procedure 3. LARGE AMOUNTS OF BLEEDING greater than 2-3 tablespoons. If you had a polyp/s removed or have hemorrhoids, a small amount of blood from the rectum is to be expected. 4. A localized irritation of the vein may occur at the site of the IV injection. Hot moist packs to the vein applied 4-6 times per day may reduce pain and irritation. A tender lump may develop and remain for several weeks to several months, but goes away eventually. If the area continues to be painful or becomes red and hot to the touch. For routine questions call [facility] at [phone]. * Avoid the use of alcohol and sedatives for 24 hours. Pending Studies at Discharge: No Stand-Alone Forms: Anesthesia/Sedation, Adult, [facility], Smoking Cessation Medications and DC Order Prescriptions: New pantoprazole 40 mg Tablet,Delayed Release (Dr/Ec) 40 mg PO BID 30 Days Qty: 60 RF: 0 Continued (DME) pen needle, diabetic [BD Ultra-Fine Vero Pen Needle] 32 gauge x 5/32" needle See Dose Instructions .ROUTE .MEDSUPPLY Qty: 400 RF: 3 Tresiba FlexTouch U-100 100 unit/mL (3 mL) insulin pen 12 units subcut QAM Qty: 15 RF: 3 allopurinol 300 mg tablet 300 mg PO QAM Qty: 90 RF: 3 (DME) OneTouch Ultra Blue Test Strip Strip See Rx Instructions .ROUTE .MEDSUPPLY Qty: 300 RF: 3 propranolol 10 mg tablet 10 mg PO BID Qty: 180 RF: 3 spironolactone 25 mg tablet 25 mg PO DAILY PRN (Reason: edema) Qty: 30 RF: 6 colestipol [Colestid] 1 gram tablet 1 g PO BID Qty: 60 RF: 5 (DME) lancets [OneTouch Delica Lancets] 30 gauge misc See Dose Instructions .ROUTE .MEDSUPPLY Qty: 25 RF: 0 cholecalciferol (vitamin D3) 25 mcg (1,000 unit) capsule 2,000 unit PO QAM RF: 0 Zirgan 0.15 % gel 1 ea OPL 5XD RF: 0 insulin aspart U-100 [Novolog Flexpen U-100 Insulin] 100 unit/mL (3 mL) insulin pen 1 - 50 unit subcut AC RF: 0 lactulose 10 gram/15 mL solution 45 ml PO QID RF: 0 Xifaxan 550 mg tablet 550 mg PO BID RF: 0 Discharge Orders: Discharge Order (Routine); Ordered 03/05/20 Ordered By: Latasha Polo/Other Patient Handouts: DVT Post Op Prevention Admission Data Admit Date/Time: 03/01/20 13:57 Attending Provider: Deepak Moran Admit Provider: Rex Andres Primary Care Provider: Bernardo Caal Other Providers: Mary Pedersen [facility] ; Latasha Santillan ; [facility] Other Interventions: Discharge Summary Assessment (RN) Last Done: 03/05/20 15:19 Supervising Physician Co-Signing Physician Notes Attending attestation Pt seen and examined in concert with Dr. Santillan. In agreement with the documented findings as noted in the resident documentation with any exceptions or additions as noted here. 74 y/o male h/o CKD IIIb etOH cirrhosis w/ hepatic encephalopathy, DMII p/w delirium likely following sedation with ERCP Tolerating POI well and feeling subjectively like he's getting stronger gradually but still will need help. On examination, S1/S2 nl RRR no MCG. CTAB. Abd NT/ND BS+ve Weakness, generalized; deconditioning - PT/OT, supportive nutritional plan reviewed with family by stone setter apprentice in hospital Delirium - improvement of mental status gradually per documentation and today Alcoholic cirrhosis w/ hepatic encephalopathy - continue lactulose and rifaxamin, propranolol and spironolactone CKD IIIb - stable, avoid nephrotoxic medications Else see resident documentation as noted. 35 minutes was spent in the discharge of the patient including evaluation, education and coordination of discharge services. Resident Activity Tracking Resident Involvement: Resident Care Provided Care Provided: Adult Hospital Medicine
[2020-03-05] MEDS ORDERED: INSULIN GLARGINE SOLOSTAR 100 UNITS/ML 3 ML PEN SC SCH (21:00)
== END 2020-03-05 16:48 | disposition home health service (06) | DRG 441 ==
LOC: ASU 12:04 → 3W 12:04 → SUATTDRO 19:46

== ENCOUNTER 2020-03-15 10:17 | Inpatient (IN) ==
--- NOTE | 2020-03-15 10:30 | Emergency Department Note ---
Impression & Plan Hyperammonemia, Alcoholic cirrhosis, Thrombocytopenia, Acidosis, lactic ED Provider Note NAME: FAVIAN AWAN AGE: 74 SEX: M : 1945 ARRIVES VIA: Walk-In INFORMANT: Patient, ED PROVIDER(S): Gregg Miles MD Chief Complaint: Weakness, decreased mentation HPI: History is limited given the patient's acute mentation and the history is obtained from family number who is at bedside. She reports that the patient did have a recent admission for a likely pancreatic stone status post ERCP and subsequent stent placement without removal of the stone. Patient did have a 5- day hospital stay until March 05 was subsequently discharged. Over does state that home health has been involved and up until Thursday the patient was able to participate but has been increasingly weak. Patient does have a known history of liver disease and is on lactulose. Patient apparently has been compliant with medications and able to take these. Patient did drink 2 protein shakes yesterday. No reported fevers chills chest pain shortness of breath nausea or vomiting. Loose stools secondary to lactulose but no blood. Patient does have reported history of anemia. ROS: See HPI for pertinent positives and negatives. A total of 10 systems were reviewed and otherwise negative. Past medical history: See below Surgical history: See below Social history: See below Physical Exam: GENERAL: Ill in appearance, responds to physical stimuli. EYE EXAM: Normal conjunctiva. PERRL, no anisocoria and EOM's grossly intact w/o pain. No obvious jaundice noted. NECK: Supple, no nuchal rigidity, no adenopathy, non-tender. No signs of meningismus. LUNGS: Clear to auscultation. Normal chest wall mechanics. HEART: NSR, no MRG. ABDOMEN: Abdomen soft, non-tender, normo-active bowel sounds, no masses, no rebound or guarding. BACK: No CVA TTP. SKIN: No rashes and scattered bruising to the bilateral upper extremities, compartments are soft. UPPER EXTREMITIES: Upper extremities are grossly normal. LOWER EXTREMITIES: Grossly normal, no edema. NEURO EXAM: Eyes closed, maintaining airway, moves all 4 extremities to pain, does make groaning sounds. Differential diagnoses: Infection, dehydration, metabolic abnormality, hypo/h yperglycemia, electrolyte disturbance, anemia, hypoxia, cardiac sources, intracerebral event, toxicologic, neurologic, as well as other pathologies. Course: Patient was seen and evaluated the bedside. Full history physical exam was performed. EKG: Indication: Decreased mentation Sinus bradycardia, rate of 51, normal intervals with QTC, normal axis, T wave inversion in lead III. No significant change from comparison EKG February 26, 2020. Imaging Studies: Radiology results as stated below per my review in the radiologist's interpretation: CT OF THE HEAD WITHOUT CONTRAST CLINICAL HISTORY: decreased mentation. Weakness. COMPARISON STUDY: Head CT March 01, 2020. CT DOSE: 614.27 mGy.cm TECHNIQUE: Helical axial images of the head were obtained without IV contrast. Automated exposure control was utilized for the study. A dose lowering technique was utilized adhering to the principles of ALARA. FINDINGS: No acute intracranial hemorrhage, midline shift or mass effect is present. The ventricular system is stable. White matter hypodensities are unchanged and suggest small vessel disease. The basal cisterns are patent. No extra-axial collections are present. There are no findings to suggest acute dural sinus thrombosis or acute territorial infarct. No significant calvarial abnormalities are present. Visualized portions of the sinuses and mastoid air cells are clear. IMPRESSION: No acute intracranial findings. ACT 112: Negative or not required by law. Electronically signed by: John Sandy M.D. 03/15/2020 11:22 AM Dictated: 03/15/20 1111 Transcribed: 03/15/20 1111 SINGLE VIEW CHEST CLINICAL HISTORY: Sepsis. FINDINGS: An AP, portable, semierect chest radiograph is compared to study dated 02/26/2020. The examination is degraded by portable technique and patient rotation. The heart is enlarged noting atherosclerotic calcification of the th oracic aorta. The pulmonary vasculature is noncongested. Atelectasis is seen at the lung bases. No airspace consolidation or large pleural effusion is identified. No pneumothorax is seen. The skeletal structures are osteopenic. The bony thorax is grossly intact. Degenerative change is noted in the shoulders. IMPRESSION: Cardiomegaly with no active disease in the chest. ACT 112: Negative or not required by law. Electronically signed by: Lele Vera M.D. 03/15/2020 10:56 AM Dictated: 03/15/20 1054 Transcribed: 03/15/20 1054 Cardiac monitoring: An order was placed for continuous cardiac monitoring. The monitor shows a rate of 48 with sinus bradycardia rhythm. MDM: Patient did present with family ready to concern for increasing weakness. Blood work was obtained along with blood and urine cultures, lactate. IV fluids were administered. Ammonia coags type and screen were also ordered. The patient's blood count showed some pancytopenia. Patient does have an INR of 1.7. Creatinine 1.5 virtually at baseline. The patient does have mildly elevated lactate but did receive some IV fluids. Ammonia is 136. CT the head is negative along with chest x-ray. Given the patient's hyperammonemia and decreased mentation believe the patient benefit from inpatient treatment. I did speak the on-call hospitalist Dr. Viviana MD. Patient was admitted to the medicine service. Past Med/Surg History Medical History Anemia of chronic disease Aortic stenosis, moderate Cardiac murmur x 20+ years; per 07/08/18 ECHO= (MARQUEZ= 1.3-1.5 cm; AV mean PG =14.9 mmHg; AV velocity =2.664 m/s) Cirrhosis 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 CKD (chronic kidney disease) Dehydration Was in ER 02/25 for dehydration and sugar was low, lightheaded and was seen in [facility] Diabetes type 2, controlled Esophageal varices Herpes zoster Left eye. Evaluated by PCP ([facility]) 02/16. Rx'd Valtrex x 7 days, referred to opth, now on eye drop. No open sores or redness, lesions are crusted over. 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 avg ~75k Surgical History History of colonoscopy (~2015) History of esophagogastroduodenoscopy (EGD) (~05/2019) History of hernia repair History of rectal surgery History of tonsillectomy and adenoidectomy Family History Unknown Allergic rhinitis Asthma Father Family history of diabetes mellitus Brother Family history of diabetes mellitus Other Alcohol abuse Social History Smoking Status: Unknown if ever smoked Second Hand Exposure: No; Hx Alcohol Use: No Hx Substance Use: No Preferred Language: Lithuanian Communication Ability: Impaired Drosser Required: No Beliefs That Will Affect Care: None marital status: Current Living Situation: Spouse current occupational status: retired Feels Safe at Home: Yes Seatbelt Use: always Sunscreen Use: No Assistive Devices: Walker Allergies Allergies Allergy/AdvReac Type Severity Reaction Status Date / Time No Known Allergies Allergy Unknown Verified 03/15/20 11:32 Home Meds Home Medications Medication Instructions Recorded Confirmed lancets 30 gauge #25 ea 12/01/18 03/13/20 cholecalciferol (vitamin D3) 25 2,000 unit PO QAM cap 12/22/19 03/15/20 mcg (1,000 unit) capsule Zirgan 1 ea OPL 5XD 02/26/20 03/15/20 Xifaxan 550 mg PO BID 02/27/20 03/15/20 insulin aspart U-100 [Novolog 1 - 50 unit SUBCUT TIDM 02/27/20 03/15/20 Flexpen U-100 Insulin] lactulose 45 ml PO QID 02/27/20 03/15/20 Previous Rx's Medication Instructions Recorded Tresiba FlexTouch U-100 100 12 units SUBCUT QAM #15 ml NS 08/03/19 unit/mL (3 mL) subcutaneous pen allopurinol 300 mg tablet 300 mg PO QAM #90 tab 08/19/19 blood sugar diagnostic #300 ea 02/07/20 propranolol 10 mg tablet 10 mg PO BID #180 tab 02/09/20 spironolactone 25 mg tablet 25 mg PO DAILY PRN #30 tab 02/21/20 colestipol 1 gram tablet 1 g PO BID #60 tab 02/23/20 pantoprazole 40 mg PO BID 30 Days #60 tab 03/05/20 BD Ultra-Fine Vero Pen Needle 32 #400 ea NS 03/13/20 gauge x " Results & Data (ED) Vital Signs Vital Signs - 24 hr 03/15/20 10:25 03/15/20 10:35 03/15/20 10:39 Temperature 36.3 C L Temperature Source Oral Pulse Rate 52 L 52 L 55 L Pulse Rate [Apical] Pulse Rate from SpO2 Sensor 52 L 51 L Pulse Rhythm Regular Pulse Rhythm [Apical] Pulse Strength Normal Pulse Strength [Apical] Respiratory Rate 16 19 18 Respiratory Effort / Characteristics Non-Labored Spontaneous Respiratory Depth Normal Respiratory Pattern Regular Blood Pressure 128/81 132/64 Blood Pressure [Right Arm] Blood Pressure Mean 96 86 Blood Pressure Mean [Right Arm] Blood Pressure Position Sitting Blood Pressure Position [Right Arm] Pulse Oximetry 99 98 97 Oxygen Delivery Method Room Air Sepsis Recent Fever Within 48 Hours No Sepsis New/Unexplained Change in Mental Status No Sepsis Action Taken by Nursing No Action Required 03/15/20 10:40 03/15/20 10:50 03/15/20 11:00 Temperature Temperature Source Pulse Rate 50 L 50 L 50 L Pulse Rate [Apical] Pulse Rate from SpO2 Sensor 50 L 50 L 50 L Pulse Rhythm Pulse Rhythm [Apical] Pulse Strength Pulse Strength [Apical] Respiratory Rate 19 12 12 Respiratory Effort / Characteristics Respiratory Depth Respiratory Pattern Blood Pressure Blood Pressure [Right Arm] Blood Pressure Mean Blood Pressure Mean [Right Arm] Blood Pressure Position Blood Pressure Position [Right Arm] Pulse Oximetry 99 98 98 Oxygen Delivery Method Sepsis Recent Fever Within 48 Hours Sepsis New/Unexplained Change in Mental Status Sepsis Action Taken by Nursing 03/15/20 11:10 03/15/20 11:20 03/15/20 11:30 Temperature Temperature Source Pulse Rate 50 L 53 L 55 L Pulse Rate [Apical] Pulse Rate from SpO2 Sensor Pulse Rhythm Pulse Rhythm [Apical] Pulse Strength Pulse Strength [Apical] Respiratory Rate 11 L 16 17 Respiratory Effort / Characteristics Respiratory Depth Respiratory Pattern Blood Pressure Blood Pressure [Right Arm] Blood Pressure Mean Blood Pressure Mean [Right Arm] Blood Pressure Position Blood Pressure Position [Right Arm] Pulse Oximetry Oxygen Delivery Method Sepsis Recent Fever Within 48 Hours Sepsis New/Unexplained Change in Mental Status Sepsis Action Taken by Nursing 03/15/20 11:40 03/15/20 11:50 03/15/20 12:00 Temperature Temperature Source Pulse Rate 50 L 50 L 51 L Pulse Rate [Apical] Pulse Rate from SpO2 Sensor Pulse Rhythm Pulse Rhythm [Apical] Pulse Strength Pulse Strength [Apical] Respiratory Rate 12 16 23 Respiratory Effort / Characteristics Respiratory Depth Respiratory Pattern Blood Pressure Blood Pressure [Right Arm] Blood Pressure Mean Blood Pressure Mean [Right Arm] Blood Pressure Position Blood Pressure Position [Right Arm] Pulse Oximetry Oxygen Delivery Method Sepsis Recent Fever Within 48 Hours Sepsis New/Unexplained Change in Mental Status Sepsis Action Taken by Nursing 03/15/20 12:10 03/15/20 12:16 03/15/20 12:20 Temperature Temperature Source Pulse Rate 49 L 51 L 48 L Pulse Rate [Apical] Pulse Rate from SpO2 Sensor 50 L 49 L Pulse Rhythm Pulse Rhythm [Apical] Pulse Strength Pulse Strength [Apical] Respiratory Rate 18 12 16 Respiratory Effort / Characteristics Respiratory Depth Respiratory Pattern Blood Pressure 117/58 L Blood Pressure [Right Arm] Blood Pressure Mean 80 Blood Pressure Mean [Right Arm] Blood Pressure Position Blood Pressure Position [Right Arm] Pulse Oximetry 100 98 Oxygen Delivery Method Sepsis Recent Fever Within 48 Hours Sepsis New/Unexplained Change in Mental Status Sepsis Action Taken by Nursing 03/15/20 12:30 03/15/20 12:40 03/15/20 12:50 Temperature Temperature Source Pulse Rate 54 L 49 L 76 Pulse Rate [Apical] Pulse Rate from SpO2 Sensor 53 L 49 L 57 L Pulse Rhythm Pulse Rhythm [Apical] Pulse Strength Pulse Strength [Apical] Respiratory Rate 14 12 16 Respiratory Effort / Characteristics Respiratory Depth Respiratory Pattern Blood Pressure 122/62 Blood Pressure [Right Arm] Blood Pressure Mean 84 Blood Pressure Mean [Right Arm] Blood Pressure Position Blood Pressure Position [Right Arm] Pulse Oximetry 99 97 100 Oxygen Delivery Method Sepsis Recent Fever Within 48 Hours Sepsis New/Unexplained Change in Mental Status Sepsis Action Taken by Nursing 03/15/20 13:00 03/15/20 13:10 03/15/20 13:20 Temperature Temperature Source Pulse Rate 52 L 50 L 49 L Pulse Rate [Apical] Pulse Rate from SpO2 Sensor Pulse Rhythm Pulse Rhythm [Apical] Pulse Strength Pulse Strength [Apical] Respiratory Rate 15 13 14 Respiratory Effort / Characteristics Respiratory Depth Respiratory Pattern Blood Pressure Blood Pressure [Right Arm] Blood Pressure Mean Blood Pressure Mean [Right Arm] Blood Pressure Position Blood Pressure Position [Right Arm] Pulse Oximetry Oxygen Delivery Method Sepsis Recent Fever Within 48 Hours Sepsis New/Unexplained Change in Mental Status Sepsis Action Taken by Nursing 03/15/20 13:21 03/15/20 13:22 03/15/20 13:30 Temperature Temperature Source Pulse Rate 59 L Pulse Rate [Apical] Pulse Rate from SpO2 Sensor Pulse Rhythm Pulse Rhythm [Apical] Pulse Strength Pulse Strength [Apical] Respiratory Rate 15 Respiratory Effort / Characteristics Non-Labored Respiratory Depth Respiratory Pattern Blood Pressure Blood Pressure [Right Arm] Blood Pressure Mean Blood Pressure Mean [Right Arm] Blood Pressure Position Blood Pressure Position [Right Arm] Pulse Oximetry 95 Oxygen Delivery Method Room Air Room Air Sepsis Recent Fever Within 48 Hours Sepsis New/Unexplained Change in Mental Status Sepsis Action Taken by Nursing 03/15/20 13:31 03/15/20 13:40 03/15/20 13:48 Temperature Temperature Source Pulse Rate 52 L 53 L 51 L Pulse Rate [Apical] Pulse Rate from SpO2 Sensor 52 L 52 L Pulse Rhythm Regular Pulse Rhythm [Apical] Pulse Strength Pulse Strength [Apical] Respiratory Rate 13 11 L 21 Respiratory Effort / Characteristics Respiratory Depth Respiratory Pattern Blood Pressure 110/61 Blood Pressure [Right Arm] Blood Pressure Mean 79 Blood Pressure Mean [Right Arm] Blood Pressure Position Blood Pressure Position [Right Arm] Pulse Oximetry 100 98 97 Oxygen Delivery Method Room Air Sepsis Recent Fever Within 48 Hours Sepsis New/Unexplained Change in Mental Status Sepsis Action Taken by Nursing 03/15/20 13:49 03/15/20 13:50 03/15/20 14:00 Temperature Temperature Source Pulse Rate 53 L 52 L Pulse Rate [Apical] 51 L Pulse Rate from SpO2 Sensor 51 L 52 L Pulse Rhythm Pulse Rhythm [Apical] Regular Pulse Strength Pulse Strength [Apical] Normal Respiratory Rate 22 17 13 Respiratory Effort / Characteristics Non-Labored Non-Labored Respiratory Depth Normal Respiratory Pattern Regular Blood Pressure 122/61 Blood Pressure [Right Arm] 110/61 Blood Pressure Mean 68 Blood Pressure Mean [Right Arm] 77 Blood Pressure Position Blood Pressure Position [Right Arm] Lying Pulse Oximetry 97 97 99 Oxygen Delivery Method Room Air Room Air Sepsis Recent Fever Within 48 Hours Sepsis New/Unexplained Change in Mental Status Sepsis Action Taken by Nursing 03/15/20 14:10 Temperature Temperature Source Pulse Rate 54 L Pulse Rate [Apical] Pulse Rate from SpO2 Sensor 52 L Pulse Rhythm Pulse Rhythm [Apical] Pulse Strength Pulse Strength [Apical] Respiratory Rate 16 Respiratory Effort / Characteristics Respiratory Depth Respiratory Pattern Blood Pressure Blood Pressure [Right Arm] Blood Pressure Mean Blood Pressure Mean [Right Arm] Blood Pressure Position Blood Pressure Position [Right Arm] Pulse Oximetry 97 Oxygen Delivery Method Sepsis Recent Fever Within 48 Hours Sepsis New/Unexplained Change in Mental Status Sepsis Action Taken by [facility] Medications Current Medication List: was personally reviewed by me Laboratory Data Attestation: I reviewed the patient's lab results. Result diagrams: 03/15/20 12:25 03/15/20 12:25 Lab Results 03/15/20 03/15/20 03/15/20 Range/Units 12:25 12:25 12:25 WBC 4.54 L (4.8-10.8) K/uL RBC 2.69 L (4.7-6.1) M/uL Hgb 8.9 L (14.0-18.0) g/dL Hct 26.6 L (42-52) % MCV 98.9 (80-100) fL MCH 33.1 (25-34) pg MCHC 33.5 (32-36) g/dL RDW Std Deviation 62.2 H (36.4-46.3) fL RDW Coeff of Christoph 17.4 H (11.5-14.5) % Plt Count 77 L (130-400) K/uL MPV 11.1 H (7.4-10.4) fL Immature Gran % (Auto) 0.0 % Neut % (Auto) 62.2 % Lymph % (Auto) 24.4 % Bacon % (Auto) 11.0 % Eos % (Auto) 2.2 % Baso % (Auto) 0.2 % Neut # (Auto) 2.82 (1.4-6.5) K/uL Lymph # (Auto) 1.11 L (1.2-3.4) K/uL Bacon # (Auto) 0.50 (0.11-0.59) K/uL Eos # (Auto) 0.10 (0-0.5) K/uL Baso # (Auto) 0.01 (0-0.2) K/uL Immature Gran # (Auto) 0.00 (0.00-0.02) K/uL Platelet Estimate Decreased L (Normal) Acanthocytes (Spur) 1+ PT 17.2 H (9.0-12.0) Seconds INR 1.7 H (0.9-1.1) APTT 32.2 H (21.0-31.0) Seconds PTT Ratio 1.2 Sodium (136-145) mmol/L Potassium (3.5-5.1) mmol/L Chloride (98-107) mmol/L Carbon Dioxide (21-32) mmol/L Anion Gap (3-11) BUN (7-18) mg/dl Creatinine (0.6-1.4) mg/dl Est Cr Clr Drug Dosing ml/min Est GFR ( Amer) Est GFR (Non-Af Amer) BUN/Creatinine Ratio (10-20) Glucose (70-99) mg/dl Lactate (0.4-2.0) mmol/L Calcium (8.5-10.1) mg/dl Magnesium (1.8-2.4) mg/dl Total Bilirubin (0.2-1) mg/dl AST (15-37) U/L ALT (12-78) U/L Alkaline Phosphatase (45-117) U/L Ammonia (11-32) umol/L Total Protein (6.4-8.2) gm/dl Albumin (3.4-5.0) gm/dl Globulin (2.5-4.0) gm/dl Albumin/Globulin Ratio (0.9-2) Urine Color Urine Appearance (Clear) Urine pH (4.5-7.5) Ur Specific [place] (1.000-1.030) Urine Protein (Negative) Urine Glucose (UA) (Negative) Urine Ketones (Negative) Urine Blood (Negative) Urine Nitrite (Negative) Urine Bilirubin (Negative) Urine Urobilinogen (Negative) Ur Leukocyte Esterase (Negative) Blood Type A Positive Antibody Screen NEGATIVE 03/15/20 03/15/20 03/15/20 Range/Units 12:25 12:35 12:35 WBC (4.8-10.8) K/uL RBC (4.7-6.1) M/uL Hgb (14.0-18.0) g/dL Hct (42-52) % MCV (80-100) fL MCH (25-34) pg MCHC (32-36) g/dL RDW Std Deviation (36.4-46.3) fL RDW Coeff of Christoph (11.5-14.5) % Plt Count (130-400) K/uL MPV (7.4-10.4) fL Immature Gran % (Auto) % Neut % (Auto) % Lymph % (Auto) % Bacon % (Auto) % Eos % (Auto) % Baso % (Auto) % Neut # (Auto) (1.4-6.5) K/uL Lymph # (Auto) (1.2-3.4) K/uL Bacon # (Auto) (0.11-0.59) K/uL Eos # (Auto) (0-0.5) K/uL Baso # (Auto) (0-0.2) K/uL Immature Gran # (Auto) (0.00-0.02) K/uL Platelet Estimate (Normal) Acanthocytes (Spur) PT (9.0-12.0) Seconds INR (0.9-1.1) APTT (21.0-31.0) Seconds PTT Ratio Sodium 139 (136-145) mmol/L Potassium 4.7 (3.5-5.1) mmol/L Chloride 108 H (98-107) mmol/L Carbon Dioxide 24 (21-32) mmol/L Anion Gap 7.0 (3-11) BUN 13 (7-18) mg/dl Creatinine 1.50 H (0.6-1.4) mg/dl Est Cr Clr Drug Dosing 41.9 ml/min Est GFR ( Amer) 51.7 Est GFR (Non-Af Amer) 44.6 BUN/Creatinine Ratio 8.6 L (10-20) Glucose 182 H (70-99) mg/dl Lactate 3.0 H* (0.4-2.0) mmol/L Calcium 8.8 (8.5-10.1) mg/dl Magnesium 1.8 (1.8-2.4) mg/dl Total Bilirubin 5.8 H (0.2-1) mg/dl AST 33 (15-37) U/L ALT 39 (12-78) U/L Alkaline Phosphatase 119 H (45-117) U/L Ammonia 136.0 H (11-32) umol/L Total Protein 5.9 L (6.4-8.2) gm/dl Albumin 2.3 L (3.4-5.0) gm/dl Globulin 3.6 (2.5-4.0) gm/dl Albumin/Globulin Ratio 0.6 L (0.9-2) Urine Color Urine Appearance (Clear) Urine pH (4.5-7.5) Ur Specific [place] (1.000-1.030) Urine Protein (Negative) Urine Glucose (UA) (Negative) Urine Ketones (Negative) Urine Blood (Negative) Urine Nitrite (Negative) Urine Bilirubin (Negative) Urine Urobilinogen (Negative) Ur Leukocyte Esterase (Negative) Blood Type Antibody Screen 03/15/20 03/15/20 Range/Units 14:10 14:23 WBC (4.8-10.8) K/uL RBC (4.7-6.1) M/uL Hgb (14.0-18.0) g/dL Hct (42-52) % MCV (80-100) fL MCH (25-34) pg MCHC (32-36) g/dL RDW Std Deviation (36.4-46.3) fL RDW Coeff of Christoph (11.5-14.5) % Plt Count (130-400) K/uL MPV (7.4-10.4) fL Immature Gran % (Auto) % Neut % (Auto) % Lymph % (Auto) % Bacon % (Auto) % Eos % (Auto) % Baso % (Auto) % Neut # (Auto) (1.4-6.5) K/uL Lymph # (Auto) (1.2-3.4) K/uL Bacon # (Auto) (0.11-0.59) K/uL Eos # (Auto) (0-0.5) K/uL Baso # (Auto) (0-0.2) K/uL Immature Gran # (Auto) (0.00-0.02) K/uL Platelet Estimate (Normal) Acanthocytes (Spur) PT (9.0-12.0) Seconds INR (0.9-1.1) APTT (21.0-31.0) Seconds PTT Ratio Sodium (136-145) mmol/L Potassium (3.5-5.1) mmol/L Chloride (98-107) mmol/L Carbon Dioxide (21-32) mmol/L Anion Gap (3-11) BUN (7-18) mg/dl Creatinine (0.6-1.4) mg/dl Est Cr Clr Drug Dosing ml/min Est GFR ( Amer) Est GFR (Non-Af Amer) BUN/Creatinine Ratio (10-20) Glucose (70-99) mg/dl Lactate 2.9 H* (0.4-2.0) mmol/L Calcium (8.5-10.1) mg/dl Magnesium (1.8-2.4) mg/dl Total Bilirubin (0.2-1) mg/dl AST (15-37) U/L ALT (12-78) U/L Alkaline Phosphatase (45-117) U/L Ammonia (11-32) umol/L Total Protein (6.4-8.2) gm/dl Albumin (3.4-5.0) gm/dl Globulin (2.5-4.0) gm/dl Albumin/Globulin Ratio (0.9-2) Urine Color Dark Yellow Urine Appearance Clear (Clear) Urine pH 5.5 (4.5-7.5) Ur Specific [place] 1.016 (1.000-1.030) Urine Protein Negative (Negative) Urine Glucose (UA) Negative (Negative) Urine Ketones Negative (Negative) Urine Blood Negative (Negative) Urine Nitrite Negative (Negative) Urine Bilirubin Negative (Negative) Urine Urobilinogen Negative (Negative) Ur Leukocyte Esterase Negative (Negative) Blood Type Antibody Screen Administered Medications Discontinued Medications Sodium Chloride (Nss 1000ml) 1,000 mls @ 999 mls/hr IV .[id number] Stop: 03/15/20 11:45 Last Infusion: 03/15/20 14:38 Dose: 0 mls/hr Documented by: [id number] Admin: 03/15/20 13:34 Dose: 999 mls/hr Documented by: [id number] Discharge Plan Visit Data Chief Complaint: Weakness Stated Complaint: TROUBLE WALKING/WEAKNESS ED Provider: Gregg Miles Discharge Problem: Hyperammonemia, Alcoholic cirrhosis, Thrombocytopenia, Acidosis, lactic Forms Stand Alone Forms: [facility] [employer] [place] Prescriptions Prescriptions: No Action Tresiba FlexTouch U-100 100 unit/mL (3 mL) insulin pen 12 units subcut QAM Qty: 15 RF: 3 allopurinol 300 mg tablet 300 mg PO QAM Qty: 90 RF: 3 (DME) OneTouch Ultra Blue Test Strip Strip See Rx Instructions .ROUTE .MEDSUPPLY Qty: 300 RF: 3 propranolol 10 mg tablet 10 mg PO BID Qty: 180 RF: 3 spironolactone 25 mg tablet 25 mg PO DAILY PRN (Reason: edema) Qty: 30 RF: 6 colestipol [Colestid] 1 gram tablet 1 g PO BID Qty: 60 RF: 5 (DME) pen needle, diabetic [BD Ultra-Fine Vero Pen Needle] 32 gauge x 5/32" needle See Dose Instructions .ROUTE .MEDSUPPLY Qty: 400 RF: 3 (DME) lancets [OneTouch Delica Lancets] 30 gauge misc See Dose Instructions .ROUTE .MEDSUPPLY Qty: 25 RF: 0 cholecalciferol (vitamin D3) 25 mcg (1,000 unit) capsule 2,000 unit PO QAM RF: 0 Zirgan 0.15 % gel 1 ea OPL 5XD RF: 0 insulin aspart U-100 [Novolog Flexpen U-100 Insulin] 100 unit/mL (3 mL) insulin pen 1 - 50 unit subcut TIDM RF: 0 lactulose 10 gram/15 mL solution 45 ml PO QID RF: 0 Xifaxan 550 mg tablet 550 mg PO BID RF: 0 pantoprazole 40 mg Tablet,Delayed Release (Dr/Ec) 40 mg PO BID 30 Days Qty: 60 RF: 0 Discharge Problem: Alcoholic cirrhosis Qualifiers: Ascites presence: unspecified Qualified Code(s): K70.30 - Alcoholic cirrhosis of liver without ascites
[2020-03-15] MEDS ORDERED: SODIUM CHLORIDE 0.9% 1000ML 1,000 ML IV SCH (10:45)
--- NOTE | 2020-03-15 10:57 | XRay Report ---
SINGLE VIEW CHEST CLINICAL HISTORY: Sepsis. FINDINGS: An AP, portable, semierect chest radiograph is compared to study dated 02/26/2020. The exam ination is degraded by portable technique and patient rotation. The heart is enlarged noting athero sclerotic calcification of the thoracic aorta. The pulmonary vasculature is noncongested. Atelectasis is seen at the lung bases. No airspace consolidation or large pleural effusion is identified. No pne umothorax is seen. The skeletal structures are osteopenic. The bony thorax is grossly intact. Degener ative change is noted in the shoulders. IMPRESSION: Cardiomegaly with no active disease in the chest. ACT 112: Negative or not required by law. Electronically signed by: Lele Vera M.D. 03/15/2020 10:56 AM
--- NOTE | 2020-03-15 11:23 | CT Scan Report ---
CT OF THE HEAD WITHOUT CONTRAST CLINICAL HISTORY: decreased mentation. Weakness. COMPARISON STUDY: Head CT March 01, 2020. CT DOSE: 614.27 mGy.cm TECHNIQUE: Helical axial images of the head were obtained without IV contrast. Automated exposure con trol was utilized for the study. A dose lowering technique was utilized adhering to the principles o f ALARA. FINDINGS: No acute intracranial hemorrhage, midline shift or mass effect is present. The ventricular system is stable. White matter hypodensities are unchanged and suggest small vessel disease. The basa l cisterns are patent. No extra-axial collections are present. There are no findings to suggest acute dural sinus thrombosis or acute territorial infarct. No significant calvarial abnormalities are pres ent. Visualized portions of the sinuses and mastoid air cells are clear. IMPRESSION: No acute intracranial findings. ACT 112: Negative or not required by law. Electronically signed by: John Sandy M.D. 03/15/2020 11:22 AM
[2020-03-15 12:48] LABS: Hematocrit (blood only) 26.6 % (42-52); Hemoglobin 8.9 g/dL (14.0-18.0); Mean Corpuscular Hemoglobin 33.1 pg (25-34); Mean Corpuscular Hgb Conc 33.5 g/dL (32-36); Mean Corpuscular Volume 98.9 fL (80-100); RDW Coefficient of Variation 17.4 % (11.5-14.5); RDW Standard Deviation 62.2 fL (36.4-46.3); Red Blood Count 2.69 M/uL (4.7-6.1); White Blood Count 4.54 K/uL (4.8-10.8)
[2020-03-15 12:58] LABS: INR 1.7 (0.9-1.1); Partial Thromboplastin Ratio 1.2; Partial Thromboplastin Time 32.2 Seconds (21.0-31.0); Prothrombin Time 17.2 Seconds (9.0-12.0)
[2020-03-15 13:08] LABS: Albumin Level 2.3 gm/dl (3.4-5.0); BUN Creatinine Ratio 8.6 (10-20); Calcium 8.8 mg/dl (8.5-10.1); Creatinine Clr Calc Pharmacy 41.9 ml/min; Est GFR (African American) 51.7; Est GFR (Non-African American) 44.6; Magnesium 1.8 mg/dl (1.8-2.4); Potassium 4.7 mmol/L (3.5-5.1)
--- NOTE | 2020-03-15 13:11 | Electrocardiogram Report ---
Test Reason : Blood Pressure : / mmHG Vent. Rate : 051 BPM Atrial Rate : 051 BPM P-R Int : 190 ms QRS Dur : 076 ms QT Int : 498 ms P-R-T Axes : 063 022 023 degrees QTc Int : 458 ms Sinus bradycardia Otherwise normal ECG When compared with ECG of 26-FEB-2020 23:05, No significant change Confirmed by Hector Mayes ([id number]) on 03/15/2020 1:11:23 PM Referred By: REFERRED SELF Confirmed By:Hector Mayes
[2020-03-15 13:17] LABS: Albumin Globulin Ratio 0.6 (0.9-2); Bilirubin,Total 5.8 mg/dl (0.2-1); Globulin 3.6 gm/dl (2.5-4.0); Total Protein 5.9 gm/dl (6.4-8.2)
[2020-03-15 13:20] LABS: Mean Platelet Volume 11.1 fL (7.4-10.4); Platelet Count 77 K/uL (130-400)
[2020-03-15 13:21] LABS: Acanthocytes 1+; Basophils # (auto) 0.01 K/uL (0-0.2); Basophils % (auto) 0.2 %; Eosinophils % (auto) 2.2 %; Lymphocytes # (auto) 1.11 K/uL (1.2-3.4); Lymphocytes % (auto) 24.4 %; Neutrophils # (auto) 2.82 K/uL (1.4-6.5); Neutrophils % (auto) 62.2 %; Platelet Estimate Decreased (Normal)
[2020-03-15 14:22] LABS: Appearance Urine Clear (Clear); Bilirubin Urine Negative (Negative); Blood Urine Negative (Negative); Color Urine Dark Yellow; Glucose Urine UA Negative (Negative); Ketones Urine Negative (Negative); Leukocyte Esterase Urine Negative (Negative); Nitrite Urine Negative (Negative); Protein Urine Negative (Negative); Specific Gravity Urine 1.016 (1.000-1.030); Urobilinogen Urine Negative (Negative); pH Urine 5.5 (4.5-7.5)
--- NOTE | 2020-03-15 14:26 | History & Physical Report ---
Date of Service March 15, 2020 Assessment & Plan (1) Hepatic encephalopathy: -Admit to PCU -Glascow coma score equal to 6, response to painful stimuli, + gag reflex -Consult GI, discussed with Rosana Gamble via phone, plans to see the patient tomorrow-possibly may need MRCP, there was question about doing the procedure s/p biliary stenting of CBD for 1.3 cm pancreatic duct stone, at a tertiary care center, possibly [facility] -Lactulose enema now, then every 8h prn, titrate for 4 loose stools daily -Checking liver ultrasound stat -LA = 3.0 on arrival -Elevated alk phos at 119 compared to 86 when he was discharged 10 days ago, total bilirubin also elevated at 5.8 compared to 4.1 -UA appears clean, CXR without active disease in the chest, follow blood cultures x2 -Continue Xifaxan, Zirgan opthalmic gel (2) Alcoholic cirrhosis: -BP 122/61, may continue propranolol 10 mg twice daily, spironolactone 25 mg daily as needed, - Cont Xifaxan, propranolol 10 mg BID, lactulose as above (3) Hyperammonemia: --Noted, ammonia 136 on admission, trend with a.m. lab (4) Hyperbilirubinemia: -Noted, as above (5) Stage 3b chronic kidney disease: -Creatinine 1.5, BUN 13, baseline (6) Diabetes type 2, controlled: - ISS with Accu-Cheks ACHS, tresiba 12 U QAM - A1C= 6.0 on 01/03/2020 - Follow glucose with am bmp DVT ppx: - teds, scds CODE: Full code-discussed with the patient's via phone Dispo: From home, likely to remain in the hospital x 1-2 days History of Present Illness Primary Care Provider: Bernardo Caal MD This is a 68 6YO male with PMHx of chronic hepatic encephalopathy, alcoholic liver cirrhosis, HTN, DM type II, CKD stage III, anemia, hypothyroidism, presents with acute onset of weakness. The patient was recently admitted from 02/28/20-03/05/20 after undergoing ERCP as an outpatient and developed worsening hepatic encephalopathy suspected to be due to anesthesia and missing lactulose dosing at home. Patient then underwent an MRCP during his hospital stay and was followed closely by the GI service. At that point in time he had progressive weakness and it was recommended by PT/OT that he was placed in a correction facility, however the felt she was able to take care of him at home, therefore went home with home health services. Discussion held with the patients since he is unable to provide any ROS. She reports that he started getting worse in the past 2 days, and has been taking lactulose as prescribed and has been able to swallow. He has only pooped twice yesterday and the day prior to that. He was drinking his lactulose up until this morning. Denies any fever. Pt was getting dressed by this morning, and was having difficulty expressing words, but when told he should go the ER, was agreeable to this. Pt is recognizes when being spoken to, but not able to respond verbally. His brought him to the ER. He was due for next dose of lactulose at noon. Allergies Allergy/AdvReac Type Severity Reaction Status Date / Time No Known Allergies Allergy Unknown Verified 03/15/20 11:32 Home Medications Home Medications Medication Instructions Recorded Confirmed Type lancets 30 gauge #25 ea 12/01/18 03/13/20 History Tresiba FlexTouch U-100 100 12 units SUBCUT QAM #15 ml NS 08/03/19 03/15/20 Rx unit/mL (3 mL) subcutaneous pen allopurinol 300 mg tablet 300 mg PO QAM #90 tab 08/19/19 03/15/20 Rx cholecalciferol (vitamin D3) 25 2,000 unit PO QAM cap 12/22/19 03/15/20 History mcg (1,000 unit) capsule blood sugar diagnostic #300 ea 02/07/20 03/13/20 Rx propranolol 10 mg tablet 10 mg PO BID #180 tab 02/09/20 03/15/20 Rx spironolactone 25 mg tablet 25 mg PO DAILY PRN #30 tab 02/21/20 03/15/20 Rx colestipol 1 gram tablet 1 g PO BID #60 tab 02/23/20 03/15/20 Rx Zirgan 1 ea OPL 5XD 02/26/20 03/15/20 History Xifaxan 550 mg PO BID 02/27/20 03/15/20 History insulin aspart U-100 [Novolog 1 - 50 unit SUBCUT TIDM 02/27/20 03/15/20 History Flexpen U-100 Insulin] lactulose 45 ml PO QID 02/27/20 03/15/20 History pantoprazole 40 mg PO BID 30 Days #60 tab 03/05/20 03/15/20 Rx BD Ultra-Fine Vero Pen Needle 32 #400 ea NS 03/13/20 Rx gauge x 5/32" Past Med/Surg History Medical History Anemia of chronic disease Aortic stenosis, moderate Cardiac murmur x 20+ years; per 07/08/18 ECHO= (MARQUEZ= 1.3-1.5 cm; AV mean PG =14.9 mmHg; AV velocity =2.664 m/s) Cirrhosis 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 CKD (chronic kidney disease) Dehydration Was in ER 02/25 for dehydration and sugar was low, lightheaded and was seen in [facility] Diabetes type 2, controlled Esophageal varices Herpes zoster Left eye. Evaluated by PCP ([facility]) 02/16. Rx'd Valtrex x 7 days, referred to opth, now on eye drop. No open sores or redness, lesions are crusted over. 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: No Beliefs That Will Affect Care: None marital status: Current Living Situation: Spouse current occupational status: retired Other Information That Helps Us Care for You: No Feels Safe at Home: Yes Safety Concerns: Feels Safe At This Time Seatbelt Use: always Sunscreen Use: No Assistive Devices: Walker Physical Exam Physical Exam: General: no apparent distress, + asleep, withdraws to pain, Flora coma score of 6 Head: Normocephalic, atraumatic ENT: PERRL, EOMI, no pharyngeal exudate, mucous membranes moist Chest: Clear to auscultation, on room air, no adventitious breath sounds Cardiac: Regular rate and rhythm, + soft systolic murmur, no JVD, normal peripheral pulses, good capillary refill Abdominal: NABS x 4 quadrants, soft, nondistended, nontender to palpation, no rebound or guarding Extremities: Normal inspection, no peripheral edema or erythema, calfs nontender to palpation Psych: Normal mood and affect Neuro: Flora coma score = 6, withdraws to pain, +gag reflex Results & Data Results & Data ([facility]) Vital Signs (Past 12 Hours) Vital Signs Temp Pulse Pulse Resp BP BP Pulse Ox 03/15/20 14:10 54 L 16 97 03/15/20 14:00 52 L 13 122/61 99 03/15/20 13:50 53 L 17 97 03/15/20 13:49 51 L 22 110/61 97 03/15/20 13:48 51 L 21 97 03/15/20 13:40 53 L 11 L 98 03/15/20 13:31 52 L 13 110/61 100 03/15/20 13:30 59 L 15 03/15/20 13:21 95 03/15/20 13:20 49 L 14 03/15/20 13:10 50 L 13 03/15/20 13:00 52 L 15 03/15/20 12:50 76 16 100 03/15/20 12:40 49 L 12 97 03/15/20 12:30 54 L 14 122/62 99 03/15/20 12:20 48 L 16 98 03/15/20 12:16 51 L 12 117/58 L 100 03/15/20 12:10 49 L 18 03/15/20 12:00 51 L 23 03/15/20 11:50 50 L 16 03/15/20 11:40 50 L 12 03/15/20 11:30 55 L 17 03/15/20 11:20 53 L 16 03/15/20 11:10 50 L 11 L 03/15/20 11:00 50 L 12 98 03/15/20 10:50 50 L 12 98 03/15/20 10:40 50 L 19 99 03/15/20 10:39 55 L 18 97 03/15/20 10:35 52 L 19 132/64 98 03/15/20 10:25 36.3 C L 52 L 16 128/81 99 Diagnostic Findings SINGLE VIEW CHEST CLINICAL HISTORY: Sepsis. FINDINGS: An AP, portable, semierect chest radiograph is compared to study dated 02/26/2020. The examination is degraded by portable technique and patient rotation. The heart is enlarged noting atherosclerotic calcification of the thoracic aorta. The pulmonary vasculature is noncongested. Atelectasis is seen at the lung bases. No airspace consolidation or large pleural effusion is identified. No pneumothorax is seen. The skeletal structures are osteopenic. The bony thorax is grossly intact. Degenerative change is noted in the shoulders. IMPRESSION: Cardiomegaly with no active disease in the chest. CT OF THE HEAD WITHOUT CONTRAST CLINICAL HISTORY: decreased mentation. Weakness. COMPARISON STUDY: Head CT March 01, 2020. CT DOSE: 614.27 mGy.cm TECHNIQUE: Helical axial images of the head were obtained without IV contrast. Automated exposure control was utilized for the study. A dose lowering technique was utilized adhering to the principles of ALARA. FINDINGS: No acute intracranial hemorrhage, midline shift or mass effect is present. The ventricular system is stable. White matter hypodensities are unchanged and suggest small vessel disease. The basal cisterns are patent. No extra-axial collections are present. There are no findings to suggest acute dural sinus thrombosis or acute territorial infarct. No significant calvarial abnormalities are present. Visualized portions of the sinuses and mastoid air cells are clear. IMPRESSION: No acute intracranial findings. ECG Additional Comments: Test Reason : Blood Pressure : / mmHG Vent. Rate : 051 BPM Atrial Rate : 051 BPM P-R Int : 190 ms QRS Dur : 076 ms QT Int : 498 ms P-R-T Axes : 063 022 023 degrees QTc Int : 458 ms Sinus bradycardia Otherwise normal ECG When compared with ECG of 26-FEB-2020 23:05, No significant change Confirmed by Hector Mayes ([id number]) on 03/15/2020 1:11:23 PM Code Status & VTE Plan Code Status Full code - discussed with the pt Supervising Physician Co-Signing Physician Notes I personally saw and examined the patient. I verified all ernst points and agree with CAMILLE Pascal with the following exceptions and/or additions: 74-year-old male with liver cirrhosis and complex history of biliary sludge and stones with recent admission for ERCP and hepatic encephalopathy after anesthesia. O/E GCS 6 E1V1M4. Gag reflex present. O2 sats WNL. Hepatomegaly, Jaundiced appearing. A/P Hepatic encephalopathy - suspect this is the main reason for his altered mental state. Lactulose enemas started. Elevated bilirubin and ALP (acute on chronic) - concern for biliary obstruction given recent history of this. US liver stat, if normal will consider MRCP. Consult GI. Re-examined at 10:00pm and patient now more responsive. GCS 8 E1V2M5. Lactulose enemas working well. PG Care Time/CCT Total # of Minutes Spent Total Time Spent with Patient: Total time spent is greater than 50% in coordination of care (as documented) at patient's floor/unit and/or counseling patient: Coding Level of Care Code 95283 Initial Inpt Care Lvl 3 Diagnoses Hepatic encephalopathy K72.90 Alcoholic cirrhosis K70.30 Ascites presence: unspecified Hyperammonemia E72.20 Hyperbilirubinemia E80.6 Stage 3b chronic kidney disease N18.32 Diabetes type 2, controlled E11.9 (1) Alcoholic cirrhosis Ascites presence: unspecified Qualified Code(s): K70.30 - Alcoholic cirrhosis of liver without ascites
[2020-03-15] MEDS ORDERED: LACTULOSE 200 GM, WATER, STERILE IRRIG 700 ML, BARCODE IDENTIFIER 1 EA PR STA (15:13)
[2020-03-15] MEDS ORDERED: GLUCOSE 40% GEL 15 GM TUBE PO PRN (17:35)
[2020-03-15] MEDS ORDERED: DEXTROSE 50% 50 ML SYRINGE IV PRN (17:35)
[2020-03-15] MEDS ORDERED: ONDANSETRON INJ 2 MG/ML 2 ML VIAL IV PRN (17:35)
[2020-03-15] MEDS ORDERED: GLUCAGON FOR INJ 1 MG VIAL SQ PRN (17:35)
[2020-03-15] MEDS ORDERED: GLUCOSE 10 TABS/TUBE PO PRN (17:35)
[2020-03-15] MEDS ORDERED: SPIRONOLACTONE 25 MG TAB PO PRN (17:35)
[2020-03-15] MEDS ORDERED: INSULIN ASPART 100 UNITS/ML 3 ML PEN SQ SCH (17:35)
[2020-03-15] MEDS ORDERED: CARBOHYDRATES FOR HYPOGLYCEMIA PO PRN (17:35)
[2020-03-15] MEDS ORDERED: INFLUENZA ADMINISTRATION CHARGE ONE (18:15)
[2020-03-15] MEDS ORDERED: INFLUENZA VIRUS QUAD VACCINE 0.5 ML SYR IM ONE (18:15)
[2020-03-15] MEDS: INSULIN ASPART 100 UNITS/ML 3 ML PEN SC SCH ×2 (18:20→20:04)
[2020-03-15] MEDS: LACTULOSE SYRUP 30 GM/45 ML UDP PO SCH ×2 (18:21→19:57)
[2020-03-15] MEDS: PANTOprazole 40 MG TAB PO SCH (19:57)
[2020-03-15] MEDS ORDERED: rifAXIMin 550 MG TABLET PO SCH (21:00)
[2020-03-15] MEDS ORDERED: PROPRANOLOL HCL 10 MG TAB PO SCH (21:00)
[2020-03-15] MEDS ORDERED: COLESTIPOL HCL 1 GM TAB PO SCH (22:00)
[2020-03-15] MEDS: LACTULOSE 200 GM, WATER, STERILE IRRIG 700 ML, BARCODE IDENTIFIER 1 EA PR SCH (23:32)
[2020-03-16 01:15] LABS: Hematocrit (blood only) 25.7 % (42-52); Hemoglobin 8.6 g/dL (14.0-18.0); Mean Corpuscular Hemoglobin 33.1 pg (25-34); Mean Corpuscular Hgb Conc 33.5 g/dL (32-36); Mean Corpuscular Volume 98.8 fL (80-100); RDW Coefficient of Variation 17.3 % (11.5-14.5); RDW Standard Deviation 61.7 fL (36.4-46.3); White Blood Count 5.03 K/uL (4.8-10.8)
[2020-03-16 01:18] LABS: HCO3 ABG 24 mmol/L (19-24); Oxygen Saturation ABG 97.7 % (90-95); PCO2 ABG 31 mmHg (35-46); PO2 ABG 90 mmHg (80-95)
[2020-03-16 01:23] LABS: Allen Test POS (Pos)
[2020-03-16 01:26] LABS: pH ABG 7.51 (7.35-7.45)
[2020-03-16 01:28] LABS: Mean Platelet Volume 9.7 fL (7.4-10.4); Platelet Count 64 K/uL (130-400)
[2020-03-16 01:36] LABS: Albumin Globulin Ratio 0.7 (0.9-2); Albumin Level 2.2 gm/dl (3.4-5.0); Bilirubin,Total 6.2 mg/dl (0.2-1); Calcium 8.2 mg/dl (8.5-10.1); Creatinine Clr Calc Pharmacy 51.5 ml/min; Est GFR (African American) 59.2; Est GFR (Non-African American) 51.1; Globulin 3.3 gm/dl (2.5-4.0); Magnesium 1.6 mg/dl (1.8-2.4); Phosphorus 2.6 mg/dl (2.5-4.9); Potassium 4.4 mmol/L (3.5-5.1); Total Protein 5.5 gm/dl (6.4-8.2)
[2020-03-16] MEDS: MAGNESIUM SULFATE / D5W 1 GM/100 ML BAG IV SCH ×5 (02:45→20:27)
[2020-03-16] MEDS: LACTULOSE 200 GM, WATER, STERILE IRRIG 700 ML, BARCODE IDENTIFIER 1 EA PR SCH ×2 (06:16→15:43)
--- NOTE | 2020-03-16 07:15 | Ultrasound Report ---
ULTRASOUND RIGHT UPPER QUADRANT ABDOMEN CLINICAL HISTORY: Elevated bilirubin. COMPARISON STUDY: Abdominal CT dated 02/29/2020. TECHNIQUE: Real-time, grayscale, and color flow sonography of the right upper quadrant of the abdomen was performed. Images are reviewed in the transverse and longitudinal planes. The examination is sig nificantly degraded by overlying bowel gas. FINDINGS: Liver: The liver is cirrhotic in morphology and heterogeneous in echotexture. There is no intrahepati c biliary ductal dilatation. The main portal vein is patent. Flow is likely hepatofugal. Gallbladder: The gallbladder is not well visualized. The common bile duct was not visualized. Pancreas: Not while visualized due to overlying bowel gas. Right kidney: Survey images of the right kidney demonstrate normal size and echotexture. There is no hydronephrosis. Ascites: None. IMPRESSION: 1. The liver is cirrhotic in morphology and heterogeneous in echotexture. 2. The gallbladder is not well-visualized. The common bile duct and pancreas were not seen. 3. Flow in the main portal vein is likely hepatofugal. ACT 112: Negative or not required by law. Electronically signed by: Lele Vera M.D. 03/16/2020 7:13 AM
[2020-03-16] MEDS: INSULIN ASPART 100 UNITS/ML 3 ML PEN SC SCH ×4 (08:16→20:34)
[2020-03-16] MEDS: LACTULOSE SYRUP 30 GM/45 ML UDP PO SCH ×4 (08:17→21:27)
[2020-03-16] MEDS: PANTOprazole 40 MG TAB PO SCH (08:17)
[2020-03-16] MEDS: INSULIN GLARGINE SOLOSTAR 100 UNITS/ML 3 ML PEN SQ SCH (08:18)
[2020-03-16] MEDS ORDERED: CHOLECALCIFEROL 1,000 UNITS 25 MCG TAB PO SCH (09:00)
[2020-03-16] MEDS ORDERED: allopurinoL 300 MG TAB PO SCH (09:00)
[2020-03-16] MEDS ORDERED: INSULIN GLARGINE SOLOSTAR 100 UNITS/ML 3 ML PEN SQ SCH (09:00)
--- NOTE | 2020-03-16 10:35 | Gastrointestinal Consultation ---
Date of Consultation March 16, 2020 Assessment & Plan (1) Alcoholic cirrhosis: (2) Hepatic encephalopathy: Pt is a 74 yo male w hx of ETOH cirrhosis, currently admitted for hepatic encephalopathy likely related to low stool output despite Lactulose/Rifaximin use. Infectious workup so far negative. - Continue scheduled Lactulose enema until pt is more awake and able to take PO meds, then resume Lactulose PO (titrate for effect 3-5 BMs daily) & Rifaximin 550mg BID - Will arrange ERCP appt at [facility] for pancreas stone removal when pt is discharged and stable. We have discussed this with pt's Dora who will call our GI office to schedule procedure once pt is ready & medically optimized. Supervising Physician Co-Signing Physician Notes I performed a history and physical examination of the patient today, including specifically on physical exam - soft abdomen. I have discussed the patient's management with the advanced practitioner. Please refer to the nurse practitioner's note for the documented findings and plan of care. Patient is admitted with Hepatic encephalopathy, per his he is not moving his bowel despite using Lactulose. Otherwise his labs indicate his Liver disease is stable with no decompensation. Recommend: Add Miralax and PRN Dulcolax. Continue Lactulose enema till patient is able to take PO. Patient will be scheduled for ERCP with Lithotripsy at [facility] once his mental statu s gets back to normal. His will call me once he is discharged and will schedule him. Recall Gi if needed. History of Present Illness Reason for Consultation: Hepatic encephalopathy Requesting Physician: Dr. Rex Andres Attending Physician: Dr. Brayden Jaquez History of Present Illness Pt is a 74 y/o male w hx of suspected ETOH cirrhosis who was brought to ED yesterday for change in mental status. reports pt had low stool output despite taking his Lactulose and Rifaximin as dosed in last few days and he was obtunded yesterday. Blood ammonia level up in 136. Lactic acid increased 2.9. Otherwise no leukocytosis, infectious workup with UA, CXR negative. Head CT negative for acute changes. LFTs and liver u/s stable. His last admission was end of February when he underwent EUS/ERCP 02/27 for dilated pancreatic duct seen on previous MRCP. Found to have impacted pancreatic stones causing upstream dilation. He had biliary and pancreatic sphincterectomies, CBD and pancreatic stents placements. His hospitalization stay was prolonged after these procedures due to encephalopathy and decompensation from his underlying liver disease. We eventually will be planning to remove his pancreatic stones in [facility]. Date to be determined. Allergies Allergy/AdvReac Type Severity Reaction Status Date / Time No Known Allergies Allergy Unknown Verified 03/15/20 11:32 Home Medications Home Medications Medication Instructions Recorded Confirmed Type lancets 30 gauge #25 ea 12/01/18 03/13/20 History Tresiba FlexTouch U-100 100 12 units SUBCUT QAM #15 ml NS 08/03/19 03/15/20 Rx unit/mL (3 mL) subcutaneous pen allopurinol 300 mg tablet 300 mg PO QAM #90 tab 08/19/19 03/15/20 Rx cholecalciferol (vitamin D3) 25 2,000 unit PO QAM cap 12/22/19 03/15/20 History mcg (1,000 unit) capsule blood sugar diagnostic #300 ea 02/07/20 03/13/20 Rx propranolol 10 mg tablet 10 mg PO BID #180 tab 02/09/20 03/15/20 Rx spironolactone 25 mg tablet 25 mg PO DAILY PRN #30 tab 02/21/20 03/15/20 Rx colestipol 1 gram tablet 1 g PO BID #60 tab 02/23/20 03/15/20 Rx Zirgan 1 ea OPL 5XD 02/26/20 03/15/20 History Xifaxan 550 mg PO BID 02/27/20 03/15/20 History insulin aspart U-100 [Novolog 1 - 50 unit SUBCUT TIDM 02/27/20 03/15/20 History Flexpen U-100 Insulin] lactulose 45 ml PO QID 02/27/20 03/15/20 History pantoprazole 40 mg PO BID 30 Days #60 tab 03/05/20 03/15/20 Rx BD Ultra-Fine Vero Pen Needle 32 #400 ea NS 03/13/20 Rx gauge x " Patient History Medical History Anemia of chronic disease Aortic stenosis, moderate Cardiac murmur x 20+ years; per 07/08/18 ECHO= (MARQUEZ= 1.3-1.5 cm; AV mean PG =14.9 mmHg; AV velocity =2.664 m/s) Cirrhosis 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 CKD (chronic kidney disease) Dehydration Was in ER 02/25 for dehydration and sugar was low, lightheaded and was seen in [facility] Diabetes type 2, controlled Esophageal varices Herpes zoster Left eye. Evaluated by PCP ([facility]) 02/16. Rx'd Valtrex x 7 days, referred to opth, now on eye drop. No open sores or redness, lesions are crusted over. 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: No Beliefs That Will Affect Care: None marital status: Current Living Situation: Spouse current occupational status: retired Other Information That Helps Us Care for You: No Feels Safe at Home: Yes Safety Concerns: Feels Safe At This Time Seatbelt Use: always Sunscreen Use: No Assistive Devices: Walker Review of Systems Review of Systems: Unobtainable due to reduced consciousness Physical Exam Constitutional: + ill appearing, well groomed and comfortable Eyes: + scleral abnormality (icteric sclera), PERRL and EOM intact bilaterally ENMT: external ear and nose normal, oropharynx normal Respiratory: normal respiratory effort, lungs clear to auscultation Cardiovascular: Rate/Rhythm: regular rate Heart Sounds: + murmur Gastrointestinal (Abdomen): normal bowel sounds, soft, nontender, no hepatosplenomegaly Skin: no rashes, warm and dry + jaundice Psychiatric: alert but not communicating/following commands. He was reportedly obtunded yesterday Lymphatic: no lymphedema Results & Data ([facility]) Vital Signs (Past 12 Hours) Vital Signs Temp Pulse Pulse Resp BP BP Pulse Ox 03/16/20 08:00 36.6 C 61 70 16 132/58 L 98 03/16/20 04:00 61 14 99 03/16/20 03:47 36.8 C 58 L 12 128/60 99 03/16/20 03:00 58 L 13 99 03/16/20 00:38 16 97 03/16/20 00:00 58 L 13 99 03/15/20 23:02 59 L 14 132/68 98 (1) Alcoholic cirrhosis Ascites presence: unspecified Qualified Code(s): K70.30 - Alcoholic cirrhosis of liver without ascites
--- NOTE | 2020-03-16 12:50 | Palliative Care Consultation ---
Date of Consultation March 16, 2020 Assessment & Plan (1) Palliative care encounter: I met with Mrs Gerard at bedside. She is seeing the increased weakness and progression of disease and has concerns about what to expect, how to manage his disease process and care, as well as how to help their twin 13 yo daughters navigate his disease process. She is aware that each time he suffers a setback, his rehab potential is limited and generally he does not return to baseline function. She has been caring for him at home with home care support. This had worked in the past but she is concerned about increased level of care involved as his disease progresses. She is working from home and wants to care for him at home but needs help with learning how to do that and what support is available. We discussed services available through homecare and availability of additional support for hire. She also has family and friend support. We discussed talking with their daughters about the changes and trying to normalize their routine as much as possible. We discussed what to expect with progressive weakness, lethargy and confusion over time. She wants to continue home care and determine rehab potential when he goes home. He is full code and we discussed thinking about what defines quality of life for Alek and what limitations to care she would anticipate based on his wishes. We will continue to discuss this together as his mental status improves. She is looking for support and guidance after discharge and is agreeable to outpatient palliative care. (2) Hepatic encephalopathy: On lactulose and rifaximin. (3) Hyperammonemia: (4) Alcoholic cirrhosis: Ascites presence: unspecified Qualified Code(s): K70.30 - Alcoholic cirrhosis of liver without ascites (5) Cholelithiasis: History of Present Illness Reason for Consultation: Goals of care Requesting Physician: Dr. Andres Attending Physician: Rex Andres, DO History of Present Illness 74 yo gentleman with h/o alcoholic cirrhosis and hepatic encephalopathy. He was hospitalized from 02/27-03/05 with encephalopathy and MRCP with stent placement in the CBD and pancreatic ducts. He has had obstructive jaundice with large pancreatic duct stone. Per his , he had been home with PT/OT for about a week and had progressive encephalopathy and weakness. He is readmitted with ammonia level of 136 on admission and total bilirubin of 6.2. He is lethargic and unable to provide history which was obtained from the chart and from his . Allergies Allergy/AdvReac Type Severity Reaction Status Date / Time No Known Allergies Allergy Unknown Verified 03/15/20 11:32 Home Medications Home Medications Medication Instructions Recorded Confirmed Type lancets 30 gauge #25 ea 12/01/18 03/13/20 History Tresiba FlexTouch U-100 100 12 units SUBCUT QAM #15 ml NS 08/03/19 03/15/20 Rx unit/mL (3 mL) subcutaneous pen allopurinol 300 mg tablet 300 mg PO QAM #90 tab 08/19/19 03/15/20 Rx cholecalciferol (vitamin D3) 25 2,000 unit PO QAM cap 12/22/19 03/15/20 History mcg (1,000 unit) capsule blood sugar diagnostic #300 ea 02/07/20 03/13/20 Rx propranolol 10 mg tablet 10 mg PO BID #180 tab 02/09/20 03/15/20 Rx spironolactone 25 mg tablet 25 mg PO DAILY PRN #30 tab 02/21/20 03/15/20 Rx colestipol 1 gram tablet 1 g PO BID #60 tab 02/23/20 03/15/20 Rx Zirgan 1 ea OPL 5XD 02/26/20 03/15/20 History Xifaxan 550 mg PO BID 02/27/20 03/15/20 History insulin aspart U-100 [Novolog 1 - 50 unit SUBCUT TIDM 02/27/20 03/15/20 History Flexpen U-100 Insulin] lactulose 45 ml PO QID 02/27/20 03/15/20 History pantoprazole 40 mg PO BID 30 Days #60 tab 03/05/20 03/15/20 Rx BD Ultra-Fine Vero Pen Needle 32 #400 ea NS 03/13/20 Rx gauge x 5/32" Patient History Medical History Anemia of chronic disease Aortic stenosis, moderate Cardiac murmur x 20+ years; per 07/08/18 ECHO= (MARQUEZ= 1.3-1.5 cm; AV mean PG =14.9 mmHg; AV velocity =2.664 m/s) Cirrhosis 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 CKD (chronic kidney disease) Dehydration Was in ER 02/25 for dehydration and sugar was low, lightheaded and was seen in [facility] Diabetes type 2, controlled Esophageal varices Herpes zoster Left eye. Evaluated by PCP ([facility]) 02/16. Rx'd Valtrex x 7 days, referred to opth, now on eye drop. No open sores or redness, lesions are crusted over. 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 avg ~75k Surgical History History of colonoscopy (~2015) History of esophagogastroduodenoscopy (EGD) (~05/2019) History of hernia repair History of rectal surgery History of tonsillectomy and adenoidectomy Family History Unknown Allergic rhinitis Asthma Father Family history of diabetes mellitus Brother Family history of diabetes mellitus Other Alcohol abuse Social History Smoking Status: Never smoker Second Hand Exposure: No; Tobacco Cessation Education Requested by Patient: No Hx Alcohol Use: No Hx Substance Use: No Preferred Language: Luxembourger Communication Ability: Impaired Porcelain Finish Sprayer Required: No Beliefs That Will Affect Care: None marital status: Current Living Situation: Spouse current occupational status: retired Other Information That Helps Us Care for You: No Feels Safe at Home: Yes Safety Concerns: Feels Safe At This Time Seatbelt Use: always Sunscreen Use: No Assistive Devices: Walker Review of Systems Review of Systems: Unobtainable due to cognitive status [place] English symptom assessment scale Pain AD 0/3 Dyspnea RDOS 0/3 Drowsiness 3/3 Physical Exam Constitutional: + lethargic; no acute distress Respiratory: normal respiratory effort; no labored breathing Skin: + jaundice Neurologic: + obtunded Results & Data ([facility]) Vital Signs (Past 12 Hours) Vital Signs Temp Pulse Pulse Resp BP BP Pulse Ox 03/16/20 12:00 16 99 03/16/20 08:00 97.9 F 61 70 16 132/58 L 98 03/16/20 04:00 61 14 99 03/16/20 03:47 98.2 F 58 L 12 128/60 99 03/16/20 03:00 58 L 13 99 03/16/20 00:38 16 97 PG Care Time/CCT Total # of Minutes Spent Total Time Spent with Patient: Total time spent is greater than 50% in coordination of care (as documented) at patient's floor/unit and/or counseling patient: 75 min with 55 minutes spent on discussing prognosis, goals of care, support and counseling. Coding Level of Care Code 82249 Inpt Consult Level 4 Diagnoses Palliative care encounter Z51.5 Hepatic encephalopathy K72.90 Hyperammonemia E72.20 Alcoholic cirrhosis K70.30 Ascites presence: unspecified Cholelithiasis K80.20 Time Spent (min) 75 Comment [id number]
[2020-03-16] MEDS: D5W AND 1/2NSS + 20MEQ KCL 20 MEQ/1,000 ML BAG IV SCH (13:29)
[2020-03-16] MEDS ORDERED: LACTULOSE SYRUP 30 GM/45 ML UDP NG STA (16:31)
[2020-03-16] MEDS ORDERED: LACTULOSE SYRUP 30 GM/45 ML UDP NG SCH (17:00)
--- NOTE | 2020-03-16 17:08 | XRay Report ---
KUB CLINICAL HISTORY: NG tube placement COMPARISON STUDY: CT of the abdomen and pelvis February 21, 2020. FINDINGS: The tip of the nasogastric tube projects over the distal stomach. Gallstones are noted with in the gallbladder. Multiple loops of mildly dilated small bowel are noted. Trace left pleural effusi on is noted. IMPRESSION: 1. Tip of nasogastric tube projects over the distal stomach. 2. Multiple loops of mildly dilated small bowel. The findings may reflect an ileus or partial small b owel obstruction. ACT 112: Negative or not required by law. Electronically signed by: John Sandy M.D. 03/16/2020 5:06 PM
--- NOTE | 2020-03-16 18:07 | Hospitalist Progress Note ---
Date of Service March 16, 2020 Assessment & Plan (1) Hepatic encephalopathy: -lactulose enemas with minimal change -d/w if this were to continue to be the case - ok for NGT for enteral lactulose (done this afternoon - of note XR questioned ileus vs SBO - certainly HPI from admission did not fit with this and abd exam does not, and hepatic encephalopathy is largely pressing problem - so will proceed w lacutlose and follow for tolerance, serial exams) -suspect that he got a little dehydrated at home concentrating ammonia creating downward spiral from there (2) Alcoholic cirrhosis: -root cuase problem -continue propranolol 10 mg twice daily, spironolactone 25 mg daily as needed, - Cont Xifaxan, propranolol 10 mg BID, lactulose as above (3) Hyperammonemia: -as above. lactulose as above (4) Hyperbilirubinemia: -Noted, could not tolerate MRCP for now, GI f/u appreciated (5) Stage 3b chronic kidney disease: -w superimposed dehydration on admission - still not waking up / no meaningful PO intake - IVF (6) Diabetes type 2, controlled: - sugars have been reasonable - continue current care DVT ppx: - teds, scds CODE: Full code Dispo: ongoing hospitalization; once more awake, PT/OT eval and treat Admission and Anticipated Discharge Date Admission Date: March 15, 2020 Subjective no HPI or ROS obtainable from pt. nursing had him yesterday - notes minimal progress w lactulose enemas - maybe grunts a little more but otherwise not really meaningful interaction. present at the bedside this AM - updated extensively and answered all questions to the best of my ability. Review of Systems Review of Systems: Unobtainable due to cognitive status Physical Exam Physical Exam: gen sedated nad heent nc at mm sl dry cardio reg no r/m/g lungs cta b/l no rr//w good effort abd soft nd nt ext no c/c/e skin dark ashen appearing combination of baseline frey skin tone and icterus neuro no focal deficits - full exam quite difficult Results & Data Results & Data ([facility]) Vital Signs (Past 12 Hours) Vital Signs Temp Pulse Pulse Resp BP Pulse Ox 03/16/20 16:00 61 16 99 03/16/20 15:32 97.7 F 52 L 16 150/73 H 99 03/16/20 14:00 97.7 F 54 L 16 133/77 96 03/16/20 12:00 16 99 03/16/20 08:00 97.9 F 61 70 16 132/58 L 98 PG Care Time/CCT Total # of Minutes Spent Total Time Spent with Patient: Total time spent is greater than 50% in coordination of care (as documented) at patient's floor/unit and/or counseling patient: Coding Level of Care Code 06893 Subseq Hosp Care Lvl 3 Diagnoses Hepatic encephalopathy K72.90 Alcoholic cirrhosis K70.30 Ascites presence: unspecified Hyperammonemia E72.20 Hyperbilirubinemia E80.6 Stage 3b chronic kidney disease N18.32 Diabetes type 2, controlled E11.9 (1) Alcoholic cirrhosis Ascites presence: unspecified Qualified Code(s): K70.30 - Alcoholic cirrhosis of liver without ascites
[2020-03-16] MEDS: PANTOprazole 40 MG in SYRINGE 0 ML IV SCH (21:27)
[2020-03-16] MEDS ORDERED: Nursing to Pharmacy Communication SCH (21:45)
[2020-03-17] MEDS: INSULIN ASPART 100 UNITS/ML 3 ML PEN SC SCH ×4 (00:02→18:42)
[2020-03-17] MEDS: D5W AND 1/2NSS + 20MEQ KCL 20 MEQ/1,000 ML BAG IV SCH ×2 (01:40→14:03)
[2020-03-17 06:26] LABS: Hematocrit (blood only) 29.3 % (42-52); Hemoglobin 10.1 g/dL (14.0-18.0); Mean Corpuscular Hemoglobin 33.6 pg (25-34); Mean Corpuscular Hgb Conc 34.5 g/dL (32-36); Mean Corpuscular Volume 97.3 fL (80-100); RDW Coefficient of Variation 17.4 % (11.5-14.5); RDW Standard Deviation 60.8 fL (36.4-46.3); Red Blood Count 3.01 M/uL (4.7-6.1)
[2020-03-17 06:28] LABS: Platelet Count 80 K/uL (130-400)
[2020-03-17 07:13] LABS: Albumin Globulin Ratio 0.6 (0.9-2); Albumin Level 2.3 gm/dl (3.4-5.0); BUN Creatinine Ratio 11.8 (10-20); Bilirubin,Total 7.7 mg/dl (0.2-1); Calcium 8.2 mg/dl (8.5-10.1); Est GFR (African American) 51.7; Est GFR (Non-African American) 44.6; Globulin 3.8 gm/dl (2.5-4.0); Magnesium 2.6 mg/dl (1.8-2.4); Potassium 4.3 mmol/L (3.5-5.1); Total Protein 6.1 gm/dl (6.4-8.2)
[2020-03-17] MEDS: PANTOprazole 40 MG in SYRINGE 0 ML IV SCH ×2 (07:40→22:20)
[2020-03-17] MEDS: LACTULOSE SYRUP 30 GM/45 ML UDP PO SCH ×3 (07:44→16:12)
[2020-03-17] MEDS: INSULIN GLARGINE SOLOSTAR 100 UNITS/ML 3 ML PEN SQ SCH ×2 (07:55→22:20)
[2020-03-17] MEDS ORDERED: PEPTAMEN 1.5 CAL 1,000 ML BAG NG SCH (10:00)
--- NOTE | 2020-03-17 18:12 | Hospitalist Progress Note ---
Date of Service March 17, 2020 Assessment & Plan (1) Hepatic encephalopathy: -NGT - lactulose - ammonia improved. (2) Alcoholic cirrhosis: -root cause problem -continue propranolol 10 mg twice daily, spironolactone 25 mg daily as needed, - Cont Xifaxan, propranolol 10 mg BID, lactulose as above (3) Hyperammonemia: -as above. lactulose as above, improved (4) Hyperbilirubinemia: -Noted, could not tolerate MRCP for now, bili and alk phos osvaldo more today -- if continues to rise - retry MRCP vs discuss w GI about moving to ERCP no s/s cholangitis (5) Stage 3b chronic kidney disease: -w superimposed dehydration on admission - still not waking up / no meaningful PO intake - IVF to continue (6) Diabetes type 2, controlled: - sugars sl high w tube feeds now - tighten insulin slightly DVT ppx: - teds, scds CODE: Full code Dispo: ongoing hospitalization; once more awake, PT/OT eval and treat Admission and Anticipated Discharge Date Admission Date: March 15, 2020 Subjective seen multiple times through the day. no meaningful HPI or ROS. at best a few spontaneous grunts, and grunt to sternal rub Review of Systems Review of Systems: Unobtainable due to cognitive status Physical Exam Physical Exam: gen sedate in bed, nad heent nc at mmm NGT in place no breakdown cardio reg no r/m/g lungs - cta b/l no rr//w -- listened both before and after tube feeds started, still no r/r/w abd soft nd nt no guarding/rebound/rigidity ext no c/c/e no calf tenderness skin ongoing frey/jaundiced appearance neuro no focal deficits or localizing signs Results & Data Results & [facility] ([facility]) Vital Signs (Past 12 Hours) Vital Signs Temp Pulse Pulse Resp BP Pulse Ox 03/17/20 15:26 98.8 F 70 16 136/76 97 03/17/20 11:03 97.7 F 81 16 147/82 H 98 03/17/20 09:14 76 03/17/20 07:06 97.5 F L 81 18 156/82 H 100 PG Care Time/CCT Total # of Minutes Spent Total Time Spent with Patient: Total time spent is greater than 50% in coordination of care (as documented) at patient's floor/unit and/or counseling patient: Coding Level of Care Code 31484 Subseq Hosp Care Lvl 3 Diagnoses Hepatic encephalopathy K72.90 Alcoholic cirrhosis K70.30 Ascites presence: unspecified Hyperammonemia E72.20 Hyperbilirubinemia E80.6 Stage 3b chronic kidney disease N18.32 Diabetes type 2, controlled E11.9 (1) Alcoholic cirrhosis Ascites presence: unspecified Qualified Code(s): K70.30 - Alcoholic cirrhosis of liver without ascites
[2020-03-17] MEDS ORDERED: LACTULOSE SYRUP 30 GM/45 ML UDP PO SCH (21:00)
[2020-03-17] MEDS: SODIUM CHLOR 0.45% + 20MEQ KCL 20 MEQ/1,000 ML BAG IV SCH (22:19)
[2020-03-18] MEDS: INSULIN ASPART 100 UNITS/ML 3 ML PEN SC SCH ×4 (01:00→18:39)
--- NOTE | 2020-03-18 04:44 | Communication Note ---
Date of Service: March 18, 2020 Notified by nursing that pt had been having repeated bouts of coughing, which was new for him. On my exam he was resting comfortably, breath sounds on sides and front of chest were clear. Held the NG tube feeds overnight and a stat xr to rule out an aspiration pneumonitis was ordered. XR appeared unchanged/?even better hen compared to previous. Continued to hold NG tube feedings, consider restart in the AM. 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
[2020-03-18 06:51] LABS: Hematocrit (blood only) 28.2 % (42-52); Hemoglobin 9.7 g/dL (14.0-18.0); Mean Corpuscular Hemoglobin 33.8 pg (25-34); Mean Corpuscular Hgb Conc 34.4 g/dL (32-36); Mean Corpuscular Volume 98.3 fL (80-100); Mean Platelet Volume 9.7 fL (7.4-10.4); Platelet Count 70 K/uL (130-400); RDW Coefficient of Variation 17.4 % (11.5-14.5); RDW Standard Deviation 62.4 fL (36.4-46.3); Red Blood Count 2.87 M/uL (4.7-6.1); White Blood Count 8.28 K/uL (4.8-10.8)
[2020-03-18 07:13] LABS: Albumin Globulin Ratio 0.6 (0.9-2); Albumin Level 2.2 gm/dl (3.4-5.0); BUN Creatinine Ratio 11.3 (10-20); Bilirubin,Total 6.4 mg/dl (0.2-1); Calcium 8.1 mg/dl (8.5-10.1); Est GFR (African American) 51.7; Est GFR (Non-African American) 44.6; Globulin 3.9 gm/dl (2.5-4.0); Potassium 4.5 mmol/L (3.5-5.1); Total Protein 6.1 gm/dl (6.4-8.2)
--- NOTE | 2020-03-18 08:55 | XRay Report ---
XR chest 1V portable HISTORY: r/o aspiration pneumonitis/pneumonia COMPARISON: Chest 03/15/2020. FINDINGS: Nasogastric tube terminates below the diaphragm. The tip is not included on this study. No pneumothorax. No pleural effusions. Small patchy left basilar airspace opacity. The right lung is ess entially clear. The heart is top normal in size. No evidence for pulmonary edema. IMPRESSION: Small patchy left basilar airspace opacity. This could represent atelectasis or a pneumonia, possibly secondary to aspiration. Nasogastric tube terminates below the diaphragm. ACT 112: Negative or not required by law. Electronically signed by: Ras Moreira M.D. 03/18/2020 8:54 AM
[2020-03-18] MEDS: LACTULOSE SYRUP 30 GM/45 ML UDP PO SCH ×4 (09:00→21:09)
[2020-03-18] MEDS: PANTOprazole 40 MG in SYRINGE 0 ML IV SCH ×2 (09:00→21:09)
[2020-03-18] MEDS: INSULIN GLARGINE SOLOSTAR 100 UNITS/ML 3 ML PEN SQ SCH ×2 (09:00→21:10)
[2020-03-18] MEDS: SODIUM CHLOR 0.45% + 20MEQ KCL 20 MEQ/1,000 ML BAG IV SCH ×2 (10:07→23:41)
--- NOTE | 2020-03-18 19:04 | Hospitalist Progress Note ---
Date of Service March 18, 2020 Assessment & Plan (1) Hepatic encephalopathy: -NGT - lactulose - ammonia improved. however - mentation has not - see AMS below (2) Altered mental status: initially thought to be all hepatic encephalopathy - obviously that is not the case alone, although it certainly was a contributor current ddx would be metabolic encephalopathy/delirium - but with lack of waxing and waning (he's been entirely sedate) and without other clear causes besides hospital environment - not entirely clear that this is the case -possibly biliary obstruction could be culprit - although his labs don't suggest massive worsening - but possible as problem - retry MRCP, ask GI to revisit in this regard -continue to gently hydrate, tube feeds (titrate as possible - fortunately concerns through the night on ?aspiration appeared unfounded on XR and multiple exams) -serial exams, vigilance for any other factors that might be driving this -doesn't localize, but [employer]ENT[employer] REPRESENTATIVE workup - EEG, repeat brain imaging (MRI if he tolerates MRCP, if not then repeat CT) (3) Alcoholic cirrhosis: -root cause problem -continue propranolol 10 mg twice daily, spironolactone 25 mg daily as needed, - Cont Xifaxan, propranolol 10 mg BID, lactulose as above (4) Hyperammonemia: -as above. lactulose as above, improved, follow ammonia mostly so that it's clear that a re-rising ammonia is NOT culprit for anything w mentation while ddx being pursued (5) Hyperbilirubinemia: no s/s cholangitis - repeat MRCP attempt and GI eval as above (6) Stage 3b chronic kidney disease: -w superimposed dehydration on admission - still not waking up / no meaningful PO intake - continue gentle IVF for now (7) Diabetes type 2, controlled: - sugars better but still somewhat higher than goal - tighten insulin slightly again DVT ppx: - teds, scds CODE: Full code Dispo: ongoing hospitalization; once more awake, PT/OT eval and treat, palliative discussing w as well. she is quite reasonable and really for all practical purposes is planning for scenarios ranging from improvement that allows return to home, to needing SNF, to home w hospice - as his situation unfolds she will continue to have plans for each scenario Admission and Anticipated Discharge Date Admission Date: March 15, 2020 Subjective no HPI or ROS obtainable. updated throughout the day. spent about 15mins at bedside later in afternoon updating over speakerphone at bedside - unfortunatley he barely responded even with the long exposure to her voice right at his ear. no issues identified by nursing Review of Systems Review of Systems: Unobtainable due to cognitive status Physical Exam Physical Exam: gen sedated, responds a little w grunting (not reliably though) to loud voice, does grimace to sternal rub. no physical distress noted heent nc at mmm cardio reg no r/m/g lungs cta b/l no rr//w good effort (on multiple exams) abd soft nd nt no guarding no rebound no rigidity ext no c/c/e no calf tenderness neuro - obviously full exam impossible due to mentation - but no localizing findings no focal findings skin - ongoing frey/icteric changes Results & Data Results & Data ([facility]) Vital Signs (Past 12 Hours) Vital Signs Temp Pulse Pulse Resp BP Pulse Ox 03/18/20 15:37 98.2 F 73 16 120/73 96 03/18/20 15:00 82 03/18/20 11:02 98.2 F 86 18 129/74 94 03/18/20 08:00 86 03/18/20 07:25 86 PG Care Time/CCT Total # of Minutes Spent Total Time Spent with Patient: Total time spent is greater than 50% in c oordination of care (as documented) at patient's floor/unit and/or counseling patient: Coding Level of Care Code 12076 Subseq Hosp Care Lvl 3 Diagnoses Hepatic encephalopathy K72.90 Altered mental status R41.82 Alcoholic cirrhosis K70.30 Ascites presence: unspecified Hyperammonemia E72.20 Hyperbilirubinemia E80.6 Stage 3b chronic kidney disease N18.32 Diabetes type 2, controlled E11.9 (1) Alcoholic cirrhosis Ascites presence: unspecified Qualified Code(s): K70.30 - Alcoholic cirrhosis of liver without ascites
[2020-03-18] MEDS ORDERED: INSULIN GLARGINE SOLOSTAR 100 UNITS/ML 3 ML PEN SQ SCH (21:00)
[2020-03-19] MEDS: INSULIN ASPART 100 UNITS/ML 3 ML PEN SC SCH ×2 (00:25→06:04)
[2020-03-19 06:55] LABS: Hematocrit (blood only) 26.1 % (42-52); Hemoglobin 9.1 g/dL (14.0-18.0); Mean Corpuscular Hemoglobin 34.5 pg (25-34); Mean Corpuscular Hgb Conc 34.9 g/dL (32-36); Mean Corpuscular Volume 98.9 fL (80-100); RDW Coefficient of Variation 17.5 % (11.5-14.5); RDW Standard Deviation 61.9 fL (36.4-46.3); Red Blood Count 2.64 M/uL (4.7-6.1); White Blood Count 10.33 K/uL (4.8-10.8)
[2020-03-19 07:04] LABS: Basophils # (auto) 0.01 K/uL (0-0.2); Basophils % (auto) 0.1 %; Eosinophils # (auto) 0.11 K/uL (0-0.5); Eosinophils % (auto) 1.1 %; Immature Granulocytes # (auto) 0.02 K/uL (0.00-0.02); Immature Granulocytes % (auto) 0.2 %; Lymphocytes % (auto) 15.5 %; Mean Platelet Volume 9.9 fL (7.4-10.4); Monocytes # (auto) 1.48 K/uL (0.11-0.59); Monocytes % (auto) 14.3 %; Neutrophils # (auto) 7.11 K/uL (1.4-6.5); Neutrophils % (auto) 68.8 %; Platelet Count 79 K/uL (130-400)
[2020-03-19 07:11] LABS: INR 1.6 (0.9-1.1); Prothrombin Time 16.6 Seconds (9.0-12.0)
[2020-03-19 07:42] LABS: Acanthocytes 1+; Echinocytes 1+
[2020-03-19 08:00] LABS: Albumin Globulin Ratio 0.6 (0.9-2); Albumin Level 2.2 gm/dl (3.4-5.0); BUN Creatinine Ratio 13.3 (10-20); Bilirubin,Total 6.3 mg/dl (0.2-1); C Reactive Protein 1.01 mg/dl (0-0.29); Calcium 8.2 mg/dl (8.5-10.1); Creatinine Clr Calc Pharmacy 50.3 ml/min; Est GFR (African American) 57.7; Est GFR (Non-African American) 49.7; Globulin 3.7 gm/dl (2.5-4.0); Potassium 4.9 mmol/L (3.5-5.1); Thyroid Stimulating Hormone 2.57 uIu/ml (0.300-4.500); Total Protein 5.9 gm/dl (6.4-8.2)
[2020-03-19] MEDS: PANTOprazole 40 MG in SYRINGE 0 ML IV SCH (09:12)
[2020-03-19] MEDS: LACTULOSE SYRUP 30 GM/45 ML UDP PO SCH (09:12)
[2020-03-19] MEDS: INSULIN GLARGINE SOLOSTAR 100 UNITS/ML 3 ML PEN SQ SCH (09:12)
--- NOTE | 2020-03-19 10:02 | Hospitalist Progress Note ---
Date of Service March 19, 2020 Assessment & Plan (1) Hepatic encephalopathy: Patient is a 74 year old male with PMHx chronic hepatic encephalopathy, Alcoholic Liver Cirrhosis, Hypertension, Type 2 diabetes who presented initially with worsening altered mental status and decreased bowel movements despite the use of lactulose. AT THIS TIME PATIENT IS COMFORT CARE ONLY Comfort Care - and daughters present at bedside -Comfort care order set completed by Palliative Care Medicine -Sonali PRN -Ativan PRN -Morphine PRN -Code status changed to DNR/DNI Hepatic Encephalopathy, AMS, Alcohol Cirrhosis, Hyperbilirubinemia, CKD, DM2 -Please see above in regards to comfort care measures only -DC all tests, labs, studies Dispo: Comfort Measures Only FEN: Food and fluid given for comfort only DVT: DC Code: DNR/DNI Comfort only (2) Altered mental status: Admission and Anticipated Discharge Date Admission Date: March 15, 2020 Supervising Physician Co-Signing Physician Notes Resident Physician Supervision Note: I independently interviewed and examined the patient and verified the ernst history and physical, reviewed labs and image studies, discussed the case with the resident Dr. Bustos and agree with the findings and care plan. Subjective Patient evaluated at the bedside this AM. No reasonable subjective or ROS obtainable from patient who is fairly obtunded and minimally responsive to even sternal rub. Grunts and coughs occasionally, but no meaningful movements. Called with who noted that the patient was relatively independent prior to his recent ERCP. Notes that since the ERCP he has been more confused and tired at home. She also notes that he has not had any alcohol in the past 5 years. Review of Systems Review of Systems: Unobtainable due to cognitive status and Unobtainable due to reduced consciousness Physical Exam Constitutional: + ill appearing and + altered mental status Eyes: reactive pupils; sclerae not anicteric Respiratory: Auscultation: lungs clear to auscultation bilaterally and + diminished lung sounds; no crackles, no rales and no rhonchi Cardiovascular: Rate/Rhythm: regular rate and regular rhythm Heart Sounds: normal S1 and + murmur (2/6 ANGELES ) Gastrointestinal (Abdomen): Inspection/Auscultation: abdomen normal to inspection; abdomen not distended Percussion/Palpation: abdomen soft Skin: + jaundice Neurologic: + obtunded Minimal response to sternal rub. Occasional spontaneous cough, but no intentional movement Results & Data Results & [facility]) Vital Signs (Past 12 Hours) Vital Signs Temp Pulse Pulse Resp BP Pulse Ox 03/19/20 07:23 36.3 C L 98 H 18 139/73 91 03/19/20 04:04 37.1 C 98 H 19 163/74 H 93 03/18/20 23:47 36.8 C 88 16 136/70 96 Resident Activity Tracking Resident Involvement: Resident Care Provided Care Provided: Adult Hospital Medicine
[2020-03-19] MEDS: SODIUM CHLOR 0.45% + 20MEQ KCL 20 MEQ/1,000 ML BAG IV SCH (11:42)
[2020-03-19] MEDS ORDERED: LORazepam 0.5 MG/1 ML VIAL IV PRN (12:35)
[2020-03-19] MEDS ORDERED: ATROPINE SULFATE 1% OP SOLN 2 ML BTL SL PRN (12:35)
[2020-03-19] MEDS ORDERED: ONDANSETRON 4 MG OD TAB SL PRN (12:35)
[2020-03-19] MEDS ORDERED: LORazepam 0.5 MG TAB PO PRN (12:35)
[2020-03-19] MEDS ORDERED: ONDANSETRON INJ 2 MG/ML 2 ML VIAL IV PRN (12:35)
[2020-03-19] MEDS ORDERED: LORazepam 1 MG/2 ML VIAL IV PRN (12:41)
[2020-03-19] MEDS ORDERED: MoRPHine SULFATE 2 MG/ML CARP ONE (12:56)
[2020-03-19] MEDS: MoRPHine SULFATE 2 MG/ML CARP IV PRN (13:01)
--- NOTE | 2020-03-19 13:06 | Palliative Care Progress Note ---
Date of Service March 19, 2020 Assessment & Plan (1) Palliative care encounter: Patient has shown decline over the past 24 hours. Patient is mostly unresponsive aside from some grunting and moaning to touch and voice. Patient did respond to a sternal rub, but no meaningful conversation held. I called his , Chichi, and talked at length regarding his decline. She understood and was willing to transition him to DNR/DNI. I did discuss the complications regarding visitation with her. I did receive clearance from Dr. Mitchell and support from the supervisor pyrotechnic loading team that we could have visitation for the patient with his and two 13 year old daughters. When they arrived, we discussed his decline and end of life process. It is likely that he will pass away within hours to a few days. The patients adult son who lives in [place] was on the phone and able to speak with his father, along with a few siblings. The patient was unable to respond to the conversation. He does have a furrowed brow so I do anticipate that he is uncomfortable.I discontinued all non essential medications, vital sign monitoring, blood draws, tube feeding, and nursing removed the NGT. I ordered a bereavement tray for them and comfort medications including Morphine, Robinul, and Ativan if necessary. Literature provided to Chichi with guidance for resources for the girls after their fathers demise, including [facility], some discussion points regarding of a parent for teens and a book called I love you, Savita. Continued support provided to the family. We will follow. PPS: 10% (2) Hepatic encephalopathy: Not responding to Lactulose. Focus on Comfort Measures only (3) Hyperammonemia: (4) Alcoholic cirrhosis: End stage. Focus on comfort measures (5) Cholelithiasis: Admission and Anticipated Discharge Date Admission Date: March 15, 2020 Subjective Patient evaluated at the bedside. The patient has shown decline over the weekend Patient responds to only sternal rub. He has some grunting and coughing Discussed with bedside nursing and hospitalist See A/P for further details. Review of Systems Review of Systems: Unobtainable due to reduced consciousness Physical Exam Constitutional: + ill appearing, + cachectic and + altered mental status Respiratory: + labored breathing, + uses accessory muscles, + cough and + tachypneic; + abnormal respiratory effort Auscultation: + rales Gastrointestinal (Abdomen): Inspection/Auscultation: abdomen normal to inspection; no abdominal edema Skin: + jaundice and + ecchymosis Psychiatric: Orientation: + not alert Results & Data (MN) Vital Signs (Past 12 Hours) Vital Signs Temp Pulse Pulse Pulse Resp BP BP 03/19/20 10:57 36.6 C 104 H 20 165/62 H 03/19/20 08:00 92 H 03/19/20 07:23 36.3 C L 98 H 18 139/73 03/19/20 04:04 37.1 C 98 H 19 163/74 H Pulse Ox 03/19/20 10:57 94 03/19/20 08:00 03/19/20 07:23 91 03/19/20 04:04 93 PG Care Time/CCT Total # of Minutes Spent Total Time Spent with Patient: Total time spent is greater than 50% in coordinat ion of care (as documented) at patient's floor/unit and/or counseling patient: 45 Coding Level of Care Code 31436 Subseq Hosp Care Lvl 3 Diagnoses Palliative care encounter Z51.5 Hepatic encephalopathy K72.90 Hyperammonemia E72.20 Alcoholic cirrhosis K70.30 Ascites presence: unspecified Cholelithiasis K80.20 Time Spent (min) 45 Time Spent Midlevel Total time spent 45 minutes with > 50% of that time spent assessing the patient, discussing goals of care, collaborating with the IDT and offering support to the family. (1) Alcoholic cirrhosis Ascites presence: unspecified Qualified Code(s): K70.30 - Alcoholic cirrhosis of liver without ascites
--- NOTE | 2020-03-19 13:41 | Electroencephalogram ---
EEG Procedure Note Date of Service March 19, 2020 Start / End Times Start Time: 7:03am End Time: 7:23am Referring Physician Dr Reyes History AMS Home Medication List Medication Instructions Recorded Confirmed Type lancets 30 gauge #25 ea 12/01/18 03/13/20 History Tresiba FlexTouch U-100 100 12 units SUBCUT QAM #15 ml NS 08/03/19 03/15/20 Rx unit/mL (3 mL) subcutaneous pen allopurinol 300 mg tablet 300 mg PO QAM #90 tab 08/19/19 03/15/20 Rx cholecalciferol (vitamin D3) 25 2,000 unit PO QAM cap 12/22/19 03/15/20 History mcg (1,000 unit) capsule blood sugar diagnostic #300 ea 02/07/20 03/13/20 Rx propranolol 10 mg tablet 10 mg PO BID #180 tab 02/09/20 03/15/20 Rx spironolactone 25 mg tablet 25 mg PO DAILY PRN #30 tab 02/21/20 03/15/20 Rx colestipol 1 gram tablet 1 g PO BID #60 tab 02/23/20 03/15/20 Rx Zirgan 1 ea OPL 5XD 02/26/20 03/15/20 History Xifaxan 550 mg PO BID 02/27/20 03/15/20 History insulin aspart U-100 [Novolog 1 - 50 unit SUBCUT TIDM 02/27/20 03/15/20 History Flexpen U-100 Insulin] lactulose 45 ml PO QID 02/27/20 03/15/20 History pantoprazole 40 mg PO BID 30 Days #60 tab 03/05/20 03/15/20 Rx BD Ultra-Fine Vero Pen Needle 32 #400 ea NS 03/13/20 Rx gauge x 5/32" Inpatient Medication List Morphine Sulfate (Morphine Sulfate 2 Mg/Ml Carp) 2 mg IV Q1H PRN PRN Reason: Pain Stop: 04/02/20 12:35 Last Admin: 03/19/20 13:01 Dose: 2 mg Documented by: [id number] Discontinued Medications Colestipol HCl (Colestipol Hcl 1 Gm Tab) 1 gm PO BID@1000,2200 RJAI Stop: 04/14/20 21:59 Last Admin: 03/15/20 19:58 Dose: Not Given Documented by: [id number] Lactulose 200 gm/ Sterile Water 700 ml/ BARCODE IDENTIFIER 1 ea 0 gm DE ONE STA Stop: 03/15/20 15:14 Last Admin: 03/15/20 18:38 Dose: 200 gm Documented by: [id number] Lactulose 200 gm/ Sterile Water 700 ml/ BARCODE IDENTIFIER 1 ea 0 gm DE Q8H RAJI Stop: 04/14/20 22:59 Last Admin: 03/16/20 15:43 Dose: Not Given Documented by: [id number] Admin: 03/16/20 06:16 Dose: 200 gm Documented by: [id number] Admin: 03/15/20 23:32 Dose: 200 gm Documented by: [id number] Enteral Nutritional Formula (Peptamen 1.5 Sebastian 1,000 Ml Bag) 1,000 ml NG UD RAJI; Protocol Stop: 04/16/20 09:59 Last Admin: 03/17/20 11:04 Dose: 1,000 ml Documented by: [id number] Sodium Chloride (Nss 1000ml) 1,000 mls @ 999 mls/hr IV .Q1H1M RAJI Stop: 03/15/20 11:45 Last Infusion: 03/15/20 14:38 Dose: 0 mls/hr Documented by: [id number] Admin: 03/15/20 13:34 Dose: 999 mls/hr Documented by: [id number] Magnesium Sulfate/Dextrose (Magnesium Sulfate / D5w) 1 gm in 100 mls @ 50 mls/hr IV Q2H RAJI Stop: 03/16/20 08:21 Last Infusion: 03/16/20 08:32 Dose: 0 mls/hr Documented by: [id number] Admin: 03/16/20 06:16 Dose: 50 mls/hr Documented by: [id number] Infusion: 03/16/20 06:16 Dose: 50 mls/hr Documented by: [id number] Admin: 03/16/20 04:47 Dose: 50 mls/hr Documented by: [id number] Infusion: 03/16/20 04:45 Dose: 50 mls/hr Documented by: [id number] Admin: 03/16/20 02:45 Dose: 50 mls/hr Documented by: [id number] Potassium Chloride/Dextrose/Sod Cl (D5w And 1/2nss + 20meq Kcl) 20 meq in 1,000 mls @ 80 mls/hr IV .[id number] RAJI Stop: 04/15/20 12:59 Last Infusion: 03/17/20 22:14 Dose: 0 mls/hr Documented by: [id number] Infusion: 03/17/20 22:13 Dose: 0 mls/hr Documented by: [id number] Admin: 03/17/20 14:03 Dose: 80 mls/hr Documented by: [id number] Infusion: 03/17/20 14:03 Dose: 80 mls/hr Documented by: [id number] Admin: 03/17/20 01:40 Dose: 80 mls/hr Documented by: [id number] Infusion: 03/17/20 01:40 Dose: 80 mls/hr Documented by: [id number] Admin: 03/16/20 13:29 Dose: 80 mls/hr Documented by: [id number] Magnesium Sulfate/Dextrose (Magnesium Sulfate / D5w) 1 gm in 100 mls @ 50 mls/hr IV Q2H RAJI Stop: 03/16/20 22:14 Last Infusion: 03/16/20 22:36 Dose: 0 mls/hr Documented by: [id number] Admin: 03/16/20 20:27 Dose: 50 mls/hr Documented by: [id number] Infusion: 03/16/20 20:27 Dose: 50 mls/hr Documented by: [id number] Admin: 03/16/20 18:46 Dose: 50 mls/hr Documented by: [id number] Pantoprazole Sodium 40 mg/ (Syringe) 10 mls @ 5 mls/min IV BID RAJI Stop: 04/15/20 20:44 Last Admin: 03/19/20 09:12 Dose: 5 mls/min Documented by: [id number] Admin: 03/18/20 21:09 Dose: 5 mls/min Documented by: [id number] Admin: 03/18/20 09:00 Dose: 5 mls/min Documented by: [id number] Admin: 03/17/20 22:20 Dose: 5 mls/min Documented by: [id number] Admin: 03/17/20 07:40 Dose: 5 mls/min Documented by: [id number] Admin: 03/16/20 21:27 Dose: 5 mls/min Documented by: [id number] Potassium Chloride/Sodium Chloride (1/2 Nss + 20meq Kcl 1000ml) 20 meq in 1,000 mls @ 80 mls/hr IV .[id number] RAJI Stop: 04/16/20 18:44 Last Infusion: 03/19/20 13:08 Dose: 0 mls/hr Documented by: [id number] Admin: 03/19/20 11:42 Dose: 80 mls/hr Documented by: [id number] Infusion: 03/19/20 11:42 Dose: 80 mls/hr Documented by: [id number] Admin: 03/18/20 23:41 Dose: 80 mls/hr Documented by: [id number] Infusion: 03/18/20 22:37 Dose: 80 mls/hr Documented by: [id number] Admin: 03/18/20 10:07 Dose: 80 mls/hr Documented by: [id number] Infusion: 03/18/20 10:07 Dose: 80 mls/hr Documented by: [id number] Admin: 03/17/20 22:19 Dose: 80 mls/hr Documented by: [id number] Influenza Virus Vaccine Quadrival (Influenza Virus Quad Vaccine 0.5 Ml Syr) 0.5 ml IM .ONCE ONE Stop: 03/15/20 18:16 Last Admin: 03/16/20 21:28 Dose: Not Given Documented by: [id number] Insulin Aspart (Insulin Aspart 100 Units/Ml 3 Ml Pen) 0 units SC ACHS RAJI Stop: 04/14/20 17:59 Last Admin: 03/16/20 20:34 Dose: 2 units Documented by: [id number] Cosigned by: [id number] Admin: 03/16/20 16:41 Dose: Not Given Documented by: [id number] Cosigned by: [id number] Admin: 03/16/20 11:56 Dose: Not Given Documented by: [id number] Cosigned by: [id number] Admin: 03/16/20 08:16 Dose: Not Given Documented by: [id number] Cosigned by: [id number] Admin: 03/15/20 20:04 Dose: Not Given Documented by: [id number] Cosigned by: [id number] Admin: 03/15/20 18:20 Dose: Not Given Documented by: [id number] Cosigned by: [id number] Insulin Aspart (Insulin Aspart 100 Units/Ml 3 Ml Pen) 0 units SC Q6 RAJI Stop: 04/16/20 00:00 Last Admin: 03/19/20 06:04 Dose: 1 units Documented by: [id number] Cosigned by: [id number] Admin: 03/19/20 00:25 Dose: 6 units Documented by: [id number] Cosigned by: [id number] Admin: 03/18/20 18:39 Dose: 4 units Documented by: [id number] Cosigned by: [id number] Admin: 03/18/20 12:09 Dose: 2 units Documented by: [id number] Cosigned by: [id number] Admin: 03/18/20 06:18 Dose: 2 units Documented by: [id number] Cosigned by: [id number] Admin: 03/18/20 01:00 Dose: 4 units Documented by: [id number] Cosigned by: [id number] Admin: 03/17/20 18:42 Dose: 13 units Documented by: [id number] Cosigned by: [id number] Admin: 03/17/20 11:51 Dose: 2 units Documented by: [id number] Cosigned by: [id number] Admin: 03/17/20 05:58 Dose: 2 units Documented by: [id number] Cosigned by: [id number] Admin: 03/17/20 00:02 Dose: 3 units Documented by: [id number] Cosigned by: [id number] Insulin Glargine (Insulin Glargine Solostar 100 Units/Ml 3 Ml Pen) 12 units SQ QAM RAJI Stop: 04/15/20 08:59 Last Admin: 03/17/20 07:55 Dose: 12 units Documented by: [id number] Cosigned by: [id number] Admin: 03/16/20 08:18 Dose: 12 units Documented by: [id number] Cosigned by: [id number] Insulin Glargine (Insulin Glargine Solostar 100 Units/Ml 3 Ml Pen) 10 units SQ BID RAJI Stop: 04/16/20 20:59 Last Admin: 03/18/20 09:00 Dose: 10 units Documented by: [id number] Cosigned by: [id number] Admin: 03/17/20 22:20 Dose: 10 units Documented by: [id number] Cosigned by: [id number] Insulin Glargine (Insulin Glargine Solostar 100 Units/Ml 3 Ml Pen) 10 units SQ BID RAJI Stop: 04/17/20 20:59 Last Admin: 03/19/20 09:12 Dose: 10 units Documented by: [id number] Cosigned by: [id number] Admin: 03/18/20 21:10 Dose: 10 units Documented by: [id number] Cosigned by: [id number] Lactulose (Lactulose Syrup 30 Gm/45 Ml Udp) 30 gm PO QID RAJI Stop: 04/14/20 18:29 Last Admin: 03/17/20 16:12 Dose: 30 gm Documented by: [id number] Admin: 03/17/20 12:44 Dose: 30 gm Documented by: [id number] Admin: 03/17/20 07:44 Dose: 30 gm Documented by: [id number] Admin: 03/16/20 21:27 Dose: 30 gm Documented by: [id number] Admin: 03/16/20 15:42 Dose: 30 gm Documented by: [id number] Admin: 03/16/20 12:06 Dose: Not Given Documented by: [id number] Admin: 03/16/20 08:17 Dose: Not Given Documented by: [id number] Admin: 03/15/20 19:57 Dose: Not Given Documented by: [id number] Admin: 03/15/20 18:21 Dose: Not Given Documented by: [id number] Lactulose (Lactulose Syrup 30 Gm/45 Ml Udp) 30 gm PO TID RAJI Stop: 04/16/20 20:59 Last Admin: 03/17/20 22:19 Dose: 30 gm Documented by: [id number] Lactulose (Lactulose Syrup 30 Gm/45 Ml Udp) 30 gm PO QID RAJI Stop: 04/17/20 08:59 Last Admin: 03/19/20 09:12 Dose: 30 gm Documented by: [id number] Admin: 03/18/20 21:09 Dose: 30 gm Documented by: [id number] Admin: 03/18/20 17:08 Dose: 30 gm Documented by: [id number] Admin: 03/18/20 12:08 Dose: 30 gm Documented by: [id number] Admin: 03/18/20 09:00 Dose: 30 gm Documented by: [id number] Miscellaneous (Ganciclovir [Zirgan] 0.15 % Gel- Order Awaiting Action) 1 ea N/A QS RAJI Stop: 04/14/20 18:29 Last Admin: 03/19/20 09:12 Dose: Not Given Documented by: [id number] Admin: 03/19/20 00:59 Dose: Not Given Documented by: [id number] Admin: 03/18/20 17:08 Dose: Not Given Documented by: [id number] Admin: 03/18/20 11:42 Dose: Not Given Documented by: [id number] Admin: 03/18/20 00:26 Dose: Not Given Documented by: [id number] Admin: 03/17/20 15:29 Dose: Not Given Documented by: [id number] Admin: 03/17/20 07:29 Dose: Not Given Documented by: [id number] Admin: 03/17/20 00:04 Dose: Not Given Documented by: [id number] Admin: 03/16/20 15:43 Dose: Not Given Documented by: [id number] Admin: 03/16/20 08:17 Dose: Not Given Documented by: [id number] Admin: 03/15/20 23:33 Dose: Not Given Documented by: [id number] Admin: 03/15/20 18:21 Dose: 1 ea Documented by: [id number] Morphine Sulfate (Morphine Sulfate 2 Mg/Ml Carp) Confirm Administered Dose 2 mg .ROUTE .[facility] Stop: 03/19/20 12:57 Last Admin: 03/19/20 13:28 Dose: Not Given Documented by: [id number] Pantoprazole Sodium (Pantoprazole 40 Mg Tab) 40 mg PO BID [facility] Stop: 04/14/20 20:59 Last Admin: 03/16/20 08:17 Dose: Not Given Documented by: [id number] Admin: 03/15/20 19:57 Dose: Not Given Documented by: [id number] Propranolol HCl (Propranolol Hcl 10 Mg Tab) 10 mg PO BID RAJI Stop: 04/14/20 20:59 Last Admin: 03/15/20 19:57 Dose: Not Given Documented by: [id number] Rifaximin (Rifaximin 550 Mg Tablet) 550 mg PO BID [facility] Stop: 04/14/20 20:59 Last Admin: 03/15/20 19:58 Dose: Not Given Documented by: [id number] Description This is a 21 electrode EEG with a single channel dedicated to limited EKG. The electrodes were placed in accordance with the International 10-20 system. History: unresponsive, liver disease with hyperammonemic encephalopathy Rx: morphine prn Start/Stop: 7:03am/7:23am Attending reading: Camila Robles EEG Description: EEG background: Background was 1-5 Hz delta/theta slowing (mainly 1-3 Hz delta slowing). No well formed posterior dominant rhythm was observed. The EEG is continuous. There is variability and reactivity present. Activation and reactivity: Photic stimulation performed without any abnormalities noted. No photic driving observed. Hyperventilation was not performed. Sleep: No sleep architecture noted. Epileptiform discharges: No epileptiform discharges were observed. Rhythmic and periodic patterns: Two to eight second runs of 0.5-1 Hz generalized periodic discharges with triphasic morphology were noted. Seizures: None Impression: This was an abnormal EEG given diffuse generalized slowing consistent with an underlying encephalopathy or global cerebral dysfunction (most likely from his known hyperammonemia). No seizures or epileptiform discharges were seen. Neurology consult recommended if goal is for continued care. [facility] EEG Procedure Codes Indication for Procedure (1) Altered mental status: (2) Hepatic encephalopathy: Neurology Neurology: 36185 EEG include record awake & drowsy
[2020-03-19] MEDS: GLYCOPYRROLATE 0.2 MG/ML VIAL IV PRN (13:59)
--- NOTE | 2020-03-20 07:10 | Hospitalist Progress Note ---
Date of Service March 20, 2020 Assessment & Plan (1) Hepatic encephalopathy: Patient is a 74 year old male with PMHx chronic hepatic encephalopathy, Alcoholic Liver Cirrhosis, Hypertension, Type 2 diabetes who presented initially with worsening altered mental status and decreased bowel movements despite the use of lactulose. AT THIS TIME PATIENT IS COMFORT CARE ONLY Comfort Care - present at bedside -Comfort care order set completed by Palliative Care Medicine -Sonali PRN -Ativan PRN -Morphine PRN -Code status changed to DNR/DNI -Patient with waxing and waning mental status. -Discussed with in regards to patients poor prognosis. -Should patient remain roughly the same tomorrow, patient's possibly interested in taking him home no hospice care, but would like further discussions daily and not interested in making a full decision at this time. -Low threshold for morphine gtt at low dose should patient become more somnolent again and appear uncomfortable secondary to secretions/air hunger. Hepatic Encephalopathy, AMS, Alcohol Cirrhosis, Hyperbilirubinemia, CKD, DM2 -Please see above in regards to comfort care measures only -DC all tests, labs, studies Dispo: Comfort Measures Only FEN: Food and fluid given for comfort only DVT: DC Code: DNR/DNI Comfort only (2) Altered mental status: Admission and Anticipated Discharge Date Admission Date: March 15, 2020 Supervising Physician Co-Signing Physician Notes Resident Physician Supervision Note: I independently interviewed and examined the patient and verified the ernst history and physical, reviewed labs and image studies, discussed the case with the resident Dr. Bustos and agree with the findings and care plan. Subjective Patient evaluated at the bedside this morning with Chichi present. Patient mildly responsive when called to was able to acknowledge this physician occasionally. noting that he appears more awake than he had been. Discussed with her in regards to patients encephalopathic status that waxes and wanes are expected. Review of Systems Review of Systems: Unobtainable due to reduced consciousness Physical Exam Constitutional: + ill appearing Respiratory: + cough; no respiratory distress Auscultation: lungs clear to auscultation bilaterally and + diminished lung sounds Upper airway sounds Cardiovascular: Rate/Rhythm: regular rate and regular rhythm Gastrointestinal (Abdomen): Percussion/Palpation: abdomen soft Resident Activity Tracking Resident Involvement: Resident Care Provided Care Provided: Adult [facility] Medicine
[2020-03-20] MEDS: INSULIN ASPART 100 UNITS/ML 3 ML PEN SC SCH (07:27)
[2020-03-20] MEDS: GLYCOPYRROLATE 0.2 MG/ML VIAL IV PRN (09:46)
[2020-03-20] MEDS: MoRPHine SULFATE 2 MG/ML CARP IV PRN (15:03)
--- NOTE | 2020-03-20 16:20 | Palliative Care Progress Note ---
Date of Service March 20, 2020 Assessment & Plan (1) Palliative care encounter: Spoke with at bedside. She is very grateful for the opportunity to talk with him earlier today. Both daughters were able to talk to him. We discussed what to expect over the next hours to days and signs of impending . He is likely to within hours to a day or two. His son is en route from [place] and will arrive late tonight. (2) Hepatic encephalopathy: (3) Herpes zoster: Post herpetic neuralgia. Continue morphine as needed for pain or dyspnea. (4) Increased tracheal secretions: Discussed with at bedside. Continue robinul. Admission and Anticipated Discharge Date Admission Date: March 15, 2020 Subjective Has been more responsive today and interacting with family. He is grimacing during visit. When asked if he has pain, he responds "pain, yes". He is rubbing his forehead. He has had zoster recently. Review of Systems Review of Systems: Unobtainable due to cognitive status [place] symptom Assessment Scale Pain 2/3 Pain AD Dyspnea 0/3 RDOS PPS 20% Physical Exam Constitutional: + lethargic Eyes: scleral icterus Respiratory: no labored breathing Cardiovascular: Extremities: + edema (extensive upper extremities, less so lower extremities, no mottling) Skin: jaundice PG Care Time/CCT Total # of Minutes Spent Total Time Spent with Patient: Total time spent is greater than 50% in coordination of care (as documented) at patient's floor/unit and/or counseling patient:25 minutes with 20 minutes spent on discussing prognosis, what to expect and symptom managment. Coding Level of Care Code 64984 Subseq Hosp Care Lvl 2 Diagnoses Palliative care encounter Z51.5 Hepatic encephalopathy K72.90 Herpes zoster B02.9 Increased tracheal secretions J39.8 Time Spent (min) 25
[2020-03-21] MEDS ORDERED: STAT IV Infusion **Titration per Protocol STA (08:44)
[2020-03-21] MEDS ORDERED: MoRPHine SULF/NSS 250 MG/250 ML BTL IV SCH (09:00)
--- NOTE | 2020-03-21 09:41 | Palliative Care Progress Note ---
Date of Service March 21, 2020 Assessment & Plan (1) Palliative care encounter: Patient less interactive than yesterday. Today, he is tachypnic and diaphoretic. I did speak with Chichi on the phone. The patients son was in last evening to visit and is on his way in now. As previously stated, I had a low threshold to start a Morphine drip to provide comfort as breathing changed. This was discussed with the patients resident, who placed an order for a Morphine drip this morning. Nursing to follow protocol for titration up to a max of 10 mg/hour. Assess for furrowed brow, grimacing, breathing changes. I set the expectation to Chichi that he has hours to a day or so left of life. She plans to bring the girls in in a few hours. Son updated at bedside who is understanding and receptive. Palliative will continue to follow and provide support (2) Hepatic encephalopathy: Not responding to Lactulose. Focus on Comfort Measures only (3) Herpes zoster: Post herpetic neuralgia. Morphine gtt started at 1mg/hour (4) Increased tracheal secretions: Discussed with at bedside. Continue july. Admission and Anticipated Discharge Date Admission Date: March 15, 2020 Review of Systems Review of Systems: Unobtainable due to reduced consciousness PPS 10% Physical Exam Constitutional: + ill appearing, + cachectic and + altered mental status Respiratory: + labored breathing, + uses accessory muscles, + cough and + tachypneic; + abnormal respiratory effort Auscultation: + rales Gastrointestinal (Abdomen): Inspection/Auscultation: abdomen normal to inspec tion; no abdominal edema Skin: + jaundice and + ecchymosis diaphoretic Psychiatric: Orientation: + not alert PG Care Time/CCT Total # of Minutes Spent Total Time Spent with Patient: Total time spent is greater than 50% in coordination of care (as documented) at patient's floor/unit and/or counseling patient: 35 Coding Level of Care Code 30968 Subseq Hosp Care Lvl 3 Diagnoses Palliative care encounter Z51.5 Hepatic encephalopathy K72.90 Herpes zoster B02.9 Increased tracheal secretions J39.8 Time Spent (min) 35 Time Spent Midlevel Total time spent 35 minutes with > 50% of that time spent assessing the patient, updating the patients on the phone, son at bedside and collaborating with IDT
--- NOTE | 2020-03-21 10:14 | Hospitalist Progress Note ---
Date of Service March 21, 2020 Assessment & Plan (1) Hepatic encephalopathy: Patient is a 74 year old male with PMHx chronic hepatic encephalopathy, Alcoholic Liver Cirrhosis, Hypertension, Type 2 diabetes who presented initially with worsening altered mental status and decreased bowel movements despite the use of lactulose. AT THIS TIME PATIENT IS COMFORT CARE ONLY Comfort Care -Comfort care order set completed by Palliative Care Medicine -Sonali PRN -Ativan PRN -Morphine PRN -Code status changed to DNR/DNI -Much less responsive today with brow furrowing and labored breathing. -Will start morphine gtt for comfort, titrate PRN Hepatic Encephalopathy, AMS, Alcohol Cirrhosis, Hyperbilirubinemia, CKD, DM2 -Please see above in regards to comfort care measures only -DC all tests, labs, studies Dispo: Comfort Measures Only FEN: Food and fluid given for comfort only DVT: DC Code: DNR/DNI Comfort only (2) Altered mental status: Admission and Anticipated Discharge Date Admission Date: March 15, 2020 Supervising Physician Co-Signing Physician Notes Resident Physician Supervision Note: I independently interviewed and examined the patient and verified the ernst history and physical, reviewed labs and image studies, discussed the case with the resident Dr. Bustos and agree with the findings and care plan. Subjective Patient evaluated at the bedside. Much less responsive this AM than day prior. Appears somewhat gasping for air at times with furrowed brow. Review of Systems Review of Systems: Unobtainable due to cognitive status and Unobtainable due to reduced consciousness Physical Exam Respiratory: + labored breathing Auscultation: lungs clear to auscultation bilaterally Cardiovascular: Rate/Rhythm: regular rate and regular rhythm Resident Activity Tracking Resident Involvement: Resident Care Provided Care Provided: Adult Hospital Medicine
[2020-03-21] MEDS: GLYCOPYRROLATE 0.2 MG/ML VIAL IV PRN (12:35)
--- NOTE | 2020-03-21 21:44 | Communication Note ---
Date of Service: March 21, 2020 Paged by RN about pt passing. Assessed pt and noted: No spontaneous breathing, no HR, no pulse via palpation, no response to painful stimuli, pupils fixed and dilated. Notified family. certificate filled out and handed to charge nurse. Resident Activity Tracking Resident Involvement: Resident Care Provided Care Provided: Adult Hospital Medicine
--- NOTE | 2020-03-25 13:36 | Death Pronouncement Note ---
Date of Service March 25, 2020 Pronouncement Note Admission Date Admission Date: March 15, 2020 Date and Time of Date of : 03/21/20 Time of : 21:44 Contributing Factors (1) Hepatic encephalopathy: (2) Altered mental status: (3) Hyperammonemia: (4) Alcoholic cirrhosis of liver: Hospital Course Hospital Course: Patient was a 74 year old male with PMHx chronic hepatic encephalopathy, Alcoholic Liver Cirrhosis, Hypertension, Type 2 diabetes who presented initially with worsening altered mental status and decreased bowel movements despite the use of lactulose. Patient was converted to comfort care only status on 03/19/20 after worsening decline and metabolic encephalopathy. Comfort Care - and daughters were present at bedside -Comfort care order set completed by Palliative Care Medicine -Sonali PRN -Ativan PRN -Morphine PRN -Code status changed to DNR/DNI Hepatic Encephalopathy, AMS, Alcohol Cirrhosis, Hyperbilirubinemia, CKD, DM2 -Please see above in regards to comfort care measures only -DC all tests, labs, studies -On patients admission prior to comfort care status was treated with Lactulose, Xifaxan, and propranolol, though patients mental status had minimal improvements even with increased bowel movements. Summary Additional details: Per the night resident who was talent development consultant at patient's time of passing, "Paged by RN about pt passing. Assessed pt and noted: No spontaneous breathing, no HR, no pulse via palpation, no response to painful stimuli, pupils fixed and dilated. Notified family. certificate filled out and handed to charge nurse." Patient was on comfort care measures only and was DNR/DNI. Additional Data Confirmation of : no pulse, no respirations, no heart sounds and pupils fixed and dilated Family: at bedside Attending/PCP notified?: Yes Attending physician: Fatemeh Reyes MD Was code activated?: No Autopsy requested?: No rate examiner notified?: No Organ bank notified?: No Advance directives: No Supervising Physician Co-Signing Physician Notes Resident Physician Supervision Note: I independently interviewed and examined the patient and verified the ernst history and physical, reviewed labs and image studies, discussed the case with the resident Dr. Bustos and agree with the findings and care plan. Resident Activity Tracking Resident Involvement: Resident Care Provided Care Provided: [facility] Medicine
--- NOTE | 2020-04-01 21:31 | Discharge Summary ---
Date of Service March 21, 2020 Admission HPI Per Admitting Provider This is a [age]YO male with PMHx of chronic hepatic encephalopathy, alcoholic liver cirrhosis, HTN, DM type II, CKD stage III, anemia, hypothyroidism, presents with acute onset of weakness. The patient was recently admitted from 02/28/20-03/05/20 after undergoing ERCP as an outpatient and developed worsening hepatic encephalopathy suspected to be due to anesthesia and missing lactulose dosing at home. Patient then underwent an MRCP during his hospital stay and was followed closely by the GI service. At that point in time he had progressive weakness and it was recommended by PT/OT that he was [facility] in a [facility] facility, however the felt she was able to take care of him at home, therefore went home with home health services. Discussion held with the patients since he is unable to provide any ROS. She reports that he started getting worse in the past 2 days, and has been taking lactulose as prescribed and has been able to swallow. He has only pooped twice yesterday and the day prior to that. He was drinking his lactulose up until this morning. Denies any fever. Pt was getting dressed by this morning, and was having difficulty expressing words, but when told he should go the ER, was agreeable to this. Pt is recognizes when being spoken to, but not able to respond verbally. His brought him to the ER. He was due for next dose of lactulose at noon. Principal Diagnosis Hepatic failure secondary to alcholic cirrhosis Discharge Data Allergies Allergy/AdvReac Type Severity Reaction Status Date / Time No Known Allergies Allergy Unknown Verified 03/15/20 11:32 Consultations 03/15/20 13:20 ED Decision to Admit Stat 03/15/20 17:35 Consult Case Management - Discharge Planning Routine Consult Gastroenterology Routine 03/16/20 10:44 Consult Palliative Care Routine 03/18/20 19:17 Consult Gastroenterology Routine 03/19/20 12:35 Consult Case Management - Discharge Planning Routine Consult Palliative Care Routine Ordered Studies 03/15/20 10:42 CT head/brain wo con Stat 03/15/20 14:56 US liver Urgent Hospital Course (1) Hepatic encephalopathy: (2) Altered mental status: (3) Hyperammonemia: (4) Alcoholic cirrhosis of liver: Hospital Course: Patient was a 74 year old male with PMHx chronic hepatic encephalopathy, Alcoholic Liver Cirrhosis, Hypertension, Type 2 diabetes who presented initially with worsening altered mental status and decreased bowel movements despite the use of lactulose. Considering poor prognosis - Patient was converted to comfort care only status on 03/19/20 after worsening decline and metabolic encephalopathy. Date of : 03/21/20 Comfort Care - and daughters were present at bedside -Comfort care order set completed by Palliative Care Medicine -Sonali PRN -Ativan PRN -Morphine PRN -Code status changed to DNR/DNI Hepatic Encephalopathy, AMS, Alcohol Cirrhosis, Hyperbilirubinemia, CKD, DM2 -On patients admission prior to comfort care status was treated with Lactulose, Xifaxan, and propranolol, though patients mental status had minimal improvements even with increased bowel movements. -Please see above in regards to comfort care measures only Total Time Total Time Spent Total Time Spent (In Minutes): 30 Discharge Plan Discharge Items Patient Disposition: Supervising Physician Co-Signing Physician Notes Resident Physician Supervision Note: I independently interviewed and examined the patient and verified the ernst history and physical, reviewed labs and image studies, discussed the case with the resident Dr. Bustos and agree with the findings and care plan.
== END 2020-03-21 22:51 | disposition expired | DRG 432 ==
LOC: ED 10:17 → SUATTDRO 15:00 → 1E 15:00 → 2S 03-16 13:32 → 3W 03-19 13:57